=== PATIENT | male | born 1945 | race Caucasian/White ===

== ENCOUNTER → 2020-04-24 10:18 | Outpatient (BNVA) | payer MEDICARE, OTHER, SELFPAY | PROVIDERS: PCP Internal Medicine; Visit Provider Urology | DX: R39.15 Urgency of urination (principal); R35.1 Nocturia | CPT/HCPCS: 51798; 81003; 99214 ==

== ENCOUNTER → 2020-05-05 13:23 | Outpatient (BNVA) | payer MEDICARE, OTHER, SELFPAY | PROVIDERS: PCP Internal Medicine; Visit Provider Physician Assistant | DX: Z01.818 Encounter for other preprocedural examination (principal); M17.12 Unilateral primary osteoarthritis, left knee | CPT/HCPCS: 99214 ==

== ENCOUNTER 2020-05-09 06:05 | Day surgery (SDC) | payer MEDICARE, OTHER, SELFPAY ==
[2020-04-28 13:08] VITALS: BP 141/73; PULSE 96; RESP 16; O2SAT 96; BMI 27.4
--- NOTE | 2020-04-28 13:18 | P.CONAN_ITS ---
FORMERLY [facility] Past Medical History Medical History BPH (benign prostatic hyperplasia) History of double vision History of DVT (deep vein thrombosis) Hx of ulcerative colitis Hyperlipidemia Hypertension Hypothyroidism PND (post-nasal drip) Polycythemia vera Family History Family History Father No problems noted. Mother No problems noted. Surgical History Surgical History (Updated 04/27/20 @ 14:35 by Jenna Alford) H/O total hip arthroplasty History of cholecystectomy History of left hip replacement History of squamous cell carcinoma excision Social History Social History Smoking Status: Never smoker Meds Allergies Allergy/AdvReac Type Severity Reaction Status Date / Time No Known Allergies Allergy Verified 04/27/20 14:21 Home Medications Medication Instructions Recorded Confirmed Type amlodipine 10 mg tablet 10 mg PO DAILY 04/24/20 04/27/20 History citalopram 20 mg tablet 20 mg PO DAILY 04/24/20 04/27/20 History hydrochlorothiazide 25 mg tablet 25 mg PO QAM 04/24/20 04/27/20 History lisinopril 10 mg tablet 10 mg PO DAILY 04/24/20 04/27/20 History rivaroxaban 10 mg tablet 10 mg PO DAILY 04/24/20 04/27/20 History tamsulosin 0.4 mg capsule 0.8 mg PO DAILY 04/24/20 04/27/20 History Exam Exam Date and Time: April 28, 2020 1318 Airway Mallampati Class: II TM Dist: >3cm Neck ROM: Full Heart: RRR Lungs: CTA BL
[2020-04-28 13:24] VITALS: PULSE 56
--- NOTE | 2020-04-28 13:33 | P.CONAN_ITS ---
[facility] Past Medical History Medical History BPH (benign prostatic hyperplasia) History of double vision History of DVT (deep vein thrombosis) Hx of ulcerative colitis Hyperlipidemia Hypertension Hypothyroidism PND (post-nasal drip) Polycythemia vera Family History Family History Father No problems noted. Mother No problems noted. Surgical History Surgical History (Updated 04/27/20 @ 14:35 by Jenna Alford) H/O total hip arthroplasty History of cholecystectomy History of left hip replacement History of squamous cell carcinoma excision Social History Social History Smoking Status: Never smoker Meds Allergies Allergy/AdvReac Type Severity Reaction Status Date / Time No Known Allergies Allergy Verified 04/27/20 14:21 Home Medications Medication Instructions Recorded Confirmed Type amlodipine 10 mg tablet 10 mg PO DAILY 04/24/20 04/27/20 History citalopram 20 mg tablet 20 mg PO DAILY 04/24/20 04/27/20 History hydrochlorothiazide 25 mg tablet 25 mg PO QAM 04/24/20 04/27/20 History lisinopril 10 mg tablet 10 mg PO DAILY 04/24/20 04/27/20 History rivaroxaban 10 mg tablet 10 mg PO DAILY 04/24/20 04/27/20 History tamsulosin 0.4 mg capsule 0.8 mg PO DAILY 04/24/20 04/27/20 History Exam Exam Date and Time: April 28, 2020 1333 Height,Weight and Vital Signs: Height 6 ft 1 in Weight 94.347 kg Last Vital Signs Pulse 56 04/28/20 13:24 Resp 16 04/28/20 13:08 BP 141/73 H 04/28/20 13:08 Pulse Ox 96 04/28/20 13:08
--- NOTE | 2020-04-28 13:34 | P.CONAN_ITS ---
[facility] Past Medical History Medical History (Updated 04/28/20 @ 13:42 by Nica Kaplan) BPH (benign prostatic hyperplasia) History of double vision History of DVT (deep vein thrombosis) Hx of ulcerative colitis Hyperlipidemia Hypertension Hypothyroidism PND (post-nasal drip) Polycythemia vera Family History Family History Father No problems noted. Mother No problems noted. Surgical History Surgical History (Updated 04/27/20 @ 14:35 by Jenna Alford) H/O total hip arthroplasty History of cholecystectomy History of left hip replacement History of squamous cell carcinoma excision Social History Social History Smoking Status: Never smoker Meds Allergies Allergy/AdvReac Type Severity Reaction Status Date / Time No Known Allergies Allergy Verified 04/27/20 14:21 Home Medications Medication Instructions Recorded Confirmed Type amlodipine 10 mg tablet 10 mg PO DAILY 04/24/20 04/27/20 History citalopram 20 mg tablet 20 mg PO DAILY 04/24/20 04/27/20 History hydrochlorothiazide 25 mg tablet 25 mg PO QAM 04/24/20 04/27/20 History lisinopril 10 mg tablet 10 mg PO DAILY 04/24/20 04/27/20 History rivaroxaban 10 mg tablet 10 mg PO DAILY 04/24/20 04/27/20 History tamsulosin 0.4 mg capsule 0.8 mg PO DAILY 04/24/20 04/27/20 History Exam Exam Date and Time: April 28, 2020 1334 Height,Weight and Vital Signs: Height 6 ft 1 in Weight 94.347 kg Last Vital Signs Pulse 56 04/28/20 13:24 Resp 16 04/28/20 13:08 BP 141/73 H 04/28/20 13:08 Pulse Ox 96 04/28/20 13:08
--- NOTE | 2020-04-28 13:47 | HO.ANESPROP2 ---
[facility] Past Medical History Medical History BPH (benign prostatic hyperplasia) History of double vision History of DVT (deep vein thrombosis) Hx of ulcerative colitis Hyperlipidemia Hypertension Hypothyroidism PND (post-nasal drip) Polycythemia vera Family History Family History Father No problems noted. Mother No problems noted. Surgical History Surgical History (Updated 04/27/20 @ 14:35 by Jenna Alford) H/O total hip arthroplasty History of cholecystectomy History of left hip replacement History of squamous cell carcinoma excision Social History Social History (Reviewed 05/05/20 @ 13:35 by Sydnee Saleem [facility]) Are you a primary assisted living care manager to a significant other at home: No Do you presently have visiting nurse or other home services: No Smoking Status: Never smoker Use of substances other than those prescribed or required for medical reasons: Yes Have you been hit, kicked, punched, or otherwise hurt by someone within the past year? If so, by whom?: No Advance Directives: No Advance Directives Information Provided: No Advance Directives on File: No Recently lost weight without trying: No Meds Allergies Allergy/AdvReac Type Severity Reaction Status Date / Time No Known Allergies Allergy Verified 05/05/20 13:33 Home Medications Medication Instructions Recorded Confirmed Type hydrochlorothiazide 25 mg tablet 25 mg PO QAM 04/24/20 05/09/20 History lisinopril 10 mg tablet 10 mg PO DAILY 04/24/20 05/09/20 History rivaroxaban 10 mg tablet 10 mg PO DAILY 04/24/20 05/09/20 History tamsulosin 0.4 mg capsule 0.8 mg PO DAILY 04/24/20 05/09/20 History ascorbic acid (vitamin C) [Vitamin 1,000 mg PO BID 04/28/20 05/09/20 History C] cholecalciferol (vitamin D3) 25 mcg PO DAILY 04/28/20 05/09/20 History [Vitamin D3] magnesium citrate 250 mg PO DAILY 04/28/20 05/09/20 History omega-3 fatty acids [Fish Oil] 500 mg PO DAILY 04/28/20 05/09/20 History turmeric root extract 500 mg PO BID 04/28/20 05/09/20 History Exam Airway Mallampati Class: II TM Dist: >3cm Neck ROM: Full Loose/Missing/Broken Teeth: No Heart: rrr Lungs: nl Other: ao3 Assessment and Plan Assessment Anesthesia Assessment: Anesthesia Plan Discussed, PAT Visit and Chart Reviewed Final Anesthetic Review NPO: Yes ASA Class: III Final Preanesthetic Review: No Changes in Pt Med Stat, Meds/Allgs Chart Reviewed, Consent Obtained/Reviewed and Anes Risks/Benef Reviewed Patient Risk: Intermediate Procedure Risk: Intermediate Anesthetic Plan Anesthetic Plan: MAC:, Spinal and Regional Block Disposition: Standard PACU
[2020-04-28 15:45] LABS: MRSA Nasal PCR NEGATIVE (Negative); SA Nasal PCR NEGATIVE (Negative)
[2020-05-09] VITALS (20 sets, daily range): BP systolic 56–159; BP diastolic 34–71; PULSE 42–79; RESP 12–24; TEMP 35.7–36.6; O2SAT 90–100
--- NOTE | 2020-05-09 | XR_ITS ---
EXAMINATION: XR KNEE, LEFT CLINICAL INFORMATION: Left knee replacement COMPARISON: Previous x-ray December 2019 TECHNIQUE: Two views of the left knee. FINDINGS: There is a new 3 component left knee replacement in satisfactory position. No fracture or dislocation is seen. There are postoperative changes to the soft tissues. IMPRESSION: Satisfactory appearance of left knee replacement.
[2020-05-09] MEDS: Gabapentin 600 MG TABLET PO (07:06)
[2020-05-09] MEDS: Lactated Ringers 1,000 ML 100 ML IVCONT (07:08)
[2020-05-09] MEDS: ceFAZolin Sodium/Dextrose,Iso 2 GM/50 ML PIGGYBACK IV ×2 (07:25→17:57)
[2020-05-09 10:45] LABS: SARS COV2 PCR INHOUSE NEGATIVE (Negative)
--- NOTE | 2020-05-09 11:48 | P.BOP_ITS ---
Brief Operative Note Date of procedure: 05/09/20 Pre-op diagnosis: left knee oa Post-op diagnosis: same Procedure: left tka Implants: zurdo triathalon 12/24/09PS/32a Surgeon: Christopher Bauer MD Anesthesia: regional and spinal Blindstitch Lining Feller: Courtney Alston Estimated blood loss (mL): 200 Tourniquet time (min): 69 IV fluids (mL): 900 Pathology: other Condition: stable Disposition: PACU
--- NOTE | 2020-05-09 12:34 | OP_ITS ---
SURGEON: Christopher Bauer MD INDICATIONS: This is a 75-year-old gentleman with severe valgus osteoarthritis of the left knee, consented to undergo total knee replacement. PREOPERATIVE DIAGNOSIS: Left knee osteoarthritis. POSTOPERATIVE DIAGNOSIS: Left knee osteoarthritis. PROCEDURE PERFORMED: Left total knee arthroplasty. ESTIMATED BLOOD LOSS: 200 mL. COMPLICATIONS: None. ANESTHESIA: Regional and spinal. ASSISTANTS: JESSE Cherry. SPECIMENS: IMPLANTS: Brennan Triathlon 6 femur, 6 tibia with a 10 mm PS insert and a 32A patella. All press-fit. FLUIDS: 900. PROCEDURE IN DETAIL: The patient was brought to the operating room, placed supine on the operative table. Time-out was called to identify proper site, proper procedure, proper surgeon. IV antibiotics per weight was administered. I began by exsanguinating the limb and insufflating tourniquet to 300 mmHg. I then made a standard midline incision down to the retinaculum and performed a medial parapatellar arthrotomy. Fat pad resected and patella was everted. He had eburnation of the lateral compartment. Once this was done, I used Ayana's line to drill my intramedullary femoral guide, made my distal femoral cut in 5 degrees of valgus. I then sized a 6 femur, made my anterior, posterior, and chamfer cuts making sure to protect the posterior soft tissues and not to notch. I then made my box cut removing the PCL. Once this was done, I turned my attention to the tibia. Taking 2 mm off the low side in line with the tibial crest, I made a sizable resection given the posterior slope. Posterior soft tissues were protected at all times. Once this was done, I trialed the extension block and I was happy with the extension. Therefore, I trialed a 6 tibia with a 6 femur, and was happy with the range and stability. Therefore, the undersurface of the patella was resurfaced with an asymmetric patella given the lateral pull throughout the tracking motion. Again, the knee was trialed with the patellar button in place and I was happy with the tracking. There was no lateral subluxation were pulled. I then prepared the femoral and tibial metaphysis and removed all instrumentation. Copious irrigation was performed and then the tibia was press-fit in with the femur and the patella. I then trialed a 9 and 11 insert, and elected to go with a 10 mm insert. He had excellent stability with respect to varus, valgus, full motion and excellent tracking. A 3-minute iodine soak was then performed and a layered closure was performed. Then, total tourniquet time was 69 minutes. The patient was then awakened from sedation and brought to recovery room in stable condition. There were no known complications. MD SHAN Carrasco/JOHANNA / [id number]
--- NOTE | 2020-05-09 16:00 | P.CONIM_ITS ---
History of Present Illness Data of Consult Service Date: 05/09/20 Requesting physician: Segundo Norton Primary Care Provider: MD GEORGETTE Cornelius Reason for consult: Medical Consultation 75 Year old man with history of Hypertension, hyperlipidemia and hypothyroidism admitted by Orthopedic surgery and is status post Left knee surgery. Surgery was unremarkable. Patient has been able to eat and drink without any nausea or vomiting. Pain level is moderate. No acute medical complaints at this time. Review of Systems Review of Systems: Denies any recent fever chills or decrease in appetite respiratory denies any shortness of breath coverage production cardiovascular is adjustment of any PND or edema gastrointestinal denies any dysphagia abdominal pain nausea vomiting or diarrhea genitourinary denies any dysuria frequency or hematuria musculoskeletal Left knee pain neuropsych denies any weakness or seizures all other systems reviewed are negative [facility] Medical History (Updated 05/09/20 @ 16:02 by Edilma Aviles NP) BPH (benign prostatic hyperplasia) History of double vision History of DVT (deep vein thrombosis) Hx of ulcerative colitis Hyperlipidemia Hypertension Hypothyroidism PND (post-nasal drip) Polycythemia vera Family History Father No problems noted. Mother No problems noted. Surgical History (Updated 04/27/20 @ 14:35 by Jenna Alford) H/O total hip arthroplasty History of cholecystectomy History of left hip replacement History of squamous cell carcinoma excision Social History Household Members: Spouse Smoking Status: Never smoker Meds Allergies Allergy/AdvReac Type Severity Reaction Status Date / Time No Known Allergies Allergy Verified 05/05/20 13:33 Home Medications Medication Instructions Recorded Confirmed Type hydrochlorothiazide 25 mg tablet 25 mg PO QAM 04/24/20 05/09/20 History lisinopril 10 mg tablet 10 mg PO DAILY 04/24/20 05/09/20 History rivaroxaban 10 mg tablet 10 mg PO DAILY 04/24/20 05/09/20 History tamsulosin 0.4 mg capsule 0.8 mg PO DAILY 04/24/20 05/09/20 History ascorbic acid (vitamin C) [Vitamin 1,000 mg PO BID 04/28/20 05/09/20 History C] cholecalciferol (vitamin D3) 25 mcg PO DAILY 04/28/20 05/09/20 History [Vitamin D3] magnesium citrate 250 mg PO DAILY 04/28/20 05/09/20 History omega-3 fatty acids [Fish Oil] 500 mg PO DAILY 04/28/20 05/09/20 History turmeric root extract 500 mg PO BID 04/28/20 05/09/20 History Physical Exam Vital Signs and Narrative: Vital Signs: Last Vital Signs Temp 96.3 F L 05/09/20 15:03 Pulse 52 05/09/20 15:03 Resp 17 05/09/20 15:03 BP 109/55 L 05/09/20 15:03 Pulse Ox 98 05/09/20 15:03 Body Mass Index 27.4 Appearing in no acute distress head is normocephalic atraumatic eyes pupils are PERRLA sclera is anicteric mouth throat mucous membranes are intact and moist neck is supple no lymphadenopathy, no JVD noted lung sounds are clear to auscultation heart regular rate rhythm, clear S1, S2 positive bowel sounds, abdomen is soft, nontender MSK dressing to left knee clean and dry. neuro patient is alert x3, no focal deficits Results Labs Labs: Laboratory Tests 04/28/20 05/09/20 05/09/20 13:30 05:40 06:23 Nasal Screen MRSA (PCR) NEGATIVE Nasal S. aureus Screen NEGATIVE Nasal MRSA/S.aureus Interp SEE NOTE Coronavirus (PCR) NEGATIVE Blood Type O Positive Antibody Screen NEGATIVE Assessment and Plan (1) Hypothyroidism: Status: Acute (2) Hypertension: Status: Acute (3) Hyperlipidemia: Status: Acute (4) Patellofemoral arthritis of left knee: Status: Acute 75-year-old man status post left total knee arthroplasty. Left total knee arthroplasty. Management as per surgical team. Hypertension. Blood pressure on the lower side. Hold any antihypertensives. Hypothyroidism. Continue levothyroxine Hyperlipidemia. Continue statin. DVT prophylaxis with mechanical compression boots as per surgical team. Discussed with Dr. Joceline Sandoval code
[2020-05-09] MEDS: Dextrose 5 % and 0.9 % NaCl 1,000 ML 80 ML IVCONT (17:57)
[2020-05-09] MEDS: 0.9 % Sodium Chloride Flush 3 ML SYRINGE IVFLUSH ×2 (17:57→23:38)
[2020-05-09] MEDS: HYDROmorphone HCl 0.5 MG/0.5 ML SYRINGE 0.25 MG IVPUSH (18:03)
[2020-05-09] MEDS: oxyCODONE HCl Immed Release 5 MG TABLET PO ×2 (19:23→23:38)
[2020-05-09] MEDS: Acetaminophen 325 MG TABLET 650 MG PO ×2 (19:24→23:39)
[2020-05-09] MEDS: oxyCODONE HCl ER 10 MG TAB.ER.12H PO (21:42)
[2020-05-09] MEDS: Celecoxib 200 MG CAPSULE PO (21:42)
[2020-05-10] VITALS (10 sets, daily range): BP systolic 95–141; BP diastolic 49–70; PULSE 80–103; RESP 16–19; TEMP 36.4–36.8; O2SAT 93–97
[2020-05-10] MEDS: HYDROmorphone HCl 0.5 MG/0.5 ML SYRINGE 0.25 MG IVPUSH ×2 (00:50→22:56)
[2020-05-10] MEDS: Dextrose 5 % and 0.9 % NaCl 1,000 ML 80 ML IVCONT ×2 (05:22→17:45)
--- NOTE | 2020-05-10 05:53 | PC.NURSE ---
Alert and oriented x 4, coherent and conversant. Status post left TKR, intact bandage dressing with good CMS on distal foot. He complained of excruciating pain to surgical site, gave Oxycodone + Tylenol with very mild effect, Dilaudid 0.25 mg given after half hour with good effect. Patient verbalized of feeling way better. Voided 200 cc this AM and PVR was 167 this AM. Will continue care plan.
[2020-05-10 06:40] LABS: Basophils Percent Auto 0.2 % (0-2); Hematocrit 38.2 % (42-52); Hemoglobin 12.6 g/dl (14.0-18.0); Imm Gran Abs Auto 0.06 X10*3/uL (0.00-0.03); Imm Gran Pct Auto 0.4 % (0.0-0.4); Lymphocytes Absolute Auto 1.4 X10*3/uL (1.2-4.9); Lymphocytes Percent Auto 9.3 % (20-40); MANUAL DIFF FLAG SCAN; Mean Corpuscular Hemoglobin 29.4 pg (27.0-33.0); Mean Corpuscular Volume 89.3 fL (80-98); Mean Platelet Volume 10.1 fL (9.4-12.4); Monocytes Absolute Auto 1.8 X10*3/uL (0.1-1.2); Monocytes Percent Auto 11.9 % (2-11); Neutrophils Absolute Auto 11.9 X10*3/uL (2.0-8.3); Neutrophils Percent Auto 78.2 % (45-73); Platelet Count 209 X10*3/uL (160-400); Red Blood Count 4.28 X10*6/uL (4.60-5.80); Red Cell Distribution Width 14.4 % (11.0-16.0); SCAN SMEAR FLAG 1; White Blood Count 15.2 X10*3/uL (4.8-10.8)
[2020-05-10] MEDS: Acetaminophen 325 MG TABLET 650 MG PO (06:43)
[2020-05-10] MEDS: oxyCODONE HCl Immed Release 5 MG TABLET PO ×3 (06:43→17:40)
[2020-05-10 07:43] LABS: Anion Gap 13 (12-20); Blood Urea Nitrogen 24 mg/dL (9-16); Carbon Dioxide 24 mmol/L (22-29); Chloride 107 mmol/L (96-108); Creatinine Clr Calc Pharmacy 69.2; Estimated Glomerular Filt Rate > 60; Glucose Fasting 155 mg/dL (60-99); Potassium 4.2 mmol/l (3.3-5.1); Sodium 140 mmol/L (135-145)
--- NOTE | 2020-05-10 07:49 | PM.PNORT ---
Subjective Subjective Principal diagnosis: s/p LT TKA Interval history: POD1 pt. resting comfortably in bed. Some pain overnight controlled with medication. Has not been out of bed yet with p.t. Physical Exam Vital Signs: Vital Signs: Vital Signs Temp Pulse Resp BP Pulse Ox 05/10/20 07:36 97.6 F 94 19 95/68 97 05/10/20 04:00 97.6 F 103 H 18 122/70 97 05/10/20 00:50 19 05/10/20 00:15 98.3 F 91 18 127/69 97 05/09/20 19:30 97.8 F 62 17 102/58 L 100 05/09/20 15:03 96.3 F L 52 17 109/55 L 98 05/09/20 14:16 48 L 18 109/59 L 95 05/09/20 14:01 46 L 18 105/56 L 95 05/09/20 13:47 45 L 18 116/54 L 97 05/09/20 13:32 48 L 18 112/57 L 99 05/09/20 13:17 46 L 18 103/55 L 98 05/09/20 13:02 43 L 16 104/58 L 99 05/09/20 12:57 46 L 19 104/61 98 05/09/20 12:52 46 L 15 106/57 L 98 05/09/20 12:47 47 L 14 104/58 L 98 05/09/20 12:42 42 L 18 104/54 L 95 05/09/20 12:37 47 L 16 102/58 L 97 05/09/20 12:32 47 L 24 H 56/34 L 94 05/09/20 12:25 12 90 L 05/09/20 12:17 65 95/56 L 95 05/09/20 12:12 68 16 90/59 L 94 05/09/20 12:07 79 18 93/58 L 94 05/09/20 12:02 97.3 F 64 16 101/69 96 Body Mass Index 27.4 Const: General: cooperative, healthy appearing and no acute distress Resp: Effort & Inspection: normal respiratory effort and able to speak in complete sentences Cardio: Rate: regular rate Peripheral pulses: Peripheral pulses 2+ throughout GI: Inspection: Yes normal to inspection Palpation (GI): Soft to palpation Skin: General skin exam: no rashes or lesions noted Extrem: Other: lt knee bandage intact no drainage no erythema mild swelling calf supple nontender Progress Note: A&P Assessment and plan (1) Status post left knee replacement: Status: Acute Assessment and Plan: Continue pain management, work with p.t. for lt tka, begin lovenox for dvt ppx. dispo/planning: pending p.t. eval and pain management Fall Risk Details Current Medications: Current Medications Generic Name Dose Route Start Last Admin Trade Name Freq PRN Reason Stop Dose Admin Acetaminophen 650 mg 05/09/20 12:53 05/10/20 06:43 Acetaminophen 325 Mg Tablet PO 650 mg Q6H PRN Administration Pain, Mild (Pain Scale 1-3) Celecoxib 200 mg 05/09/20 21:00 05/09/20 21:42 Celecoxib 200 Mg Capsule PO 200 mg BID DANE Administration Hydromorphone HCl 0.25 mg 05/09/20 12:53 05/10/20 00:50 Hydromorphone Hcl 0.5 Mg/0.5 Ml Syringe IVPUSH 0.25 mg Q4H PRN Administration Pain, Severe (Pain Scale 7-10) Lactated Ringer's 1,000 mls @ 100 mls/hr 05/09/20 06:30 05/09/20 13:45 Lr IVCONT Infused .Q10H DANE Infusion Dextrose/Sodium Chloride 1,000 mls @ 80 mls/hr 05/09/20 13:00 05/10/20 05:22 D5ns IVCONT 80 mls/hr .[id number] DANE Administration Levothyroxine Sodium 75 mcg 05/10/20 09:00 Levothyroxine Sodium 75 Mcg Tablet PO DAILY DANE Naloxone HCl 0.2 mg 05/09/20 12:53 Naloxone Hcl 0.4 Mg/Ml Vial IVPUSH Q2M PRN Excessive sedation or RR < 8 Oxycodone HCl 5 mg 05/09/20 12:53 05/10/20 06:43 Oxycodone Hcl Immed Release 5 Mg Tablet PO 5 mg Q4H PRN Administration Pain, Moderate (Pain Scale 4-6 Oxycodone HCl 10 mg 05/09/20 21:00 05/09/20 21:42 Oxycodone Hcl Er 10 Mg Tab.Er.12h PO 10 mg BID DANE Administration Senna 17.2 mg 05/09/20 12:53 Sennosides 8.6 Mg Tablet PO BEDTIME PRN Constipation Sodium Chloride 3 ml 05/09/20 16:00 05/09/20 23:38 0.9 % Sodium Chloride Flush 3 Ml Syringe IVFLUSH 3 ml QSHIFT DANE Administration Time Spent With Patient Time: Total time spent is greater than 50% in coordination of care (as documented) at patient's floor/unit and/or counseling patient: Time with patient: 15 - 24 minutes
[2020-05-10 07:56] LABS: SLIDE REVIEW VERIFIED
[2020-05-10 08:01] LABS: Calcium 8.1 mg/dL (8.4-10.2)
--- NOTE | 2020-05-10 08:37 | MHC.CM.PN ---
pt lives c his in their home. he reports being independent in his care. his is able to help him if he needs it. this will include a ride home at mo. PT has not seen patient at this time but a ref. has been made to [facility] for [facility] and home PT. if the recomendations from PT are different - i.e. - STR then pt will be revisited and refs made to choice facilities. at this time mo plan is home c [facility] for nsg and home pt. cm to cont. to follow.
[2020-05-10] MEDS: Celecoxib 200 MG CAPSULE PO ×2 (08:42→21:23)
[2020-05-10] MEDS: oxyCODONE HCl ER 10 MG TAB.ER.12H PO ×2 (08:42→21:23)
[2020-05-10] MEDS: Levothyroxine Sodium 75 MCG TABLET PO (08:42)
[2020-05-10] MEDS: 0.9 % Sodium Chloride Flush 3 ML SYRINGE IVFLUSH ×2 (08:44→21:28)
--- NOTE | 2020-05-10 09:26 | HO.POSTANES ---
Post Anesthesia Evaluation Post Anesthesia Evaluation Vital Signs: Vital Signs Temp Pulse Resp BP Pulse Ox 05/10/20 07:36 97.6 F 94 19 95/68 97 05/10/20 04:00 97.6 F 103 H 18 122/70 97 05/10/20 00:50 19 05/10/20 00:15 98.3 F 91 18 127/69 97 Anesthesia: Spinal Mental Status: Awake Pain Control: Satisfactory Nausea/Vomiting: None Hydration: Adequate Anesthesia-Related Issues: No Anes. Related Issues
[2020-05-10] MEDS: Enoxaparin Sodium 40 MG/0.4 ML SYRINGE SUBCUT (11:55)
--- NOTE | 2020-05-10 14:02 | HO.PM.IMPN ---
Subjective Subjective Interval History: patient seen and examined at bedside patient reported pain at surgical site Physical Exam Vital Signs: Vital Signs: Vital Signs Temp Pulse Resp BP Pulse Ox 05/10/20 11:20 97.7 F 80 17 96/53 L 97 05/10/20 07:36 97.6 F 94 19 95/68 97 05/10/20 04:00 97.6 F 103 H 18 122/70 97 05/10/20 00:50 19 05/10/20 00:15 98.3 F 91 18 127/69 97 05/09/20 19:30 97.8 F 62 17 102/58 L 100 05/09/20 15:03 96.3 F L 52 17 109/55 L 98 05/09/20 14:16 48 L 18 109/59 L 95 Body Mass Index 27.4 Appearing in no acute distress head is normocephalic atraumatic eyes pupils are PERRLA sclera is anicteric mouth throat mucous membranes are intact and moist neck is supple no lymphadenopathy, no JVD noted lung sounds are clear to auscultation heart regular rate rhythm, clear S1, S2 positive bowel sounds, abdomen is soft, nontender MSK dressing to left knee clean and dry. neuro patient is alert x3, no focal deficits Objective Data Current Medications Generic Name Dose Route Start Last Admin Trade Name Freq PRN Reason Stop Dose Admin Acetaminophen 650 mg 05/09/20 12:53 05/10/20 06:43 Acetaminophen 325 Mg Tablet PO 650 mg Q6H PRN Administration Pain, Mild (Pain Scale 1-3) Celecoxib 200 mg 05/09/20 21:00 05/10/20 08:42 Celecoxib 200 Mg Capsule PO 200 mg BID DANE Administration Enoxaparin Sodium 40 mg 05/10/20 11:00 05/10/20 11:55 Enoxaparin Sodium 40 Mg/0.4 Ml Syringe SUBCUT 40 mg Q24H DANE Administration Hydromorphone HCl 0.25 mg 05/09/20 12:53 05/10/20 00:50 Hydromorphone Hcl 0.5 Mg/0.5 Ml Syringe IVPUSH 0.25 mg Q4H PRN Administration Pain, Severe (Pain Scale 7-10) Lactated Ringer's 1,000 mls @ 100 mls/hr 05/09/20 06:30 05/09/20 13:45 Lr IVCONT Infused .Q10H DANE Infusion Dextrose/Sodium Chloride 1,000 mls @ 80 mls/hr 05/09/20 13:00 05/10/20 05:22 D5ns IVCONT 80 mls/hr .[id number] DANE Administration Levothyroxine Sodium 75 mcg 05/10/20 09:00 05/10/20 08:42 Levothyroxine Sodium 75 Mcg Tablet PO 75 mcg DAILY DANE Administration Naloxone HCl 0.2 mg 05/09/20 12:53 Naloxone Hcl 0.4 Mg/Ml Vial IVPUSH Q2M PRN Excessive sedation or RR < 8 Oxycodone HCl 5 mg 05/09/20 12:53 05/10/20 11:55 Oxycodone Hcl Immed Release 5 Mg Tablet PO 5 mg Q4H PRN Administration Pain, Moderate (Pain Scale 4-6 Oxycodone HCl 10 mg 05/09/20 21:00 05/10/20 08:42 Oxycodone Hcl Er 10 Mg Tab.Er.12h PO 10 mg BID DANE Administration Senna 17.2 mg 05/09/20 12:53 Sennosides 8.6 Mg Tablet PO BEDTIME PRN Constipation Sodium Chloride 3 ml 05/09/20 16:00 05/10/20 08:44 0.9 % Sodium Chloride Flush 3 Ml Syringe IVFLUSH 3 ml QSHIFT DANE Administration Labs CBC & Chem 7: 05/10/20 06:05 05/10/20 06:05 Assessment and Plan (1) Hypothyroidism: Status: Acute (2) Hypertension: Status: Acute (3) Hyperlipidemia: Status: Acute (4) Patellofemoral arthritis of left knee: Status: Acute Assessment and Plan: 75-year-old man status post left total knee arthroplasty. Left total knee arthroplasty. Management as per surgical team. Hypertension. Blood pressure on the lower side likely postop Hold any antihypertensives. continue IV fluid monitor blood pressure Hypothyroidism. Continue levothyroxine Hyperlipidemia. Continue statin. DVT prophylaxis with Lovenox per Ortho
[2020-05-11] MEDS: Dextrose 5 % and 0.9 % NaCl 1,000 ML 80 ML IVCONT (00:44)
[2020-05-11 04:09] VITALS: BP 117/50; PULSE 75; RESP 16; TEMP 36.6; O2SAT 93
[2020-05-11 06:21] LABS: MANUAL DIFF FLAG NO
[2020-05-11 06:35] LABS: Basophils Percent Auto 0.2 % (0-2); Eosinophils Absolute Auto 0.1 X10*3/uL (0.0-0.4); Eosinophils Percent Auto 0.6 % (0-4); Hemoglobin 9.2 g/dl (14.0-18.0); Imm Gran Abs Auto 0.08 X10*3/uL (0.00-0.03); Imm Gran Pct Auto 0.6 % (0.0-0.4); Lymphocytes Absolute Auto 1.4 X10*3/uL (1.2-4.9); Lymphocytes Percent Auto 10.7 % (20-40); Mean Corpuscular HGB Conc 32.9 g/dl (31.0-36.0); Mean Corpuscular Hemoglobin 29.1 pg (27.0-33.0); Mean Corpuscular Volume 88.6 fL (80-98); Mean Platelet Volume 10.2 fL (9.4-12.4); Monocytes Absolute Auto 1.3 X10*3/uL (0.1-1.2); Neutrophils Absolute Auto 10.2 X10*3/uL (2.0-8.3); Neutrophils Percent Auto 77.9 % (45-73); Platelet Count 157 X10*3/uL (160-400); Red Blood Count 3.16 X10*6/uL (4.60-5.80); Red Cell Distribution Width 14.2 % (11.0-16.0); White Blood Count 13.1 X10*3/uL (4.8-10.8)
[2020-05-11 06:56] LABS: Anion Gap 10 (12-20); Blood Urea Nitrogen 19 mg/dL (9-16); Calcium 7.7 mg/dL (8.4-10.2); Carbon Dioxide 23 mmol/L (22-29); Chloride 110 mmol/L (96-108); Creatinine Clr Calc Pharmacy 75.1; Estimated Glomerular Filt Rate > 60; Glucose Random 136 mg/dL (60-115); Sodium 139 mmol/L (135-145)
[2020-05-11 07:06] VITALS: BP 114/52; PULSE 72; RESP 18; TEMP 36.6; O2SAT 97
[2020-05-11] MEDS: oxyCODONE HCl ER 10 MG TAB.ER.12H PO (08:18)
[2020-05-11] MEDS: oxyCODONE HCl Immed Release 5 MG TABLET 10 MG PO (08:18)
[2020-05-11] MEDS: Levothyroxine Sodium 75 MCG TABLET PO (08:18)
[2020-05-11] MEDS: Celecoxib 200 MG CAPSULE PO (08:18)
[2020-05-11 10:56] VITALS: BP 119/56; PULSE 73; RESP 18; TEMP 36.4; O2SAT 95
--- NOTE | 2020-05-11 12:22 | P.DS_ITS ---
DS: Providers Provider Primary care physician: Vaibhav Land MD Consults: 05/09/20 12:53 Consult to Hospitalist Routine Consulting Provider: Hospitalist Reason for consultation: Medical management DS: Diagnosis Discharge Diagnosis (1) Status post left knee replacement: Status: Acute Problem details: Mr. Ludwig is a 75-year-old gentleman who presented to our office for ongoing left knee pain. He continued to have difficulty with daily activities and ambulation after failing all conservative measurements therefore he consented to move forward with a left total knee arthroplasty. DS: Summary Hospital Course Hospital Course: Patient underwent a successful left total knee arthroplasty. He was transferred to PACU then to the floor he recovered. During his stay his vitals were stable afebrile at 97.6. Labs unremarkable hemoglobin 9.2 hematocrit 28.0. Postop day 1 he was started on Lovenox 40 mg subcu once a day for DVT prophylaxis he also received physical therapy twice a day. Prior to discharge his Aquacel dressing was changed incision clean dry and intact new Aquacel dressing applied and plan is to be discharged home with VNA services. Time spent discussing smoking cessation with patient: more than 10 minutes Status at Discharge Functional status at discharge: uses cane/walker Time Spent with Patient Time attestation: Total time spent providing and/or coordinating discharge services: Physical Exam Vital Signs: Vital Signs: Vital Signs Temp Pulse Resp BP Pulse Ox 05/11/20 10:56 97.6 F 73 18 119/56 L 95 05/11/20 07:06 97.9 F 72 18 114/52 L 97 05/11/20 04:09 97.9 F 75 16 117/50 L 93 05/10/20 23:34 982 F H 81 16 116/61 94 05/10/20 22:56 18 05/10/20 22:49 135/63 05/10/20 19:22 97.8 F 80 19 107/49 L 94 05/10/20 15:38 98.2 F 86 19 141/59 H 93 Body Mass Index 27.4 Extrem: Other: Left knee meagan intact. Incision clean dry and intact. No drainage. No erythema. Mild swelling. Calf supple nontender. DS: Data Data Completed and Pending Completed studies during hospitalization [Text1]: Pending at discharge 05/09/20 11:16 Surgical [PTH] Routine Labs on day of discharge: Labs from last 24 hours 05/11/20 05/11/20 06:05 06:05 WBC 13.1 H RBC 3.16 L D Hgb 9.2 L D Hct 28.0 L D MCV 88.6 MCH 29.1 MCHC 32.9 RDW 14.2 Plt Count 157 L MPV 10.2 Immature Gran % (Auto) 0.6 H Neut % (Auto) 77.9 H Lymph % (Auto) 10.7 L Dukes % (Auto) 10.0 Eos % (Auto) 0.6 Baso % (Auto) 0.2 Lymph # (Auto) 1.4 Dukes # (Auto) 1.3 H Eos # (Auto) 0.1 Baso # (Auto) 0.0 Abs Immat Gran (auto) 0.08 H Absolute Neuts (auto) 10.2 H Absolute Nucleated RBC 0.000 Nucleated RBC % (auto) 0.0 Sodium 139 Potassium 4.0 Chloride 110 H Carbon Dioxide 23 Anion Gap 10 L BUN 19 H Creatinine 0.93 Estim Creat Clear Calc 75.1 Estimated GFR > 60 Random Glucose 136 H Calcium 7.7 L Discharge Plan Discharge Patient Disposition: Home, Self-Care Referrals: Courtney Alston PA-C [Physician Personal Fitness Manager] - (Post op appt 05/25/20 @ 12:15) Discharge Medications: New acetaminophen 325 mg Tablet 650 mg PO Q6H PRN (Reason: Pain, Mild (Pain Scale 1-3)) 30 Days Qty: 240 RF: 0 celecoxib 200 mg Capsule 200 mg PO BID 30 Days Qty: 60 RF: 0 oxycodone 10 mg tablet 10 mg PO Q4H PRN (Reason: Pain, Moderate (Pain Scale 4-6) 7 Days Qty: 42 RF: 0 sennosides [Senna Lax] 8.6 mg Tablet 17.2 mg PO BEDTIME PRN (Reason: Constipation) 30 Days Qty: 30 RF: 0 Continued levothyroxine 75 mcg tablet 75 mcg PO DAILY 90 Days Qty: 90 RF: 0 ascorbic acid (vitamin C) [Vitamin C] 1,000 mg Tablet 1,000 mg PO BID RF: 0 turmeric root extract 500 mg Capsule 500 mg PO BID RF: 0 magnesium citrate 125 mg Capsule 250 mg PO DAILY RF: 0 cholecalciferol (vitamin D3) [Vitamin D3] 25 mcg (1,000 unit) Tablet 25 mcg PO DAILY RF: 0 oxybutynin chloride [Ditropan XL] 5 mg tablet extended release 24hr 5 mg PO DAILY Qty: 30 RF: 6 Held omega-3 fatty acids 500 mg Capsule 500 mg PO DAILY RF: 0 Hold Instructions: Resume on 05/25/20. Discharge Orders: Discharge Order (Routine); Ordered 05/11/20 Ordered By: Courtney Alston Activity Restrictions/Additional Instructions: * Physical Therapy for ROM 0-120, quad strength, gait training . Use walker for ambulation * Limit stair climbing, No shower, No tub bath, No driving * Resume Xarelto * Keep Aquacel dressing clean, dry and intact. * Follow up with orthopedics in 2 weeks
== END 2020-05-11 15:18 | disposition home or self-care (01) ==
LOC: HO.SSS 07:16 → HO.S3 14:07
PROVIDERS: Physician Assistant; PCP Internal Medicine; Visit Provider Orthopaedic Surgery
PROC: (CPT 27447; principal; 2020-05-09 07:30)
DX: M17.12 Unilateral primary osteoarthritis, left knee (principal); Z96.652 Presence of left artificial knee joint; Z96.643 Presence of artificial hip joint, bilateral; E03.9 Hypothyroidism, unspecified; I10 Essential (primary) hypertension; E78.5 Hyperlipidemia, unspecified; D45 Polycythemia vera; Z20.828 Contact with and (suspected) exposure to other viral communicable diseases; Z86.718 Personal history of other venous thrombosis and embolism; F12.90 Cannabis use, unspecified, uncomplicated; Z79.899 Other long term (current) drug therapy; Z79.01 Long term (current) use of anticoagulants; Z85.89 Personal history of malignant neoplasm of other organs and systems
CPT/HCPCS: 27447; 36415; 73560; 80048; 85025; 86850; 86900; 86901; 87635; 87640; 87641; 88305; 88311; 97110; 97116; 97161; 97530; C1776; J0690; J1170; J1650

== ENCOUNTER → 2020-05-25 11:59 | Outpatient (BNVA) | payer MEDICARE, OTHER, SELFPAY | PROVIDERS: PCP Internal Medicine; Visit Provider Physician Assistant | DX: Z96.652 Presence of left artificial knee joint (principal); Z96.642 Presence of left artificial hip joint; M17.12 Unilateral primary osteoarthritis, left knee | CPT/HCPCS: 99212 ==

== ENCOUNTER → 2020-06-22 08:45 | Outpatient (BNVA) | payer MEDICARE, OTHER, SELFPAY | PROVIDERS: Visit Provider Orthopaedic Surgery | DX: Z96.652 Presence of left artificial knee joint (principal) | CPT/HCPCS: 99212 ==

== ENCOUNTER → 2020-08-03 09:04 | Outpatient (BNVA) | payer MEDICARE, OTHER, SELFPAY | PROVIDERS: PCP Internal Medicine; Visit Provider Orthopaedic Surgery | DX: Z47.1 Aftercare following joint replacement surgery (principal); Z96.652 Presence of left artificial knee joint | CPT/HCPCS: 99212 ==

== ENCOUNTER → 2020-08-18 13:16 | Outpatient (BNVA) | payer MEDICARE, OTHER, SELFPAY | PROVIDERS: PCP Internal Medicine; Visit Provider Urology | DX: N39.41 Urge incontinence (principal) | CPT/HCPCS: Q3014 ==

== ENCOUNTER 2020-11-10 07:37 | Outpatient (REF) | payer MEDICARE, OTHER, SELFPAY ==
--- NOTE | ~2020-11-10 | XR_ITS ---
EXAMINATION: XR SHOULDER, RIGHT CLINICAL INFORMATION: Right shoulder pain COMPARISON: None TECHNIQUE: Three views of the right shoulder. FINDINGS: Spurring and degenerative cyst formation of the lesser tuberosity. Mild marginal osteophytes of the glenohumeral joint. Minimal spurring of the greater tuberosity. Moderate acromioclavicular osteoarthritis. No acute abnormality. XR/XR shoulder RT min 2V IMPRESSION: [id number] degenerative changes of the acromioclavicular and glenohumeral joint. No acute abnormality.
== END 2020-11-10 07:38 | disposition home or self-care (01) ==
LOC: HO.HOSX 07:37
PROVIDERS: Visit Provider Physician Assistant
DX: M75.41 Impingement syndrome of right shoulder (principal)
CPT/HCPCS: 20610; 73030; 99212; J1040

== ENCOUNTER 2020-11-27 11:39 | Outpatient (REF) | payer MEDICARE, OTHER, SELFPAY ==
[2020-11-27 14:11] LABS: Glucose Urine UA NEG (NEG); Leukocyte Esterase Urine NEG (NEG); Nitrite Urine NEG (NEG); PH 5.5 (5.0-8.0); Specific Gravity - Urine 1.015 (1.005-1.025); Urine Blood 1+ (NEG); Urine Ketones NEG (NEG); Urine Protein NEG (NEG-TRACE)
[2020-11-27 14:23] LABS: Appearance Urine CLEAR; Color Urine YELLOW
[2020-11-27 14:39] LABS: Alanine Aminotransferase 13 U/L (0-40); Albumin Level 4.4 g/dL (3.5-5.0); Alkaline Phosphatase 101 U/L (39-117); Anion Gap 16 (12-20); Aspartate Amino Transferase 16 U/L (5-37); Bilirubin Direct 0.2 mg/dL (0.0-0.5); Bilirubin Total 0.5 mg/dL (0.0-1.0); Blood Urea Nitrogen 17 mg/dL (9-16); C Reactive Protein 0.19 mg/dL (< or = 0.50); Calcium 9.6 mg/dL (8.4-10.2); Carbon Dioxide 26 mmol/L (22-29); Chloride 103 mmol/L (96-108); Cholesterol 217 mg/dL; Estimated Glomerular Filt Rate > 60; Glucose Random 81 mg/dL (60-115); HDL Cholesterol 44 mg/dL; LDL Cholesterol Calculated 143 mg/dl; Potassium 5.1 mmol/L (3.3-5.1); Sodium 140 mmol/L (135-145); Total Protein 7.4 g/dL (6.5-8.0); Triglycerides 153 mg/dL
[2020-11-27 14:39] LABS: Squamous Epithelial Cell Urine TRACE /LPF; WBC Urine 0 /HPF (0-4)
[2020-11-27 15:05] LABS: Prostate Specific Antigen Scr 2.89 ng/mL (<0.05-4.0)
== END 2020-11-27 11:40 | disposition home or self-care (01) ==
LOC: HO.10HDL 11:39
PROVIDERS: Visit Provider Internal Medicine
DX: Z12.5 Encounter for screening for malignant neoplasm of prostate (principal); E78.01 Familial hypercholesterolemia; I10 Essential (primary) hypertension; R39.15 Urgency of urination
CPT/HCPCS: 36415; 80048; 80061; 80076; 81001; 81003; 84153; 86140

== ENCOUNTER → 2021-02-06 08:53 | Outpatient (BNV) | payer MEDICARE, OTHER, SELFPAY | PROVIDERS: PCP Internal Medicine; Visit Provider Internal Medicine | DX: D75.1 Secondary polycythemia (principal); Z86.718 Personal history of other venous thrombosis and embolism; Z86.711 Personal history of pulmonary embolism | CPT/HCPCS: 99213; 99214 ==

== ENCOUNTER 2021-03-16 08:13 | Outpatient (REF) | payer MEDICARE, OTHER, SELFPAY ==
--- NOTE | ~2021-03-16 | FL_ITS ---
EXAMINATION: FL BARIUM SWALLOW CLINICAL INFORMATION: Dysphagia upper cervical region. Remote history of head and neck cancer. COMPARISON: Report PET/CT 04/20/2008, report CT neck 08/29/2008. CT CTA chest 12/09/2013. TECHNIQUE: Barium swallow examination is performed using fluoroscopic evaluation in addition to multiple fluoroscopic spot views, including cine images during swallowing. Barium pill also used. The patient is imaged both upright and prone and using both thick and thin sulfate along with effervescent granules. Fluoroscopy time: 1.7 minutes DAP: 6.721 Gycm2 Images: 621 FINDINGS: There is prompt swallowing with no nasopharyngeal or laryngeal aspiration. After swallowing, there is some slight residual pooling of contrast in the left piriform sinus which is able to clear with successive swallowing. The cervical esophagus has no web or diverticulum or stricture. The cervical thoracic junction appears normal. The thoracic esophagus shows normal motility with no obstruction, stricture, or ulceration. There is no hiatal hernia seen despite use of prone Valsalva. There is mild gastroesophageal reflux noted during the water siphon test to mid thoracic esophagus. No spontaneous reflux. Upper abdomen shows no gastric outlet obstruction. FL/FL barium swallow IMPRESSION: 1. Minor pooling of contrast after swallowing in the left piriform sinus which is able to clear with additional swallowing. 2. No cervical web or diverticulum. No aspiration. 3. Mild gastroesophageal reflux during water siphon test to mid thoracic esophagus.
== END 2021-03-16 08:14 | disposition home or self-care (01) ==
LOC: HO.XRAY 08:13
PROVIDERS: PCP Internal Medicine; Visit Provider Otolaryngology
DX: R13.10 Dysphagia, unspecified (principal); K21.9 Gastro-esophageal reflux disease without esophagitis
CPT/HCPCS: 74220

== ENCOUNTER → 2021-03-20 14:14 | Outpatient (BNVA) | payer MEDICARE, OTHER, SELFPAY | PROVIDERS: PCP Internal Medicine | DX: N40.1 Benign prostatic hyperplasia with lower urinary tract symptoms (principal); N39.41 Urge incontinence | CPT/HCPCS: Q3014 ==

== ENCOUNTER 2021-04-20 13:43 | Outpatient (REF) | payer MEDICARE, OTHER, SELFPAY ==
[2021-04-20 14:36] LABS: Alanine Aminotransferase 11 U/L (0-40); Albumin Level 4.3 g/dL (3.5-5.0); Alkaline Phosphatase 96 U/L (39-117); Amylase 48 U/L (28-100); Aspartate Amino Transferase 13 U/L (5-37); Bilirubin Direct 0.3 mg/dL (0.0-0.5); Bilirubin Total 0.8 mg/dL (0.0-1.0); Lipase 18 U/L (8-78); Total Protein 7.2 g/dL (6.5-8.0)
== END 2021-04-20 13:44 | disposition home or self-care (01) ==
LOC: HO.LAB 13:43
PROVIDERS: PCP Internal Medicine; Visit Provider Nurse Practitioner Family
DX: R10.30 Lower abdominal pain, unspecified (principal); E78.5 Hyperlipidemia, unspecified
CPT/HCPCS: 36415; 80076; 82150; 83690

== ENCOUNTER 2021-04-24 | Outpatient (REF) | payer MEDICARE, OTHER, SELFPAY | END 2021-04-24 00:01 | disposition home or self-care (01) | LOC: HO.LNP | PROVIDERS: Visit Provider Nurse Practitioner Family | DX: Z11.0 Encounter for screening for intestinal infectious diseases (principal) | CPT/HCPCS: 87338 ==

== ENCOUNTER 2021-04-26 11:43 | Outpatient (REF) | payer MEDICARE, OTHER, SELFPAY | END 2021-04-26 11:44 | disposition home or self-care (01) | LOC: HO.LNP 11:43 | PROVIDERS: Visit Provider Nurse Practitioner Family | DX: Z13.89 Encounter for screening for other disorder (principal) ==

== ENCOUNTER 2021-05-14 08:33 | Outpatient (REF) | payer MEDICARE, OTHER, SELFPAY ==
--- NOTE | ~2021-05-14 | XR_ITS ---
EXAMINATION: XR KNEE, LEFT XR KNEE, STANDING CLINICAL INFORMATION: Pain COMPARISON: Knee radiographs on 05/09/2020 and 12/29/2019 TECHNIQUE: Four views of the left knee including standing views. FINDINGS: Left knee: Prosthetic components of the left total knee arthroplasty are appropriately aligned without periprosthetic fracture or abnormal lucency. No component migration. No joint effusion. Right knee: Mild loss of medial marginal joint space. Mild chondrocalcinosis. XR/XR knee standing BI IMPRESSION: Appropriate alignment of the left total knee arthroplasty without evidence of complications. Mild degenerative disease of the right knee.
--- NOTE | ~2021-05-14 | XR_ITS ---
EXAMINATION: XR KNEE, LEFT XR KNEE, STANDING CLINICAL INFORMATION: Pain COMPARISON: Knee radiographs on 05/09/2020 and 12/29/2019 TECHNIQUE: Four views of the left knee including standing views. FINDINGS: Left knee: Prosthetic components of the left total knee arthroplasty are appropriately aligned without periprosthetic fracture or abnormal lucency. No component migration. No joint effusion. Right knee: Mild loss of medial marginal joint space. Mild chondrocalcinosis. XR/XR knee LT 2V IMPRESSION: Appropriate alignment of the left total knee arthroplasty without evidence of complications. Mild degenerative disease of the right knee.
== END 2021-05-14 08:34 | disposition home or self-care (01) ==
LOC: HO.HOSX 08:33
PROVIDERS: Visit Provider Orthopaedic Surgery
DX: Z96.652 Presence of left artificial knee joint (principal)
CPT/HCPCS: 73560; 73565; 99212

== ENCOUNTER 2021-05-17 08:25 | Outpatient (REF) | payer MEDICARE, OTHER, SELFPAY ==
--- NOTE | ~2021-05-17 | US_ITS ---
EXAMINATION: US RETROPERITONEAL COMPLETE (RENAL) CLINICAL INFORMATION: BPH. UTI. COMPARISON: None TECHNIQUE: Real-time imaging of the kidneys and bladder. FINDINGS: RIGHT KIDNEY: 10.4 x 4.4 x 5.5 cm (SAG x AP x TRV). The kidney is normal in size, contour, and echogenicity. Renal cortical thickness is normal. No renal calculi or hydronephrosis. Simple cyst at the lower pole measures 0.7 cm. No follow-up imaging recommended. There is also a hyperechoic cortical lesion at the midpole measuring 0.5 cm which may represent an angiomyolipoma. LEFT KIDNEY: 10.2 x 5.3 x 5.4 cm (SAG x AP x TRV). The kidney is normal in size, contour, and echogenicity. Renal cortical thickness is normal. No renal calculi or hydronephrosis. Simple cysts are present measuring 2.8 cm at the upper pole and 1.7 cm at the midpole. No follow-up imaging recommended. BLADDER: Well distended and normal. Bilateral ureteral jets are demonstrated. Prevoid bladder volume is 268 mL. Postvoid bladder volume is 24.5 mL. ADDITIONAL FINDINGS: Enlarged prostate with a volume of 68 mL. US/US retroperitoneal comp IMPRESSION: Enlarged prostate. Post void bladder residual volume of 24.5 mL. No hydronephrosis.
== END 2021-05-17 08:26 | disposition home or self-care (01) ==
LOC: HO.HMGCX 08:25
PROVIDERS: PCP Internal Medicine; Visit Provider Urology
DX: N40.1 Benign prostatic hyperplasia with lower urinary tract symptoms (principal)
CPT/HCPCS: 76770

== ENCOUNTER 2021-05-29 10:18 | Outpatient (REF) | payer MEDICARE, OTHER, SELFPAY ==
--- NOTE | ~2021-05-29 | US_ITS ---
EXAMINATION: US ABDOMEN COMPLETE CLINICAL INFORMATION: Lower abdominal pain, unspecified. COMPARISON: Retroperitoneal ultrasound 05/17/2021. TECHNIQUE: Real-time imaging of the abdominal viscera. FINDINGS: PANCREAS: Not well visualized due to bowel gas. ABDOMINAL AORTA: The mid and distal segments are normal in caliber. The proximal aorta is not well visualized due to bowel gas. INFERIOR VENA CAVA: Visualized portions are normal. LIVER: Left lobe is not well visualized. The liver is normal in size. The liver contour is normal. Parenchymal echogenicity is normal. No focal hepatic lesion. There is no intrahepatic biliary duct dilatation seen. GALLBLADDER: Surgically absent. COMMON BILE DUCT: Normal in caliber measuring 0.45 cm in diameter. RIGHT KIDNEY: Normal. No hydronephrosis. No renal calculi or focal parenchymal lesions. The kidney measures 11.1 cm in maximum dimension. LEFT KIDNEY: There are 2 left renal cysts measuring 1.5 x 1.8 x 2.4 cm and 2 x 1.8 x 1.8 cm in the upper pole. No hydronephrosis or renal calculi. The kidney measures 10.0 cm in maximum dimension. SPLEEN: Normal. The spleen measures 9.4 cm in maximum dimension. FREE FLUID: None. US/US abdomen complete IMPRESSION: Limited visualization of the left lobe of the liver, pancreas and aorta. Left renal cysts.
== END 2021-05-29 10:19 | disposition home or self-care (01) ==
LOC: HO.US 10:18
PROVIDERS: Visit Provider Nurse Practitioner Family
DX: R10.30 Lower abdominal pain, unspecified (principal); E78.5 Hyperlipidemia, unspecified; N40.1 Benign prostatic hyperplasia with lower urinary tract symptoms
CPT/HCPCS: 76700

== ENCOUNTER 2021-10-02 07:23 | Outpatient (REF) | payer MEDICARE, OTHER, SELFPAY ==
[2021-10-02 08:26] LABS: Hematocrit 49.1 % (42.0-52.0); Hemoglobin 15.8 g/dl (14.0-18.0); Mean Corpuscular HGB Conc 32.2 g/dl (31.0-36.0); Mean Corpuscular Hemoglobin 28.9 pg (27.0-33.0); Mean Corpuscular Volume 89.8 fL (80.0-98.0); Mean Platelet Volume 10.2 fL (9.4-12.4); Platelet Count 228 X10*3/uL (160-400); Red Blood Count 5.47 X10*6/uL (4.60-5.80); Red Cell Distribution Width 14.3 % (11.0-16.0); White Blood Count 8.2 X10*3/uL (4.8-10.8)
[2021-10-02 08:44] LABS: Alanine Aminotransferase 34 U/L (0-40); Alkaline Phosphatase 107 U/L (39-117); Anion Gap 13 (12-20); Aspartate Amino Transferase 27 U/L (5-37); Bilirubin Direct 0.2 mg/dL (0.0-0.5); Bilirubin Total 0.5 mg/dL (0.0-1.0); Blood Urea Nitrogen 22 mg/dL (9-16); Calcium 9.1 mg/dL (8.4-10.2); Carbon Dioxide 26 mmol/L (22-29); Chloride 105 mmol/L (96-108); Cholesterol 193 mg/dL; Estimated Glomerular Filt Rate > 60; Glucose Random 96 mg/dL (60-115); HDL Cholesterol 31 mg/dL; LDL Cholesterol Calculated 134 mg/dl; Potassium 4.7 mmol/L (3.3-5.1); Sodium 139 mmol/L (135-145); Total Protein 6.7 g/dL (6.5-8.0); Triglycerides 142 mg/dL
[2021-10-02 09:11] LABS: Appearance Urine CLEAR; Color Urine YELLOW; Glucose Urine UA NEG (NEG); Leukocyte Esterase Urine TRACE (NEG); Nitrite Urine NEG (NEG); PH 5.5 (5.0-8.0); Urine Blood 1+ (NEG); Urine Ketones NEG (NEG); Urine Protein NEG (NEG-TRACE)
[2021-10-02 09:38] LABS: Bacteria Urine TRACE /LPF; Squamous Epithelial Cell Urine TRACE /LPF
== END 2021-10-02 07:24 | disposition home or self-care (01) ==
LOC: HO.LAB 07:23
PROVIDERS: PCP Internal Medicine; Visit Provider Internal Medicine
DX: I10 Essential (primary) hypertension (principal)
CPT/HCPCS: 36415; 80048; 80061; 80076; 81001; 81003; 85027

== ENCOUNTER 2021-12-26 12:48 | Outpatient (REF) | payer MEDICARE, OTHER, SELFPAY ==
--- NOTE | ~2021-12-26 | XR_ITS ---
EXAMINATION: XR LUMBOSACRAL SPINE CLINICAL INFORMATION: Muscle strain COMPARISON: Lumbar spine x-rays 03/05/2011 TECHNIQUE: Three views of the lumbosacral spine. FINDINGS: 5 nonrib-bearing lumbar vertebral bodies are visualized. There is mild to moderate dextroscoliosis of the upper lumbar spine centered at L2. There is mild distal compensatory levoscoliosis. Lumbar vertebral body heights are maintained. There is mild to moderate narrowing of most disc spaces throughout the lumbar spine, most prominent at L3/L4 and L4/L5. Small to moderate-sized osteophytes are scattered throughout the lumbar spine. There are degenerative changes of the posterior elements of the lower lumbar spine. Bilateral hip prostheses are partially visualized. XR/XR lumbar spine 2-3V IMPRESSION: Moderate diffuse degenerative changes of the lumbar spine. No compression deformity.
== END 2021-12-26 12:49 | disposition home or self-care (01) ==
LOC: HO.XRAY 12:48
PROVIDERS: PCP Internal Medicine; Visit Provider Physician Assistant
DX: S39.012A Strain of muscle, fascia and tendon of lower back, initial encounter (principal); X58.XXXA Exposure to other specified factors, initial encounter; Y93.9 Activity, unspecified; Y92.9 Unspecified place or not applicable; Y99.9 Unspecified external cause status
CPT/HCPCS: 72100

== ENCOUNTER → 2022-01-16 09:09 | Outpatient (BNVA) | payer MEDICARE, OTHER, SELFPAY | PROVIDERS: PCP Internal Medicine; Visit Provider Anesthesiology | DX: S39.012A Strain of muscle, fascia and tendon of lower back, initial encounter (principal); M54.50 Low back pain, unspecified | CPT/HCPCS: 99202 ==

== ENCOUNTER 2022-02-06 09:36 | Outpatient (REF) | payer MEDICARE, OTHER, SELFPAY ==
--- NOTE | ~2022-02-06 | US_ITS ---
EXAMINATION: US VENOUS ULTRASOUND WITH DOPPLER LOWER EXTREMITY, LEFT CLINICAL INFORMATION: Left leg pain, history of DVT in the left leg COMPARISON: December 2018. TECHNIQUE: Ultrasound of the deep veins is performed from the hip to the calf with compression sonography and color and pulse Doppler assessment. Spectral analysis with color-flow imaging is performed. FINDINGS: There is normal venous compression and respiratory variation and augmented flow. The visualized common femoral vein, superficial femoral vein, profunda femoral vein, popliteal vein, and the trifurcation region shows no evidence of deep venous thrombosis. There is no significant popliteal fossa cyst. No focal abnormality seen. If the patient's symptoms persist, followup ultrasound in 5 days 7 days might be of value to exclude proximal propagation from a non-visualized calf vein. US/US venous duplex LE IMPRESSION: No DVT demonstrated in the left lower extremity.
== END 2022-02-06 09:37 | disposition home or self-care (01) ==
LOC: HO.US 09:36
PROVIDERS: PCP Internal Medicine; Visit Provider Internal Medicine
DX: M79.605 Pain in left leg (principal); Z86.718 Personal history of other venous thrombosis and embolism
CPT/HCPCS: 93971

== ENCOUNTER 2022-08-07 09:00 | Outpatient (RCR) | payer MEDICARE, OTHER, SELFPAY ==
--- NOTE | 2022-05-30 11:50 | MHC.PT.EP ---
[facility] [place] Office [place] Office [place] Office [address] [phone] F: [phone] F: [phone] F: [phone] F: [phone] Physical Therapy Plan of Care Date of Evaluation: Date of Surgery: none Diagnosis: Low back pain Assessment: Patient is a 77 year old R handed male who presents with s/s consistent with low back pain. He does not work but does like to stay active. Patient past medical history includes b/l BHARAT, L TKA. Current impairments include pain, posture, ROM, strength, activity tolerance and functional mobility. Functional limitations include decreased ability to sit, transfer, stand, get out of bed in the morning, and walk. Patient is motivated with good rehab potential. Skilled PT will address impairments and functional limitations in order to achieve goals. Frequency and Duration: The patient will be seen 2x/week for 5 weeks Short Term Goals: I with HEP -2 weeks TTP - absent - 3 weeks Hip strength 4/5 grossly for hip abd - 3 weeks Custodial Goals: Oswestry < 10 % - 5 weeks Pain free sitting without lumbar support - 5 weeks Able to perform all daily tasks max pain 2/10 - 5 weeks Treatment Plan: Modalities to reduce pain, spasms and effusion. Manual therapy to restore motion and function. Therapeutic exercise to improve strength and flexibility. Neuromuscular re-education for posture and balance. Therapeutic activities to return to functional activities of daily living. Electronically signed by: Joseluis Pink PT Please sign and return to therapist. Thank you for your referral.
--- NOTE | 2022-09-27 08:31 | MHC.PT.DC ---
[facility] [place] Office [place] Office [place] Office [address] [phone] F: [phone] F: [phone] F: [phone] F: [phone] Physical Therapy Discharge Report Diagnosis: Low back pain Date of Surgery: none Date of Evaluation: 05/30/22 Date of Discharge: 08/03/22 Treatments to Date: 10 Cancellations to Date: No Shows to Date: Discharge Status: Improved Function Independent with HEP Discharge Summary: We reviewed HEP. TTP is absent. Strength is 4/5 grossly. Oswestry is 2%. PAin free sitting > 1 hour and able to perform all activities with 1/10 pain. appropriate to d/c to HEP at this time. Electronically signed by: Joseluis Pink PT Please sign and return to therapist. Thank you for your referral.
== END 2022-09-27 08:31 | disposition home or self-care (01) ==
LOC: HO.PTCHIC 09:00
PROVIDERS: PCP Internal Medicine; Visit Provider Internal Medicine
DX: M54.50 Low back pain, unspecified (principal)
CPT/HCPCS: 97110; 97140; 97163; 97530

== ENCOUNTER 2023-01-01 14:00 | Outpatient (RCR) | payer MEDICARE, OTHER, SELFPAY ==
[2022-11-20 10:05] VITALS: BP 135/63; PULSE 62; O2SAT 94
--- NOTE | 2022-11-20 11:57 | MHC.PT.EP ---
[facility] [place] Office [place] Office [place] Office [address] [phone] F: [phone] F: [phone] F: [phone] F: [phone] Physical Therapy Plan of Care Date of Evaluation: Date of Surgery: Diagnosis: LBP, LEFT SCIATICA Assessment: 77 YO MALE REF TO PT FOR LEFT LS PAIN, EXACERBATED IN JULY 2022. HE HAS A H/O JULIANA BHARAT AND LEFT TKR. THE Pt HAS DECR POSTURAL AWARENESS W SCOLIOSIS AND TERMINAL KNEE EXTENSION DEFICIT Rt > Lt INFLUENCING HIS PELVIC SYMMETRY, DECR STRENGTH IN LEFT > Rt PROX LE, DECR TRUNK AROM, ALTERED GAIT AND SQUAT MECH, (+) SOFT TISSUE TENSION IN JULIANA THORACOLUMB PS MM, AND PAIN IN HIS LEFT LS/SI Jt AREA. Pt IS MOTIVATED TO RESUME HIS REG ADLS AND IMPROVE HIS WALKING TOLERANCE- HE IS A GOOD PT CANDIDATE AND IS REQUESTING PT 1 x WK TO ADDRESS THE ABOVE FINDINGS , DEV A HEP, AND IMRPOVE HIS OVERALL FUNCTIONAL MOBILITY. Frequency and Duration: The patient will be seen 1 x WK x 6 WKS Short Term Goals: *IMPROVE Rt KNEE TERMINAL KNEE EXTENSION TO REDUCE LLI EFFECT ON LB *INCREASE PF EFFORT AT END STANCE , JULIANA LEs *INITIATE HEP , LUMBOPELVIC STAB, PROX LRs STRENGTH *INCR PROPRIOCEPTIVE AWARENESS IN JULIANA LEs *DECREASE LEFT LBP TO 2-3/10 W REG ADLS Usp Goals: *Pt INDEP W HEP AND SELF-SX MGMT TECHN *Pt DEMON EFFICIENT GAIT MECH ON LEVEL GROUND AND STAIRS * Pt IMPROVE HIS FUNCT MOB/ ACTIVITY CARI EVIDENT W IMPROVED TUG (15 SEC AT EVAL) AND SLS ,EACH LE *Pt'S LEs STRENGTH IMPROVED BY 1/2-1 GRADE Treatment Plan: Modalities to reduce pain, spasms and effusion. Manual therapy to restore motion and function. Therapeutic exercise to improve strength and flexibility. Neuromuscular re-education for posture and balance. Therapeutic activities to return to functional activities of daily living. Electronically signed by: RU MULLINS,PT Please sign and return to therapist. Thank you for your referral.
--- NOTE | 2023-01-01 14:59 | MHC.PT.DC ---
[facility] [place] Office [place] Office [place] Office [address] [phone] F: [phone] F: [phone] F: [phone] F: [phone] Physical Therapy Discharge Report Diagnosis: LBP, LEFT SCIATICA Date of Surgery: Date of Evaluation: 11/20/22 Date of Discharge: 01/01/23 Treatments to Date: 6 Cancellations to Date: 0 No Shows to Date: 0 Discharge Status: Achieved Goals Improved Function Independent with HEP Discharge Summary: Pt MET HIS PT GOALS AT THIS TIME- HE IS PLEASED THAT HIS LBP HAS RESOLVED AND HE HAS MORE EFFICIENT GAIT MECHANICS- HIS TUG TEST IMPROVED FROM 15 SEC TO 10 SEC AND HE IS ABLE TO SLS EACH LE WHEREAS INITIALLY, HE WAS ONLY ABLE TO SLS Rt.. THE Pt HAS IMPROVED Rt TERMINAL KNEE EXTEN, HE IS INDEP AND COMPLIANT W HEP. Electronically signed by: RU MULLINS,PT Please sign and return to therapist. Thank you for your referral.
== END 2023-01-01 15:00 | disposition home or self-care (01) ==
LOC: HO.PT 14:00
PROVIDERS: PCP Internal Medicine; Visit Provider Internal Medicine
DX: M54.50 Low back pain, unspecified (principal)
CPT/HCPCS: 97110; 97140; 97162

== ENCOUNTER 2023-03-03 09:19 | Outpatient (AMB) | payer MEDICARE, OTHER, SELFPAY ==
--- NOTE | 2023-03-03 11:07 | MHC.OFFWIV ---
Intake Vital Signs 03/03/23 11:09 Weight 207 lb BP 140/80 H Blood Pressure Location Lt brachial Position Sitting Pulse 62 Pulse Source Pulse Oximeter Pulse Oximetry (%) 98 Oxygen Delivery Method Room Air Intake Visit Reasons: EP, Ear wax removal Intake Note: Patient here for blocked left ear, pt states he was trying to get new hearing aids and they were unable to do so as there is too much ear wax. Patient Tobacco Use Status: Never used Tobacco Allergies No Known Allergies Allergy (Verified 03/03/23 11:10) Medication List - Last Reconciled 03/04/23 by Vaibhav Land MD acetaminophen 650 mg (2 x 325 mg) PO Q6H PRN 30 days ascorbic acid (vitamin C) (Vitamin C) 1,000 mg PO BID cholecalciferol (vitamin D3) (Vitamin D3) 25 mcg PO DAILY diclofenac sodium 1% (Arthritis Pain (diclofenac)) 2 grams topical QID PRN finasteride 5 mg PO DAILY levothyroxine 75 mcg PO DAILY lisinopril 10 mg PO DAILY omega-3 fatty acids 500 mg PO DAILY omeprazole 20 mg PO DAILY rivaroxaban 10 mg PO DAILY tamsulosin 0.8 mg (2 x 0.4 mg) PO BEDTIME 90 days tolterodine ER 2 mg PO DAILY turmeric root extract 500 mg PO BID HPI EP, Ear wax removal HPI Details 78-year-old male presents to the office for a sick visit. Went for a hearing aid replacement. They could not fit the replacement due to wax in the ear. He was advised to have it removed. [facility] Medical History BPH (benign prostatic hyperplasia) Constipation Cough Generalized anxiety disorder History of double vision History of DVT (deep vein thrombosis) Hx of ulcerative colitis Hyperlipidemia Hypertension Hypothyroidism Patellofemoral arthritis of left knee PND (post-nasal drip) Polycythemia vera Pre-op examination Urge incontinence Urgency of micturition Surgical History H/O total hip arthroplasty History of cholecystectomy History of colonoscopy History of left hip replacement History of right hip replacement History of squamous cell carcinoma excision Status post left knee replacement Status post total left knee replacement Status post total left knee replacement Family History Father No problems noted. Mother No problems noted. Social History Household Members: Spouse Housing: House Are you a primary acute care nurse practitioner to a significant other at home: No Do you presently have visiting nurse or other home services: No Alcohol intake: current Alcohol intake frequency: a few times a month Patient Tobacco Use Status: Never used Tobacco e-Cigarette/Vaping Use: Never Used Second Hand Smoke Exposure: Yes Substance Use Type: Marijuana service: No Current occupational status: retired Cognitive needs: Yes Hearing needs: Yes Vision needs: No Physical Exam Vital Signs: Last Vital Signs Pulse 62 03/03/23 11:09 BP 140/80 H 03/03/23 11:09 Pulse Ox 98 03/03/23 11:09 Oxygen Delivery Method Room Air 03/03/23 11:09 HEENT Other: Right and left ears: Wax present. Unable to visualize tympanic membrane. Office Procedures Cerumen Removal From which ear canal was the cerumen removed: bilateral Removal: irrigation and otoscope w/curette Notes: patient tolerated procedure well [id number] Wax Removal by Spoon/Curette Assessment & Plan Assessment & Plan (1) Impacted cerumen of both ears: Code(s): H61.23 - Impacted cerumen, bilateral Plan Patient tolerated the procedure well. Orders: Orders AMB Cerumen Removal Today H61.23 - Impacted cerumen, bilateral Coding Level of Care Code Est Pt Level 3 (49318) Diagnoses Impacted cerumen of both ears H61.23 CPT Codes Office Procedure - CPT: 51105-Bzm Wax Removal by Spoon/Curette ([id number])
[2023-03-03 11:09] VITALS: BP 140/80; PULSE 62; O2SAT 98
== END 2023-03-03 13:55 | disposition home or self-care (01) ==
LOC: HO.HMGWI 09:19
PROVIDERS: PCP Internal Medicine
DX: H61.23 Impacted cerumen, bilateral (principal)
CPT/HCPCS: 69210; 99213

== ENCOUNTER 2023-03-14 09:52 | Outpatient (AMB) | payer MEDICARE, OTHER, SELFPAY ==
--- NOTE | 2023-03-14 09:54 | AM.OFFVISMDC ---
Intake Vital Signs 03/14/23 09:55 Height 6 ft 1 in Weight 206 lb 8 oz BMI 27.2 BP 140/80 H Blood Pressure Location Lt brachial Position Sitting Pulse 70 Pulse Source Pulse Oximeter Pulse Oximetry (%) 98 Oxygen Delivery Method Room Air Intake Visit Reasons: SAWV Intake Note: Patient is here for an Annual Wellness Visit. 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 Accompanied by: Self / Same As Patient Allergies No Known Allergies Allergy (Verified 03/14/23 10:06) Medication List - Last Reconciled 03/14/23 by BRIAN Go acetaminophen 650 mg (2 x 325 mg) PO Q6H PRN 30 days ascorbic acid (vitamin C) (Vitamin C) 1,000 mg PO BID cholecalciferol (vitamin D3) (Vitamin D3) 25 mcg PO DAILY diclofenac sodium 1% (Arthritis Pain (diclofenac)) 2 grams topical QID PRN finasteride 5 mg PO DAILY levothyroxine 75 mcg PO DAILY lisinopril 10 mg PO DAILY omega-3 fatty acids 500 mg PO DAILY rivaroxaban 10 mg PO DAILY tamsulosin 0.8 mg (2 x 0.4 mg) PO BEDTIME 90 days tolterodine ER 2 mg PO DAILY turmeric root extract 500 mg PO BID HPI SAWV HPI Details Patient is an 78-year-old male who presents today for subsequent wellness visit. Patient of Dr. Land. Today we discussed patient's need for diabetes screening. Patient reports history of tetanus vaccine in the last 10 years. [place] of care was reviewed with the patient and he was provided with a screening schedule. Patient has a healthcare proxy and he will provide office with a copy, MOLST form is on file. [facility] Medical History BPH (benign prostatic hyperplasia) Constipation Cough Generalized anxiety disorder History of double vision History of DVT (deep vein thrombosis) Hx of ulcerative colitis Hyperlipidemia Hypertension Hypothyroidism Patellofemoral arthritis of left knee PND (post-nasal drip) Polycythemia vera Pre-op examination Urge incontinence Urgency of micturition Surgical History H/O total hip arthroplasty History of cholecystectomy History of colonoscopy History of left hip replacement History of right hip replacement History of squamous cell carcinoma excision Status post left knee replacement Status post total left knee replacement Status post total left knee replacement Family History Father No problems noted. Mother No problems noted. Social History Household Members: Spouse Housing: House Are you a primary lawn care worker to a significant other at home: No Do you presently have visiting nurse or other home services: No Alcohol intake: current Alcohol intake frequency: a few times a month Patient Tobacco Use Status: Never used Tobacco e-Cigarette/Vaping Use: Never Used Second Hand Smoke Exposure: Yes Substance Use Type: Marijuana service: No Current occupational status: retired Cognitive needs: Yes Hearing needs: Yes Vision needs: No Questionnaire Medicare Wellness Checkup What is your age?: 78 or older What gender do you identify with?: male During the past 4 weeks, how much have you been bothered by emotional problems such as feeling anxious, depressed, irritable, sad or downhearted, and blue?: not at all During the past 4 weeks, has your physical & emotional health limited your social activities with family, friends, neighbors, or groups?: not at all During the past 4 weeks, how much bodily pain have you generally had?: mild pain During the past 4 weeks, was someone available to help you if you needed & wanted help?: yes, as much as I wanted During the past 4 weeks, what was the hardest physical activity you could do for at least 2 minutes?: moderate Can you get to places out of walking distance without help? (For eg., can you travel alone on buses, taxis or drive your car?): Yes Can you go shopping for groceries or clothes without someone's help?: Yes Can you prepare your own meals?: Yes Can you do your housework without help?: Yes Because of any health problems, do you need the help of another person with your personal care needs such as eating, bathing, dressing or getting around the house?: No Can you handle your own money without help?: Yes During the past 4 weeks, how would you rate your health in general?: good During the past 4 weeks how have things been going for you?: good & bad parts about equal Are you having difficulties driving your car?: no Do you always fasten your seat belt when you are in a car?: yes, usually During past 4 weeks, have you been bothered by the following: never: Trouble eating well?, Teeth or denture problems? and Problems using the telephone? and seldom: Falling or dizzy when standing up and Tiredness or fatigue? Have you fallen 2 or more times in the past year?: No Are you a smoker?: no During the past 4 weeks, how many drinks of wine, beer, or other alcoholic beverages did you have?: 2-5 drinks per week Do you exercise for about 20 minutes 3 or more times a week?: yes, most of the time Have you been given information to help with the following?: no: Hazards in your house that might hurt you? and no: Keeping track of your medications? How often do you have trouble taking medicines the way you have been told to take them?: I always take medicine as prescribed How confident are you that you can control & manage most of your health problems?: somewhat confident What is your race?: White Mini Mental State Exam (MMSE) Orientation What is the (year) (season) (date) (day) (month)?: year, season, date, day and month Score Score: 5 Activity of Daily Living Bathing - sponge bath, tub bath or shower: receives no assistance (gets in/out by self, if usual bathing means Dressing - getting clothes from closets & drawers, including inner/outer garments & fasteners.: gets clothes & gets completely dressed without help Toileting - going to the 'toilet room' for urine/bowel elimination & cleaning self/arranging clothes: goes to toilet room, cleans self, arranges clothes without help Transfer: moves in & out of bed and chair without help (may use support object) Continence: controls urination/bowel movements completely by self Feeding: feeds self without help Total Score: 0 Information obtained from: patient Using telephone: independent Traveling: independent Shopping: independent Preparing meals: independent Housework: independent Taking medicine: independent Managing money: independent PHQ-9 Over the last 2 weeks, how often have you been bothered by any of the following problems? 1. Little interest or pleasure in doing things: not at all 2. Feeling down, depressed, or hopeless: not at all 3. Trouble falling or staying asleep, or sleeping too much: not at all 4. Feeling tired or having little energy: not at all 5. Poor appetite or overeating: not at all 6. Feeling bad about yourself - or that you are a failure or have let yourself or your family down: not at all 7. Trouble concentrating on things, such as reading the newspaper or watching television: not at all 8. Moving or speaking so slowly that other people could have noticed. Or the opposite - being so fidgety or restless that you have been moving around a lot more than usual: not at all 9. Thoughts that you would be better off or of hurting yourself in some way: not at all Total score: 0 Depression Screening Interpretation: Negative 06789 - PHQ-9 Billing: Yes Source: Developed by Drs. Sandeep Crenshaw, Yasmin Lancaster, Armando Capone and colleagues, with an educational sharath from [employer]. Physical Exam Vital Signs: Last Vital Signs Pulse 70 03/14/23 09:55 BP 140/80 H 03/14/23 09:55 Pulse Ox 98 03/14/23 09:55 Oxygen Delivery Method Room Air 03/14/23 09:55 BMI result Body Mass Index 27.2 Const General: cooperative and no acute distress Orientation/consciousness: patient oriented x3 HEENT Other: Whisper test: fail - patient has bilateral hearing aids Neuro Other: Balance: Normal Get up and walk: able to Romberg: negative Tandem gait: unable to General: patient oriented x3 Assessment & Plan Assessment & Plan (1) Pulmonary embolism: Code(s): I26.99 - Other pulmonary embolism without acute cor pulmonale Plan: Rivaroxaban 10 mg daily Continue to follow-up with Hematology Dr. Olivera (2) Annual physical exam: Code(s): Z00.00 - Encounter for general adult medical examination without abnormal findings (3) BPH (benign prostatic hyperplasia): Code(s): N40.0 - Benign prostatic hyperplasia without lower urinary tract symptoms Plan: Continue current treatment Continue to follow-up with Dr. Garsia (4) Hyperlipidemia: Code(s): E78.5 - Hyperlipidemia, unspecified Qualifiers: Hyperlipidemia type: familial hypercholesterolemia Qualified Code(s): E78.01 - Familial hypercholesterolemia Plan: Low-cholesterol diet (5) Hypertension: Code(s): I10 - Essential (primary) hypertension Qualifiers: Hypertension type: essential hypertension Qualified Code(s): I10 - Essential (primary) hypertension Plan: Continue current treatment Low-sodium diet (6) Generalized anxiety disorder: Code(s): F41.1 - Generalized anxiety disorder Plan: Stable Not on pharmacological intervention (7) Screening for diabetes mellitus: Code(s): Z13.1 - Encounter for screening for diabetes mellitus Orders: Orders Basic Metabolic Panel Fasting Today Z13.1 - Encounter for screening for diabetes mellitus Quality Reporting (2019) Depression/Bipolar (159/160/161/177) PHQ-9: Total score: 0 Coding Level of Care Code Medicare Subsequent (G0439) Diagnoses Pulmonary embolism I26.99 Annual physical exam Z00.00 BPH (benign prostatic hyperplasia) N40.0 Hyperlipidemia E78.01 Hyperlipidemia type: familial hypercholesterolemia Hypertension I10 Hypertension type: essential hypertension Generalized anxiety disorder F41.1 Screening for diabetes mellitus Z13.1 CPT Codes Advance Care Planning - Advance Care Planning discussion: On file, no changes ([id number]) Advance Care Planning - Time spent: 1-15 minutes, on File ([id number]) Advance Care Planning Advance Care Planning discussion: On file, no changes Date of discussion: 03/14/23 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
[2023-03-14 09:55] VITALS: BP 140/80; PULSE 70; O2SAT 98; BMI 27.2
== END 2023-03-14 10:31 | disposition home or self-care (01) ==
PROVIDERS: Visit Provider Nurse Practitioner Family
DX: Z00.00 Encounter for general adult medical examination without abnormal findings (principal); I26.99 Other pulmonary embolism without acute cor pulmonale; I10 Essential (primary) hypertension; N40.0 Benign prostatic hyperplasia without lower urinary tract symptoms; E78.01 Familial hypercholesterolemia; F41.1 Generalized anxiety disorder; Z13.1 Encounter for screening for diabetes mellitus
CPT/HCPCS: 1123F; G0439

== ENCOUNTER 2023-03-17 08:09 | Outpatient (REF) | payer MEDICARE, OTHER, SELFPAY ==
[2023-03-17 09:27] LABS: Anion Gap 13 (12-20); Blood Urea Nitrogen 20 mg/dL (9-16); Calcium 9.5 mg/dL (8.4-10.2); Carbon Dioxide 25 mmol/L (22-29); Chloride 106 mmol/L (96-108); Estimated Glomerular Filt Rate > 60; Glucose Fasting 93 mg/dL (60-99); Potassium 4.2 mmol/L (3.3-5.1); Sodium 140 mmol/L (135-145)
== END 2023-03-17 08:10 | disposition home or self-care (01) ==
LOC: HO.LAB 08:09
PROVIDERS: PCP Internal Medicine; Visit Provider Nurse Practitioner Family
DX: Z13.1 Encounter for screening for diabetes mellitus (principal)
CPT/HCPCS: 36415; 80048

== ENCOUNTER 2023-04-29 09:35 | Outpatient (AMB) | payer MEDICARE, OTHER, SELFPAY ==
--- NOTE | 2023-04-29 10:01 | AM.OFFVISNUR ---
Intake Intake Visit Reasons: Flu Vaccine Allergies No Known Allergies Allergy (Verified 03/14/23 10:06) Office Procedures Flu Questionnaire Does the patient have a severe egg allergy?: No Does the patient have severe life threatening allergies?: No Does the patient have a fever or illness today?: No Has the patient ever had Guillain-Morgan Syndrome?: No Has the patient ever had any past reaction to a flu shot?: No Immunizations flu vacc [id number] 6mos up(PF) 60 mcg(15 mcgx4)/0.5 mL IM syringe Performing Provider: Vaibhav Land MD Performing Location: [facility] Administered by: Umu Griffith CMA on 04/29/23 10:01 Dose Route Admin Location Dispensed Lot Number Expiration Date NDC Septic Tank Cleaner 0.5 mL IM Left Deltoid 0.5 mL [id number] 01/18/24 61874-406-22 [employer] VIS Given Date VIS Provided VIS Publication Date 04/29/23 Single Vaccine 21 Eligibility Eligibility Date Funding Source Not [facility] Eligible 04/29/23 Private Coding Assessment & Plan Assessment & Plan Orders: Orders Influenza [id number] Immunization Today Z23 - Encounter for immunization
== END 2023-04-29 10:11 | disposition home or self-care (01) ==
LOC: HO.HMGH 09:35
PROVIDERS: PCP Internal Medicine; Visit Provider Internal Medicine
DX: Z23 Encounter for immunization (principal)
CPT/HCPCS: 90471; 90686

== ENCOUNTER 2023-06-18 10:30 | Outpatient (AMB) | payer MEDICARE, OTHER, SELFPAY ==
[2023-06-18 10:33] VITALS: BP 140/64; PULSE 71; TEMP 35.9; O2SAT 98; BMI 26.6
--- NOTE | 2023-06-18 10:33 | AM.OFFWIN_ITS ---
Intake Vital Signs 06/18/23 10:33 Height 6 ft 1 in Weight 202 lb BMI 26.6 BP 140/64 H Blood Pressure Location Rt brachial Position Sitting Pulse 71 Pulse Source Pulse Oximeter Temp 96.7 F L Temp Source Temporal Artery Scan Pulse Oximetry (%) 98 Oxygen Delivery Method Room Air Intake Visit Reasons: EP hernia pelvic area Intake Note: Pt is here c/o possible hernia located by his pelvic area. Patient Tobacco Use Status: Never used Tobacco Allergies No Known Allergies Allergy (Verified 06/20/23 10:48) Medication List - Last Reconciled 06/18/23 by Vaibhav Land MD acetaminophen 650 mg (2 x 325 mg) PO Q6H PRN 30 days ascorbic acid (vitamin C) (Vitamin C) 1,000 mg PO BID cholecalciferol (vitamin D3) (Vitamin D3) 25 mcg PO DAILY diclofenac sodium 1% (Arthritis Pain (diclofenac)) 2 grams topical QID PRN finasteride 5 mg PO DAILY levothyroxine 75 mcg PO DAILY lisinopril 10 mg PO DAILY omega-3 fatty acids 500 mg PO DAILY rivaroxaban 10 mg PO DAILY tamsulosin 0.8 mg (2 x 0.4 mg) PO BEDTIME 90 days tolterodine ER 2 mg PO DAILY turmeric root extract 500 mg PO BID Do you need a note to return to daycare/school/sports/work: No HPI EP hernia pelvic area HPI Details 78-year-old male presents to the office for a sick visit. Patient believes he has a hernia and would like to be checked for it. He felt a lump or a swelling in the inguinal area which he could reduced by pushing backwards. No pain. No change in bowel habits. [facility] Medical History BPH (benign prostatic hyperplasia) Constipation Cough Generalized anxiety disorder History of double vision History of DVT (deep vein thrombosis) Hx of ulcerative colitis Hyperlipidemia Hypertension Hypothyroidism Patellofemoral arthritis of left knee PND (post-nasal drip) Polycythemia vera Pre-op examination Urge incontinence Urgency of micturition Surgical History H/O total hip arthroplasty History of cholecystectomy History of colonoscopy History of left hip replacement History of right hip replacement History of squamous cell carcinoma excision Status post left knee replacement Status post total left knee replacement Status post total left knee replacement Family History Father No problems noted. Mother No problems noted. Social History Household Members: Spouse Housing: House Are you a primary career development counselor to a significant other at home: No Do you presently have visiting nurse or other home services: No Alcohol intake: current Alcohol intake frequency: a few times a month Comment: sleeping Patient Tobacco Use Status: Never used Tobacco e-Cigarette/Vaping Use: Never Used Second Hand Smoke Exposure: Yes Substance Use Type: Marijuana service: No Current occupational status: retired Cognitive needs: Yes Hearing needs: Yes Vision needs: No Physical Exam Vital Signs: Last Vital Signs Temp 96.7 F L 06/18/23 10:33 Pulse 71 06/18/23 10:33 BP 140/64 H 06/18/23 10:33 Pulse Ox 98 06/18/23 10:33 Oxygen Delivery Method Room Air 06/18/23 10:33 BMI result Body Mass Index 26.6 Other: Right inguinal area: Cough impulse is negative. No hernia palpable. Testicular examination was unremarkable. Assessment & Plan Assessment & Plan (1) Inguinal hernia: Code(s): K40.90 - Unilateral inguinal hernia, without obstruction or gangrene, not specified as recurrent Plan: Clinically no hernia is detected. An ultrasound has been ordered to confirm the same. Orders: Orders US scrotum 06/18/23 K46.9 - Unspecified abdominal hernia without obstruction or gangrene US abdomen limited 06/18/23 K46.9 - Unspecified abdominal hernia without obstruction or gangrene Coding Level of Care Code Est Pt Level 3 (08995) Diagnoses Inguinal hernia K40.90
== END 2023-06-18 11:08 | disposition home or self-care (01) ==
PROVIDERS: PCP Internal Medicine; Visit Provider Internal Medicine
DX: K40.90 Unilateral inguinal hernia, without obstruction or gangrene, not specified as recurrent (principal)
CPT/HCPCS: 99213

== ENCOUNTER 2023-07-10 10:04 | Outpatient (AMB) | payer MEDICARE, OTHER, SELFPAY ==
--- NOTE | 2023-07-10 10:07 | MHC.PC.OV ---
Vital Signs 07/10/23 10:09 Height 6 ft 1 in Weight 206 lb 6 oz BMI 27.2 BP 140/82 H Blood Pressure Location Lt brachial Position Sitting Intake Visit Reasons: Hypertension Intake Note: Patient is here to follow up on HTN. Heart Nurse Required: No Log Data Technician: Not Required per policy Accompanied by: Self / Same As Patient Allergies No Known Allergies Allergy (Verified 08/05/23 15:39) Medication List - Last Reconciled 08/05/23 by Vaibhav Land MD acetaminophen 650 mg (2 x 325 mg) PO Q6H PRN 30 days ascorbic acid (vitamin C) (Vitamin C) 1,000 mg PO BID cholecalciferol (vitamin D3) (Vitamin D3) 25 mcg PO DAILY finasteride 5 mg PO DAILY levothyroxine 75 mcg PO DAILY lisinopril 10 mg PO DAILY omega-3 fatty acids 500 mg PO DAILY rivaroxaban 10 mg PO DAILY tamsulosin 0.8 mg (2 x 0.4 mg) PO BEDTIME 90 days tolterodine ER 2 mg PO DAILY turmeric root extract 500 mg PO BID Tobacco use date assessed: 07/10/23 Fall risk assessment: No Falls in past year Last assessed Fall Risk: 07/10/23 Dental Screening Dental Screen Date: 07/10/23 Did you have a dental visit in the last 12 months?: Yes Did you have a dental problem in the last 6 months where you did not have access to dental care?: No Was dental information given to patient?: Patient has dentist HPI Hypertension HPI Details 78 yr old male presents to the office to discuss his chronic medical problems. Pt reports a swelling in the groin area. Its worse on standing and increases with coughing. BP is stable, compliant with his medications and reporting no side effects. Able to function and do all activities of daily living. [facility] Medical History BPH (benign prostatic hyperplasia) Constipation Cough Generalized anxiety disorder History of double vision History of DVT (deep vein thrombosis) Hx of ulcerative colitis Hyperlipidemia Hypertension Hypothyroidism Patellofemoral arthritis of left knee PND (post-nasal drip) Polycythemia vera Pre-op examination Urge incontinence Urgency of micturition Surgical History History of colonoscopy History of right hip replacement Status post total left knee replacement Status post total left knee replacement Status post left knee replacement H/O total hip arthroplasty History of squamous cell carcinoma excision History of cholecystectomy History of left hip replacement Family History Father No problems noted. Mother No problems noted. Social History Household Members: Spouse Housing: House Are you a primary dog day care attendant to a significant other at home: No Do you presently have visiting nurse or other home services: No Alcohol intake: current Alcohol intake frequency: a few times a month Comment: sleeping Patient Tobacco Use Status: Never used Tobacco e-Cigarette/Vaping Use: Never Used Second Hand Smoke Exposure: Yes Substance Use Type: Marijuana service: No Current occupational status: retired Cognitive needs: Yes Hearing needs: Yes Vision needs: No Questionnaire Thrive Questionnaire Date Thrive assessed: 09/05/22 KELLEY-7 AMB Questionnaire KELLEY-7 Date KELLEY - 7 assessed: 09/05/22 Source: Developed by Drs. Sandeep Crenshaw, Yasmin Lancaster, Armando Capone and colleagues, with an educational sharath from [employer]. Physical exam (Primary Care) Vital Signs: Last Vital Signs BP 140/82 H 07/10/23 10:09 BMI result Body Mass Index 27.2 Tobacco/Smoking Status: Tobacco use Status Tobacco use date assessed 07/10/23 07/10/23 10:17 Patient Tobacco Use Status Never used Tobacco 07/10/23 10:17 e-Cigarette/Vaping Use Never Used 07/10/23 10:17 Thrive Assessment: Date of Thrive Assessment Date Thrive assessed 09/05/22 07/10/23 10:17 Const General: cooperative and healthy appearing Nutritional Appearance: well nourished Orientation/consciousness: patient oriented x3 Limitations: no limitations HENMT Head: Yes normal to inspection Eyes General: appearance normal, both eyes and all related structures Neck Neck: Yes normal visual inspection Chest Chest palpation & inspection: normal palpation of entire chest wall Resp Effort & Inspection: normal respiratory effort Other: Minimal inguinal hernia on the right side. Neuro General: patient oriented x3 Results AMB Hemoglobin A1c AMB Hemoglobin A1c 5.9 % Last Edit by CHRISTIANNE Ny on 07/10/23 11:06 Results Reviewed Results Reviewed: Laboratory Last Values Hgb A1c (Clinic) 5.9 % (4.0-6.0) 07/10/23 11:05 Assessment and Plan Assessment & Plan (1) Hypertension: Code(s): I10 - Essential (primary) hypertension Qualifiers: Hypertension type: essential hypertension Qualified Code(s): I10 - Essential (primary) hypertension Plan: Continue current medications.Blood work has been ordered. If sx do not improve to follow up here (2) Inguinal hernia: Code(s): K40.90 - Unilateral inguinal hernia, without obstruction or gangrene, not specified as recurrent Plan: Its small and insignificant. Reassurance. Orders: Orders AMB Hemoglobin A1c 07/10/23 Z13.9 - Encounter for screening, unspecified Coding Level of Care Code Est Pt Level 4 (47044) Diagnoses Essential hypertension I10 Hypertension type: essential hypertension Inguinal hernia K40.90
[2023-07-10 10:09] VITALS: BP 140/82; BMI 27.2
== END 2023-07-10 11:16 | disposition home or self-care (01) ==
PROVIDERS: PCP Internal Medicine; Visit Provider Internal Medicine
DX: Z13.9 Encounter for screening, unspecified (principal)
CPT/HCPCS: 83036; 99214

== ENCOUNTER 2023-07-24 14:21 | Outpatient (REF) | payer MEDICARE, OTHER, SELFPAY | END 2023-07-24 14:22 | disposition home or self-care (01) | LOC: HO.US 14:21 | PROVIDERS: PCP Internal Medicine; Visit Provider Internal Medicine | DX: K46.9 Unspecified abdominal hernia without obstruction or gangrene (principal) | CPT/HCPCS: 76870 ==

== ENCOUNTER 2023-08-12 09:45 | Outpatient (AMB) | payer MEDICARE, OTHER, SELFPAY ==
--- NOTE | 2023-08-12 09:49 | A.OFFVIS_ITS ---
Intake Vital Signs 08/12/23 10:00 Height 6 ft 1 in Weight 208 lb BMI 27.4 BP 133/62 Blood Pressure Location Rt brachial Position Sitting Pulse 75 Intake Visit Reasons: Unilateral inguinal hernia Intake Note: Patient referred by pcp Dr. Land for unilateral hernia. Recent scrotum US on 07-24-23. Patient c/o: reports hernia noticed 3-4m. 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 Patient has no other GI issues or complaints aside from occasional constipation. He does do were moderately strenuous activities. Chart was reviewed patient evaluated. Patient is on Eliquis for history of DVT. Past surgical history for open cholecystectomy, and umbilicus removal. PFSH Medical History Cough Constipation Urgency of micturition Urge incontinence Generalized anxiety disorder Patellofemoral arthritis of left knee Hypothyroidism History of double vision BPH (benign prostatic hyperplasia) Hx of ulcerative colitis Polycythemia vera History of DVT (deep vein thrombosis) PND (post-nasal drip) Hyperlipidemia Hypertension Pre-op examination Surgical History History of colonoscopy History of right hip replacement Status post total left knee replacement Status post total left knee replacement Status post left knee replacement H/O total hip arthroplasty History of squamous cell carcinoma excision History of cholecystectomy History of left hip replacement Family History Father No problems noted. Mother No problems noted. Social History Household Members: Spouse Housing: House Are you a primary cardiac care unit nurse to a significant other at home: No Do you presently have visiting nurse or other home services: No Alcohol intake: current Alcohol intake frequency: a few times a month Comment: sleeping Patient Tobacco Use Status: Never used Tobacco e-Cigarette/Vaping Use: Never Used Second Hand Smoke Exposure: Yes Substance Use Type: Marijuana service: No Current occupational status: retired Cognitive needs: Yes Hearing needs: Yes Vision needs: No Physical Exam Vital Signs: Last Vital Signs Pulse 75 08/12/23 10:00 BP 133/62 08/12/23 10:00 BMI result Body Mass Index 27.4 Chest Other: Chest breath sounds bilaterally, HS 1 in 2 GI Other: Patient was examined both supine and standing with Valsalva. Abdomen soft. Right subcostal scar. No umbilicus. Left groin negative. Genitalia within normal limits. Moderately sized right inguinal hernia. Reducible. Assessment & Plan Assessment & Plan (1) Right inguinal hernia: Code(s): K40.90 - Unilateral inguinal hernia, without obstruction or gangrene, not specified as recurrent Plan Risks, benefits, alternatives open inguinal hernia repair with mesh were reviewed with the patient and included but not limited to bleeding, infection, recurrence, numbness, pain, scarring and the patient wishes to proceed. All questions answered. Arrangements were made for this. Patient will need to have his anticoagulation held approached via time prior to the procedure. Coding Level of Care Code New Pt Level 5 (53420) Diagnoses Right inguinal hernia K40.90
[2023-08-12 10:00] VITALS: BP 133/62; PULSE 75; BMI 27.4
== END 2023-08-12 10:21 | disposition home or self-care (01) ==
PROVIDERS: PCP Internal Medicine; Visit Provider Surgery
DX: K40.90 Unilateral inguinal hernia, without obstruction or gangrene, not specified as recurrent (principal)
CPT/HCPCS: 99204

== ENCOUNTER → 2023-08-12 09:45 | Outpatient (BNVA) | payer MEDICARE, OTHER, SELFPAY | PROVIDERS: PCP Internal Medicine; Visit Provider Surgery | DX: K40.90 Unilateral inguinal hernia, without obstruction or gangrene, not specified as recurrent (principal) | CPT/HCPCS: 99202 ==

== ENCOUNTER 2023-09-05 07:51 | Day surgery (SDC) | payer MEDICARE, OTHER, SELFPAY ==
[2023-09-03 11:13] VITALS: BMI 27.4
--- NOTE | 2023-09-04 10:09 | MHC.SHP ---
Pre-Procedural Eval Section A - 24 Hr Update-Section A only Date of Service: 09/04/23 The patient is an INPATIENT: No Changes since office visit: No Cold of Flu in the past 2 weeks, No New Medical Problems, No Changes in Medication and No Patient answered all questions The patient has been examined within 24 hours of the surgical procedure. The History & Physical has been completed within 30 days and I have reviewed it.: Yes Section B - Complete if H&P > 30 days Chief Complaint: Unilateral inguinal hernia, without obstruction or Allergies: Allergies Allergy/AdvReac Type Severity Reaction Status Date / Time No Known Allergies Allergy Verified 09/03/23 11:12 Plan I have reviewed the history and physical and performed a pertinent physical examination on my patient. No changes have occurred unless specified. Time Spent With Patient Time: Total time managing care of this patient today ____ minutes.
--- NOTE | 2023-09-04 12:18 | P.CONAN_ITS ---
HPI - Anesthesia Eval Consult details Narrative: 78yo M for Right Open reducible Inguinal Hernia repair w/mesh Xarelto for Hx saddle PE/DVT Hx neck radiation for squamous cell ca 2007 [facility] Active Problems Active Problems: All Active Problems (Updated 08/29/23 @ 10:04 by Letty Olivera MD) Right inguinal hernia (Acute) Screening for diabetes mellitus (Acute) Impacted cerumen of both ears (Acute) Impingement syndrome of right shoulder region (Acute) Pulmonary embolism (Chronic) Annual physical exam (Acute) Low back pain (Acute) Lumbar spine pain (Acute) Strain of lumbar paraspinal muscle (Acute) BPH (benign prostatic hyperplasia) (Acute) Hyperlipidemia (Acute) Hypertension (Acute) Urgency of micturition (Acute) Urge incontinence (Acute) Generalized anxiety disorder (Acute) Status post left knee replacement (Acute) Past Medical History Medical History Cough Constipation Urgency of micturition Urge incontinence Generalized anxiety disorder Patellofemoral arthritis of left knee Hypothyroidism History of double vision BPH (benign prostatic hyperplasia) Hx of ulcerative colitis Polycythemia vera History of DVT (deep vein thrombosis) PND (post-nasal drip) Hyperlipidemia Hypertension Pre-op examination Family History Family History Father No problems noted. Mother No problems noted. Surgical History Surgical History History of colonoscopy History of right hip replacement Status post total left knee replacement Status post total left knee replacement Status post left knee replacement H/O total hip arthroplasty History of squamous cell carcinoma excision History of cholecystectomy History of left hip replacement Social History Social History (Updated 09/03/23 @ 11:15 by Jenna Alford RN) Household Members: Spouse Housing: House Are you a primary child care provider to a significant other at home: No Do you presently have visiting nurse or other home services: No Alcohol intake: current Alcohol intake frequency: holidays/special occasions only Comment: sleeping Patient Tobacco Use Status: Never used Tobacco e-Cigarette/Vaping Use: Never Used Second Hand Smoke Exposure: Yes Use of substances other than those prescribed or required for medical reasons: No Have you been hit, kicked, punched, or otherwise hurt by someone within the past year? If so, by whom?: No Are you DNR?: No Advance Directives: No Advance Directives Information Provided: Yes Advance Directives on File: No Recently lost weight without trying: No Nutrition Risks: Surgical patient >75years Poor oral hygiene: No service: No Current occupational status: retired Cognitive needs: Yes Hearing needs: Yes Vision needs: No Meds Allergies Allergy/AdvReac Type Severity Reaction Status Date / Time No Known Allergies Allergy Verified 09/03/23 11:12 Home Medications Medication Instructions Recorded Confirmed Last Taken Type ascorbic acid (vitamin C) 1,000 mg 1,000 mg PO BID 04/28/20 09/03/23 05/06/20 09:00 History tablet (Vitamin C) cholecalciferol (vitamin D3) 25 25 mcg PO DAILY 04/28/20 09/03/23 05/06/20 History mcg (1,000 unit) tablet (Vitamin D3) omega-3 fatty acids 500 mg capsule 500 mg PO DAILY 04/28/20 09/03/23 05/06/20 History turmeric root extract 500 mg 500 mg PO BID 04/28/20 09/03/23 05/06/20 History capsule tolterodine 2 mg capsule,extended 2 mg PO DAILY 06/21/21 09/03/23 Unknown History release 24 hr magnesium carb,citrate,oxide 300 mg PO DAILY 08/12/23 09/03/23 Unknown History (Magnesium Complex) Exam Height,Weight and Vital Signs: Height 6 ft Weight 91.626 kg Pertinent Lab Results Pertinent Lab Results: Laboratory Tests 08/29/23 10:11 WBC 7.9 Hgb 16.4 Hct 49.9 Plt Count 223 Sodium 140 Potassium 4.3 Chloride 104 Carbon Dioxide 27 BUN 17 H Creatinine 0.97 Assessment and Plan Assessment Anesthesia Assessment: Chart Reviewed
[2023-09-05 08:20] VITALS: BMI 27.4
[2023-09-05 08:22] VITALS: BP 117/70; PULSE 72; RESP 18; TEMP 36.2; O2SAT 97
--- NOTE | 2023-09-05 08:26 | P.CONAN_ITS ---
[facility] Active Problems Active Problems: All Active Problems (Updated 08/29/23 @ 10:04 by Letty Olivera MD) Right inguinal hernia (Acute) Screening for diabetes mellitus (Acute) Impacted cerumen of both ears (Acute) Impingement syndrome of right shoulder region (Acute) Pulmonary embolism (Chronic) Annual physical exam (Acute) Low back pain (Acute) Lumbar spine pain (Acute) Strain of lumbar paraspinal muscle (Acute) BPH (benign prostatic hyperplasia) (Acute) Hyperlipidemia (Acute) Hypertension (Acute) Urgency of micturition (Acute) Urge incontinence (Acute) Generalized anxiety disorder (Acute) Status post left knee replacement (Acute) Past Medical History Medical History Cough Constipation Urgency of micturition Urge incontinence Generalized anxiety disorder Patellofemoral arthritis of left knee Hypothyroidism History of double vision BPH (benign prostatic hyperplasia) Hx of ulcerative colitis Polycythemia vera History of DVT (deep vein thrombosis) PND (post-nasal drip) Hyperlipidemia Hypertension Pre-op examination Family History Family History Father No problems noted. Mother No problems noted. Family history of problems with anesthesia: No Surgical History Surgical History History of colonoscopy History of right hip replacement Status post total left knee replacement Status post total left knee replacement Status post left knee replacement H/O total hip arthroplasty History of squamous cell carcinoma excision History of cholecystectomy History of left hip replacement History of Problems with Anesthesia: No Social History Social History (Updated 09/03/23 @ 11:15 by Jenna Alford RN) Household Members: Spouse Housing: House Are you a primary patient care assistant to a significant other at home: No Do you presently have visiting nurse or other home services: No Alcohol intake: current Alcohol intake frequency: holidays/special occasions only Comment: sleeping Patient Tobacco Use Status: Never used Tobacco e-Cigarette/Vaping Use: Never Used Second Hand Smoke Exposure: Yes Use of substances other than those prescribed or required for medical reasons: No Have you been hit, kicked, punched, or otherwise hurt by someone within the past year? If so, by whom?: No Are you DNR?: No Advance Directives: No Advance Directives Information Provided: Yes Advance Directives on File: No Recently lost weight without trying: No Nutrition Risks: Surgical patient >75years Poor oral hygiene: No service: No Current occupational status: retired Cognitive needs: Yes Hearing needs: Yes Vision needs: No Meds Allergies Allergy/AdvReac Type Severity Reaction Status Date / Time No Known Allergies Allergy Verified 09/03/23 11:12 Active Medications: Current Medications Lactated Ringer's (Lr) 1,000 mls @ 100 mls/hr IVCONT .Q10H [facility] Home Medications Medication Instructions Recorded Confirmed Last Taken Type ascorbic acid (vitamin C) 1,000 mg 1,000 mg PO BID 04/28/20 09/03/23 05/06/20 09:00 History tablet (Vitamin C) cholecalciferol (vitamin D3) 25 25 mcg PO DAILY 04/28/20 09/03/23 05/06/20 History mcg (1,000 unit) tablet (Vitamin D3) omega-3 fatty acids 500 mg capsule 500 mg PO DAILY 04/28/20 09/03/23 05/06/20 History turmeric root extract 500 mg 500 mg PO BID 04/28/20 09/03/23 05/06/20 History capsule tolterodine 2 mg capsule,extended 2 mg PO DAILY 06/21/21 09/03/23 Unknown Histo ry release 24 hr magnesium carb,citrate,oxide 300 mg PO DAILY 08/12/23 09/03/23 Unknown History (Magnesium Complex) Exam Height,Weight and Vital Signs: Height 6 ft Weight 91.626 kg Airway Mallampati Class: III TM Dist: >3cm Neck ROM: Full Loose/Missing/Broken Teeth: No Heart: rrr Lungs: clear Assessment and Plan Final Anesthetic Review Family History of Problems with Anesthesia: No History of Problems with Anesthesia: No NPO: Yes ASA Class: II Final Preanesthetic Review: No Changes in Pt Med Stat, Meds/Allgs Chart Reviewed, Consent Obtained/Reviewed and Anes Risks/Benef Reviewed Patient Risk: Intermediate Procedure Risk: Low Anesthetic Plan Anesthetic Plan: GA Disposition: Standard PACU
[2023-09-05] MEDS: Lactated Ringers 1,000 ML 100 ML IVCONT (09:06)
[2023-09-05 11:00] VITALS: BP 104/49; PULSE 60; RESP 14; TEMP 36.6; O2SAT 94
--- NOTE | 2023-09-05 11:01 | W.PM.OPN ---
Operative Note Operative Note Date of Service: 09/05/23 Narrative: Preoperative diagnosis: [] Symptomatic large right inguinal hernia Postop diagnosis: [] Same Procedure [] open inguinal herniorrhaphy right with Bard mesh Surgeon: [] Leon Creative Perfumer: [] Ana Type of Anesthesia: [] Mac Indication for surgery: [] Very large indirect right inguinal hernia. No direct hernia demonstrated. Findings: [] Patient brought to the operating room, placed on operative table in supine position, after an adequate level of MAC anesthesia was induced, the right groin was prepped draped in usual sterile fashion, and the patient underwent ilioinguinal block as well as infiltration of the incision site with 1% lidocaine/0.5% Marcaine. A small right para- inguinal incision was made and carried down through skin, subcutaneous tissue, Chyna's fascia. External oblique fibers were opened their direction through isolate and preserve the ilioinguinal nerve throughout the procedure. No direct hernia was demonstrated. Spermatic cord was identified and retracted from the field. Exploration of the cord demonstrated a very large indirect hernia sac which was from the cord and reduced. A Bard plug was placed in the indirect defect, and sutured inferiorly to the inguinal ligament, and superiorly to the transversalis fascia using interrupted 0 Ethibond suture. At completion the procedure, mesh was in good position with no gaps or tension and covered the entire inguinal floor. At completion the procedure, wound was irrigated, secured hemostasis, and closed in the following manner; external oblique fascia was closed using running 2-0 Vicryl suture. Chyna's fascia was reapproximated using interrupted 3-0 Vicryl sutures. Interrupted inverted deep dermal 3-0 Vicryl sutures followed by running subcuticular 4-0 Vicryl sutures were placed. Steri-Strips and sterile dressings were applied. Sponge, needle, and instrument counts were reported correct. Patient tolerated the procedure well emerged from anesthesia in stable condition. Ipsilateral testicle was intrascrotal at completion the procedure. EBL minimal
[2023-09-05 11:15] VITALS: BP 98/59; PULSE 60; RESP 16; O2SAT 96
[2023-09-05 11:30] VITALS: BP 119/57; PULSE 62; RESP 16; TEMP 36.6; O2SAT 97
== END 2023-09-05 12:02 | disposition home or self-care (01) ==
PROVIDERS: PCP Internal Medicine; Visit Provider Surgery
PROC: (CPT 49505; principal; 2023-09-05 10:00)
DX: K40.90 Unilateral inguinal hernia, without obstruction or gangrene, not specified as recurrent (principal); K59.00 Constipation, unspecified; I10 Essential (primary) hypertension; E78.5 Hyperlipidemia, unspecified; D45 Polycythemia vera; F41.1 Generalized anxiety disorder; Z86.718 Personal history of other venous thrombosis and embolism; Z79.01 Long term (current) use of anticoagulants; Z79.899 Other long term (current) drug therapy; Z90.49 Acquired absence of other specified parts of digestive tract; Z85.828 Personal history of other malignant neoplasm of skin; F12.90 Cannabis use, unspecified, uncomplicated; Z98.890 Other specified postprocedural states
CPT/HCPCS: 49505; C1781; J0665; J0690; J2704; J3010

== ENCOUNTER → 2023-09-05 07:51 | Outpatient (BNV) | payer MEDICARE, OTHER, SELFPAY | PROVIDERS: PCP Internal Medicine; Visit Provider Surgery | DX: K40.90 Unilateral inguinal hernia, without obstruction or gangrene, not specified as recurrent (principal) | CPT/HCPCS: 49505 ==

== ENCOUNTER 2023-09-16 10:12 | Outpatient (AMB) | payer MEDICARE, OTHER, SELFPAY ==
--- NOTE | 2023-09-16 10:30 | MHC.OFFVIS ---
Intake Vital Signs 09/16/23 10:32 Height 6 ft Weight 206 lb 6 oz BMI 28.0 BP 135/63 Blood Pressure Location Lt brachial Position Sitting Pulse 70 Intake Visit Reasons: S/P RIH w/mesh Intake Note: Patient is seen in office for post op assessment post right inguinal hernia repair. Patient c/o: admits to sore and tender, denies any other concerns Bsa/Aml Compliance Officer Required: No Accompanied by: Spouse Allergies No Known Allergies Allergy (Verified 09/16/23 10:32) HPI HPI Comments History of Present Illness Details Patient presents with his for follow-up. He is doing quite well. Tolerating a diet. Having regular bowel habits. Increasing his activity level. Minimal incisional discomfort FORMERLY [facility] Medical History (Updated 08/29/23 @ 10:04 by Letty Olivera MD) Cough Constipation Urgency of micturition Urge incontinence Generalized anxiety disorder Patellofemoral arthritis of left knee Hypothyroidism History of double vision BPH (benign prostatic hyperplasia) Hx of ulcerative colitis Polycythemia vera History of DVT (deep vein thrombosis) PND (post-nasal drip) Hyperlipidemia Hypertension Pre-op examination Surgical History Right inguinal hernia (09/05/23) History of colonoscopy History of right hip replacement Status post total left knee replacement Status post total left knee replacement Status post left knee replacement H/O total hip arthroplasty History of squamous cell carcinoma excision History of cholecystectomy History of left hip replacement Family History Father No problems noted. Mother No problems noted. Social History Household Members: Spouse Housing: House Are you a primary health care recruiter to a significant other at home: No Do you presently have visiting nurse or other home services: No Alcohol intake: current Alcohol intake frequency: holidays/special occasions only Comment: COUNTS CORRECT Patient Tobacco Use Status: Never used Tobacco e-Cigarette/Vaping Use: Never Used Second Hand Smoke Exposure: Yes service: No Current occupational status: retired Cognitive needs: Yes Hearing needs: Yes Vision needs: No Physical Exam Vital Signs: Last Vital Signs Pulse 70 09/16/23 10:32 BP 135/63 09/16/23 10:32 BMI result Body Mass Index 28.0 GI Other: Abdomen soft. Wound clean dry and intact healing very well. Assessment & Plan Assessment & Plan (1) Status post inguinal hernia repair: Code(s): Z98.890 - Other specified postprocedural states; Z87.19 - Personal history of other diseases of the digestive system (2) Right inguinal hernia: Onset Date: 09/05/23 Comment: Dr. Chava Quintero Code(s): K40.90 - Unilateral inguinal hernia, without obstruction or gangrene, not specified as recurrent Plan Patient have been given local instructions, and will follow-up p.r.n.. All questions answered. Coding Level of Care Code Global (25494) Diagnoses Status post inguinal hernia repair Z98.890; Z87.19 Right inguinal hernia K40.90
[2023-09-16 10:32] VITALS: BP 135/63; PULSE 70; BMI 28.0
== END 2023-09-16 10:38 | disposition home or self-care (01) ==
PROVIDERS: PCP Internal Medicine; Visit Provider Surgery
DX: Z98.890 Other specified postprocedural states (principal); Z87.19 Personal history of other diseases of the digestive system; K40.90 Unilateral inguinal hernia, without obstruction or gangrene, not specified as recurrent
CPT/HCPCS: 99024

== ENCOUNTER → 2023-09-16 10:12 | Outpatient (BNVA) | payer MEDICARE, OTHER, SELFPAY | PROVIDERS: PCP Internal Medicine; Visit Provider Surgery | DX: Z48.815 Encounter for surgical aftercare following surgery on the digestive system (principal); Z98.890 Other specified postprocedural states; Z87.19 Personal history of other diseases of the digestive system | CPT/HCPCS: 99212 ==

== ENCOUNTER 2024-02-25 14:44 | Outpatient (AMB) | payer MEDICARE, OTHER, SELFPAY ==
[2024-02-25 14:46] VITALS: BP 132/90; PULSE 62; O2SAT 97; BMI 27.3
--- NOTE | 2024-02-25 14:46 | MHC.PC.OV ---
Vital Signs 02/25/24 14:46 Height 6 ft Weight 201 lb 0.8 oz BMI 27.3 BP 132/90 H Blood Pressure Location Lt brachial Position Sitting Pulse 62 Pulse Source Pulse Oximeter Pulse Oximetry (%) 97 Oxygen Delivery Method Room Air Intake Visit Reasons: 6mth/ f/u chk up Fire And Explosion Investigator Required: No Allergies No Known Allergies Allergy (Verified 02/25/24 14:49) Tobacco use date assessed: 02/25/24 Fall risk assessment: No Falls in past year Last assessed Fall Risk: 02/25/24 Dental Screening Dental Screen Date: 02/25/24 Did you have a dental visit in the last 12 months?: Yes Did you have a dental problem in the last 6 months where you did not have access to dental care?: No Was dental information given to patient?: Patient has dentist HPI 6mth/ /u chk up HPI Details 79-year-old male presents to the office to discuss his chronic medical condition. Since last office visit, patient underwent a right inguinal hernia repair. He tolerated the surgery well and recovered completely. Patient is now seeing a urologist outside the [facility] system. He has an MRI scheduled for a possible lesion on the kidney. Reports no symptoms with urination. Continues to take the anticoagulant for pulmonary embolism in the past. Patient is also complaining of memory loss. It was difficult for him to remember the name of the general surgeon who operated on him. He tends to forget where he leaves the car keys. Occasionally he has lost direction while driving. Continues to manage the finances at home. FORMERLY [facility], [facility] Medical History Cough Constipation Urgency of micturition Urge incontinence Generalized anxiety disorder Patellofemoral arthritis of left knee Hypothyroidism History of double vision BPH (benign prostatic hyperplasia) Hx of ulcerative colitis Polycythemia vera History of DVT (deep vein thrombosis) PND (post-nasal drip) Hyperlipidemia Hypertension Pre-op examination Surgical History Right inguinal hernia (09/05/23) History of colonoscopy History of right hip replacement Status post total left knee replacement Status post total left knee replacement Status post left knee replacement H/O total hip arthroplasty History of squamous cell carcinoma excision History of cholecystectomy History of left hip replacement Family History Father No problems noted. Mother No problems noted. Social History Household Members: Spouse Housing: House Are you a primary medical care evaluation specialist to a significant other at home: No Do you presently have visiting nurse or other home services: No Alcohol intake: current Alcohol intake frequency: holidays/special occasions only Comment: COUNTS CORRECT Patient Tobacco Use Status: Never used Tobacco e-Cigarette/Vaping Use: Never Used Second Hand Smoke Exposure: Yes service: No Current occupational status: retired Cognitive needs: Yes Hearing needs: Yes Vision needs: No Questionnaire Thrive Questionnaire Date Thrive assessed: 09/05/22 AUDIT C Alcohol Use Questionnaire (AUDIT-C) 1. How often do you have a drink containing alcohol?: Monthly or less 2. How many drinks containing alcohol do you have on a typical day when you are drinking?: 1 or 2 3. How often do you have six or more drinks on one occasion?: Never Total Score: 1 KELLEY-7 AMB Questionnaire KELLEY-7 Date KELLEY - 7 assessed: 09/05/22 Source: Developed by Drs. Sandeep Crenshaw, Yasmin Lancaster, Armando Capone and colleagues, with an educational sharath from [employer]. Physical exam (Primary Care) Vital Signs: Last Vital Signs Pulse 62 02/25/24 14:46 BP 132/90 H 02/25/24 14:46 Pulse Ox 97 02/25/24 14:46 Oxygen Delivery Method Room Air 02/25/24 14:46 BMI result Body Mass Index 27.3 Tobacco/Smoking Status: Tobacco use Status Tobacco use date assessed 02/25/24 02/25/24 14:53 Patient Tobacco Use Status Never used Tobacco 02/25/24 14:49 e-Cigarette/Vaping Use Never Used 02/25/24 14:49 Thrive Assessment: Date of Thrive Assessment Date Thrive assessed 09/05/22 02/25/24 14:49 Const General: cooperative and healthy appearing Nutritional Appearance: well nourished Orientation/consciousness: patient oriented x3 Limitations: no limitations HENMT Head: Yes normal to inspection Eyes General: appearance normal, both eyes and all related structures Neck Neck: Yes normal visual inspection Chest Chest palpation & inspection: normal palpation of entire chest wall Resp Effort & Inspection: normal respiratory effort Neuro General: patient oriented x3 Assessment and Plan Assessment & Plan (1) Hypertension: Code(s): I10 - Essential (primary) hypertension Qualifiers: Hypertension type: essential hypertension Qualified Code(s): I10 - Essential (primary) hypertension Plan: Blood pressure is in range. Continue medications at same dosage. (2) Hyperlipidemia: Code(s): E78.5 - Hyperlipidemia, unspecified Qualifiers: Hyperlipidemia type: familial hypercholesterolemia Qualified Code(s): E78.01 - Familial hypercholesterolemia Plan: Fasting blood work ordered. (3) Pulmonary embolism: Code(s): I26.99 - Other pulmonary embolism without acute cor pulmonale Plan: Continue the oral anticoagulants. (4) Dementia: Code(s): F03.90 - Unspecified dementia, unspecified severity, without behavioral disturbance, psychotic disturbance, mood disturbance, and anxiety Plan Will continue to monitor. Orders: Orders Basic Metabolic Panel Today E78.01 - Familial hypercholesterolemia, I10 - Essential (primary) hypertension, I26.99 - Other pulmonary embolism without acute cor pulmonale Lipid Panel Today E78.01 - Familial hypercholesterolemia, I10 - Essential (primary) hypertension, I26.99 - Other pulmonary embolism without acute cor pulmonale Liver Panel Today E78.01 - Familial hypercholesterolemia, I10 - Essential (primary) hypertension, I26.99 - Other pulmonary embolism without acute cor pulmonale Thyroid Stimulating Hormone Today E78.01 - Familial hypercholesterolemia, I10 - Essential (primary) hypertension, I26.99 - Other pulmonary embolism without acute cor pulmonale UA and rflx microscopic Today E78.01 - Familial hypercholesterolemia, I10 - Essential (primary) hypertension, I26.99 - Other pulmonary embolism without acute cor pulmonale Complete Blood Count no Diff Today E78.01 - Familial hypercholesterolemia, I10 - Essential (primary) hypertension, I26.99 - Other pulmonary embolism without acute cor pulmonale Coding Level of Care Code Est Pt Level 4 (79904) Complex EM visit Add On G2211 Diagnoses Essential hypertension I10 Hypertension type: essential hypertension Familial hypercholesterolemia E78.01 Hyperlipidemia type: familial hypercholesterolemia Pulmonary embolism I26.99 Dementia F03.90
== END 2024-02-25 15:18 | disposition home or self-care (01) ==
PROVIDERS: PCP Internal Medicine; Visit Provider Internal Medicine
DX: I10 Essential (primary) hypertension (principal); E78.01 Familial hypercholesterolemia; I26.99 Other pulmonary embolism without acute cor pulmonale; F03.90 Unspecified dementia, unspecified severity, without behavioral disturbance, psychotic disturbance, mood disturbance, and anxiety
CPT/HCPCS: 99214; G2211

== ENCOUNTER 2024-03-08 07:18 | Outpatient (REF) | payer MEDICARE, OTHER, SELFPAY ==
[2024-03-08 07:43] LABS: Hematocrit 49.2 % (42.0-52.0); Hemoglobin 16.3 g/dl (14.0-18.0); Mean Corpuscular HGB Conc 33.1 g/dl (31.0-36.0); Mean Corpuscular Hemoglobin 29.6 pg (27.0-33.0); Mean Corpuscular Volume 89.3 fL (80.0-98.0); Mean Platelet Volume 9.4 fL (9.4-12.4); Platelet Count 214 X10*3/uL (160-400); Red Blood Count 5.51 X10*6/uL (4.60-5.80); Red Cell Distribution Width 14.6 % (11.0-16.0); White Blood Count 8.5 X10*3/uL (4.8-10.8)
[2024-03-08 07:53] LABS: Appearance Urine Clear; Color Urine Yellow; Glucose Urine UA Negative (Negative); Leukocyte Esterase Urine Small (1+) (Negative); Nitrite Urine Negative (Negative); Specific Gravity - Urine 1.015 (1.005-1.025); UMIC TRIGGER UA YES; Urine Blood Negative (Negative); Urine Ketones Negative (Negative); Urine Protein Negative (Neg-Trace)
[2024-03-08 08:12] LABS: Bacteria Urine None Seen (None Seen); Hyaline Casts Urine 0-2 /LPF (0-2); RBC Urine 0-2 /HPF (0-2); Squamous Epithelial Cell Urine 0-2 /HPF (0-2); WBC Urine 0-5 /HPF (0-5)
[2024-03-08 08:29] LABS: Alanine Aminotransferase 13 U/L (0-40); Albumin Level 4.2 g/dL (3.5-5.0); Alkaline Phosphatase 91 U/L (39-117); Anion Gap 13 (12-20); Aspartate Amino Transferase 12 U/L (5-37); Bilirubin Direct 0.2 mg/dL (0.0-0.5); Bilirubin Total 0.5 mg/dL (0.0-1.0); Blood Urea Nitrogen 19 mg/dL (9-16); Calcium 9.3 mg/dL (8.4-10.2); Carbon Dioxide 27 mmol/L (22-29); Chloride 105 mmol/L (96-108); Cholesterol 192 mg/dL (<200); Estimated Glomerular Filt Rate > 60; Glucose Random 95 mg/dL (60-115); HDL Cholesterol 39 mg/dL (>40); LDL Cholesterol Calculated 130 mg/dL (<100); Potassium 4.7 mmol/L (3.3-5.1); Sodium 140 mmol/L (135-145); Total Protein 7.4 g/dL (6.5-8.0); Triglycerides 118 mg/dL (<150)
[2024-03-08 08:46] LABS: Thyroid Stimulating Hormone 3.12 uIU/mL (0.32-4.0)
== END 2024-03-08 07:19 | disposition home or self-care (01) ==
LOC: HO.LAB 07:18
PROVIDERS: PCP Internal Medicine; Visit Provider Internal Medicine
DX: I26.99 Other pulmonary embolism without acute cor pulmonale (principal); I10 Essential (primary) hypertension; E78.01 Familial hypercholesterolemia
CPT/HCPCS: 36415; 80048; 80061; 80076; 81001; 84443; 85027

== ENCOUNTER 2024-06-03 08:54 | Outpatient (AMB) | payer MEDICARE, OTHER, SELFPAY ==
--- NOTE | 2024-06-03 08:59 | A.OFFPC_ITS ---
Vital Signs 06/03/24 09:02 Height 6 ft Weight 206 lb 8 oz BMI 28.0 BP 120/66 Blood Pressure Location Lt brachial Position Sitting Pulse 56 Pulse Source Pulse Oximeter Pulse Oximetry (%) 100 Oxygen Delivery Method Room Air Intake Visit Reasons: 3 Month F/U Intake Note: Patient is here to follow up on HTN, HLD, BPH. 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: No Commercial Subcontractor: Not Required per policy Accompanied by: Self / Same As Patient Allergies No Known Allergies Allergy (Verified 06/03/24 11:22) Medication List - Last Reconciled 06/03/24 by Vaibhav Land MD ascorbic acid (vitamin C) (Vitamin C) 1,000 mg PO BID cholecalciferol (vitamin D3) (Vitamin D3) 25 mcg PO DAILY finasteride 5 mg PO DAILY levothyroxine 75 mcg PO DAILY lisinopril 10 mg PO DAILY magnesium carb,citrate,oxide (Magnesium Complex) 300 mg PO DAILY omega-3 fatty acids 500 mg PO DAILY rivaroxaban 10 mg PO DAILY tamsulosin 0.8 mg (2 x 0.4 mg) PO BEDTIME 90 days tolterodine ER 2 mg PO DAILY turmeric root extract 500 mg PO BID Tobacco use date assessed: 06/03/24 Fall risk assessment: No Falls in past year Last assessed Fall Risk: 06/03/24 Dental Screening Dental Screen Date: 02/25/24 HPI 3 Month F/U HPI Details 79-year-old male presents to the office to discuss his chronic medical conditions. Patient is complaining of recurrent cough symptoms. Symptoms are worse in the morning and brings out great thick sputum. No associated shortness of breath. No fevers or chills. No loss of weight. Patient has fully recovered from the hernia surgery. [facility] [place] Medical History Cough Constipation Urgency of micturition Urge incontinence Generalized anxiety disorder Patellofemoral arthritis of left knee Hypothyroidism History of double vision BPH (benign prostatic hyperplasia) Hx of ulcerative colitis Polycythemia vera History of DVT (deep vein thrombosis) PND (post-nasal drip) Hyperlipidemia Hypertension Pre-op examination Surgical History Right inguinal hernia (09/05/23) History of colonoscopy History of right hip replacement Status post total left knee replacement Status post total left knee replacement Status post left knee replacement H/O total hip arthroplasty History of squamous cell carcinoma excision History of cholecystectomy History of left hip replacement Family History Father No problems noted. Mother No problems noted. Social History Household Members: Spouse Housing: House Are you a primary care partner to a significant other at home: No Do you presently have visiting nurse or other home services: No Alcohol intake: current Alcohol intake frequency: holidays/special occasions only Comment: COUNTS CORRECT Patient Tobacco Use Status: Never used Tobacco e-Cigarette/Vaping Use: Never Used Second Hand Smoke Exposure: Yes service: No Current occupational status: retired Cognitive needs: Yes Hearing needs: Yes Vision needs: No Questionnaire PHQ-9 Over the last 2 weeks, how often have you been bothered by any of the following problems? 1. Little interest or pleasure in doing things: not at all 2. Feeling down, depressed, or hopeless: not at all 3. Trouble falling or staying asleep, or sleeping too much: not at all 4. Feeling tired or having little energy: not at all 5. Poor appetite or overeating: not at all 6. Feeling bad about yourself - or that you are a failure or have let yourself or your family down: not at all 7. Trouble concentrating on things, such as reading the newspaper or watching television: not at all 8. Moving or speaking so slowly that other people could have noticed. Or the opposite - being so fidgety or restless that you have been moving around a lot more than usual: not at all 9. Thoughts that you would be better off or of hurting yourself in some way: not at all Total score: 0 Depression Screening Interpretation: Negative Depression Screening Done: Yes Source: Developed by Drs. Sandeep Crenshaw, Yasmin Lancaster, Armando Capone and colleagues, with an educational shartah from [employer]. Thrive Questionnaire Date Thrive assessed: 06/03/24 I am a: Patient What is your living situation today?: I have a steady place to live Within the past 12 months, did the food you bought not last and you didn't have the money to get more?: Never true Within the past 12 months, did you worry whether your food would run out before you got money to buy more?: Never true Do you have trouble paying for medicines?: No Do you have trouble getting transportation to medical appointments?: No Do you have trouble paying your heating and electricity bill?: No Do you have trouble taking care of your child, family member or friend?: No Do you have trouble with day-to-day activities such as bathing, preparing meals, shopping, managing finances, etc.?: No Are you currently unemployed and looking for a job?: No Are you interested in more education?: No Currently or been in a relationship where the following occur: No concerns reported THRIVE Score: 0 AUDIT C Alcohol Use Questionnaire (AUDIT-C) 2. How many drinks containing alcohol do you have on a typical day when you are drinking?: 1 or 2 3. How often do you have six or more drinks on one occasion?: Never Total Score: 0 KELLEY-7 AMB Questionnaire KELLEY-7 Date KELLEY - 7 assessed: 06/03/24 Feeling nervous, anxious, or on edge: 0 = Not at all Not being able to stop or control worryin = Not at all Worrying too much about different things: 0 = Not at all Trouble relaxin = Not at all Being so restless that it is hard to sit still: 0 = Not at all Becoming easily annoyed or irritable: 0 = Not at all Feeling afraid as if something awful might happen: 0 = Not at all Total KELLEY-7 score (0-4 normal; 5-9 mild; 10-14 moderate; 15-21 severe): 0 Source: Developed by Drs. Sandeep Crenshaw, Yasmin Lancaster, Armando Capone and colleagues, with an educational sharath from [employer]. Physical exam (Primary Care) Vital Signs: Last Vital Signs Pulse 56 06/03/24 09:02 BP 120/66 06/03/24 09:02 Pulse Ox 100 06/03/24 09:02 Oxygen Delivery Method Room Air 06/03/24 09:02 BMI result Body Mass Index 28.0 Tobacco/Smoking Status: Tobacco use Status Tobacco use date assessed 06/03/24 06/03/24 09:06 Patient Tobacco Use Status Never used Tobacco 06/03/24 09:06 e-Cigarette/Vaping Use Never Used 06/03/24 09:06 PHQ-9: PHQ-9 Score PHQ-9: Total score 0 06/03/24 09:19 Depression Screening Interpretation: Negative Thrive Assessment: Date of Thrive Assessment Date Thrive assessed 06/03/24 06/03/24 09:06 Currently or been in a relationship where the following occur: No concerns reported Const General: cooperative and healthy appearing Nutritional Appearance: well nourished Orientation/consciousness: patient oriented x3 Limitations: no limitations HENMT Head: Yes normal to inspection Eyes General: appearance normal, both eyes and all related structures Neck Neck: Yes normal visual inspection Chest Chest palpation & inspection: normal palpation of entire chest wall Resp Effort & Inspection: normal respiratory effort Neuro General: patient oriented x3 Coding Level of Care Code Est Pt Level 4 (13567) Complex EM visit Add On G2211 Diagnoses Generalized anxiety disorder F41.1 Essential hypertension I10 Hypertension type: essential hypertension Familial hypercholesterolemia E78.01 Hyperlipidemia type: familial hypercholesterolemia Pulmonary embolism I26.99 Cough R05.9 Assessment & Plan Assessment & Plan (1) Generalized anxiety disorder: Code(s): F41.1 - Generalized anxiety disorder Category: Medical Plan: Condition is stable. Currently on no medications. (2) Hypertension: Code(s): I10 - Essential (primary) hypertension Category: Medical Qualifiers: Hypertension type: essential hypertension Qualified Code(s): I10 - Essential (primary) hypertension Plan: BP is in range. Continue medications at same dosage. (3) Hyperlipidemia: Code(s): E78.5 - Hyperlipidemia, unspecified Category: Medical Qualifiers: Hyperlipidemia type: familial hypercholesterolemia Qualified Code(s): E78.01 - Familial hypercholesterolemia Plan: BW is stable. Continue meds at same dosage. (4) Pulmonary embolism: Code(s): I26.99 - Other pulmonary embolism without acute cor pulmonale Category: Medical Plan: Continue anticoagulation med at same dosage. (5) Cough: Code(s): R05.9 - Cough, unspecified Plan: Referral made to english as a second language instructor. Orders: Referrals Pulmonology Referral R05.9 - Cough, unspecified
[2024-06-03 09:02] VITALS: BP 120/66; PULSE 56; O2SAT 100; BMI 28.0
== END 2024-06-03 09:27 | disposition home or self-care (01) ==
PROVIDERS: PCP Internal Medicine; Visit Provider Internal Medicine
DX: F41.1 Generalized anxiety disorder (principal); I10 Essential (primary) hypertension; E78.01 Familial hypercholesterolemia; I26.99 Other pulmonary embolism without acute cor pulmonale; R05.9 Cough, unspecified

== ENCOUNTER → 2024-06-03 08:54 | Outpatient (BNVA) | payer MEDICARE, OTHER, SELFPAY | PROVIDERS: PCP Internal Medicine; Visit Provider Internal Medicine | DX: F41.1 Generalized anxiety disorder (principal); I10 Essential (primary) hypertension; E78.01 Familial hypercholesterolemia; I26.99 Other pulmonary embolism without acute cor pulmonale; R05.9 Cough, unspecified | CPT/HCPCS: 96127; 99212 ==

== ENCOUNTER 2024-06-04 13:23 | Outpatient (REF) | payer MEDICARE, OTHER, SELFPAY ==
--- NOTE | ~2024-06-04 | XR_ITS ---
EXAMINATION: XR CHEST CLINICAL INFORMATION: Cough. COMPARISON: CTA chest dated 12/09/2013. TECHNIQUE: 2 views of the chest were obtained. FINDINGS: The lungs are clear. The cardiomediastinal silhouette is normal in size. There is no pleural effusion or pneumothorax. No acute osseous abnormality. XR/XR chest 2V IMPRESSION: No acute cardiopulmonary findings. Electronically signed by: Collin Ferrer MD 06/04/2024 03:59 PM [facility] [place]
== END 2024-06-04 13:24 | disposition home or self-care (01) ==
LOC: HO.XRAY 13:23
PROVIDERS: PCP Internal Medicine; Referring Provider Internal Medicine; Visit Provider Nurse Practitioner Family
DX: R05.3 Chronic cough (principal)
CPT/HCPCS: 71046; 99202

== ENCOUNTER 2024-06-04 13:23 | Outpatient (AMB) | payer MEDICARE, OTHER, SELFPAY ==
[2024-06-04 13:25] VITALS: BP 160/74; PULSE 74; O2SAT 94; BMI 28.0
--- NOTE | 2024-06-04 13:25 | MHC.OFFVIS ---
Vital Signs 06/04/24 13:25 Height 6 ft Weight 206 lb 8 oz BMI 28.0 BP 160/74 H Blood Pressure Location Lt brachial Position Sitting Pulse 74 Pulse Source Pulse Oximeter Pulse Oximetry (%) 94 Oxygen Delivery Method Room Air Intake Visit Reasons: Cough Allergies No Known Allergies Allergy (Verified 06/04/24 13:28) HPI HPI Cough: Details: Aaron is a plesasnt 79 year old male, never smoker, with underlying h/o provoked PE/DVT on eliquis, GERD, HTN, hypothyroidism and polycythemia vera. He was referred by PCP for pulmonary evaluation for chronic cough. He reports persistent cough for the last year that has been unchanged with grayish white sputum. He has not trialed any antibiotics, prednisone or OTC medications for this. He denies wheezing, chest tightness or dyspnea. He denies prior h/o asthma. He denies any triggering symptoms. He denies seasonal allergies. He reports intermittent reflux. He is currently on lisinopril and reports starting 1-2 years prior. He denies prior CXR. He denies any occupational exposures. He denies any pertinent family history. COUNTS INCLUDE 234 BEDS AT THE [facility] Medical History Cough Constipation Urgency of micturition Urge incontinence Generalized anxiety disorder Patellofemoral arthritis of left knee Hypothyroidism History of double vision BPH (benign prostatic hyperplasia) Hx of ulcerative colitis Polycythemia vera History of DVT (deep vein thrombosis) PND (post-nasal drip) Hyperlipidemia Hypertension Pre-op examination Surgical History Right inguinal hernia (09/05/23) History of colonoscopy History of right hip replacement Status post total left knee replacement Status post total left knee replacement Status post left knee replacement H/O total hip arthroplasty History of squamous cell carcinoma excision History of cholecystectomy History of left hip replacement Family History Father No problems noted. Mother No problems noted. Social History Household Members: Spouse Housing: House Are you a primary healthcare network consultant to a significant other at home: No Do you presently have visiting nurse or other home services: No Alcohol intake: current Alcohol intake frequency: holidays/special occasions only Comment: COUNTS CORRECT Patient Tobacco Use Status: Never used Tobacco e-Cigarette/Vaping Use: Never Used Second Hand Smoke Exposure: Yes service: No Current occupational status: retired Cognitive needs: Yes Hearing needs: Yes Vision needs: No Review of Systems Const Denies chills, Denies excessive sweating, Denies fever(s), Denies headache(s) and Denies night sweats Eyes Denies dry eyes, Denies irritation and Denies itchy eyes ENT Reports Normal hearing present, Denies headache(s), Denies nasal congestion, Denies nasal discharge and Denies sore throat Card Denies chest pain, Denies chest pain at rest, Denies chest pain with activity, Denies claudication, Denies leg edema, Denies dyspnea, Denies dyspnea on exertion, Denies orthopnea and Denies paroxysmal nocturnal dyspnea Resp Denies chest congestion, Denies pain on inspiration, Denies pain with cough, Denies dyspnea, Denies dyspnea on exertion, Denies stridor and Denies wheezing Musc Denies myalgias Neuro Reports Normal hearing present and Denies headache(s) Endo Denies excessive sweating David/Lymph Denies lymphadenopathy Aller/Immun Denies itchy eyes, Denies seasonal rhinorrhea and Denies wheezing Physical Exam Vital Signs: Last Vital Signs Pulse 74 06/04/24 13:25 BP 160/74 H 06/04/24 13:25 Pulse Ox 94 06/04/24 13:25 Oxygen Delivery Method Room Air 06/04/24 13:25 BMI result Body Mass Index 28.0 Const General: cooperative, healthy appearing, comfortable, no acute distress, well developed and alert Nutritional Appearance: obese Orientation/consciousness: patient oriented x3 Limitations: no limitations HEENT Head: Yes normal to inspection, Yes normocephalic and Yes atraumatic Ears: hearing grossly normal bilaterally and external ears normal Eyes General: appearance normal, both eyes and all related structures Eyelids: Yes eyelids normal Sclerae: sclerae normal EOM: EOMs intact bilaterally Neck Neck: Yes normal visual inspection and Yes no lymphadenopathy Lymphatic: no lymphadenopathy noted Chest Chest palpation & inspection: normal inspection of the chest Resp Effort & Inspection: normal respiratory effort, able to speak in complete sentences, no audible wheezes, no cough, no stridor, not tachypneic, no tripod positioning and no use of accessory muscles Auscultation: clear to auscultation bilaterally Cardio Jugular venous distension: no JVD Rate: regular rate Rhythm: regular rhythm Skin Other: warm, dry General skin exam: no rashes or lesions noted Neuro General: patient oriented x3 Cranial nerves: Yes Normal hearing present Cognition (Neuro): normal cognition Gait exam (Neuro): Normal gait present Extrem General: Yes normal to inspection, Yes capillary refill normal, Yes no clubbing, cyanosis or edema and Yes no pedal edema Psych Appearance: grossly normal and well kempt Speech and movement: Normal speech and movement present and Clear speech present Affect: normal affect Attitude: cooperative Thought process: Normal thought process present Thought content: Normal thought content present Insight: Good insight present (Psych) Judgement: Good judgement present (Psych) Assessment & Plan Assessment & Plan (1) Chronic cough: Code(s): R05.3 - Chronic cough Category: Medical Plan Aaron presents for pulmonary evaluation for chronic productive cough without any other associated respiratory symptoms. Will send for CXR and PFT to assess. Will consider CT if unremarkable. Unlikely related to lisinopril as patient notes intermittent sputum however should be considered. All questions were answered and patient is in agreement of plan. Will follow up to review results or sooner if needed. Orders: Orders XR chest 2V 06/04/24 R05.3 - Chronic cough PFT pulmonary function test Today R05.3 - Chronic cough Coding Level of Care Code New Pt Level 3 (57188) Diagnoses Chronic cough R05.3
== END 2024-06-04 13:56 | disposition home or self-care (01) ==
PROVIDERS: PCP Internal Medicine; Referring Provider Internal Medicine; Visit Provider Nurse Practitioner Family
DX: R05.3 Chronic cough (principal)
CPT/HCPCS: 99203

== ENCOUNTER 2024-08-04 10:48 | Outpatient (REF) | payer MEDICARE, OTHER, SELFPAY ==
--- NOTE | 2024-08-04 10:53 | PFT_ITS ---
Flows: FEV1: 101 % of predicted at 3.05 L FVC: 101 % of predicted at 4.15 L FEV1/FVC: 74 % Bronchodilator response: Borderline Volumes: Total lung capacity: 84 % of predicted at 6.36 L Residual volume: 68 % of predicted at 2.04 L Slow vital capacity: 101 % of predicted at 4.33 L Expiratory reserve volume: 43 % of predicted at 0.58 L Diffusion capacity: Normal Impression: No obstructive or restrictive ventilatory defect. Borderline bronchodilator response. Decreased expiratory reserve volume suggests extrathoracic restriction likely secondary to abdominal obesity. MTDD
== END 2024-08-04 10:49 | disposition home or self-care (01) ==
LOC: HO.RESP 10:48
PROVIDERS: PCP Internal Medicine; Visit Provider Nurse Practitioner Family
DX: R05.3 Chronic cough (principal)
CPT/HCPCS: 94010; 94640; 94727; 94729

== ENCOUNTER → 2024-08-04 10:53 | Outpatient (BNV) | payer MEDICARE, OTHER, SELFPAY | PROVIDERS: PCP Internal Medicine; Visit Provider Internal Medicine Pulmonary Disease | DX: R05.3 Chronic cough (principal) | CPT/HCPCS: 94060; 94727; 94729 ==

== ENCOUNTER 2024-08-17 10:50 | Outpatient (AMB) | payer MEDICARE, OTHER, SELFPAY ==
--- NOTE | 2024-08-17 10:56 | MHC.OFFVIS ---
Vital Signs 08/17/24 10:58 Height 6 ft Weight 204 lb BMI 27.7 BP 140/70 H Blood Pressure Location Rt brachial Position Sitting Pulse 72 Pulse Source Pulse Oximeter Pulse Oximetry (%) 95 Oxygen Delivery Method Room Air Intake Visit Reasons: chronic cough Network Security Officer Required: No Allergies No Known Allergies Allergy (Verified 08/17/24 10:57) Medication List - Last Reconciled 08/17/24 by Destiny Aranda, GLAZE WIPER ascorbic acid (vitamin C) (Vitamin C) 1,000 mg PO BID cholecalciferol (vitamin D3) (Vitamin D3) 25 mcg PO DAILY finasteride 5 mg PO DAILY levothyroxine 75 mcg PO DAILY losartan 50 mg PO DAILY magnesium carb,citrate,oxide (Magnesium Complex) 300 mg PO DAILY omega-3 fatty acids 500 mg PO DAILY rivaroxaban 10 mg PO DAILY tamsulosin 0.8 mg (2 x 0.4 mg) PO BEDTIME 90 days tolterodine ER 2 mg PO DAILY turmeric root extract 500 mg PO BID HPI HPI chronic cough: Details: Aaron is a plesasnt 79 year old male, never smoker, with underlying 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 He reports chronic cough for the last year with grayish white sputum, now clear and less persistent since the last visit. He denies wheezing, chest tightness or dyspnea. He does have a h/o reflux, using Tums infrequently, no recent PPI. He has noticed cough has been less frequent after obtaining risers for bed for more upright positioning. He denies prior h/o asthma. He denies any triggering symptoms. Today he presents to review PFT. He denies any visits to urgent care or hospitalizations related to respiratory distress since the last visit. [facility] Medical History Cough Constipation Urgency of micturition Urge incontinence Generalized anxiety disorder Patellofemoral arthritis of left knee Hypothyroidism History of double vision BPH (benign prostatic hyperplasia) Hx of ulcerative colitis Polycythemia vera History of DVT (deep vein thrombosis) PND (post-nasal drip) Hyperlipidemia Hypertension Pre-op examination Surgical History Right inguinal hernia (09/05/23) History of colonoscopy History of right hip replacement Status post total left knee replacement Status post total left knee replacement Status post left knee replacement H/O total hip arthroplasty History of squamous cell carcinoma excision History of cholecystectomy History of left hip replacement Family History Father No problems noted. Mother No problems noted. Social History Household Members: Spouse Housing: House Are you a primary care aide to a significant other at home: No Do you presently have visiting nurse or other home services: No Alcohol intake: current Alcohol intake frequency: holidays/special occasions only Comment: COUNTS CORRECT Patient Tobacco Use Status: Never used Tobacco e-Cigarette/Vaping Use: Never Used Second Hand Smoke Exposure: Yes service: No Current occupational status: retired Cognitive needs: Yes Hearing needs: Yes Vision needs: No Review of Systems Const Denies chills, Denies excessive sweating, Denies fever(s), Denies headache(s) and Denies night sweats Eyes Denies dry eyes, Denies irritation and Denies itchy eyes ENT Reports Normal hearing present, Denies headache(s), Denies nasal congestion, Denies nasal discharge, Denies post nasal drip and Denies sore throat Card Denies chest pain, Denies chest pain at rest, Denies chest pain with activity, Denies claudication, Denies leg edema, Denies dyspnea, Denies dyspnea on exertion, Denies orthopnea and Denies paroxysmal nocturnal dyspnea Resp Denies chest congestion, Reports cough, Denies excessive phlegm production, Denies pain on inspiration, Denies pain with cough, Denies dyspnea, Denies dyspnea on exertion, Denies stridor and Denies wheezing Musc Denies myalgias Neuro Reports Normal hearing present and Denies headache(s) Endo Denies excessive sweating David/Lymph Denies lymphadenopathy Aller/Immun Denies itchy eyes, Denies seasonal rhinorrhea and Denies wheezing Physical Exam Vital Signs: Last Vital Signs Pulse 72 08/17/24 10:58 BP 140/70 H 08/17/24 10:58 Pulse Ox 95 08/17/24 10:58 Oxygen Delivery Method Room Air 08/17/24 10:58 BMI result Body Mass Index 27.7 Const General: cooperative, healthy appearing, comfortable, no acute distress, well developed and alert Nutritional Appearance: obese Orientation/consciousness: patient oriented x3 Limitations: no limitations HEENT Head: Yes normal to inspection, Yes normocephalic and Yes atraumatic Ears: hearing grossly normal bilaterally and external ears normal Eyes General: appearance normal, both eyes and all related structures Eyelids: Yes eyelids normal Sclerae: sclerae normal EOM: EOMs intact bilaterally Neck Neck: Yes normal visual inspection and Yes no lymphadenopathy Lymphatic: no lymphadenopathy noted Chest Chest palpation & inspection: normal inspection of the chest Resp Effort & Inspection: normal respiratory effort, able to speak in complete sentences, no audible wheezes, no cough, no stridor, not tachypneic, no tripod positioning and no use of accessory muscles Auscultation: clear to auscultation bilaterally Cardio Jugular venous distension: no JVD Rate: regular rate Rhythm: regular rhythm Skin Other: warm, dry General skin exam: no rashes or lesions noted Neuro General: patient oriented x3 Cranial nerves: Yes Normal hearing present Cognition (Neuro): normal cognition Gait exam (Neuro): Normal gait present Extrem General: Yes normal to inspection, Yes capillary refill normal, Yes no clubbing, cyanosis or edema and Yes no pedal edema Psych Appearance: grossly normal and well kempt Speech and movement: Normal speech and movement present and Clear speech present Affect: normal affect Attitude: cooperative Thought process: Normal thought process present Thought content: Normal thought content present Insight: Good insight present (Psych) Judgement: Good judgement present (Psych) Assessment & Plan Assessment & Plan (1) Chronic cough: Code(s): R05.3 - Chronic cough Category: Medical (2) GERD (gastroesophageal reflux disease): Code(s): K21.9 - Gastro-esophageal reflux disease without esophagitis Category: Medical Plan Reviewed PFT which revealed no obstructive or restrictive ventilatory defect. Borderline bronchodilator response. Decreased expiratory reserve volume suggests extrathoracic restriction likely secondary to abdominal obesity. DLCO normal. After further discussion today patient with some difficulties swallowing and reflux. Will empirically treat with omeprazole for silent reflux. Discussed reflux diet and lifestyle changes. Will also send for barium swallow evaluation given dysphagia. If no significant findings will send for chest CT. All questions were answered and patient is in agreement of plan. Will follow up to review results or sooner if needed. Orders: Orders [place] Modified Barium Swallow Today R13.10 - Dysphagia, unspecified Coding Level of Care Code Est Pt Level 4 (74099) Diagnoses Chronic cough R05.3 GERD (gastroesophageal reflux disease) K21.9
[2024-08-17 10:58] VITALS: BP 140/70; PULSE 72; O2SAT 95; BMI 27.7
--- OUTSIDE RECORDS SUMMARY | 2024-08-17 11:59 | XMS_ITS | Patient Health Record ---
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 May fill on or after 2018 for 30 days 06/30/2018 Active Warfarin Sodium 7.5 MG 1 tablet Orally O nce a day Active Colace Not-Taking Levothyroxine Sodium 75 MCG Orally Once a day Active Metamucil Not-Taking ALOE VERA Not-Taking Vitamin C Active Atenolol 50 MG 1/2 Orally Once a day Not-Taking Omeprazole 20 MG 2 capsules Orally On ce a day for 30 Not-Taking Tricor 48 MG 1 tablet Orally Once a day for 90 days 08/25/2014 Not-Taking Zithromax Z-Stephane 250 MG 2 tablets on the first day, then 1 tablet daily for 4 days Orally Once a day for 5 day(s) 06/24/2016 Not-Taking Tamiflu 75 MG 1 capsule Orally Twi ce a day for 5 day(s) 06/24/2016 Not-Taking Fish Oil Active Vitamin D Active Amlodipine Besylate 5 MG 1 tablet Orally Once a day Active Co Q 10 Active Lorazepam 1 MG HS Orally PRN A ctive Simvastatin 40 MG Orally Once a day Active Immunizations Vaccine Route Administration Date Status Comme nts PNEUMOCOCCAL 13 CONJ ([id number]) Unknown 06/28/2016 Adm inistered FLU (Past vaccine of unknown type) Unknown 06/27/2016 A dministered Problems Problem Type SNOMED Code ICD Code Onset Dates Problem Status W/U Status Risk Notes Problem Localized, primary osteoarthritis of the pelvic region and thigh (776118625) Primary localized osteoarthrosis, pelvic region and thigh (715.15) Active confirmed Migrated- ProblemLi [id number] [facility] - Ortho-10/19 Problem Polycythemia vera (867707840) Polycythemia vera (D45) Active confirmed Problem 21428715 Hyperlipidemia, unspecified (E78.5) Active confirmed Problem 96150416 Essential (primary) hypertension (I10) Active confirmed Problem 727595755 Unspecified osteoarthritis, unspecified site (M19.90) Active confirmed Problem 51759162 Pain in right hip (M25.551) Active confirmed Problem 44403155 Pain in left hip (M25.552) Active confirmed Problem 62964060 Pain in left knee (M25.562) Active confirmed Problem Ataxic gait (68542091) Ataxic gait (R26.0) Active confirmed Problem 01428071 Unspecified abnormalities of gait and mobility (R26.9) Active confirmed Problem History of malignant neoplasm of esophagus (722569351) Personal history of malignant neoplasm of esophagus (Z85.01) Active confirmed Problem 46044451 Hypertension (401.9) Active confirmed Problem 82925867 Hyperlipidemia (272.4) Active confirmed Problem Gait abnormality (39779493) Gait abnormality (781.2) Active confirmed Problem Polycythemia vera (213549483) Polycythemia vera (238.4) Active confirmed Problem 64269315 Left knee pain (M25.562) Active confirmed Problem Antepartum deep phlebothrombosis (14494701) DVT (deep vein thrombosis) in (O22.30) Active confirmed Problem 37214359 Right hip pain (M25.551) Active confirmed Problem 415299180 Insomnia, unspecified type (G47.00) Active confirmed Problem 882762720 Acute embolism and thrombosis of deep vein of lower extremity, left (I82.402) Active confirmed Plan Of Treatment Pending Test Test Name Order Date PROTHROMBIN/INR TIME (72526) 05/30/20 14 BLOOD COUNT; COMPLETE CBC, A UTOMATED (HGB, HCT, RBC, WBC, & PLATELET) & AUTOMATED DIFFERENTIAL WBC (05279) CBC 05/15/2015 PT/INR (COLH-PTINR) 07/10/2015 Insurance Providers Payer Name Payer Address Payer Phone Subscriber Number Group Number Insured Name Patient Relationship to Insured Coverage Start Date Coverage End Date [place]ICARE [place] PART B [address] [facility] JESSE TURK [id number] [phone] [id number] Aaron Ludwig Self - patient is the insured 2 2 [facility] [address] [facility] INDEMNITY PLAN [place], [place] [id number] [phone] [id number] Aaron Ludwig Self - patient is the insured 2 2 Medical (General) History Medical History History ICD Code Hypothyroidism HBP Kidney disease chronic sleep disorder rt hip pain Skin cancers DVT 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
== END 2024-08-17 11:31 | disposition home or self-care (01) ==
PROVIDERS: PCP Internal Medicine; Visit Provider Nurse Practitioner Family
DX: R05.3 Chronic cough (principal); K21.9 Gastro-esophageal reflux disease without esophagitis
CPT/HCPCS: 99214

== ENCOUNTER → 2024-08-17 10:50 | Outpatient (BNVA) | payer MEDICARE, OTHER, SELFPAY | PROVIDERS: PCP Internal Medicine; Visit Provider Nurse Practitioner Family | DX: R05.3 Chronic cough (principal); K21.9 Gastro-esophageal reflux disease without esophagitis | CPT/HCPCS: 99212 ==

== ENCOUNTER 2024-08-30 07:06 | Emergency (ER) | payer MEDICARE, OTHER, SELFPAY ==
--- NOTE | ~2024-08-30 | XR_ITS ---
EXAMINATION: XR CHEST CLINICAL INFORMATION: Fall COMPARISON: June 04, 2024. TECHNIQUE: 2 views of the chest were obtained. FINDINGS: Pulmonary reticular pattern. Linear opacities in the lung bases, right middle lobe and lingula. No gross consolidation, pleural effusion or pneumothorax. Cardiomediastinal silhouette demonstrates calcified plaque aortic arch. Multilevel thoracic spondylosis. Air-fluid levels in the upper midabdomen. XR/XR chest 2V IMPRESSION: Chronic interstitial lung disease with the subsegmental atelectasis versus scarring right middle lobe and lingula and lung bases. Acute intra-abdominal process should be considered in the correct clinical settings. Electronically signed by: Dylan Leach MD 08/30/2024 09:26 AM [facility]
--- NOTE | ~2024-08-30 | CT_ITS ---
EXAMINATION: CT HEAD WITHOUT CONTRAST CLINICAL INFORMATION: Fall COMPARISON: CT report dated December 06, 2009. TECHNIQUE: Contiguous axial imaging was performed from the skull base to vertex without intravenous administration of contrast. This CT examination was performed using dose optimization techniques as appropriate, variously including the following: *Automated exposure control *Adjustment of mA and/or kV according to patient size (this includes techniques or standardized protocols for targeted exams where dose is matched to indication/reason for exam; i.e. extremities or head) *Use of iterative reconstruction technique DLP: 752.53 mGy-cm FINDINGS: The bony calvarium is intact. The skull base is intact. No acute intracranial hemorrhage, mass effect, midline shift, hydrocephalus or herniation. Munroe-white matter differentiation is normal. Prominence of the extra-axial CSF spaces along hemicranial convexities suggesting bilateral hygromas/chronic subdural hematomas versus volume loss. Old lacunar infarcts, basal ganglia. Calcified plaques in the cavernous supraclinoid segments both ICAs. Bilateral multifocal patchy and confluent deep periventricular white matter hypodensities. Cavum septum pellucidum and cavum vergae , congenital variation. Mucosal thickening, ethmoid air cells. No air-fluid levels in the included paranasal sinuses. Tympanic cavities and mastoid cells are aerated. No hematoma is within the intraconal or the extraconal compartments of the orbits. CT/CT head/brain wo IV con IMPRESSION: No acute fracture, bony calvarium. No acute intracranial hemorrhage. Small vessel occlusive disease. Global cerebral atrophy. Electronically signed by: Dylan Leach MD 08/30/2024 09:12 AM [facility] [place]
--- NOTE | ~2024-08-30 | CT_ITS ---
EXAMINATION: CT CERVICAL SPINE WITHOUT CONTRAST CLINICAL INFORMATION: Seizure. COMPARISON: None available. TECHNIQUE: Contiguous axial images through the cervical spine using 3 mm collimation with bone and soft tissue algorithm. Sagittal and coronal reformatted images acquired. This CT examination was performed using dose optimization techniques as appropriate, variously including the following: *Automated exposure control *Adjustment of mA and/or kV according to patient size (this includes techniques or standardized protocols for targeted exams where dose is matched to indication/reason for exam; i.e. extremities or head) *Use of iterative reconstruction technique DLP: 480.27 mGy centimeter. FINDINGS: The craniocervical junction is intact. Acute cortical disruptions involving the posterior spinous processes of C4 and C3. C1 is intact. C2 is intact. C5 is intact. C6 is intact. C7 is intact. There is facet joint hypertrophy at multiple levels from C2-3 to C6-7. There is a marginal osteophyte formation and subchondral cyst formation, endplate sclerosis and decreased intervertebral disc height from C3 to C7 more conspicuous at C4-5. There is grade 1 retrolisthesis C3-4 and C4-5 levels probably degenerative in nature. I do not see acute cortical disruption/fracture seen involving the foramen transversarium of the vertebral bodies. Calcified plaques in the carotic arteries. Secretions within the vallecula. Bilateral apical lung scarring. CT/CT cervical spine wo IV con IMPRESSION: Acute comminuted fractures involving the posterior elements/posterior spinous processes of C3 on C4. Ligamentous injury and or injury to the neural elements cannot be excluded. Recommend further imaging evaluation with MRI cervical spine. Findings communicated to the emergency physician Dr. Meagan Farnsworth on August 30, 2024 at 8:55 AM. Fleischner guidelines were followed. Electronically signed by: Dylan Leach MD 08/30/2024 09:02 AM [facility]
--- NOTE | ~2024-08-30 | MR_ITS ---
EXAMINATION: MR CERVICAL SPINE WITHOUT CONTRAST CLINICAL INFORMATION: Spinous process fractures C3 and C4. COMPARISON: No prior MRI. CT C-spine dated earlier same day. TECHNIQUE: Multiplanar multisequence MR imaging of the cervical spine was done prior to and without the administration IV gadolinium. Examination was performed on a 1.5 Sharlene Siemens unit, using standard sequences. FINDINGS: CORONAL ALIGNMENT: -Minimal levoconvex scoliosis. SAGITTAL ALIGNMENT: -Normal lordosis. -There is a 2 mm degenerative anterolisthesis of C2 on C3. -Otherwise normal alignment. CRANIOCERVICAL JUNCTION/C1-2 ARTICULATIONS: -Intact and aligned. VERTEBRAL BODIES/BONE MARROW: -There is bone marrow edema in the spinous processes of C3 and C4, in the regions of known fracture. No additional fractures. -There are mild edematous type endplate changes at C3-4 and C4-5. -No additional bone marrow edema is evident to suggest additional fracture. DISCS: -Moderate loss of disc height and signal spanning C3-C6. There is otherwise mild loss. CERVICAL CORD: -Normal in caliber and signal throughout. No evidence of cord hemorrhage or contusion. PARAVERTEBRAL SOFT TISSUES: -Anterior longitudinal ligament is intact. -Posterior longitudinal ligament is intact. -The ligamentum flavum are intact. -Edema throughout the interspinous ligament spanning C2-C5, consistent with tearing. -Associated edema within the posterior paraspinous muscles spanning C3-C7. Findings reflect muscular strain injury. VISUALIZED INTRACRANIAL STRUCTURES: -Within normal limits. AXIAL DISC SPACE IMAGING: C2-C3: Moderate left facet hypertrophic arthropathy. No central canal, lateral recess narrowing. Moderate left neural foraminal narrowing. C3-C4: There is a broad-based central disc protrusion, indenting on the ventral thecal sac, and contacting but not deforming the ventral cord. There is preserved CSF posterior to the cord. Mild facet hypertrophy bilaterally, and moderate uncinate spurring bilaterally, contributing to moderate right greater than left neural foraminal stenosis. There is mild central canal stenosis. C4-C5: There is a concentric disc bulge present, indenting on the ventral thecal sac, but not definitively contacting the cord. A thin sliver of CSF remains posterior to the cord. There is moderate to severe bilateral uncinate spurring, and mild bilateral facet spurring, contributing to moderate central canal narrowing, moderate bilateral subarticular recess narrowing, and severe bilateral neural foraminal encroachment. C5-C6: Concentric disc bulge is present, contiguous with bilateral hypertrophic uncinate changes. Mild bilateral facet hypertrophy present. There is mild central canal stenosis. There is severe bilateral neural foraminal encroachment. C6-C7: Right paracentral and lateral disc protrusion, without significant mass effect upon the cord or thecal sac. Mild right lateral recess narrowing. Mild hypertrophic facet and uncinate changes. There is mild to moderate right greater than left neural foraminal narrowing. There are nerve root sleeve cysts right greater than left neural foramen. C7-T1: Mild irregular disc bulge present with central annular fissuring. Bilateral nerve root sleeve cysts. Mild central canal narrowing. And mild bilateral neural foraminal narrowing. MR/MR cervical spine wo con IMPRESSION: 1. Posterior spinous process fractures C3 and C4, with strain injury and partial tearing of the interspinous ligament spanning C2-C5. 2. The anterior longitudinal ligament, posterior longitudinal ligament, ligamentum flavum are intact. (No evidence of unstable injury). 3. The cord is normal in caliber and signal throughout. No cord contusion or hemorrhage. 4. Spondylosis as discussed, most significant at C4-5 where there is moderate central canal narrowing. Electronically signed by: Flavio Mitchell MD 08/30/2024 01:18 PM [facility]
--- NOTE | 2024-08-30 07:09 | ECG_ITS ---
Test Reason : fall Blood Pressure : */* mmHG Vent. Rate : 65 BPM Atrial Rate : 65 BPM P-R Int : 164 ms QRS Dur : 96 ms QT Int : 424 ms P-R-T Axes : 52 10 24 degrees QTcB Int : 440 ms Normal sinus rhythm with sinus arrhythmia Normal ECG When compared with ECG of 13-Apr-2020 10:56, ST no longer depressed in Inferior leads Referred By: Meagan Farnsworth Electronically Signed By: MADIE LEE MD
--- NOTE | 2024-08-30 07:10 | ED.GENADULT ---
HPI - General Adult General Chief complaint: Syncope Stated complaint: SYNCOPE W/FALL,DIARREHA FOR DAYS PER EMS Time Seen by Provider: 08/30/24 07:09 History of Present Illness ED Provider: Dr. 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 The patient states he woke up early as he normal does. He stood up to pee, finished peeing, and then while standing at the sink felt lightheaded before passing out. His heard and found him immediately. He primarily complains of neck/upper back soreness. Denies: fever or chills, nausea/vomiting, abdominal pain, chest pain, SOB, cough/congestion. No known sick contacts. No recent travel. He has a history of IBS with alternating constipation/diarrhea - nothing has been different with his bowel movements recently from this baseline. Related Data Home Medications ?Medication ?Instructions ?Recorded ?Confirmed ascorbic acid (vitamin C) 1,000 mg 1,000 mg PO BID 04/28/20 08/27/24 tablet (Vitamin C) cholecalciferol (vitamin D3) 25 25 mcg PO DAILY 04/28/20 08/27/24 mcg (1,000 unit) tablet (Vitamin D3) omega-3 fatty acids 500 mg capsule 500 mg PO DAILY 04/28/20 08/27/24 turmeric root extract 500 mg 500 mg PO BID 04/28/20 08/27/24 capsule tolterodine 2 mg capsule,extended 2 mg PO DAILY 06/21/21 08/27/24 release 24 hr magnesium carb,citrate,oxide 300 mg PO DAILY 08/12/23 08/27/24 (Magnesium Complex) Previous Rx's ?Medication ?Instructions ?Recorded tamsulosin 0.4 mg capsule 0.8 mg (2 x 0.4 mg) PO BEDTIME 90 12/24/21 days #180 caps levothyroxine 75 mcg tablet 75 mcg PO DAILY #90 tabs 04/16/24 rivaroxaban 10 mg tablet 10 mg PO DAILY #90 tabs 05/10/24 losartan 50 mg tablet 50 mg PO DAILY #90 tabs 07/09/24 finasteride 5 mg tablet 5 mg PO DAILY #90 tabs 07/11/24 omeprazole 20 mg capsule,delayed 20 mg PO DAILY #30 caps 08/20/24 release Allergies Allergy/AdvReac Type Severity Reaction Status Date / Time No Known Allergies Allergy Verified 08/30/24 07:28 Review of Systems Review of Systems: Yes all other systems are reviewed and are negative PMFSH Past Medical History Attestation statement: The following information was validated with the patient. Source: old records reviewed Medical History Cough Constipation Urgency of micturition Urge incontinence Generalized anxiety disorder Patellofemoral arthritis of left knee Hypothyroidism History of double vision BPH (benign prostatic hyperplasia) Hx of ulcerative colitis Polycythemia vera History of DVT (deep vein thrombosis) PND (post-nasal drip) Hyperlipidemia Hypertension Pre-op examination Surgical History Right inguinal hernia (09/05/23) History of colonoscopy History of right hip replacement Status post total left knee replacement Status post total left knee replacement Status post left knee replacement H/O total hip arthroplasty History of squamous cell carcinoma excision History of cholecystectomy History of left hip replacement Family History Family History Father No problems noted. Mother No problems noted. Social History Social History Household Members: Spouse Housing: House Are you a primary healthcare network pricing consultant to a significant other at home: No Do you presently have visiting nurse or other home services: No Alcohol intake: current Alcohol intake frequency: holidays/special occasions only Comment: COUNTS CORRECT Patient Tobacco Use Status: Never used Tobacco e-Cigarette/Vaping Use: Never Used Second Hand Smoke Exposure: Yes Advance Directives: Yes Advance Directives Information Provided: No Advance Directives on File: No service: No Current occupational status: retired Cognitive needs: Yes Hearing needs: Yes Vision needs: No Physical Exam ED Vital Signs: Vital Signs - 24 hr 08/30/24 07:26 08/30/24 11:51 Temperature 97.5 F 98.4 F Pulse Rate 65 70 Respiratory Rate 18 16 Blood Pressure 105/55 L 130/60 Pulse Oximetry 100 93 Oxygen Delivery Method Room Air Room Air BMI result Body Mass Index 24.1 Patient is afebrile and hemodynamically stable. Const General: cooperative and no acute distress HENMT Head: Yes normal to inspection and Yes atraumatic Eyes General: appearance normal, both eyes and all related structures Pupils: Equal, round and reactive pupils present EOM: EOMs intact bilaterally Neck Neck: Yes normal visual inspection, Yes full ROM, Yes supple and No tender Chest Chest palpation & inspection: normal inspection of the chest and normal palpation of entire chest wall Resp Effort & Inspection: normal respiratory effort, able to speak in complete sentences, no cough and no respiratory distress Auscultation: clear to auscultation bilaterally Cardio Rate: regular rate Rhythm: regular rhythm Peripheral pulses: Peripheral pulses 2+ throughout GI Inspection: Yes normal to inspection, No Abdominal wall edema and No distended Palpation (GI): Soft to palpation, not firm, nontender, no guarding and not rigid Auscultation: normal bowel sounds Back/Spine/Pelvis Back: No back tenderness Neuro Cranial nerves: Yes Equal, round and reactive pupils present Course Course Course Narrative: Patient is afebrile and hemodynamically stable. Will obtain EKG, CXR, laboratory studies. Will obtain CT Head/Neck and CXR. Reevaluation(s) Reevaluation #1: Labs reviewed. LA 2.3 - receiving 1L IVF. Mild leukocytosis 13.7. Cr 1.23 (baseline Cr 1.04 on 03/08/2024). CT Head unremarkable. CT Cervical Spine result discussed with radiology. Noted to have C3 and C4 cortical disruption involving the posterior spinous process. Radiology recommends MRI Cervical Spine. Reevaluation #2: Patient's c-spine immobilized in [place] collar. Images sent to [facility] for NeuroSurgery review. CXR unremarkable. Discussed with both the trauma service and neurosurgery service at [facility]. Recommend isolated posterior spinous fx do not require any collar. PCP follow up. MRI with posterior spinous process fx C3 and C4 with strain injury and partial tearing of the interspinous ligament spanning C2 - C5. No anterior longitudinal ligament, posterior longitudinal ligament, or ligamentus flavum injury (no evidence of unstable injury). LA improved with 1L IVF. 2nd troponin baseline. Family report patient recently switched from 10mg Lisinopril to 50mg Losartan approx 3 weeks ago. I recommended decreasing dose of Losartan to 25mg and following up with PCP regarding this change. Family are in agreement. Patient will hold dose of Losartan tonight. Plan: Discharge to home with PCP follow up Return precautions given Medications Administered Discontinued Medications Generic Name Dose Route Start Last Admin Trade Name Jonnathanq PRN Reason Stop Dose Admin Sodium Chloride 1,000 mls @ 999 mls/hr 08/30/24 07:45 08/30/24 10:45 Ns IV 08/30/24 08:45 Infused .Q1H1M DANE Infusion Medical Decision Making Lab Data 08/30/24 08:03 08/30/24 08:03 Labs: Lab Results 08/30/24 08/30/24 08/30/24 Range/Units 08:02 08:03 13:11 WBC 13.7 H (4.8-10.8) X10*3/uL RBC 5.32 (4.60-5.80) X10*6/uL Hgb 16.0 (14.0-18.0) g/dl Hct 47.2 (42.0-52.0) % MCV 88.7 (80.0-98.0) fL MCH 30.1 (27.0-33.0) pg MCHC 33.9 (31.0-36.0) g/dl RDW 14.4 (11.0-16.0) % Plt Count 204 (160-400) X10*3/uL MPV 9.7 (9.4-12.4) fL Immature Gran % (Auto) 0.3 (0.0-0.4) % Neut % (Auto) 90.3 H (45-73) % Lymph % (Auto) 3.1 L (20-40) % [place] % (Auto) 5.3 (2-11) % Eos % (Auto) 0.7 (0-4) % Baso % (Auto) 0.3 (0-2) % Lymph # (Auto) 0.4 L (1.2-4.9) X10*3/uL [place] # (Auto) 0.7 (0.1-1.2) X10*3/uL Eos # (Auto) 0.1 (0.0-0.4) X10*3/uL Baso # (Auto) 0.0 (0.0-0.2) X10*3/uL Abs Immat Gran (auto) 0.04 H (0.00-0.03) X10*3/uL Absolute Neuts (auto) 12.4 H (2.0-8.3) x10*3/uL Absolute Nucleated RBC 0.000 (0.0-0.012) X10*3/uL Nucleated RBC % (auto) 0.0 (0.0-0.2) /100WBC Smear Tech's Comments VERIFIED Sodium 141 (135-145) mmol/L Potassium 4.3 (3.3-5.1) mmol/L Chloride 111 H (96-108) mmol/L Carbon Dioxide 22 (22-29) mmol/L Anion Gap 12 (12-20) BUN 24 H (9-16) mg/dL Creatinine 1.23 (0.5-1.4) mg/dL Estim Creat Clear Calc 51.6 Estimated GFR 56 Random Glucose 106 (60-115) mg/dL Lactic Acid 2.4 H* (0.5-2.0) mmol/L Lactic Acid F/U @ 2Hr 1.5 (0.5-2.0) mmol/L Calcium 9.1 (8.4-10.2) mg/dL Total Bilirubin 1.0 (0.0-1.0) mg/dL Direct Bilirubin 0.3 (0.0-0.5) mg/dL AST 28 (5-37) U/L ALT 21 (0-40) U/L Alkaline Phosphatase 95 (39-117) U/L Troponin I High Sens 4.8 4.8 (<3.5-35.0) ng/L Total Protein 7.5 (6.5-8.0) g/dL Albumin 4.0 (3.5-5.0) g/dL Lipase 43 (8-78) U/L Influenza Type A (PCR) NEGATIVE (Negative) Influenza Type B (PCR) NEGATIVE (Negative) RSV RNA Qual (PCR) NEGATIVE (Negative) SARS-CoV-2 RNA (RT-PCR) NEGATIVE (Negative) Independent Interpretation I performed an independent interpretation of an: EKG Interpretation: NSR 65BPM without ischemic changes, normal intervals Radiology Impression Discussion of test interpretation with radiology: I have reviewed the radiologist's reading. Radiologist Impression: Report Number: [id number]: Total DLP = 1171.05 mGy-cm EXAMINATION: CT HEAD WITHOUT CONTRAST CLINICAL INFORMATION: Fall COMPARISON: CT report dated December 06, 2009. TECHNIQUE: Contiguous axial imaging was performed from the skull base to vertex without intravenous administration of contrast. This CT examination was performed using dose optimization techniques as appropriate, variously including the following: *Automated exposure control *Adjustment of mA and/or kV according to patient size (this includes techniques or standardized protocols for targeted exams where dose is matched to indication/reason for exam; i.e. extremities or head) *Use of iterative reconstruction technique DLP: 752.53 mGy-cm FINDINGS: The bony calvarium is intact. The skull base is intact. No acute intracranial hemorrhage, mass effect, midline shift, hydrocephalus or herniation. Munroe-white matter differentiation is normal. Prominence of the extra-axial CSF spaces along hemicranial convexities suggesting bilateral hygromas/chronic subdural hematomas versus volume loss. Old lacunar infarcts, basal ganglia. Calcified plaques in the cavernous supraclinoid segments both ICAs. Bilateral multifocal patchy and confluent deep periventricular white matter hypodensities. Cavum septum pellucidum and cavum vergae , congenital variation. Mucosal thickening, ethmoid air cells. No air-fluid levels in the included paranasal sinuses. Tympanic cavities and mastoid cells are aerated. No hematoma is within the intraconal or the extraconal compartments of the orbits. CT/CT head/brain wo IV con IMPRESSION: No acute fracture, bony calvarium. No acute intracranial hemorrhage. Small vessel occlusive disease. Global cerebral atrophy. Electronically signed by: Dylan Leach MD 08/30/2024 09:12 AM [facility] [place], [place] Report Number: [id number]: Total DLP = 0.00 mGy-cm EXAMINATION: CT CERVICAL SPINE WITHOUT CONTRAST CLINICAL INFORMATION: Seizure. COMPARISON: None available. TECHNIQUE: Contiguous axial images through the cervical spine using 3 mm collimation with bone and soft tissue algorithm. Sagittal and coronal reformatted images acquired. This CT examination was performed using dose optimization techniques as appropriate, variously including the following: *Automated exposure control *Adjustment of mA and/or kV according to patient size (this includes techniques or standardized protocols for targeted exams where dose is matched to indication/reason for exam; i.e. extremities or head) *Use of iterative reconstruction technique DLP: 480.27 mGy centimeter. FINDINGS: The craniocervical junction is intact. Acute cortical disruptions involving the posterior spinous processes of C4 and C3. C1 is intact. C2 is intact. C5 is intact. C6 is intact. C7 is intact. There is facet joint hypertrophy at multiple levels from C2-3 to C6-7. There is a marginal osteophyte formation and subchondral cyst formation, endplate sclerosis and decreased intervertebral disc height from C3 to C7 more conspicuous at C4-5. There is grade 1 retrolisthesis C3-4 and C4-5 levels probably degenerative in nature. I do not see acute cortical disruption/fracture seen involving the foramen transversarium of the vertebral bodies. Calcified plaques in the carotic arteries. Secretions within the vallecula. Bilateral apical lung scarring. CT/CT cervical spine wo IV con IMPRESSION: Acute comminuted fractures involving the posterior elements/posterior spinous processes of C3 on C4. Ligamentous injury and or injury to the neural elements cannot be excluded. Recommend further imaging evaluation with MRI cervical spine. Findings communicated to the emergency physician Dr. Meagan Farnsworth on August 30, 2024 at 8:55 AM. Fleischner guidelines were followed. Electronically signed by: Dylan Leach MD 08/30/2024 09:02 AM EST RP EXAMINATION: XR CHEST CLINICAL INFORMATION: Fall COMPARISON: June 04, 2024. TECHNIQUE: 2 views of the chest were obtained. FINDINGS: Pulmonary reticular pattern. Linear opacities in the lung bases, right middle lobe and lingula. No gross consolidation, pleural effusion or pneumothorax. Cardiomediastinal silhouette demonstrates calcified plaque aortic arch. Multilevel thoracic spondylosis. Air-fluid levels in the upper midabdomen. XR/XR chest 2V IMPRESSION: Chronic interstitial lung disease with the subsegmental atelectasis versus scarring right middle lobe and lingula and lung bases. Acute intra-abdominal process should be considered in the correct clinical settings. Electronically signed by: Dylan Leach MD 08/30/2024 09:26 AM EST RP [address] [address] Magnetic Resonance Report Signed Patient: Aaron Ludwig#: [id number] : 1945 Acct:[id number] Age/Sex: 79 / M ADM Date: 08/30/24 Loc: HO.ED Attending Dr: Ordering Physician: Meagan Farnsworth MD Date of Service: 08/30/24 Procedure(s): MR cervical spine wo con Accession Number(s): [id number] cc: Meagan Farnsworth MD; Vaibhav Land MD~ EXAMINATION: MR CERVICAL SPINE WITHOUT CONTRAST CLINICAL INFORMATION: Spinous process fractures C3 and C4. COMPARISON: No prior MRI. CT C-spine dated earlier same day. TECHNIQUE: Multiplanar multisequence MR imaging of the cervical spine was done prior to and without the administration IV gadolinium. Examination was performed on a 1.5 Sharlene Siemens unit, using standard sequences. FINDINGS: CORONAL ALIGNMENT: -Minimal levoconvex scoliosis. SAGITTAL ALIGNMENT: -Normal lordosis. -There is a 2 mm degenerative anterolisthesis of C2 on C3. -Otherwise normal alignment. CRANIOCERVICAL JUNCTION/C1-2 ARTICULATIONS: -Intact and aligned. VERTEBRAL BODIES/BONE MARROW: -There is bone marrow edema in the spinous processes of C3 and C4, in the regions of known fracture. No additional fractures. -There are mild edematous type endplate changes at C3-4 and C4-5. -No additional bone marrow edema is evident to suggest additional fracture. DISCS: -Moderate loss of disc height and signal spanning C3-C6. There is otherwise mild loss. CERVICAL CORD: -Normal in caliber and signal throughout. No evidence of cord hemorrhage or contusion. PARAVERTEBRAL SOFT TISSUES: -Anterior longitudinal ligament is intact. -Posterior longitudinal ligament is intact. -The ligamentum flavum are intact. -Edema throughout the interspinous ligament spanning C2-C5, consistent with tearing. -Associated edema within the posterior paraspinous muscles spanning C3-C7. Findings reflect muscular strain injury. VISUALIZED INTRACRANIAL STRUCTURES: -Within normal limits. AXIAL DISC SPACE IMAGING: C2-C3: Moderate left facet hypertrophic arthropathy. No central canal, lateral recess narrowing. Moderate left neural foraminal narrowing. C3-C4: There is a broad-based central disc protrusion, indenting on the ventral thecal sac, and contacting but not deforming the ventral cord. There is preserved CSF posterior to the cord. Mild facet hypertrophy bilaterally, and moderate uncinate spurring bilaterally, contributing to moderate right greater than left neural foraminal stenosis. There is mild central canal stenosis. C4-C5: There is a concentric disc bulge present, indenting on the ventral thecal sac, but not definitively contacting the cord. A thin sliver of CSF remains posterior to the cord. There is moderate to severe bilateral uncinate spurring, and mild bilateral facet spurring, contributing to moderate central canal narrowing, moderate bilateral subarticular recess narrowing, and severe bilateral neural foraminal encroachment. C5-C6: Concentric disc bulge is present, contiguous with bilateral hypertrophic uncinate changes. Mild bilateral facet hypertrophy present. There is mild central canal stenosis. There is severe bilateral neural foraminal encroachment. C6-C7: Right paracentral and lateral disc protrusion, without significant mass effect upon the cord or thecal sac. Mild right lateral recess narrowing. Mild hypertrophic facet and uncinate changes. There is mild to moderate right greater than left neural foraminal narrowing. There are nerve root sleeve cysts right greater than left neural foramen. C7-T1: Mild irregular disc bulge present with central annular fissuring. Bilateral nerve root sleeve cysts. Mild central canal narrowing. And mild bilateral neural foraminal narrowing. MR/MR cervical spine wo con IMPRESSION: 1. Posterior spinous process fractures C3 and C4, with strain injury and partial tearing of the interspinous ligament spanning C2-C5. 2. The anterior longitudinal ligament, posterior longitudinal ligament, ligamentum flavum are intact. (No evidence of unstable injury). 3. The cord is normal in caliber and signal throughout. No cord contusion or hemorrhage. 4. Spondylosis as discussed, most significant at C4-5 where there is moderate central canal narrowing. Electronically signed by: Flavio Mitchell MD 08/30/2024 01:18 PM [facility] [place], [place] Discharge Plan Discharge Clinical Impression: Syncope, C3 cervical fracture, C4 cervical fracture Patient Disposition: Home, Self-Care Instructions: Syncope (DC) Additional Instructions: As we discussed, you were seen today after a fall when you passed out. You have two small fractures in the back of your neck (C3 and C4). The neurosurgeon recommended that these are stable fractures and do not require any collar or follow up. We discussed that you may have passed out due to peeing and then standing when your blood pressure was low. We recommended to hold the Losartan 50mg today and then start with 25mg tomorrow. Call the primary doctor to discuss this change with him. Return to the emergency department for: Further episodes of passing out Headache Neck pain that does not improve with tylenol Prescriptions: No Action tamsulosin 0.4 mg capsule 0.8 mg PO BEDTIME 90 Days Qty: 180 0RF levothyroxine 75 mcg tablet 75 mcg PO DAILY Qty: 90 1RF losartan 50 mg tablet 50 mg PO DAILY Qty: 90 1RF finasteride 5 mg tablet 5 mg PO DAILY Qty: 90 1RF omeprazole 20 mg capsule,delayed release(DR/EC) 20 mg PO DAILY Qty: 30 1RF ascorbic acid (vitamin C) [Vitamin C] 1,000 mg Tablet 1,000 mg PO BID omega-3 fatty acids 500 mg Capsule 500 mg PO DAILY turmeric root extract 500 mg Capsule 500 mg PO BID cholecalciferol (vitamin D3) [Vitamin D3] 25 mcg (1,000 unit) Tablet 25 mcg PO DAILY rivaroxaban 10 mg tablet 10 mg PO DAILY Qty: 90 3RF tolterodine 2 mg capsule,extended release 24hr 2 mg PO DAILY Magnesium Complex 300 mg magnesium tablet 300 mg PO DAILY Print Language: Citizen Of [place]
[2024-08-30 07:26] VITALS: BP 105/55; BP 132/86; PULSE 65; PULSE 70; RESP 18; TEMP 36.4; O2SAT 100; O2SAT 97; BMI 24.1
[2024-08-30] MEDS: 0.9 % Sodium Chloride 1,000 ML 999 ML IV (08:04)
[2024-08-30 08:08] LABS: Basophils Percent Auto 0.3 % (0-2); Eosinophils Absolute Auto 0.1 X10*3/uL (0.0-0.4); Eosinophils Percent Auto 0.7 % (0-4); Hematocrit 47.2 % (42.0-52.0); Imm Gran Abs Auto 0.04 X10*3/uL (0.00-0.03); Imm Gran Pct Auto 0.3 % (0.0-0.4); Lymphocytes Absolute Auto 0.4 X10*3/uL (1.2-4.9); Lymphocytes Percent Auto 3.1 % (20-40); MANUAL DIFF FLAG SCAN; Mean Corpuscular HGB Conc 33.9 g/dl (31.0-36.0); Mean Corpuscular Hemoglobin 30.1 pg (27.0-33.0); Mean Corpuscular Volume 88.7 fL (80.0-98.0); Mean Platelet Volume 9.7 fL (9.4-12.4); Monocytes Absolute Auto 0.7 X10*3/uL (0.1-1.2); Monocytes Percent Auto 5.3 % (2-11); Neutrophils Absolute Auto 12.4 x10*3/uL (2.0-8.3); Neutrophils Percent Auto 90.3 % (45-73); Platelet Count 204 X10*3/uL (160-400); Red Blood Count 5.32 X10*6/uL (4.60-5.80); Red Cell Distribution Width 14.4 % (11.0-16.0); SCAN SMEAR FLAG 1; White Blood Count 13.7 X10*3/uL (4.8-10.8)
[2024-08-30 08:22] LABS: Alanine Aminotransferase 21 U/L (0-40); Alkaline Phosphatase 95 U/L (39-117); Anion Gap 12 (12-20); Aspartate Amino Transferase 28 U/L (5-37); Bilirubin Direct 0.3 mg/dL (0.0-0.5); Blood Urea Nitrogen 24 mg/dL (9-16); Calcium 9.1 mg/dL (8.4-10.2); Carbon Dioxide 22 mmol/L (22-29); Chloride 111 mmol/L (96-108); Creatinine Clr Calc Pharmacy 51.6; Estimated Glomerular Filt Rate 56; Glucose Random 106 mg/dL (60-115); Lipase 43 U/L (8-78); Potassium 4.3 mmol/L (3.3-5.1); Sodium 141 mmol/L (135-145); Total Protein 7.5 g/dL (6.5-8.0)
[2024-08-30 08:25] LABS: Lactic Acid 2.4 mmol/L (0.5-2.0)
[2024-08-30 08:28] LABS: Troponin-I High Sensitivity 4.8 ng/L (<3.5-35.0)
[2024-08-30 08:39] LABS: SLIDE REVIEW VERIFIED
[2024-08-30 09:02] LABS: Influenza A PCR NEGATIVE (Negative); Influenza B PCR NEGATIVE (Negative); Resp Syncy Virus RNA Qual PCR NEGATIVE (Negative); SARS COV2 PCR INHOUSE NEGATIVE (Negative)
[2024-08-30 10:05] LABS: Reflex Lactate? Lactic Acid Added
[2024-08-30 11:51] VITALS: BP 130/60; PULSE 70; RESP 16; TEMP 36.9; O2SAT 93
[2024-08-30 13:32] LABS: ~Lactic Acid-LAB USE ONLY 1.5 mmol/L (0.5-2.0)
[2024-08-30 13:37] LABS: Troponin-I High Sensitivity 4.8 ng/L (<3.5-35.0)
[2024-08-30 14:26] VITALS: BP 100/55; PULSE 103; RESP 18; TEMP 36.6; O2SAT 98
== END 2024-08-30 14:26 | disposition home or self-care (01) ==
PROVIDERS: Emergency Provider Emergency Medicine; PCP Internal Medicine
DX: S12.200A Unspecified displaced fracture of third cervical vertebra, initial encounter for closed fracture (principal); S12.300A Unspecified displaced fracture of fourth cervical vertebra, initial encounter for closed fracture; W19.XXXA Unspecified fall, initial encounter; Y93.89 Activity, other specified; Y92.091 Bathroom in other non-institutional residence as the place of occurrence of the external cause; Y99.9 Unspecified external cause status; R55 Syncope and collapse; I10 Essential (primary) hypertension; E78.5 Hyperlipidemia, unspecified; D72.829 Elevated white blood cell count, unspecified; I26.99 Other pulmonary embolism without acute cor pulmonale; Z79.01 Long term (current) use of anticoagulants; Z79.899 Other long term (current) drug therapy; Z03.818 Encounter for observation for suspected exposure to other biological agents ruled out
CPT/HCPCS: 0241U; 36415; 70450; 71046; 72125; 72141; 80048; 80076; 83605; 83690; 84484; 85025; 93005; 96360; 96361; 99284; 99285

== ENCOUNTER → 2024-08-30 07:09 | Outpatient (BNV) | payer MEDICARE, OTHER, SELFPAY | PROVIDERS: Emergency Provider Emergency Medicine; PCP Internal Medicine; Visit Provider Internal Medicine Cardiovascular Disease | DX: I49.9 Cardiac arrhythmia, unspecified (principal) | CPT/HCPCS: 93010 ==

== ENCOUNTER → 2024-08-30 07:21 | Outpatient (BNV) | payer MEDICARE, OTHER, SELFPAY | PROVIDERS: Emergency Provider Emergency Medicine; PCP Internal Medicine; Visit Provider Radiology Diagnostic Radiology | DX: S12.201A Unspecified nondisplaced fracture of third cervical vertebra, initial encounter for closed fracture (principal); J84.9 Interstitial pulmonary disease, unspecified; G31.9 Degenerative disease of nervous system, unspecified | CPT/HCPCS: 70450; 71046; 72125; 72141 ==

== ENCOUNTER 2024-09-09 13:24 | Outpatient (AMB) | payer MEDICARE, OTHER, SELFPAY ==
--- NOTE | 2024-09-09 13:28 | A.OFFPC_ITS ---
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 Accompanied by: Spouse Allergies No Known Allergies Allergy (Verified 09/09/24 14:20) Medication List - Last Reconciled 09/09/24 by Celina Cohn PA-C ascorbic acid (vitamin C) (Vitamin C) 1,000 mg PO BID cholecalciferol (vitamin D3) (Vitamin D3) 25 mcg PO DAILY finasteride 5 mg PO DAILY levothyroxine 75 mcg PO DAILY losartan 25 mg PO DAILY magnesium carb,citrate,oxide (Magnesium Complex) 300 mg PO DAILY omega-3 fatty acids 500 mg PO DAILY omeprazole 20 mg PO DAILY rivaroxaban 10 mg PO DAILY tamsulosin 0.8 mg (2 x 0.4 mg) PO BEDTIME 90 days tolterodine ER 2 mg PO DAILY turmeric root extract 500 mg PO BID Tobacco use date assessed: 09/09/24 Fall risk assessment: 1 Fall in past year Last assessed Fall Risk: 09/09/24 Dental Screening Dental Screen Date: 09/09/24 Did you have a dental visit in the last 12 months?: Yes Did you have a dental problem in the last 6 months where you did not have access to dental care?: No Was dental information given to patient?: Patient has dentist [facility] Medical History Closed cervical spine fracture Hospital discharge follow-up Atypical syncope History of lacunar cerebrovascular accident (CVA) Passage of loose stools Cough Constipation Urgency of micturition Urge incontinence Generalized anxiety disorder Patellofemoral arthritis of left knee Hypothyroidism History of double vision BPH (benign prostatic hyperplasia) Hx of ulcerative colitis Polycythemia vera History of DVT (deep vein thrombosis) PND (post-nasal drip) Hyperlipidemia Hypertension Pre-op examination Surgical History Right inguinal hernia (09/05/23) History of colonoscopy History of right hip replacement Status post total left knee replacement Status post total left knee replacement Status post left knee replacement H/O total hip arthroplasty History of squamous cell carcinoma excision History of cholecystectomy History of left hip replacement Family History Father No problems noted. Mother No problems noted. Social History Household Members: Spouse Housing: House Are you a primary school child care attendant to a significant other at home: No Do you presently have visiting nurse or other home services: No Alcohol intake: current Alcohol intake frequency: holidays/special occasions only Comment: COUNTS CORRECT Patient Tobacco Use Status: Never used Tobacco e-Cigarette/Vaping Use: Never Used Second Hand Smoke Exposure: Yes service: No Current occupational status: retired Cognitive needs: Yes Hearing needs: Yes Vision needs: No Questionnaire PHQ-9 Over the last 2 weeks, how often have you been bothered by any of the following problems? 1. Little interest or pleasure in doing things: not at all 2. Feeling down, depressed, or hopeless: not at all 3. Trouble falling or staying asleep, or sleeping too much: not at all 4. Feeling tired or having little energy: not at all 5. Poor appetite or overeating: not at all 6. Feeling bad about yourself - or that you are a failure or have let yourself or your family down: not at all 7. Trouble concentrating on things, such as reading the newspaper or watching television: not at all 8. Moving or speaking so slowly that other people could have noticed. Or the opposite - being so fidgety or restless that you have been moving around a lot more than usual: not at all 9. Thoughts that you would be better off or of hurting yourself in some way: not at all Total score: 0 Depression Screening Interpretation: Negative Depression Screening Done: Yes 29358 - PHQ-9 Billing: Yes Source: Developed by Drs. Sandeep Crenshaw, Yasmin Lancaster, Armando Capone and colleagues, with an educational sharath from [employer]. Thrive Questionnaire Date Thrive assessed: 09/09/24 I am a: Patient What is your living situation today?: I have a steady place to live Within the past 12 months, did the food you bought not last and you didn't have the money to get more?: Never true Within the past 12 months, did you worry whether your food would run out before you got money to buy more?: Never true Do you have trouble paying for medicines?: No Do you have trouble getting transportation to medical appointments?: No Do you have trouble paying your heating and electricity bill?: No Do you have trouble taking care of your child, family member or friend?: No Do you have trouble with day-to-day activities such as bathing, preparing meals, shopping, managing finances, etc.?: No Are you currently unemployed and looking for a job?: No Are you interested in more education?: No Please select the resources that you would like help with: None THRIVE Score: 0 AUDIT C Alcohol Use Questionnaire (AUDIT-C) 1. How often do you have a drink containing alcohol?: Never 2. How many drinks containing alcohol do you have on a typical day when you are drinking?: 1 or 2 3. How often do you have six or more drinks on one occasion?: Never Total Score: 0 Score Reviewed/Action Taken: Yes KELLEY-7 AMB Questionnaire KELLEY-7 Date KELLEY - 7 assessed: 09/09/24 Feeling nervous, anxious, or on edge: 0 = Not at all Not being able to stop or control worryin = Not at all Worrying too much about different things: 0 = Not at all Trouble relaxin = Not at all Being so restless that it is hard to sit still: 0 = Not at all Becoming easily annoyed or irritable: 0 = Not at all Feeling afraid as if something awful might happen: 0 = Not at all Total KELLEY-7 score (0-4 normal; 5-9 mild; 10-14 moderate; 15-21 severe): 0 Source: Developed by Drs. Sandeep Crenshaw, Yasmin Lancaster, Armando Capone and colleagues, with an educational sharath from [employer]. KELLEY-7 Assessment Billing KELLEY-7 Assessment Tool: KELLEY-7 Assessment [id number] Physical exam (Primary Care) Vital Signs: Last Vital Signs Temp 97.1 F 09/09/24 13:30 BP 120/62 09/09/24 13:30 Care Plan Goal for BP management: 130/80 BMI result Body Mass Index 27.8 BMI Assessment/Plan discussion: High BMI High, discussed plan: lifestyle, weight reduction, dietary, physical activity and alcohol moderation Tobacco/Smoking Status: Tobacco use Status Tobacco use date assessed 09/09/24 09/09/24 13:37 Patient Tobacco Use Status Never used Tobacco 09/09/24 13:29 e-Cigarette/Vaping Use Never Used 09/09/24 13:29 PHQ-9: PHQ-9 Score PHQ-9: Total score 0 09/09/24 14:18 Depression Screening Interpretation: Negative Thrive Assessment: Date of Thrive Assessment Date Thrive assessed 09/09/24 09/09/24 13:29 Coding Level of Care Code Est Pt Level 5 (87485) Complex EM visit Add On G2211 Diagnoses Hospital discharge follow-up Z09 History of lacunar cerebrovascular accident (CVA) Z86.73 Atypical syncope R55 Pulmonary embolism I26.99 Familial hypercholesterolemia E78.01 Hyperlipidemia type: familial hypercholesterolemia Essential hypertension I10 Hypertension type: essential hypertension Closed cervical spine fracture S12.9XXA Additional Codes PHQ-9 - 71663 - PHQ-9 Billing: Yes ([id number]) KELLEY-7 Assessment Billing - KELLEY-7 Assessment Tool: KELLEY-7 Assessment [id number] ([id number]) Assessment & Plan Assessment & Plan (1) Hospital discharge follow-up: Code(s): Z09 - Encounter for follow-up examination after completed treatment for conditions other than malignant neoplasm Category: Medical (2) History of lacunar cerebrovascular accident (CVA): Code(s): Z86.73 - Personal history of transient ischemic attack (TIA), and cerebral infarction without residual deficits Category: Medical Plan: When reviewing the patient's CT scan if revealed that patient had old lacunar infarct, basilar gland area. Patient denies any new dizziness. There were no acute processes noted on dry CT scan. Patient denies any symptoms at this time. Has a normal neuro exam. Sent out a [place] [facility] to Neurology for further recommendations inquiring about possible further imaging or starting the patient on aspirin, Plavix or statin as patient is not on any of these. Patient is currently on Xarelto 10 mg daily taking as prescribed. Echo was ordered. Cardiology consult ordered. 3 day Holter monitor ordered. Will continue to monitor. (3) Atypical syncope: Code(s): R55 - Syncope and collapse Category: Medical Plan: see above (4) Pulmonary embolism: Code(s): I26.99 - Other pulmonary embolism without acute cor pulmonale Category: Medical Plan: Patient to continue Xarelto 10 mg daily. Condition is chronic and stable continue to monitor. (5) Hyperlipidemia: Code(s): E78.5 - Hyperlipidemia, unspecified Category: Medical Qualifiers: Hyperlipidemia type: familial hypercholesterolemia Qualified Code(s): E78.01 - Familial hypercholesterolemia Plan: Patient to continue [place] 3 fatty acids. Turmeric root extract. Condition is chronic and stable continue to monitor. (6) Hypertension: Code(s): I10 - Essential (primary) hypertension Category: Medical Qualifiers: Hypertension type: essential hypertension Qualified Code(s): I10 - Essential (primary) hypertension Plan: Goal 130/80. Patient to continue losartan 25 mg daily. Condition is chronic and stable continue to monitor. (7) Closed cervical spine fracture: Code(s): S12.9XXA - Fracture of neck, unspecified, initial encounter Category: Medical Plan: Patient to continue p.r.n. Tylenol as needed. Patient was cleared by Neurosurgery at [facility] and they reported that the patient will not need any intervention or neck brace. Condition is chronic and stable continue to monitor. Plan Plan - Maintain losartan at 25 mg to manage blood pressure. - Referral to neurology for evaluation of potential old infarct and syncope episode. - refer to cardiology for evaluation of syncope - order echocardiogram - order 3 day Holter monitor - Advise discontinuation of magnesium supplements to assess impact on gastrointestinal symptoms. - Continue conservative management of neck fracture with follow-up as needed. - Ensure follow-up with primary care for ongoing assessment and medication adjustment. Orders: Orders ECG 3 day holter monitor Today E78.01 - Familial hypercholesterolemia, I10 - Essential (primary) hypertension, I26.99 - Other pulmonary embolism without acute cor pulmonale, R55 - Syncope and collapse, Z09 - Encounter for follow-up examination after completed treatment for conditions other than malignant neoplasm, Z86.73 - Personal history of transient ischemic attack (TIA), and cerebral infarction without residual deficits CA echo transthoracic complete Today R55 - Syncope and collapse Referrals Cardiology Referral E78.01 - Familial hypercholesterolemia, I10 - Essential (primary) hypertension, I26.99 - Other pulmonary embolism without acute cor pulmonale, R55 - Syncope and collapse, Z09 - Encounter for follow-up examination after completed treatment for conditions other than malignant neoplasm, Z86.73 - Personal history of transient ischemic attack (TIA), and cerebral infarction without residual deficits Gastroenterology Referral R19.5 - Other fecal abnormalities Neurology Referral R55 - Syncope and collapse, Z86.73 - Personal history of transient ischemic attack (TIA), and cerebral infarction without residual deficits Patient Instructions: Patient Instructions - Continue losartan 25 mg as prescribed. - Discontinue magnesium supplements temporarily. - Monitor blood pressure regularly and report any significant changes. - Follow-up with neurology for brain health assessment. - follow-up cardiology - you will have a 3 day Holter monitor - you will have a echocardiogram - Seek immediate medical attention if experiencing any new symptoms such as confusion, sudden weakness, or vision changes. - Maintain current level of activity and avoid situations that may lead to neck strain. - Notify primary care provider of any concerning symptoms or changes in health status. Scribe Plan - Not visible on output: History of Present Illness The patient is an 79-year-old male presenting with a history of syncope. The episode occurred on August 30 when he fainted in the bathroom, hitting his head and neck. He experienced initial dizziness and vomited multiple times following the event. Subsequent evaluation in the emergency department revealed a C3-C4 cervical fracture with a normal head CT. His antihypertensive regimen was recently changed from lisinopril to losartan, emergency department provider believe it might of resulted in dizziness and low blood pressure, leading to a dose reduction. Since adjusting his medication, the patient reports improvement in dizziness and blood pressure stability. The patient experiences stool leakage, a concern for the potential underlying cause, although this has recently resolved. CT imaging also indicated possible old cerebral infarctions, a diagnosis that has not been previously addressed. Patient currently is on Xarelto 10 mg due to history of PE taking as prescribed. Social History - ; spouse present during visit. - No indication of substance use or nutritional issues discussed. - Engages actively in daily activities without assistance. Review of Systems - Neurological: Reports resolution of dizziness and vomiting since the initial episode. - Gastrointestinal: Notes intermittent stool leakage, not associated with abdominal pain or distress, and recent resolution. - Respiratory: Presence of chronic cough due to phlegm. Physical Exam Appearance: Alert. Oriented X3. No acute distress. Head: Normal external exam. Normocephalic. Atraumatic. Eyes: Pupils are equal, round, and reactive to light. Extraocular movements intact. Conjunctiva and sclera normal. Eyelids normal. Ears: External auditory canal normal. Tympanic membranes normal. Throat: Pharynx normal. Uvula midline. Moist mucous membranes. Neck: Normal inspection. Neck supple. Full range of motion. No adenopathy. Thyroid Normal. No meningeal signs. No neck mass noted. Stiffness noted. Cardiovascular: Normal heart rate and rhythm. Heart sound normal. No murmurs noted. Pulses normal throughout. Respiratory: No respiratory distress. Painless inspiration. Breath sounds normal. No wheezes/rales/rhonchi noted. Chest nontender. No accessory muscle usage noted or decreased air movement noted. Abdomen: Soft and nontender. Bowel sounds normal in all 4 quadrants. No distention noted. No organomegaly noted. No visible injury noted. Back: No costovertebral angle tenderness. Full range of motion noted. Skin: Skin warm and dry. Normal skin color. Normal skin turgor. No rashes/lesions/lacerations noted. Extremities: No lower extremity edema. Extremities exhibit normal range of motion. Extremities nontender. Neuro: Oriented X 3. No motor deficit. No sensory deficit. Reflexes normal. Normal steady gait. Negative Romberg test. Normal [id number]. Negative pronator drift. NIH SS score remained 0. Results - Imaging: CT head negative for acute infarct revealed indicative of small ves mala disease and possible old lacunar infarcts; CT neck revealed a C3-C4 vertebral fracture. Plan - Maintain losartan at 25 mg to manage blood pressure. - Referral to neurology for evaluation of potential old infarct and syncope episode. - refer to cardiology for evaluation of syncope - order echocardiogram - order 3 day Holter monitor - Advise discontinuation of magnesium supplements to assess impact on gastrointestinal symptoms. - Continue conservative management of neck fracture with follow-up as needed. - Ensure follow-up with primary care for ongoing assessment and medication adjustment. Patient was informed and verbally consented to the use of an ambient scribe for clinic note documentation during this visit. Discussion Notes During the visit, I discussed with the patient and his spouse the potential causes of his syncope, including low blood pressure attributed to antihypertensive therapy. The necessity to monitor for signs of worsening neurological deficits due to a potential past stroke was emphasized, and a plan was established to consult neurology for further evaluation. I provided reassurance regarding current management strategies for neck stability and outlined precautions against sudden movements. The discussion involved stopping magnesium supplements temporarily to determine their role in the gastrointestinal symptoms. I also highlighted the importance of consistent blood pressure monitoring and adherence to the losartan dosing adjustment. Patient Instructions - Continue losartan 25 mg as prescribed. - Discontinue magnesium supplements temporarily. - Monitor blood pressure regularly and report any significant changes. - Follow-up with neurology for brain health assessment. - Seek immediate medical attention if experiencing any new symptoms such as confusion, sudden weakness, or vision changes. - Maintain current level of activity and avoid situations that may lead to neck strain. - Notify primary care provider of any concerning symptoms or changes in health status.
[2024-09-09 13:30] VITALS: BP 120/62; TEMP 36.2; BMI 27.8
--- OUTSIDE RECORDS SUMMARY | 2024-09-09 14:22 | XMS_ITS | Patient Health Record ---
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 Name Role Phone BIANKA AMANDA Primary Care Provider CORNELL Galeano [phone] Reason For Referral No Information Medications Medication [...] Date Status Comme nts PNEUMOCOCCAL 13 CONJ ([id number]) Unknown 06/28/2016 Adm inistered FLU (Past vaccine of unknown type) Unknown 06/27/2016 A dministered Problems Problem Type SNOMED Code ICD Code Onset Dates Problem Status W/U Status Risk Notes Problem Localized, primary osteoarthritis of the pelvic region and thigh (920013641) Primary localized osteoarthrosis, pelvic region and thigh (715.15) Active confirmed Migrated- ProblemLi [id number]-[id number] [facility] - Ortho-10/19 Problem Polycythemia vera (283267428) Polycythemia vera (D45) Active confirmed Problem 89519941 Hyperlipidemia, unspecified (E78.5) Active confirmed Problem 78269868 Essential (primary) hypertension (I10) Active confirmed Problem 432184074 Unspecified osteoarthritis, unspecified site (M19.90) Active confirmed Problem 11668207 Pain in right hip (M25.551) Active confirmed Problem 30668819 Pain in left hip (M25.552) Active confirmed Problem 66987257 Pain in left knee (M25.562) Active confirmed Problem Ataxic gait (06873982) Ataxic gait (R26.0) Active confirmed Problem 93296248 Unspecified abnormalities of gait and mobility (R26.9) Active confirmed Problem History of malignant neoplasm of esophagus (721085443) Personal history of malignant neoplasm of esophagus (Z85.01) Active confirmed Problem 51266724 Hypertension (401.9) Active confirmed Problem 69870016 Hyperlipidemia (272.4) Active confirmed Problem Gait abnormality (33465290) Gait abnormality (781.2) Active confirmed Problem Polycythemia vera (728620696) Polycythemia vera (238.4) Active confirmed Problem 90529634 Left knee pain (M25.562) Active confirmed Problem Antepartum deep phlebothrombosis (65323262) DVT (deep vein thrombosis) in (O22.30) Active confirmed Problem 73421731 Right hip pain (M25.551) Active confirmed Problem 912455225 Insomnia, unspecified type (G47.00) Active confirmed Problem 609700781 Acute embolism and thrombosis of deep vein of lower extremity, left (I82.402) Active confirmed Plan Of Treatment Pending Test Test Name Order Date PROTHROMBIN/INR TIME (93971) 05/30/20 14 BLOOD COUNT; COMPLETE CBC, A UTOMATED (HGB, HCT, RBC, WBC, & PLATELET) & AUTOMATED DIFFERENTIAL WBC (99597) CBC 05/15/2015 PT/INR (COLH-PTINR) 07/10/2015 Insurance Providers Payer Name Payer Address Payer Phone Subscriber Number Group Number Insured Name Patient Relationship to Insured Coverage Start Date Coverage End Date MEDICARE [place] PART B [address] [facility] JESSE TURK [id number] [phone] [id number] Aaron Ludwig Self - patient is the insured 2 2 [facility] [address] [facility] INDEMNITY PLAN [place], [place] [id number] [phone] [id number] Aaron Ludwig Self - patient is [...]
== END 2024-09-09 14:20 | disposition home or self-care (01) ==
PROVIDERS: PCP Internal Medicine; Visit Provider Physician Assistant Medical
DX: Z09 Encounter for follow-up examination after completed treatment for conditions other than malignant neoplasm (principal); Z86.73 Personal history of transient ischemic attack (TIA), and cerebral infarction without residual deficits; R55 Syncope and collapse; I26.99 Other pulmonary embolism without acute cor pulmonale; E78.01 Familial hypercholesterolemia; I10 Essential (primary) hypertension; S12.9XXA Fracture of neck, unspecified, initial encounter

== ENCOUNTER → 2024-09-09 13:24 | Outpatient (BNVA) | payer MEDICARE, OTHER, SELFPAY | PROVIDERS: PCP Internal Medicine; Visit Provider Physician Assistant Medical | DX: Z09 Encounter for follow-up examination after completed treatment for conditions other than malignant neoplasm (principal); R55 Syncope and collapse; I26.99 Other pulmonary embolism without acute cor pulmonale; E78.01 Familial hypercholesterolemia; I10 Essential (primary) hypertension; S12.9XXA Fracture of neck, unspecified, initial encounter; Z86.73 Personal history of transient ischemic attack (TIA), and cerebral infarction without residual deficits | CPT/HCPCS: 96127; 99212 ==

== ENCOUNTER 2024-10-14 08:51 | Outpatient (AMB) | payer MEDICARE, OTHER, SELFPAY ==
--- NOTE | 2024-10-14 09:17 | MHC.PC.OV ---
Vital Signs 10/14/24 09:19 Height 6 ft Weight 204 lb 4 oz BMI 27.7 BP 110/60 Blood Pressure Location Lt brachial Position Sitting Pulse 66 Pulse Source Pulse Oximeter Temp 97.3 F Temp Source Temporal Artery Scan Pulse Oximetry (%) 97 Oxygen Delivery Method Room Air Intake Visit Reasons: 3 month f/u Intake Note: Patient is here to follow up on GERD, Lumbar spine pain, HLD, HTN. 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 Accompanied by: Spouse Allergies No Known Allergies Allergy (Verified 10/14/24 09:51) Medication List - Last Reconciled 10/14/24 by Vaibhav Land MD ascorbic acid (vitamin C) (Vitamin C) 1,000 mg PO BID cholecalciferol (vitamin D3) (Vitamin D3) 25 mcg PO DAILY finasteride 5 mg PO DAILY levothyroxine 75 mcg PO DAILY losartan 25 mg PO DAILY omeprazole 20 mg PO DAILY rivaroxaban 10 mg PO DAILY tamsulosin 0.8 mg (2 x 0.4 mg) PO BEDTIME 90 days tolterodine ER 2 mg PO DAILY turmeric root extract 500 mg PO BID Tobacco use date assessed: 10/14/24 Fall risk assessment: 1 Fall in past year (08/30/24) Last assessed Fall Risk: 10/14/24 Dental Screening Dental Screen Date: 09/09/24 [facility] Medical History Closed cervical spine fracture Hospital discharge follow-up Atypical syncope History of lacunar cerebrovascular accident (CVA) Passage of loose stools Cough Constipation Urgency of micturition Urge incontinence Generalized anxiety disorder Patellofemoral arthritis of left knee Hypothyroidism History of double vision BPH (benign prostatic hyperplasia) Hx of ulcerative colitis Polycythemia vera History of DVT (deep vein thrombosis) PND (post-nasal drip) Hyperlipidemia Hypertension Pre-op examination Surgical History Right inguinal hernia (09/05/23) History of colonoscopy History of right hip replacement Status post total left knee replacement Status post total left knee replacement Status post left knee replacement H/O total hip arthroplasty History of squamous cell carcinoma excision History of cholecystectomy History of left hip replacement Family History Father No problems noted. Mother No problems noted. Social History Household Members: Spouse Housing: House Are you a primary career guidance technician to a significant other at home: No Do you presently have visiting nurse or other home services: No Alcohol intake: current Alcohol intake frequency: holidays/special occasions only Comment: COUNTS CORRECT Patient Tobacco Use Status: Never used Tobacco e-Cigarette/Vaping Use: Never Used Second Hand Smoke Exposure: Yes service: No Current occupational status: retired Cognitive needs: Yes Hearing needs: Yes Vision needs: No Questionnaire Thrive Questionnaire Date Thrive assessed: 09/09/24 KELLEY-7 AMB Questionnaire KELLEY-7 Date KELLEY - 7 assessed: 09/09/24 Source: Developed by Drs. Sandeep Crenshaw, Yasmin Lancaster, Armando Capone and colleagues, with an educational sharath from [employer]. Physical exam (Primary Care) Vital Signs: Last Vital Signs Temp 97.3 F 10/14/24 09:19 Pulse 66 10/14/24 09:19 BP 110/60 10/14/24 09:19 Pulse Ox 97 10/14/24 09:19 Oxygen Delivery Method Room Air 10/14/24 09:19 BMI result Body Mass Index 27.7 Tobacco/Smoking Status: Tobacco use Status Tobacco use date assessed 10/14/24 10/14/24 09:27 Patient Tobacco Use Status Never used Tobacco 10/14/24 09:27 e-Cigarette/Vaping Use Never Used 10/14/24 09:27 Thrive Assessment: Date of Thrive Assessment Date Thrive assessed 09/09/24 10/14/24 09:27 Coding Level of Care Code New Pt Level 4 (78130) Complex EM visit Add On G2211 Diagnoses Pulmonary embolism I26.99 Essential hypertension I10 Hypertension type: essential hypertension Assessment & Plan Assessment & Plan (1) Pulmonary embolism: Code(s): I26.99 - Other pulmonary embolism without acute cor pulmonale Category: Medical Plan: Continue indefinite use of anticoagulants (2) Hypertension: Code(s): I10 - Essential (primary) hypertension Category: Medical Qualifiers: Hypertension type: essential hypertension Qualified Code(s): I10 - Essential (primary) hypertension Plan: BP is stable. Continue current meds Plan History of Present Illness The patient is an 79-year-old male presenting for follow-up concerning a recent syncopal episode. In August, the patient felt unsteady, became dizzy, and laid on the floor unintentionally as a result. A CT scan at that time showed a stroke of unknown previous occurrence. The patient denies further syncopal episodes but remains cautious to prevent recurrence. Previous appointments were set for cardiology and neurology consultation, with a barium swallow study pending to address difficulty swallowing pills. Notable recent adjustments to his medication include reducing losartan to 25 mg, which has maintained his blood pressure within control. Social History - The patient uses a treadmill for exercise. 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 - He is mindful of daily routines with an emphasis on gradual activity upon waking. Review of Systems - Cardiovascular: Denies recurrence of syncope. - Neurological: Reports feeling dizzy during the episode in August. - General: Reports fear when getting up in the morning. Physical Exam General: Appearance normal, both eyes and all related structures Nutritional Appearance: Well nourished Orientation/consciousness: Patient oriented x3 Limitations: No limitations Head: Normal to inspection Neck: Normal visual inspection Chest: Normal palpation of entire chest wall Respiratory: Normal respiratory effort Neurology: Patient oriented x3, history of stroke noted Results Plan The plan going forward involves ensuring completion of the echocardiogram and barium swallow study to address the patient's recent and ongoing symptoms. The patient's losartan dosage is maintained due to optimal blood pressure control observed. Neurology consultation is scheduled for January to follow up on the previous stroke findings. Careful monitoring and communication with diagnostic facilities will be essential in tracking pending diagnostic outlines. Continual compliance with anticoagulation therapy is critical for reducing future stroke risks. Patient was informed and verbally consented to the use of an ambient scribe for clinic note documentation during this visit. Discussion Notes I discussed with the patient the importance of completing pending tests, such as the echocardiogram and barium swallow, for a comprehensive evaluation of his cardiovascular health and swallowing difficulties. The implications of sustaining the current losartan dosage were explained based on his home-monitored readings. We reviewed interim strategies such as cautious movement upon waking to avoid syncope. The patient was advised that I will personally follow up with testing facilities to ensure all diagnostic studies move forward promptly. A neurology follow-up visit is planned for January to further assess the previously noted stroke results. Encouragement was given towards adherence to his medication regimen, emphasizing anticoagulation compliance for stroke prevention. Patient Instructions - Continue your current dose of losartan as it maintains adequate blood pressure control. - Await contact from the physician regarding pending diagnostic tests: echocardiogram and barium swallow study. - Avoid sudden movements upon waking; pause to stabilize balance to prevent dizziness or syncope. - Attend your neurology appointment in January as scheduled. - Maintain compliance with anticoagulation therapy as prescribed. - Contact the office with any new symptoms or concerns. Medications: Refilled tamsulosin 0.8 mg (2 x 0.4 mg) PO BEDTIME 180 caps 0RF 90 days finasteride 5 mg PO DAILY 90 tabs 1RF
[2024-10-14 09:19] VITALS: BP 110/60; PULSE 66; TEMP 36.3; O2SAT 97; BMI 27.7
== END 2024-10-14 09:48 | disposition home or self-care (01) ==
LOC: HO.HMCH 08:52
PROVIDERS: PCP Internal Medicine; Visit Provider Internal Medicine
DX: I26.99 Other pulmonary embolism without acute cor pulmonale (principal); I10 Essential (primary) hypertension

== ENCOUNTER → 2024-10-14 08:51 | Outpatient (BNVA) | payer MEDICARE, OTHER, SELFPAY | PROVIDERS: PCP Internal Medicine; Visit Provider Internal Medicine | DX: I26.99 Other pulmonary embolism without acute cor pulmonale (principal); I10 Essential (primary) hypertension | CPT/HCPCS: 99212 ==

== ENCOUNTER 2025-01-30 13:42 | Inpatient (IN) | payer MEDICARE, OTHER, SELFPAY ==
--- NOTE | ~2025-01-30 | CT_ITS ---
CLINICAL HISTORY: Stroke Protocol CTA HEAD WITH CONTRAST, 3D POSTPROCESSING CTA NECK WITH CONTRAST, WITH 3D POSTPROCESSING Comparison: CT/SR - CT HEAD FOR STROKE - 01/30/25 13:50 EDT Findings: Aortic arch: Three-vessel arch with patent branch origins. Vertebral arteries: No occlusion or dissection. Extracranial carotid arteries: Probable prior right carotid endarterectomy. There is a small dissecting flap in the proximal right ICA with no flow-limiting stenosis. Soft tissue plaque in the proximal left CCA with 50 percent stenosis per NASCET criteria. Long segment dissecting flap in the mid to distal left CCA with no flow-limiting stenosis. There is mixed plaque formation in the proximal left ICA with 70 percent stenosis. Intracranial carotid arteries: No occlusion or flow limiting stenosis. Vertebrobasilar system: Occlusion in the basilar artery extends approximately 3 mm in length. Cerebellar arteries: Patent. Posterior cerebral arteries: Patent. No occlusion or aneurysm. Anterior cerebral arteries: Patent. No occlusion or aneurysm. Middle cerebral arteries: Patent. No occlusion or aneurysm. No enhancing intracranial mass lesion. Dural venous sinuses are patent. No enhancing cervical mass or fluid collection. Thyroid gland is atrophic. No acute abnormalities in the included lungs. No acute osseous abnormalities. Impression: 1. 70% stenosis in the proximal left ICA. 2. 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 3. Bilateral proximal ICA dissections with no flow-limiting stenosis. This document has been electronically signed by: Francie Tipton DO on 01/30/2025 15:25:46
--- NOTE | ~2025-01-30 | FL_ITS ---
EXAMINATION: XR BARIUM SWALLOW CLINICAL INFORMATION: Dysphagia. COMPARISON: None available. TECHNIQUE: Modified barium swallow was performed in lateral fluoroscopy in presence of speech therapist and various consistencies of food coated with barium FINDINGS: On oral administration of thin barium there is there is normal passage of bolus from the oral cavity through the pharynx into the esophagus. On the very second last and last images there is laryngeal penetration but no aspiration seen. There is mild retention of barium in the piriform sinuses and bilaterally which clears with subsequent dry swallowing and coughing. On oral administration of barium coated grounded chicken there was slow oral mastication however patient unable to swallow. FLUOROSCOPY TIME: 3 minutes and 8 seconds DOSE AREA PRODUCT: 1754 uGy-m2 (microgray-meter squared) FL/FL Modified Barium Swallow IMPRESSION: Laryngeal penetration with thin barium. Correlate with speech therapy report. Electronically signed by: Navdeep Naylor MD 02/04/2025 03:34 PM EDT
--- NOTE | ~2025-01-30 | CT_ITS ---
CLINICAL HISTORY: Stroke Protocol CT HEAD WITHOUT CONTRAST Comparison: CT/AR/SR - CT HEAD/BRAIN WO IV CON - 08/30/24 08:21 EST Findings: No acute intracranial hemorrhage, extra-axial fluid collection, hydrocephalus or midline shift. Age appropriate generalized parenchymal atrophy. Normal variant cavum septum pellucidum and cavum vergae. There are periventricular and subcortical white matter hypodensities which are nonspecific but most likely related to microangiopathic gliosis. Intracranial arteriosclerosis. No evidence for acute large territorial infarct. There is no sinus or mastoid fluid. Visualized orbits: No acute abnormalities. There is no acute fracture. IMPRESSION: 1. No acute intracranial process. This document has been electronically signed by: Francie Tipton DO on 01/30/2025 14:17:51
--- NOTE | ~2025-01-30 | MR_ITS ---
CLINICAL HISTORY: Stroke MR Brain without intravenous contrast Comparison: head CT from 01/30/2025 Findings: Restricted diffusion of the acute brain infarction measures 0.6 x 1.8 cm in the left basal ganglia region with involvement of posterior limb of the left internal capsule and abutment of the lateral aspect of the left thalamus. Additional small acute infarctions are peripheral including 7 mm in the left occipital lobe and multiple 4-5 mm lesions in the left cerebellar hemisphere. Minimal peripheral punctate infarctions also include left parietal lobe and 1 focus in the left precentral gyrus (image 24 of series 8). Nonacute white matter pathology is multifocal and likely related to small-vessel ischemic disease. No midline shift or hydrocephalus. Mild volume loss is generalized. Cavum septum pellucidum et vergae with partial septal defects. Prominent bilateral basal ganglia mineralization. Mild siderosis including left tentorium leaflet and lateral sulci. Fluid and mucosal thickening including imaged paranasal sinuses. Small bilateral mastoid effusions. Metal artifacts noted including right maxillary sinus region. IMPRESSION: 1. Small left-sided acute infarctions, with largest in the left basal ganglia region. 2. Nonacute white matter pathology as can be seen with small-vessel ischemic disease. This document has been electronically signed by: Gerardo Zuñiga MD on 01/30/2025 19:21:28
--- NOTE | ~2025-01-30 | XR_ITS ---
CLINICAL HISTORY: Stroke Protocol 1 view chest x-ray Comparison: CR/IL/SR - XR CHEST 2V - 08/30/24 08:35 EST Findings: Bilateral lower lobe airspace opacities, left greater than right. No pneumothorax or large pleural effusion. Cardiomediastinal silhouette is accentuated by portable technique and suboptimal inspiratory effort. No acute fracture. IMPRESSION: 1. Hypoventilation. 2. Bilateral lower lobe atelectasis and/or infiltrates. This document has been electronically signed by: Francie Tipton DO on 01/30/2025 15:39:38
--- NOTE | 2025-01-30 13:51 | ECG_ITS ---
Test Reason : stroke protocol Blood Pressure : */* mmHG Vent. Rate : 74 BPM Atrial Rate : 74 BPM P-R Int : 166 ms QRS Dur : 98 ms QT Int : 384 ms P-R-T Axes : 66 -8 29 degrees QTcB Int : 426 ms Sinus rhythm with occasional Premature ventricular complexes Otherwise normal ECG When compared with ECG of 30-Aug-2024 10:10, Premature ventricular complexes are now Present Referred By: Indra Silver Electronically Signed By: DEBRA SKAGGS
--- NOTE | 2025-01-30 13:52 | ED.AMS ---
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 Presenting with right-sided weakness, right-sided facial droop, expressive aphasia last well known time 12:55. I independently verified information from patient's regarding his medications. I also spoke to EMS, his blood pressure has been unremarkable, point of care glucose unremarkable no reports of trauma. Related Data Home Medications ?Medication ?Instructions ?Recorded ?Confirmed ascorbic acid (vitamin C) 1,000 mg 1,000 mg PO BID 04/28/20 10/14/24 tablet (Vitamin C) cholecalciferol (vitamin D3) 25 25 mcg PO DAILY 04/28/20 10/14/24 mcg (1,000 unit) tablet (Vitamin D3) turmeric root extract 500 mg 500 mg PO BID 04/28/20 10/14/24 capsule tolterodine 2 mg capsule,extended 2 mg PO DAILY 06/21/21 10/14/24 release 24 hr Previous Rx's ?Medication ?Instructions ?Recorded rivaroxaban 10 mg tablet 10 mg PO DAILY #90 tabs 05/10/24 levothyroxine 75 mcg tablet 75 mcg PO DAILY #90 tabs 10/06/24 omeprazole 20 mg capsule,delayed 20 mg PO DAILY #30 caps 10/08/24 release tamsulosin 0.4 mg capsule 0.8 mg (2 x 0.4 mg) PO BEDTIME 90 10/14/24 days #180 caps finasteride 5 mg tablet 5 mg PO DAILY #90 tabs 12/28/24 losartan 25 mg tablet 25 mg PO DAILY #90 tabs 01/07/25 Allergies Allergy/AdvReac Type Severity Reaction Status Date / Time No Known Allergies Allergy Verified 01/30/25 14:07 Review of Systems Constitutional: Constitutional: Reports as per HPI [facility] Past Medical History Medical History Closed cervical spine fracture Hospital discharge follow-up Atypical syncope History of lacunar cerebrovascular accident (CVA) Passage of loose stools Cough Constipation Urgency of micturition Urge incontinence Generalized anxiety disorder Patellofemoral arthritis of left knee Hypothyroidism History of double vision BPH (benign prostatic hyperplasia) Hx of ulcerative colitis Polycythemia vera History of DVT (deep vein thrombosis) PND (post-nasal drip) Hyperlipidemia Hypertension Pre-op examination Surgical History (Updated 11/15/24 @ 12:23 by Radha Braxton) Right inguinal hernia (09/05/23) History of colonoscopy (~06/23/09) History of right hip replacement Status post total left knee replacement Status post total left knee replacement Status post left knee replacement H/O total hip arthroplasty History of squamous cell carcinoma excision History of cholecystectomy History of left hip replacement Family History Family History Father No problems noted. Mother No problems noted. Social History Social History Household Members: Spouse Housing: House Are you a primary healthcare interpreter to a significant other at home: No Do you presently have visiting nurse or other home services: No Alcohol intake: current Alcohol intake frequency: holidays/special occasions only Comment: COUNTS CORRECT Patient Tobacco Use Status: Never used Tobacco Smoked in Last 30 Days: No e-Cigarette/Vaping Use: Never Used Second Hand Smoke Exposure: Yes Use of substances other than those prescribed or required for medical reasons: Yes Substance Use Type: Marijuana Substance Use Frequency: Occasionally Substance Use Frequency Other:: No use in long time. Last Used Substance: Unknown Advance Directives: No Advance Directives Information Provided: Yes Do you have a plan to hurt others: No Plan service: No Current occupational status: retired Cognitive needs: Yes Hearing needs: Yes Vision needs: No Physical Exam ED Vital Signs: Vital Signs - 24 hr 01/30/25 14:04 01/30/25 14:13 Temperature 97.2 F Pulse Rate 76 74 Respiratory Rate 21 H 15 Blood Pressure 192/81 H 176/87 H Pulse Oximetry 97 96 Oxygen Delivery Method Room Air Room Air BMI result Body Mass Index 27.2 NIH Stroke Scale Internal: Initial- Upon Arrival Level of Consciousness: Alert Level of Consciousness Questions: Answers one question correctly Level of Consciousness Commands: Performs both tasks correctly Best Gaze: Partial gaze palsy Visual: No visual loss Facial Palsy: Complete paralysis Motor Arm (Right): Some effort against gravity Motor Arm (Left): No drift Motor Leg (Right): Some effort against gravity Motor Leg (Left): No drift Limb Ataxia: Present in one limb Sensory: Normal Best Language: Mild to moderate aphasia Dysarthia: Mild to moderate dysarthria Extinction and Inattention: No abnormality Score: 12 Medications Administered Discontinued Medications Generic Name Dose Route Start Last Admin Trade Name Jonnathanq PRN Reason Stop Dose Admin Iohexol 100 ml 01/30/25 14:13 01/30/25 14:14 Iohexol 350 Mg/Ml 100 Ml Infus..Btl IV 01/30/25 14:14 70 ml ONCE ONE Administration Medical Decision Making Medical Decision Making [facility] Narrative: Patient evaluated at initial presentation I have also called and obtained information from his , patient is presenting with stroke right-sided weakness and both dysarthria and aphasia, that was on initial evaluation was fairly significant, when he went back into the room it was somewhat improving and he was still dysarthric but not aphasic anymore, symptoms this start at 12:55 and he would be a good candidate for TNK however he is on Xarelto, dry CT does not reveal any intracranial hemorrhage, we will await for CTA, he will be a candidate for clot retrieval if he has LVO, for now he did take 3 aspirins yesterday according to his , we will hold off any antiplatelets, and we will allow permissive hypotension, no indication at this time of discussing his care with neurologist as he is not a TNK candidate, he has not been hypoglycemic, there has been no trauma, the fact that he is not a TNK candidate has been discussed with his at bedside. 15:30 CTA with vertebral basilar occlusion, bilateral ICA flaps, discussed with neurologist here Dr. Jimenez, recommends transfer, called to [facility]. Differential Diagnosis Differential Diagnoses: The differential diagnosis associated with the presentation includes Ischemic stroke, hemorrhagic stroke, TIA, seizures, hypoglycemia, Livan's paralysis Admission/Observation Consideration of admission/observation: Escalation of care including admission/observation considered Lab Data [facility] Lab Attestation statement: I reviewed the patient's lab results. 01/30/25 14:27 01/30/25 14:27 Labs: Lab Results 01/30/25 01/30/25 01/30/25 Range/Units 13:47 14:04 14:27 WBC 9.1 (4.8-10.8) X10*3/uL RBC 5.18 (4.60-5.80) X10*6/uL Hgb 15.1 (14.0-18.0) g/dl Hct 45.3 (42.0-52.0) % MCV 87.5 (80.0-98.0) fL MCH 29.2 (27.0-33.0) pg MCHC 33.3 (31.0-36.0) g/dl RDW 14.4 (11.0-16.0) % Plt Count 198 (160-400) X10*3/uL MPV 9.8 (9.4-12.4) fL Immature Gran % (Auto) 0.2 (0.0-0.4) % Neut % (Auto) 71.5 (45-73) % Lymph % (Auto) 15.6 L (20-40) % Irion % (Auto) 9.8 (2-11) % Eos % (Auto) 2.4 (0-4) % Baso % (Auto) 0.5 (0-2) % Lymph # (Auto) 1.4 (1.2-4.9) X10*3/uL Irion # (Auto) 0.9 (0.1-1.2) X10*3/uL Eos # (Auto) 0.2 (0.0-0.4) X10*3/uL Baso # (Auto) 0.1 (0.0-0.2) X10*3/uL Abs Immat Gran (auto) 0.02 (0.00-0.03) X10*3/uL Absolute Neuts (auto) 6.5 (2.0-8.3) x10*3/uL Absolute Nucleated RBC 0.000 (0.0-0.012) X10*3/uL Nucleated RBC % (auto) 0.0 (0.0-0.2) /100WBC PT 13.2 H (10.9-12.4) SEC Whole Blood PT 13.4 (11.1-13.5) sec INR 1.2 H (0.9-1.1) Whole Blood INR 1.1 (0.9-1.1) APTT 38.4 H (26.0-36.8) SEC Sodium 138 (135-145) mmol/L Potassium 4.3 (3.3-5.1) mmol/L Chloride 106 (96-108) mmol/L Carbon Dioxide 25 (22-29) mmol/L Anion Gap 11 L (12-20) BUN 16 (9-16) mg/dL Creatinine 0.96 (0.5-1.4) mg/dL Estim Creat Clear Calc 67.0 Estimated GFR > 60 POC Glucose 88 (60-115) mg/dL Random Glucose 92 (60-115) mg/dL Calcium 8.7 (8.4-10.2) mg/dL Troponin I High Sens 3.5 (<3.5-35.0) ng/L Triglycerides 115 (<150) mg/dL Cholesterol 173 (<200) mg/dL LDL Cholesterol, Calc 117 H (<100) mg/dL HDL Cholesterol 33 L (>40) mg/dL Independent Interpretation I performed an independent interpretation of an: EKG (74 beats per minute, occasional PVC otherwise unremarkable EKG) Radiology Impression Discussion of test interpretation with radiology: I have reviewed the radiologist's reading. Radiologist Impression: [address] [id number] [address] Scan Report Signed with Ken Patient: Aaron Ludwig MR#: [id number] : 1945 Ordering Physician: Indra Silver DO Date of Service: 01/30/25 Procedure(s): CT head IMPRESSION: 1. No acute intracranial process. Critical Care Time Critical Care Time Total Critical Care Time: 60 Attestation: Time is exclusive of separately billable procedures. Time includes: direct patient care, patient reassessment, coordination of patient care, interpretation of data (laboratory data, pulse oximetry, arterial blood gases and chest xrays), review of patient's medical records, medical consultation and documentation of patient care. Procedures excluded from critical care time: central intravenous line placement and electrocardiography. Discharge Plan Discharge Clinical Impression: Basilar artery occlusion, Internal carotid artery dissection Prescriptions: No Action levothyroxine 75 mcg tablet 75 mcg PO DAILY Qty: 90 1RF omeprazole 20 mg capsule,delayed release(DR/EC) 20 mg PO DAILY Qty: 30 1RF finasteride 5 mg tablet 5 mg PO DAILY Qty: 90 1RF losartan 25 mg tablet 25 mg PO DAILY Qty: 90 1RF ascorbic acid (vitamin C) [Vitamin C] 1,000 mg Tablet 1,000 mg PO BID turmeric root extract 500 mg Capsule 500 mg PO BID cholecalciferol (vitamin D3) [Vitamin D3] 25 mcg (1,000 unit) Tablet 25 mcg PO DAILY rivaroxaban 10 mg tablet 10 mg PO DAILY Qty: 90 3RF tolterodine 2 mg capsule,extended release 24hr 2 mg PO DAILY tamsulosin 0.4 mg capsule 0.8 mg PO BEDTIME 90 Days Qty: 180 0RF Print Language: Iraqi
[2025-01-30 14:02] LABS: Glucose, Whole Blood 88 mg/dL (60-115)
[2025-01-30 14:04] VITALS: BP 192/81; BP 214/96; PULSE 76; PULSE 86; RESP 21; TEMP 36.2; O2SAT 97; O2SAT 98; BMI 27.2
[2025-01-30 14:08] LABS: Prothrombin Time Whole Bld POC 13.4 sec (11.1-13.5); ~PT, ~INR - Anti Coag Clinic 1.1 (0.9-1.1)
[2025-01-30 14:13] VITALS: BP 176/87; PULSE 74; RESP 15; O2SAT 96
[2025-01-30] MEDS: iohexoL 350 MG/ML 100 ML INFUS..BTL IV (14:14)
[2025-01-30 14:33] LABS: MANUAL DIFF FLAG NO
--- OUTSIDE RECORDS SUMMARY | 2025-01-30 14:36 | XMS_ITS | Patient Health Record ---
Author Organization [facility] Address [address] [place] [address] Care Team Providers Care Embedded Software Engineer Name Role Phone Brynn WELSH, Lacey Primary Care Provider Unavail able Jeet Pavon Jr Unavailable Genevieve Hargrove Unavailable Unavailable Reason For Referral No Information Plan Of Treatment No Information Insurance Providers Payer Name Payer Address Payer Phone Subscriber Number Group Number Insured Name Patient Relationship to Insured Coverage Start Date Coverage End Date MEDICARE OF [place] [address] [place] [address] [id number] NATALY SAWYER Self - patient is the insured [facility] [address] [place] [phone] [id number] NATALY SAWYER Self - patient is the insured
--- OUTSIDE RECORDS SUMMARY | 2025-01-30 14:37 | XMS_ITS | Patient Health Record ---
Author Organization [facility] Billing Info Address [address] [place] [address] P[place] [address] Care Team Providers Care Electrocardiographic Technician Name Role Phone BIANKA AMANDA Primary Care Provider CORNELL Galeano [phone] Reason For Referral No Information Medications Medication [...] Date Status Comme nts PNEUMOCOCCAL 13 CONJ ([id number]) Unknown 06/28/2016 Adm inistered FLU (Past vaccine of unknown type) Unknown 06/27/2016 A dministered Problems Problem Type SNOMED Code ICD Code Onset Dates Problem Status W/U Status Risk Notes Problem Localized, primary osteoarthritis of the pelvic region and thigh (454441336) Primary localized osteoarthrosis, pelvic region and thigh (715.15) Active confirmed Migrated- ProblemLi st-3706-P [facility] - [facility]-10/19 Problem Polycythemia vera (273097115) Polycythemia vera (D45) Active confirmed Problem 23137036 Hyperlipidemia, unspecified (E78.5) Active confirmed Problem 89792555 Essential (primary) hypertension (I10) Active confirmed Problem 092948132 Unspecified osteoarthritis, unspecified site (M19.90) Active confirmed Problem 20203666 Pain in right hip (M25.551) Active confirmed Problem 32792982 Pain in left hip (M25.552) Active confirmed Problem 41593548 Pain in left knee (M25.562) Active confirmed Problem Ataxic gait (57699635) Ataxic gait (R26.0) Active confirmed Problem 04164462 Unspecified abnormalities of gait and mobility (R26.9) Active confirmed Problem History of malignant neoplasm of esophagus (275723145) Personal history of malignant neoplasm of esophagus (Z85.01) Active confirmed Problem 38406207 Hypertension (401.9) Active confirmed Problem 45726736 Hyperlipidemia (272.4) Active confirmed Problem Gait abnormality (06169039) Gait abnormality (781.2) Active confirmed Problem Polycythemia vera (022732008) Polycythemia vera (238.4) Active confirmed Problem 48003844 Left knee pain (M25.562) Active confirmed Problem Antepartum deep phlebothrombosis (71926493) DVT (deep vein thrombosis) in (O22.30) Active confirmed Problem 00788284 Right hip pain (M25.551) Active confirmed Problem 493946681 Insomnia, unspecified type (G47.00) Active confirmed Problem 100905600 Acute embolism and thrombosis of deep vein of lower extremity, left (I82.402) Active confirmed Plan Of Treatment Pending Test Test Name Order Date PROTHROMBIN/INR TIME (43235) 05/30/20 14 BLOOD COUNT; COMPLETE CBC, A UTOMATED (HGB, HCT, RBC, WBC, & PLATELET) & AUTOMATED DIFFERENTIAL WBC (25073) CBC 05/15/2015 PT/INR (COLH-PTINR) 07/10/2015 Insurance Providers Payer Name Payer Address Payer Phone Subscriber Number Group Number Insured Name Patient Relationship to Insured Coverage Start Date Coverage End Date MEDICARE [place] PART B [address] [facility] JESSE TURK [id number] [phone] [id number] Aaron Ludwig Self - patient is the insured 2 2 [facility] [address] [facility] [place] [id number] [phone] [id number] Aaron Ludwig Self - patient is [...]
--- OUTSIDE RECORDS SUMMARY | 2025-01-30 14:37 | XMS_ITS | Patient Health Record ---
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 *please review for potential update for e-prescription and drug interaction check* Levothyroxine Sodium 75mcg Capsules 05/11/2014 Active Warfarin Sodium 5 MG 1 tab as directed Oral Warfarin Sodium 5mg Tablet 05/13/2014 Active Psyllium *please review f or potential update for e-prescription and drug interaction check* Psyllium 05/11/2014 Active Pravastatin Sodium 40 MG Take 1 tablet(s) by mouth in evening Oral Pravastatin 40mg Tablet 05/11/2014 Active Atenolol 50 MG one tablet daily Oral Atenolol 50mg Tablet 05/11/2014 Active LORazepam 1 MG Oral Lorazepam 1mg Tablet 05/11/201407/1899 Active oxyCODONE HCl 5 MG Take 1 tablet(s) by mouth q 4 to 6 hr prn for pain Oral Oxycodone HCl 5mg Tablet 05/13/2014 Active Problems Problem Type SNOMED Code ICD Code Onset Dates Problem Status W/U Status Risk Notes Problem Ulcerative colitis (53031768) Ulcerative colitis, unspecified (556.9) 05/16/20 14 Active confirmed [id number]- Problem Deep vein thrombosis (465621676) DVT (451.19) 05/16/20 14 Problem resolved confirmed [id number]- Problem Pulmonary embolism with infarction (6021785271490) Pulmonary embolism and infarction, other (415.19) 05/16/20 14 Problem resolved confirmed [id number]- Problem General examination of patient (051591084) Annual exam (V70.0) 05/16/20 14 Problem resolved confirmed [id number]- Problem History of multiple allergies (situation) (111753034) Allergies (477.0) 05/16/20 14 Problem resolved confirmed [id number]- Problem Long-term current use of anticoagulant (113632310) Anticoagulation followup (V58.61) 08/12/19 15 Problem resolved confirmed [id number] [id number]- Plan Of Treatment No Information Insurance Providers Payer Name Payer Address Payer Phone Subscriber Number Group Number Insured Name Patient Relationship to Insured Coverage Start Date Coverage End Date [place] [address] [address] [place] [phone] [id number] NATALY SAWYER Self - patient is the insured 8 [facility] 1 [address] [place] [address] [phone] [id number] NATALY SAWYER Self - patient is the insured 4 Medical (General) History Surgical History Surgery Date(Month/Year) Procedures: RADIATION TX SQ CANCER
[2025-01-30 14:44] LABS: Hematocrit 45.3 % (42.0-52.0); Hemoglobin 15.1 g/dl (14.0-18.0); Imm Gran Abs Auto 0.02 X10*3/uL (0.00-0.03); Imm Gran Pct Auto 0.2 % (0.0-0.4); Lymphocytes Absolute Auto 1.4 X10*3/uL (1.2-4.9); Mean Corpuscular HGB Conc 33.3 g/dl (31.0-36.0); Mean Corpuscular Hemoglobin 29.2 pg (27.0-33.0); Mean Corpuscular Volume 87.5 fL (80.0-98.0); NRBC Abs Auto 0.000 X10*3/uL (0.0-0.012); NRBC Pct Auto 0.0 /100WBC (0.0-0.2); Platelet Count 198 X10*3/uL (160-400); Red Blood Count 5.18 X10*6/uL (4.60-5.80); White Blood Count 9.1 X10*3/uL (4.8-10.8)
[2025-01-30 14:48] LABS: Anion Gap 11 (12-20); Blood Urea Nitrogen 16 mg/dL (9-16); Calcium 8.7 mg/dL (8.4-10.2); Carbon Dioxide 25 mmol/L (22-29); Chloride 106 mmol/L (96-108); Cholesterol 173 mg/dL (<200); Creatinine Clr Calc Pharmacy 67.0; Estimated Glomerular Filt Rate > 60; HDL Cholesterol 33 mg/dL (>40); INTERNATIONAL NORM RATIO 1.2 (0.9-1.1); Potassium 4.3 mmol/L (3.3-5.1); Prothrombin Time 13.2 SEC (10.9-12.4); Sodium 138 mmol/L (135-145); Triglycerides 115 mg/dL (<150)
[2025-01-30 14:49] LABS: Partial Thromboplastin Time 38.4 SEC (26.0-36.8); Stroke Lab Use COMPLETE
[2025-01-30 14:54] LABS: Troponin-I High Sensitivity 3.5 ng/L (<3.5-35.0)
[2025-01-30 16:27] VITALS: BP 174/78; PULSE 66; RESP 14; TEMP 36.6; O2SAT 96
--- NOTE | 2025-01-30 18:02 | PC.NURSE ---
MRI screening form completed with Pt and Pts . Form shared via [employer] with Brittni Anna in MRI who reports Pt can be seen now. Pt off unit to MRI at this moment in time.
--- NOTE | 2025-01-30 18:27 | PM.IMHP ---
History of Present Illness Date of Service: 01/30/25 Attending physician on admission: Kimi Segovia Chief Complaint: Slurred speech, left-sided weakness Aaron Ludwig is 80 years old man with past medical history significant for 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 was at bedside and contributed with HPI. Around the same time the patient started to have visual disturbances (he was able to see the have a piece computer and was unable to read the clock). He also complained of generalized headache. He denied facial numbness or tingling sensation to the extremities. There is no loss of consciousness reported or dizziness. The patient did not report any acute cardiopulmonary or gastrointestinal symptoms. Patient mentioned that his symptoms are already improving somewhat. He is lifelong nonsmoker. NIH stroke scale on arrival: 12. In the ED, in the ED was found to have stable vital signs. His blood pressure was found to be elevated. Last blood pressure is 174/79. Blood workup showed no leukocytosis. Hemoglobin is 15.1 and platelets 198. INR is 1.2. There are no electrolyte imbalances. Renal function and glucose are normal. Troponin is 3.5. Head CT scan without contrast showed no acute intracranial bleeding or infarct. Head and neck CTA showed 70% in the proximal left ICA, focal occlusion in the basilar artery and bilateral proximal ICA dissection with no flow-limiting stenosis. CXR showed hypoventilation, bilateral lower lobe atelectasis and/or infiltrates. ECG showed normal sinus tachycardia + PVCs without ischemic changes. He did not meet criteria for tPA due to use of Xarelto (last dose last night). ED tx: Pepcid 20 mg IV [facility] Medical History Closed cervical spine fracture Hospital discharge follow-up Atypical syncope History of lacunar cerebrovascular accident (CVA) Passage of loose stools Cough Constipation Urgency of micturition Urge incontinence Generalized anxiety disorder Patellofemoral arthritis of left knee Hypothyroidism History of double vision BPH (benign prostatic hyperplasia) Hx of ulcerative colitis Polycythemia vera History of DVT (deep vein thrombosis) PND (post-nasal drip) Hyperlipidemia Hypertension Pre-op examination Family History Father No problems noted. Mother No problems noted. Surgical History (Updated 11/15/24 @ 12:23 by Radha Braxton) Right inguinal hernia (09/05/23) History of colonoscopy (~06/23/09) History of right hip replacement Status post total left knee replacement Status post total left knee replacement Status post left knee replacement H/O total hip arthroplasty History of squamous cell carcinoma excision History of cholecystectomy History of left hip replacement Social History Household Members: Spouse Housing: House Are you a primary team primary care physician to a significant other at home: No Do you presently have visiting nurse or other home services: No Alcohol intake: current Alcohol intake frequency: holidays/special occasions only Comment: COUNTS CORRECT Patient Tobacco Use Status: Never used Tobacco Smoked in Last 30 Days: No e-Cigarette/Vaping Use: Never Used Second Hand Smoke Exposure: Yes Use of substances other than those prescribed or required for medical reasons: Yes Substance Use Type: Marijuana Substance Use Frequency: Occasionally Substance Use Frequency Other:: No use in long time. Last Used Substance: Unknown Advance Directives: No Advance Directives Information Provided: Yes Do you have a plan to hurt others: No Plan service: No Current occupational status: retired Cognitive needs: Yes Hearing needs: Yes Vision needs: No Meds Allergies Allergy/AdvReac Type Severity Reaction Status Date / Time No Known Allergies Allergy Verified 01/30/25 14:07 Home Medications ?Medication ?Instructions ?Recorded ?Confirmed ?Last Taken ?Type ascorbic acid (vitamin C) 1,000 mg 1,000 mg PO BID 04/28/20 10/14/24 05/06/20 09:00 History tablet (Vitamin C) cholecalciferol (vitamin D3) 25 25 mcg PO DAILY 04/28/20 10/14/24 05/06/20 History mcg (1,000 unit) tablet (Vitamin D3) turmeric root extract 500 mg 500 mg PO BID 04/28/20 10/14/24 05/06/20 History capsule tolterodine 2 mg capsule,extended 2 mg PO DAILY 06/21/21 10/14/24 Unknown History release 24 hr Physical Exam Vital Signs and Narrative: Vital Signs: Last Vital Signs Temp 97.9 F 01/30/25 16:27 Pulse 66 01/30/25 16:27 Resp 14 01/30/25 16:27 BP 174/78 H 01/30/25 16:27 Pulse Ox 96 01/30/25 16:27 O2 Del Method Room Air 01/30/25 16:27 BMI result Body Mass Index 27.2 Constitutional - Awake and Alert, No apparent distress HEENT - PERRL Heart - RRR, No murmurs. (+) extra systole Lungs - Normal lung expansion, Normal respiratory effort, No respiratory distress, CTA bilaterally Abdomen - NT / ND; +BS; No rebound or guarding Extremities - No calf tenderness bilaterally, no swelling Musculoskeletal - generalized muscular atrophy Skin - Warm/Dry Neurological - Alert & oriented x3, inattentive to the right side. PERRL, CN VII/IX: Affected (right lower facial droop, speech: Slurred/expressive aphasia present ). Uvula midline, did not appreciate obvious tongue deviation. Strength: RUE + RLE: 1/5; LUE + LLE: 4/5. No gross sensory agents. Gait:Not assessed due to weakness. Psychological - depressed affect Results Labs 01/30/25 14:27 01/30/25 14:27 Labs: Laboratory Results - last 24 hr 01/30/25 01/30/25 01/30/25 13:47 14:04 14:27 MCV 87.5 MCH 29.2 MCHC 33.3 RDW 14.4 Plt Count 198 MPV 9.8 Immature Gran % (Auto) 0.2 Neut % (Auto) 71.5 Lymph % (Auto) 15.6 L [place] % (Auto) 9.8 Eos % (Auto) 2.4 Baso % (Auto) 0.5 Lymph # (Auto) 1.4 [place] # (Auto) 0.9 Eos # (Auto) 0.2 Baso # (Auto) 0.1 Abs Immat Gran (auto) 0.02 Absolute Neuts (auto) 6.5 Absolute Nucleated RBC 0.000 Nucleated RBC % (auto) 0.0 PT 13.2 H Whole Blood PT 13.4 INR 1.2 H Whole Blood INR 1.1 APTT 38.4 H Anion Gap 11 L Estim Creat Clear Calc 67.0 Estimated GFR > 60 POC Glucose 88 Random Glucose 92 Calcium 8.7 Triglycerides 115 Cholesterol 173 LDL Cholesterol, Calc 117 H HDL Cholesterol 33 L Assessment and Plan (1) Acute CVA (cerebrovascular accident): Status: Acute (2) Internal carotid artery stenosis: Qualifiers: Laterality: left Qualified Code(s): I65.22 - Occlusion and stenosis of left carotid artery Status: Acute (3) Internal carotid artery dissection: Status: Acute (4) Hyperlipidemia: Qualifiers: Hyperlipidemia type: familial hypercholesterolemia Qualified Code(s): E78.01 - Familial hypercholesterolemia Status: Acute Plan Aaron Ludwig is 80 y/o man with a PMHx of head and neck CA (squamous cell) s/o chemotherapy and radiation admitted with: Acute CVA + proximal left ICA stenosis (70%) + bilateral proximal ICA dissections (no flow-limiting stenosis). Discussed with Iesha (neuro IR, [facility]). Admit to hospitalist service. Telemetry. Neuro check every 4 hours. Aspiration and fall precautions. Check TTE with bubble study. Permissive hypertension allowed. Start treatment with Lovenox 90 mg subQ b.i.d. Start high-intensity statin (40 mg PO -advance age). Check hemoglobin A1c. Physical/occupational therapy. This patient followed consult. Neurology and vascular surgery, consult. Essential hypertension. Continue Losartan. Hypothyroidism. Continue levothyroxine. Hyperlipidemia. Will start atorvastatin. LDL = 117 (goal < 70). Hx of VTE. On Lovenox. Polycythemia Vera. Hemoglobin is 15.18. Hyperactive bladder. Continue tolterodine. BPH. Continue tamsulosin and finasteride. GERD. Continue omeprazole. Recent history (Aug 2024) of C-spine fractures (C3-C4, posterior spinous process) without injuries to the spinal cord. DVT prophylaxis: Lovenox Code status: Full Patient will need hospitalization for at least 2 midnights for acute CVA treatment and management with close monitoring of neurological status, anticoagulation with Lovenox and evaluation by Neurology and vascular surgery. Quality Stroke Does the patient have a stroke diagnosis?: No VTE Prior VTE?: No VTE Risk Level:: Medical - moderate - high VTE Device Contraindication: Treatment Not Indicated VTE Drug Contraindication: N/A - Med Ordered
--- NOTE | 2025-01-30 18:44 | PC.NURSE ---
Pt returns from MRI at this time.
[2025-01-30 19:36] VITALS: BP 158/85; PULSE 69; RESP 18; TEMP 37; O2SAT 94
--- NOTE | 2025-01-30 19:57 | PC.NURSE ---
Dr Campbell assessed pt at bedside. pt has some episodes of unclear, garbled speech. spoke clearly with hospitalist at bedside, answering appropriately, occasionally needs to repeat himself. can follow basic commands hard of hearing, brought hearing aids home. alert, oriented to person, situation,forgetful, confused. right facial droop, right sided neglect. pupils reactive. global headache 3/10 since yesterday. history of neck cancer s/p surgery with chronic right shoulder muscular issue causing chronic limited ROM and weakness of right arm. NPO, speech eval needed. complains of restless legs. MD aware. NSR on tele with occasional PVCs. PIV to RA intact, patent, flushed. vitals charted
--- NOTE | 2025-01-30 20:02 | PC.NURSE ---
voided yellow urine approx 300mL to urinal with help from . [place] [facility] now in place
[2025-01-30 21:47] VITALS: BP 167/86; PULSE 60; RESP 12; TEMP 36.6; O2SAT 96
[2025-01-30] MEDS: diazePAM 10 MG/2 ML CARTRIDGE 2.5 MG IVPUSH (22:09)
--- NOTE | 2025-01-30 22:11 | PC.NURSE ---
Addendum entered by Harpreet Pineda RN 01/30/25 22:13: bed alarm on, call coyle in reach. pt demonstrated ability to use Original Note: alert, oriented. states birthday, full name, location, month, vague to situation. speech clarity improved although still has brief instances of mumbled speech but can repeat himself more clearly on request. complimenting staff, conversational. call coyle in reach. changed to hospital bed.
[2025-01-31] VITALS (9 sets, daily range): BP systolic 138–188; BP diastolic 68–96; PULSE 61–100; RESP 14–20; TEMP 36.5–37.2; O2SAT 93–97
--- NOTE | 2025-01-31 01:05 | PC.NURSE ---
neuro check unchanged from prior assessment
--- NOTE | 2025-01-31 03:20 | PC.NURSE ---
alerted by bed alarm. patient found sitting at bedside. pt states he feels claustrophobic. states he wanted to take off moni. helped to side lying position with pillows. [facility]. awakes spontaneously. stable mentation, orientation, right sided neglect weakness and right facial droop. still has garbled speech at first then clarity improves after a short time.
[2025-01-31 05:39] LABS: MANUAL DIFF FLAG NO
[2025-01-31 05:42] LABS: Hematocrit 48.1 % (42.0-52.0); Hemoglobin 16.0 g/dl (14.0-18.0); Imm Gran Abs Auto 0.02 X10*3/uL (0.00-0.03); Imm Gran Pct Auto 0.2 % (0.0-0.4); Lymphocytes Absolute Auto 1.4 X10*3/uL (1.2-4.9); Mean Corpuscular HGB Conc 33.3 g/dl (31.0-36.0); Mean Corpuscular Hemoglobin 28.9 pg (27.0-33.0); Mean Corpuscular Volume 86.8 fL (80.0-98.0); NRBC Abs Auto 0.000 X10*3/uL (0.0-0.012); NRBC Pct Auto 0.0 /100WBC (0.0-0.2); Platelet Count 208 X10*3/uL (160-400); Red Blood Count 5.54 X10*6/uL (4.60-5.80); White Blood Count 8.0 X10*3/uL (4.8-10.8)
[2025-01-31 05:58] LABS: Anion Gap 13 (12-20); Blood Urea Nitrogen 13 mg/dL (9-16); Calcium 8.9 mg/dL (8.4-10.2); Carbon Dioxide 22 mmol/L (22-29); Chloride 111 mmol/L (96-108); Creatinine Clr Calc Pharmacy 68.4; Estimated Glomerular Filt Rate > 60; Potassium 4.1 mmol/L (3.3-5.1); Sodium 142 mmol/L (135-145)
[2025-01-31 06:00] LABS: Hemoglobin A1C 149.7358 umol/L; Total Hemoglobin (HGBA1C) 4121.3043 umol/L
--- NOTE | 2025-01-31 06:00 | PC.NURSE ---
neuro check same as prior
--- NOTE | 2025-01-31 14:37 | HO.PM.IMPN ---
Subjective Subjective Date of Service: 01/31/25 Interval History: Patient has sifnciant dysphasia, aphasia, and marked weakness on the left side Physical Exam Vital Signs: Vital Signs: Last Vital Signs Temp 97.7 F 01/31/25 11:54 Pulse 67 01/31/25 11:54 Resp 18 01/31/25 11:54 BP 138/90 H 01/31/25 11:54 Pulse Ox 95 01/31/25 11:54 O2 Del Method Room Air 01/31/25 11:54 BMI result Body Mass Index 27.2 onstitutional - Awake and Alert, No apparent distress Heart - RRR, No murmurs. (+) extra systole Lungs - Normal lung expansion, Normal respiratory effort, No respiratory distress, CTA bilaterally Abdomen - NT / ND; +BS; No rebound or guarding Extremities - No calf tenderness bilaterally, no swelling Musculoskeletal - generalized muscular atrophy Skin - Warm/Dry Neurological - Alert & oriented x3, inattentive to the right side. PERRL, CN VII/IX: Affected (right lower facial droop, speech: Slurred/expressive aphasia present ). Uvula midline, did not appreciate obvious tongue deviation. Strength: RUE + RLE: 1/5; LUE + LLE: 4/5. No gross sensory agents. Gait:Not assessed due to weakness. Psychological - depressed affect Objective Data Active Medications Atorvastatin Calcium (Atorvastatin Calcium 40 Mg Tablet) 40 mg PO BEDTIME [facility] Last Admin: 01/30/25 20:15 Dose: Not Given Documented By: TRAVIS Non-Admin Reason: NPO Calcium Carbonate (Calcium Carbonate 750 Mg Tab.Chew) 750 mg PO Q4H PRN PRN Reason: Heartburn Enoxaparin Sodium (Enoxaparin Sodium 100 Mg/Ml Syringe) 90 mg 1 mg/kg (90 mg) SUBCUT Q12H [facility] Last Admin: 01/31/25 10:05 Dose: 90 mg Documented By: ROGERIO Acetaminophen (Ofirmev) 1,000 mg in 100 mls @ 400 mls/hr IV Q6H PRN PRN Reason: Pain, Mild 1-3,fever,headache Last Infusion: 01/30/25 20:35 Dose: Infused Documented By: TRAVIS Magnesium Hydroxide (Milk Of Magnesia 30 Ml Oral.Susp) 30 ml PO DAILY PRN PRN Reason: Constipation Melatonin (Melatonin 3 Mg Tablet) 6 mg PO BEDTIME PRN PRN Reason: Insomnia Labs 01/31/25 05:34 01/31/25 05:34 Labs: Laboratory Results - last 24 hr 01/30/25 01/31/25 14:27 05:34 MCV 87.5 86.8 MCH 29.2 28.9 MCHC 33.3 33.3 RDW 14.4 14.2 Plt Count 198 208 MPV 9.8 9.6 Immature Gran % (Auto) 0.2 0.2 Neut % (Auto) 71.5 67.7 Lymph % (Auto) 15.6 L 17.7 L [place] % (Auto) 9.8 11.1 H Eos % (Auto) 2.4 2.7 Baso % (Auto) 0.5 0.6 Lymph # (Auto) 1.4 1.4 [place] # (Auto) 0.9 0.9 Eos # (Auto) 0.2 0.2 Baso # (Auto) 0.1 0.1 Abs Immat Gran (auto) 0.02 0.02 Absolute Neuts (auto) 6.5 5.4 Absolute Nucleated RBC 0.000 0.000 Nucleated RBC % (auto) 0.0 0.0 PT 13.2 H INR 1.2 H APTT 38.4 H Anion Gap 11 L 13 Estim Creat Clear Calc 67.0 68.4 Estimated GFR > 60 > 60 Random Glucose 92 97 Estimat Average Glucose 111 Hemoglobin A1c % 5.5 Calcium 8.7 8.9 Triglycerides 115 Cholesterol 173 LDL Cholesterol, Calc 117 H HDL Cholesterol 33 L Assessment and Plan (1) Acute CVA (cerebrovascular accident): Status: Acute Plan 80 y/o man with a PMHx of head and neck CA (squamous cell) s/o chemotherapy and radiation admitted with: Acute CVA + proximal left ICA stenosis (70%) + bilateral proximal ICA dissections (no flow-limiting stenosis). Discussed with Iesha (neuro IR, [facility])--No intervention. Telemetry. Neuro check every 4 hours. Aspiration and fall precautions. Check TTE with bubble study. Permissive HTN 24 to 72. 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 Permissive HTN as above Signficant dysphagia from stroke PRINCIPAL EMBEDDED SOFTWARE ENGINEER recommens NPO IVF while NPO Hypothyroidism. levothyroxine. Hyperlipidemia. Statin with LDL = 117 (goal < 70). Hx of VTE. On Lovenox. Polycythemia Vera. Hemoglobin is 15.18. Hyperactive bladder. Continue tolterodine. BPH. Continue tamsulosin and finasteride. GERD. Continue omeprazole. Recent history (Aug 2024) of C-spine fractures (C3-C4, posterior spinous process) without injuries to the spinal cord. DVT prophylaxis: Lovenox Code status: Full Patient will need hospitalization for at least 2 midnights for acute CVA treatment and management with close monitoring of neurological status, anticoagulation with Lovenox and evaluation by Neurology and vascular surgery. Will need acute inpatient rehab Quality Stroke Does the patient have a stroke diagnosis?: No VTE Prior VTE?: No VTE Risk Level:: Medical - moderate - high VTE Device Contraindication: Treatment Not Indicated VTE Drug Contraindication: N/A - Med Ordered
--- NOTE | 2025-01-31 14:45 | MHC.SL.SWA ---
Speech Pathologist Impression: Moderate to significant dysphagia s/p CVA. Pt is dysarthric but intelligible in context. Risk of Aspiration Due to: Hx of neck CA Hx of prior CVA Advanced age Pt is in acute phase of post CVA recovery Dysphasia Diet Status: NPO strict Liquid Consistency and Strategies for Safe Swallow: Liquid Intake Recommendation: NPO Liquid Intake Strategies: Solid Food Consistency: Dietary Recommendations: NPO Additional Modifications to Solid Foods: Oral Medication Intake: NPO Please contact the pharmacy regarding appropriate crushable or liquid drug formulations that are available whenever modified delivery is recommended. Compensatory Strategies and Precautions to be Taken for Safe Swallow: Supervision While Eating and Drinking for Safe Swallow: PO with FRAME REPAIRER Foods to Avoid: Swallowing Recommended Treatments: Recommendation for Speech: Further Testing Needed Inpatient Speech Therapy Comment: Pt presents with moderate to significant dysphagia, dysarthria, and cognitive/linguistic limitations s/p acute CVA. Recc NPO strict, oral swabs ok, suctioning to clear pooled secretions. Daily re-assessment of swallow function and dysphagia/dysarthria tx indicated during inpatient. Pt will need continued skilled ST upon d/c from acute setting. Frequency/Duration: Daily M-F Date Range for Service Req: Timeline to reassess: Microsoft Developer Clinican/Clinical Fellow: No Supervisory Statement: I have reviewed and agree with the student/clinical fellow's documentation: N/A Speech Language Pathologist: Sirena Rocha M.S., [facility]-FRAME REPAIRER
[2025-01-31] MEDS: Dextrose 5 % and Lactated Ring 1,000 ML 125 ML IVCONT ×2 (15:16→21:37)
--- NOTE | 2025-01-31 16:21 | MHC.CM.PN ---
PT REPORTS HE LIVES WITH HIS AND IS INDEPENDENT AT BASELINE HE HAD NO SERVICES AND NO DME ADMIN PROG COORD COPY OF HCP REQUESTED PCP: MAGGIE LANDEROS IMM DELIVERED PT WILL LIKELY NEED ACUTE REHAB REFERRALS PLACED TO ALL 3, PT UNSURE OF PREFERENCE AT THIS TIME BLS TRANSPORT
--- NOTE | 2025-01-31 16:32 | PHA.MEDREC ---
Addendum entered by Iliana Quezada RPh 01/31/25 16:54: REVIEWED BY [facility] Original Note: Pharmacy Consult ? Medication Reconciliation Pharmacy has completed the medication reconciliation. Spoke with pt and he not so sure about his medications at this time and wanted us to call his . I called and spoke with pt on the phone and she confirmed the pt medications. Pt spouse was not sure if the pt was still using Omeprazole, stating it was written on a list the pt has at home as needed ; I spoke with the pt again and he confirmed he is taking the Omeprazole sometimes for the acid reflux. Pt spouse confirmed the pt takes Tamsulosin 0.4mg but wasn't sure if the pt takes 1 or 2 caps; I spoke with pt and he confirmed he takes 2 caps of the Tamsulosin.
[2025-02-01] VITALS (11 sets, daily range): BP systolic 65–165; BP diastolic 30–74; PULSE 64–71; RESP 16–18; TEMP 36.6–37.2; O2SAT 93–96
[2025-02-01] MEDS: Dextrose 5 % and Lactated Ring 1,000 ML 125 ML IVCONT ×2 (05:49→15:01)
--- NOTE | 2025-02-01 07:00 | CA_ITS ---
Transthoracic Echocardiogram Patient (Last, First, Middle): aAron Ludwig A Gender: Male Date of : 1945 Age: 80 Procedure Date: 02/01/2025 Procedure Type: Transthoracic Echocardiogram Location: [facility] Height: 190.5 cm Weight: 92.99 kg BSA: 2.22 m2 Heart Rate: bpm BP: 124 / 57 mmHg Asbestos Microscopist: Referring MD: Jose A Escobar MD Symptoms: stroke Study Quality: Technically Difficult ECG Rhythm: Sinus Conclusions: - The left ventricular systolic function is normal. The calculated ejection fraction is 64% by biplane method. - No obvious valvular pathology seen on this study. Findings Left Ventricle Normal left ventricular cavity size. There is moderately increased left ventricular wall thickness. The left ventricular systolic function is normal. The calculated ejection fraction is 64% by biplane method. There is no evidence of regional wall motion abnormalities. Diastolic function is normal for age. Right Ventricle Normal right ventricular cavity size and systolic function. Atria The left atrium is normal in size. The right atrium is normal in size. Aortic Valve The aortic valve was not well visualized. There is no aortic valve stenosis. There is no aortic valve regurgitation. Mitral Valve The mitral valve was not well visualized. There is no mitral valve regurgitation. There is no mitral valve stenosis. Pulmonic Valve The pulmonic valve is likely normal. Tricuspid Valve The tricuspid valve was not well visualized. There is no tricuspid valve regurgitation. Tricuspid regurgitation envelope is inadequate for calculation of right ventricular systolic pressure. Great Vessels The asc aorta is normal in size. Venous The inferior vena cava is normal in size and collapses greater than 50% with inspiration. Pericardium/Pleural There is no evidence of pericardial effusion. Prior Study Comparison No prior study available for comparison. Recommendations, Care & Conclusions No obvious valvular pathology seen on this study. Measurements 2D Linear Measurements IVSd: 1.47 0.6-0.9/0.6-1.0 cm LVIDd: 4.52 3.9-5.3/4.2-5.9 cm LVIDd Index: 2.04 2.4-3.2/2.2-3.1 cm/m2 LVIDs: 2.91 2.0-3.6 cm LVPWd: 1.49 0.7-1.1 cm Ao Root: 3.80 2.1-3.5 cm LA Diam: 3.90 2.7-3.8/3.0-4.0 cm LAIDs Index: 1.76 1.5-2.3 cm/m2 LV Mass: 339.21 67-162/88-224 g LV Mass Index: 152.80 43-95/49-115 g/m2 LVOT Diam: 2.20 3.0+(-)1.3 cm 2D Systolic Function EF 4C: 67.70 >55% EF 2C: 58.50 >55% EF BiP: 64.00 >55% Mitral Valve MV Pk E: 0.42 MV PK A: 0.69 MV Decel Time: 334.00 E/A: 0.60 E'Lateral: 6.96 E'Medial: 6.53 E/E' Med: 6.40 E/E' Lat: 6.00 PHT: 98.00 MVA PHT: 2.24 Decel [place]: 1.26 Aortic Valve AoV Pk Mode: 1.23 AoV Mn Mode: 0.78 AoV VTI: 0.29 AoV Pk Grad: 6.00 Aov Mn Grad: 3.00 MICAH Cont.VTI: 2.89 LVOT LVOT Pk Mode: 0.76 LVOT Mn Mode: 0.51 LVOT VTI: 0.22 LVOT Pk Grad: 2.00 LVOT Mn Grad: 1.00 LVOT Diam: 2.20 LVOT Area: 3.80 Diastolic Function MV Pk E: 0.42 MV Pk A: 0.69 E/A: 0.60 E'Medial: 6.53 E/E' Med: 6.40 E' Laterial: 6.96 E/E' Lat: 6.00 Right Ventricle TAPSE (mm): 24.00 TVS' Mode: 18.00 Tricuspid Valve TR Pk Mode: 0.18 TR Pk Grad: 0.00 RA Press: 3.00 Great Vessels Aorta Ao Root-2D: 3.80 2.0-3.7 cm Ao Asc: 3.40 2.1-3.4 cm Updated in Other Vendor System with Status of Final Hermes Menendez MD electronically signed on 02/02/2025 1:24:57 PM with status of Final
--- NOTE | 2025-02-01 08:05 | PM.CNGS ---
History of Present Illness Consult details Consult date: 02/01/25 Narrative: 80-year-old gentleman with past medical history of DVT and old CVA polycythemia vera hyperlipidemia neck cancer status post chemo and radiation essential hypertension presented to the emergency room with acute onset right side weakness right upper extremity contracture and slurred speech. This was on 01/30/2025. Upon workup he was discovered to have an acute CVA with proximal left internal carotid stenosis 70% and proximal internal carotid dissections. He was subsequently started on statin Review of Systems Review of Systems: Yes all other systems are reviewed and are negative Constitutional: Constitutional: Reports no additional constitutional complaints ENT: Reports Normal hearing present Cardiovascular: Cardiovascular: Denies chest pain, Denies chest pain at rest, Denies chest pain with activity and Denies pedal edema Respiratory: Respiratory: Denies cough Gastrointestinal: Gastrointestinal: Denies abdominal pain Musculoskeletal: Musculoskeletal: Denies abnormal gait, Denies muscle cramps and Denies radiating pain into limb Integumentary/Breasts: Skin/Breast: Denies skin ulcer and Denies wounds Neurologic: Reports Normal hearing present and Denies abnormal gait Psychiatric: Psychiatric: Reports no additional psychiatric complaints [facility] Past Medical History Medical History Closed cervical spine fracture Hospital discharge follow-up Atypical syncope History of lacunar cerebrovascular accident (CVA) Passage of loose stools Cough Constipation Urgency of micturition Urge incontinence Generalized anxiety disorder Patellofemoral arthritis of left knee Hypothyroidism History of double vision BPH (benign prostatic hyperplasia) Hx of ulcerative colitis Polycythemia vera History of DVT (deep vein thrombosis) PND (post-nasal drip) Hyperlipidemia Hypertension Pre-op examination Family History Family History Father No problems noted. Mother No problems noted. Surgical History Surgical History Right inguinal hernia (09/05/23) History of colonoscopy (~06/23/09) History of right hip replacement Status post total left knee replacement Status post total left knee replacement Status post left knee replacement H/O total hip arthroplasty History of squamous cell carcinoma excision History of cholecystectomy History of left hip replacement Social History Social History Household Members: Spouse Household Members Other:: Housing: House Are you a primary managed care coordinator to a significant other at home: No Do you presently have visiting nurse or other home services: No Alcohol intake: current Alcohol intake frequency: holidays/special occasions only Comment: 1:1 sitter Patient Tobacco Use Status: Never used Tobacco e-Cigarette/Vaping Use: Never Used Second Hand Smoke Exposure: No Substance Use Type: Marijuana service: No Current occupational status: retired Cognitive needs: Yes Hearing needs: Yes Vision needs: No Meds Allergies Allergy/AdvReac Type Severity Reaction Status Date / Time No Known Allergies Allergy Verified 01/30/25 14:07 Active Medications: Current Medications Atorvastatin Calcium (Atorvastatin Calcium 40 Mg Tablet) 40 mg PO BEDTIME [facility] Last Admin: 01/31/25 21:35 Dose: Not Given Calcium Carbonate (Calcium Carbonate 750 Mg Tab.Chew) 750 mg PO Q4H PRN PRN Reason: Heartburn Enoxaparin Sodium (Enoxaparin Sodium 100 Mg/Ml Syringe) 90 mg 1 mg/kg (90 mg) SUBCUT Q12H [facility] Last Admin: 01/31/25 21:37 Dose: 90 mg Acetaminophen (Ofirmev) 1,000 mg in 100 mls @ 400 mls/hr IV Q6H PRN PRN Reason: Pain, Mild 1-3,fever,headache Last Infusion: 01/30/25 20:35 Dose: Infused Dextrose/Lactated Ringer's (D5lr) 1,000 mls @ 125 mls/hr IVCONT .Q8H [facility] Last Admin: 02/01/25 05:49 Dose: 125 mls/hr Magnesium Hydroxide (Milk Of Magnesia 30 Ml Oral.Susp) 30 ml PO DAILY PRN PRN Reason: Constipation Melatonin (Melatonin 3 Mg Tablet) 6 mg PO BEDTIME PRN PRN Reason: Insomnia Home Medications ?Medication ?Instructions ?Recorded ?Confirmed ?Last Taken ?Type ascorbic acid (vitamin C) 1,000 mg 1,000 mg PO BID 04/28/20 01/31/25 01/30/25 History tablet (Vitamin C) cholecalciferol (vitamin D3) 25 25 mcg PO DAILY 04/28/20 01/31/25 01/30/25 History mcg (1,000 unit) tablet (Vitamin D3) turmeric root extract 500 mg 500 mg PO BID 04/28/20 01/31/25 01/30/25 History capsule tolterodine 2 mg capsule,extended 2 mg PO DAILY 06/21/21 01/31/25 01/30/25 History release 24 hr levothyroxine 75 mcg tablet 75 mcg PO DAILY@0600 01/31/25 01/31/25 01/30/25 History (Synthroid) magnesium 250 mg tablet 250 mg PO DAILY 01/31/25 01/31/25 01/30/25 History omeprazole 20 mg capsule,delayed 20 mg PO DAILY PRN Acid Reflux 01/31/25 01/31/25 Unknown History release rivaroxaban 10 mg tablet (Xarelto) 10 mg PO DAILY 01/31/25 01/31/25 01/30/25 History Physical Exam Vital Signs: Vital Signs: Last Vital Signs Temp 98.1 F 02/01/25 07:18 Pulse 64 02/01/25 07:18 Resp 18 02/01/25 07:18 BP 124/57 L 02/01/25 07:18 Pulse Ox 96 02/01/25 07:18 O2 Del Method Room Air 02/01/25 07:18 BMI result Body Mass Index 27.2 Const: General: cooperative, healthy appearing and comfortable Orientation/consciousness: oriented to person, oriented to place and oriented to time HEENT: Head: Yes normal to inspection Neck: Neck: Yes normal visual inspection Carotids: no bruits Chest: Chest palpation & inspection: normal inspection of the chest Resp: Effort & Inspection: normal respiratory effort and able to speak in complete sentences Auscultation: clear to auscultation bilaterally, no crackles, no rales, no rhonchi and no wheezes Cardio: Rate: regular rate Rhythm: regular rhythm Heart sounds: S1 normal heart sound present and S2 normal heart sound present Bruits: no carotid bruits Peripheral pulses: Peripheral pulses 2+ throughout GI: Inspection: Yes normal to inspection Skin: Wounds: no wounds Hair: normal Neuro: General: oriented to person, oriented to place and oriented to time Cranial nerves: Yes CN's II-XII intact bilaterally and Yes Normal hearing present Cognition (Neuro): normal cognition Motor exam (neuro): 5/5 motor strength present throughout Extrem: Other: venous exam: No significant superficial varicosities or spider telangiectasias, minimal edema General: No clubbing, No cyanosis and No edema Psych: Appearance: grossly normal Mental Status: mental status grossly normal Speech and movement: Normal speech and movement present Results Labs 01/31/25 05:34 01/31/25 05:34 Labs: All other labs normal. Assessment and Plan (1) Internal carotid artery stenosis: Qualifiers: Laterality: left Qualified Code(s): I65.22 - Occlusion and stenosis of left carotid artery Status: Acute Acute carotid stenosis with stroke. 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 He has bilateral carotid dissections as well. In terms of this this will need to be treated at a tertiary care center. Due to the prior head and neck radiation may be an ideal candidate for carotid artery stenting. Will follow up with us on an as-needed basis. (2) Internal carotid artery dissection: Status: Acute Plan Currently on a statin in anticoagulated with Lovenox. Once again due to the head and neck chemo and radiation along with head cancer. Will need to be seen and treated as an outpatient at a tertiary care center. We will follow on an as-needed basis. Thank you for allowing us to assist in his care. Procedures Date of Service Date of Service: 02/01/25
--- NOTE | 2025-02-01 10:05 | MHC.SLORD ---
Addendum entered and electronically signed by LISA Rosales 02/01/25 15:21: Attempted to see pt multiple times throughout day. Pt later in day having difficulty w/ BP and sleeping soundly. CLAY SHOP SUPERVISOR to see pt tomorrow AM. Original Note: Addendum entered and electronically signed by LISA Rosales 02/01/25 10:07: Pt reports some improvement but still w/ sensation that there is buildup of secretions in throat, needing to clear throat frequently. Original Note: Speech Language Pathology Order Status: CLAY SHOP SUPERVISOR attempted to see pt immediately after PT/OT. Pt requested CLAY SHOP SUPERVISOR to return later in day.
--- NOTE | 2025-02-01 10:51 | HO.PM.IMPN ---
Subjective Subjective Date of Service: 02/01/25 Interval History: Speech is better, persistent left sided weakness vital stable Physical Exam Vital Signs: Vital Signs: Last Vital Signs Temp 98.1 F 02/01/25 07:18 Pulse 64 02/01/25 07:18 Resp 18 02/01/25 07:18 BP 124/57 L 02/01/25 07:18 Pulse Ox 96 02/01/25 07:18 O2 Del Method Room Air 02/01/25 07:18 BMI result Body Mass Index 27.2 onstitutional - Awake and Alert, No apparent distress Heart - RRR, No murmurs. (+) extra systole Lungs - Normal lung expansion, Normal respiratory effort, No respiratory distress, CTA bilaterally Abdomen - NT / ND; +BS; No rebound or guarding Extremities - No calf tenderness bilaterally, no swelling Musculoskeletal - generalized muscular atrophy Skin - Warm/Dry Neurological - Alert & oriented x3, inattentive to the right side. PERRL, CN VII/IX: Affected (right lower facial droop, speech: Slurred/expressive aphasia present ). Uvula midline, did not appreciate obvious tongue deviation. Strength: RUE + RLE: 1/5; LUE + LLE: 4/5. No gross sensory agents. Gait:Not assessed due to weakness. Psychological - depressed affect Objective Data Active Medications Atorvastatin Calcium (Atorvastatin Calcium 40 Mg Tablet) 40 mg PO BEDTIME [facility] Last Admin: 01/31/25 21:35 Dose: Not Given Documented By: MIGUEL Non-Admin Reason: strict NPO Calcium Carbonate (Calcium Carbonate 750 Mg Tab.Chew) 750 mg PO Q4H PRN PRN Reason: Heartburn Enoxaparin Sodium (Enoxaparin Sodium 100 Mg/Ml Syringe) 90 mg 1 mg/kg (90 mg) SUBCUT Q12H [facility] Last Admin: 02/01/25 08:14 Dose: 90 mg Documented By: CHRISTAL Acetaminophen (Ofirmev) 1,000 mg in 100 mls @ 400 mls/hr IV Q6H PRN PRN Reason: Pain, Mild 1-3,fever,headache Last Infusion: 01/30/25 20:35 Dose: Infused Documented By: TRAVIS Dextrose/Lactated Ringer's (D5lr) 1,000 mls @ 125 mls/hr IVCONT .Q8H [facility] Last Admin: 02/01/25 05:49 Dose: 125 mls/hr Documented By: MIGUEL Magnesium Hydroxide (Milk Of Magnesia 30 Ml Oral.Susp) 30 ml PO DAILY PRN PRN Reason: Constipation Melatonin (Melatonin 3 Mg Tablet) 6 mg PO BEDTIME PRN PRN Reason: Insomnia Labs 01/31/25 05:34 01/31/25 05:34 Labs: Laboratory Results - last 24 hr 01/30/25 01/31/25 14:27 05:34 MCV 87.5 86.8 MCH 29.2 28.9 MCHC 33.3 33.3 RDW 14.4 14.2 Plt Count 198 208 MPV 9.8 9.6 Immature Gran % (Auto) 0.2 0.2 Neut % (Auto) 71.5 67.7 Lymph % (Auto) 15.6 L 17.7 L [place] % (Auto) 9.8 11.1 H Eos % (Auto) 2.4 2.7 Baso % (Auto) 0.5 0.6 Lymph # (Auto) 1.4 1.4 [place] # (Auto) 0.9 0.9 Eos # (Auto) 0.2 0.2 Baso # (Auto) 0.1 0.1 Abs Immat Gran (auto) 0.02 0.02 Absolute Neuts (auto) 6.5 5.4 Absolute Nucleated RBC 0.000 0.000 Nucleated RBC % (auto) 0.0 0.0 PT 13.2 H INR 1.2 H APTT 38.4 H Anion Gap 11 L 13 Estim Creat Clear Calc 67.0 68.4 Estimated GFR > 60 > 60 Random Glucose 92 97 Estimat Average Glucose 111 Hemoglobin A1c % 5.5 Calcium 8.7 8.9 Triglycerides 115 Cholesterol 173 LDL Cholesterol, Calc 117 H HDL Cholesterol 33 L Assessment and Plan (1) Acute CVA (cerebrovascular accident): Status: Acute Plan 80 y/o man with a PMHx of head and neck CA (squamous cell) s/o chemotherapy and radiation admitted with: Acute CVA + proximal left ICA stenosis (70%) + bilateral proximal ICA dissections (no flow-limiting stenosis). Discussed with Schialeg (neuro IR, [facility])--No intervention. Telemetry. Neuro check every 4 hours. Aspiration and fall precautions. Check TTE with bubble study. Permissive HTN 24 to 72. anticoagulation with Lovenox 90 mg subQ b.i.d for carotid disection and previously on xarelto for dvt high-intensity statin (40 mg PO -advance age) PT/OT, PET CARE ASSISTANT Neurology consult pending Vasuclar surgery consult recommend outpatient follow at tertiary center Essential hypertension. Permissive HTN as above Signficant dysphagia from stroke PET CARE ASSISTANT recommens NPO IVF while NPO Hypothyroidism. levothyroxine when able to take PO if not iv Hyperlipidemia. Statin with LDL = 117 (goal < 70). Diet NPO per PET CARE ASSISTANT, commission sales associate consult, IVF while NPO Hx of VTE. On Lovenox, previously on xarelto Polycythemia Vera. Hemoglobin is 15.18. Hyperactive bladder. Continue tolterodine when able BPH. Continue tamsulosin and finasteride when able GERD. Continue omeprazole. Recent history (Aug 2024) of C-spine fractures (C3-C4, posterior spinous process) without injuries to the spinal cord. h/o neck cancer has had chemo and radiation and is not actively been treated for that DVT prophylaxis: Lovenox Code status: Full Patient will need hospitalization for at least 2 midnights for acute CVA treatment and management with close monitoring of neurological status, anticoagulation with Lovenox and evaluation by Neurology and vascular surgery. Will need acute inpatient rehab Quality Stroke Does the patient have a stroke diagnosis?: No VTE Prior VTE?: No VTE Risk Level:: Medical - moderate - high VTE Device Contraindication: Treatment Not Indicated VTE Drug Contraindication: N/A - Med Ordered
[2025-02-01 11:33] LABS: Hematocrit 46.9 % (42.0-52.0); Hemoglobin 16.2 g/dl (14.0-18.0); Mean Corpuscular HGB Conc 34.5 g/dl (31.0-36.0); Mean Corpuscular Hemoglobin 29.8 pg (27.0-33.0); Mean Corpuscular Volume 86.2 fL (80.0-98.0); NRBC Abs Auto 0.000 X10*3/uL (0.0-0.012); NRBC Pct Auto 0.0 /100WBC (0.0-0.2); Platelet Count 204 X10*3/uL (160-400); Red Blood Count 5.44 X10*6/uL (4.60-5.80); White Blood Count 10.0 X10*3/uL (4.8-10.8)
[2025-02-01 11:55] LABS: Anion Gap 10 (12-20); Blood Urea Nitrogen 13 mg/dL (9-16); Calcium 8.6 mg/dL (8.4-10.2); Carbon Dioxide 24 mmol/L (22-29); Chloride 110 mmol/L (96-108); Creatinine Clr Calc Pharmacy 70.7; Estimated Glomerular Filt Rate > 60; Potassium 3.8 mmol/L (3.3-5.1); Sodium 140 mmol/L (135-145)
[2025-02-01] MEDS: Lactated Ringers 500 ML 999 ML IV (13:09)
--- NOTE | 2025-02-01 13:24 | P.CNNE_ITS ---
History of Present Illness Data of Consult Service Date: 02/01/25 Primary Care Provider: Vaibhav Land MD HPI Reason for consult: Stroke 80 years old man with past medical history significant for DVT/be on Xarelto, old CVA, polycythemia vera, hyperlipidemia, neck cancer status post chemotherapy and radiation and essential hypertension presents to the ED with acute onset of right-sided weakness, right upper extremity contraction and slurred speech. Because of anticoagulation he was not considered a candidate for TNK. His CTA revealed moderate left internal carotid artery extracranial stenosis and also bilateral proximal dissection without stenosis. Review of Systems 2 Review of Systems: No recent neck trauma or cold or flu-like illness PMFSH Past Medical History Medical History Closed cervical spine fracture Hospital discharge follow-up Atypical syncope History of lacunar cerebrovascular accident (CVA) Passage of loose stools Cough Constipation Urgency of micturition Urge incontinence Generalized anxiety disorder Patellofemoral arthritis of left knee Hypothyroidism History of double vision BPH (benign prostatic hyperplasia) Hx of ulcerative colitis Polycythemia vera History of DVT (deep vein thrombosis) PND (post-nasal drip) Hyperlipidemia Hypertension Pre-op examination Family History Family History Father No problems noted. Mother No problems noted. Surgical History Surgical History Right inguinal hernia (09/05/23) History of colonoscopy (~06/23/09) History of right hip replacement Status post total left knee replacement Status post total left knee replacement Status post left knee replacement H/O total hip arthroplasty History of squamous cell carcinoma excision History of cholecystectomy History of left hip replacement Social History Social History Household Members: Spouse Household Members Other:: Housing: House Are you a primary day care center director to a significant other at home: No Do you presently have visiting nurse or other home services: No Alcohol intake: current Alcohol intake frequency: holidays/special occasions only Comment: 1:1 sitter Patient Tobacco Use Status: Never used Tobacco e-Cigarette/Vaping Use: Never Used Second Hand Smoke Exposure: No Substance Use Type: Marijuana service: No Current occupational status: retired Cognitive needs: Yes Hearing needs: Yes Vision needs: No Meds Allergies Allergy/AdvReac Type Severity Reaction Status Date / Time No Known Allergies Allergy Verified 01/30/25 14:07 Active Medications: Current Medications Atorvastatin Calcium (Atorvastatin Calcium 40 Mg Tablet) 40 mg PO BEDTIME [facility] Last Admin: 01/31/25 21:35 Dose: Not Given Calcium Carbonate (Calcium Carbonate 750 Mg Tab.Chew) 750 mg PO Q4H PRN PRN Reason: Heartburn Enoxaparin Sodium (Enoxaparin Sodium 100 Mg/Ml Syringe) 90 mg 1 mg/kg (90 mg) SUBCUT Q12H [facility] Last Admin: 02/01/25 08:14 Dose: 90 mg Acetaminophen (Ofirmev) 1,000 mg in 100 mls @ 400 mls/hr IV Q6H PRN PRN Reason: Pain, Mild 1-3,fever,headache Last Infusion: 01/30/25 20:35 Dose: Infused Dextrose/Lactated Ringer's (D5lr) 1,000 mls @ 125 mls/hr IVCONT .Q8H [facility] Last Admin: 02/01/25 05:49 Dose: 125 mls/hr Magnesium Hydroxide (Milk Of Magnesia 30 Ml Oral.Susp) 30 ml PO DAILY PRN PRN Reason: Constipation Melatonin (Melatonin 3 Mg Tablet) 6 mg PO BEDTIME PRN PRN Reason: Insomnia Morphine Sulfate (Morphine Sulfate 2 Mg/Ml Cartridge) 2 mg IVPUSH Q6H PRN; Protocol PRN Reason: Pain, Severe (Pain Scale 7-10) Last Admin: 02/01/25 11:48 Dose: 2 mg Home Medications ?Medication ?Instructions ?Recorded ?Confirmed ?Last Taken ?Type ascorbic acid (vitamin C) 1,000 mg 1,000 mg PO BID 04/0901/31/25 01/30/25 History tablet (Vitamin C) cholecalciferol (vitamin D3) 25 25 mcg PO DAILY 01/31/25 01/30/25 History mcg (1,000 unit) tablet (Vitamin D3) turmeric root extract 500 mg 500 mg PO BID 04/28/2001/30/25 History capsule tolterodine 2 mg capsule,extended 2 mg PO DAILY 12/01/31/25 01/30/25 History release 24 hr levothyroxine 75 mcg tablet 75 mcg PO DAILY@0600 01/3101/31/25 01/30/25 History (Synthroid) magnesium 250 mg tablet 250 mg PO DAILY 01/31/2501/30/25 History omeprazole 20 mg capsule,delayed 20 mg PO DAILY PRN Ac id Reflux 01/31/25 01/31/25 Unknown History release rivaroxaban 10 mg tablet (Xarelto) 10 mg PO DAILY 01/1801/31/25 01/30/25 History Physical Exam 2 Vital Signs: Vital Signs: Last Vital Signs Temp 98.3 F 02/01/25 11:52 Pulse 70 02/01/25 11:52 Resp 18 02/01/25 11:52 BP 130/62 02/01/25 12:51 Pulse Ox 94 02/01/25 11:52 O2 Del Method Room Air 02/01/25 11:52 BMI result Body Mass Index 27.2 Neuro: Other: He is alert and awake with normal spontaneity and fluency of speech. Speech itself was moderately slurred. No obvious facial asymmetry. He did not perceive threat on right side of visual field. He could not lift his right arm again his gravity and was using his left arm to lift his right arm. He was able to lift his right leg against gravity. Right plantars was extensor. There was no sensory extinction. Results Labs 02/01/25 11:26 02/01/25 11:26 Labs: Short CBC 02/01/25 Range/Units 11:26 WBC 10.0 (4.8-10.8) X10*3/uL Hgb 16.2 (14.0-18.0) g/dl Hct 46.9 (42.0-52.0) % Plt Count 204 (160-400) X10*3/uL BMP 02/01/25 11:26 Sodium 140 Potassium 3.8 Chloride 110 H Carbon Dioxide 24 BUN 13 Creatinine 0.91 Calcium 8.6 His CTA of brain findings were as follows: 1. 70% stenosis in the proximal left ICA. 2. 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 3. Bilateral proximal ICA dissections with no flow-limiting stenosis. MRI of brain revealed left posterior limb of internal capsular acute ischemic infarct and a small lesion also in DIRECTOR OF PRIMARY territory Assessment and Plan (1) Acute CVA (cerebrovascular accident): Status: Acute 80 years old man who probably had an embolic left hemispheric infarct mostly affecting posterior limb of internal capsule but also occipital lobe. On examination he has severe right arm weakness and moderate right leg weakness. Right cora visual field is also affected. His imaging revealed moderate left extracranial carotid stenosis and also findings suggestive of dissection and proximal ICAs. My recommendation at this time is to discontinue all medicines that could potentially lower his blood pressure as his blood pressure is to low and might already have worsened his stroke. In this regard I recommend holding finasteride, losartan, and tamsulosin. Small dose of antihypertensive can be considered on as needed basis. Otherwise, I recommend continuing anticoagulation and involving PT OT for rehab. Speech and swallowing evaluation is also recommended. Original stroke was mostly in posterior limb of internal capsule impacting his ability to use his right hand and arm. With rehab, I expect him to be able to walk. Procedures Date of Service Date of Service: 02/01/25
[2025-02-02] MEDS: Dextrose 5 % and Lactated Ring 1,000 ML 125 ML IVCONT (00:39)
[2025-02-02] MEDS: diazePAM 10 MG/2 ML CARTRIDGE 2.5 MG IVPUSH (01:39)
[2025-02-02 04:00] VITALS: BP 168/74; PULSE 60; RESP 16; TEMP 36.4; O2SAT 94
[2025-02-02 07:14] VITALS: BP 160/76; PULSE 59; RESP 16; TEMP 36.5; O2SAT 93
[2025-02-02 09:52] VITALS: BP 160/76; PULSE 59; O2SAT 93
--- NOTE | 2025-02-02 10:58 | HO.PM.IMPN ---
Subjective Subjective Date of Service: 02/02/25 Interval History: Speech is better, persistent left sided weakness, still has not passed swallow vital stable Physical Exam Vital Signs: Vital Signs: Last Vital Signs Temp 97.7 F 02/02/25 07:14 Pulse 59 02/02/25 09:52 Resp 16 02/02/25 07:14 BP 160/76 H 02/02/25 09:52 Pulse Ox 93 02/02/25 09:52 O2 Del Method Room Air 02/02/25 07:14 BMI result Body Mass Index 27.2 onstitutional - Awake and Alert, No apparent distress Heart - RRR, No murmurs. (+) extra systole Lungs - Normal lung expansion, Normal respiratory effort, No respiratory distress, CTA bilaterally Abdomen - NT / ND; +BS; No rebound or guarding Extremities - No calf tenderness bilaterally, no swelling Musculoskeletal - generalized muscular atrophy Skin - Warm/Dry Neurological - Alert & oriented x3, inattentive to the right side. PERRL, CN VII/IX: Affected (right lower facial droop, speech: Slurred/expressive aphasia present ). Uvula midline, did not appreciate obvious tongue deviation. Strength: RUE + RLE: 1/5; LUE + LLE: 4/5. No gross sensory agents. Gait:Not assessed due to weakness. Psychological - depressed affect Objective Data Active Medications Atorvastatin Calcium (Atorvastatin Calcium 40 Mg Tablet) 40 mg PO BEDTIME [facility] Last Admin: 02/01/25 21:34 Dose: Not Given Documented By: JEROME Non-Admin Reason: npo Calcium Carbonate (Calcium Carbonate 750 Mg Tab.Chew) 750 mg PO Q4H PRN PRN Reason: Heartburn Enoxaparin Sodium (Enoxaparin Sodium 100 Mg/Ml Syringe) 90 mg 1 mg/kg (90 mg) SUBCUT Q12H [facility] Last Admin: 02/02/25 07:26 Dose: 90 mg Documented By: FORTINOLA Acetaminophen (Ofirmev) 1,000 mg in 100 mls @ 400 mls/hr IV Q6H PRN PRN Reason: Pain, Mild 1-3,fever,headache Last Infusion: 01/30/25 20:35 Dose: Infused Documented By: ROBYNLAMC Dextrose/Lactated Ringer's (D5lr) 1,000 mls @ 125 mls/hr IVCONT .Q8H [facility] Last Infusion: 02/02/25 08:49 Dose: Infused Documented By: OSMANI Magnesium Hydroxide (Milk Of Magnesia 30 Ml Oral.Susp) 30 ml PO DAILY PRN PRN Reason: Constipation Melatonin (Melatonin 3 Mg Tablet) 6 mg PO BEDTIME PRN PRN Reason: Insomnia Morphine Sulfate (Morphine Sulfate 2 Mg/Ml Cartridge) 2 mg IVPUSH Q6H PRN; Protocol PRN Reason: Pain, Severe (Pain Scale 7-10) Last Admin: 02/01/25 11:48 Dose: 2 mg Documented By: BRIDGETTE Labs 02/01/25 11:26 02/01/25 11:26 Labs: Laboratory Results - last 24 hr 02/01/25 11:26 MCV 86.2 MCH 29.8 MCHC 34.5 RDW 14.2 Plt Count 204 MPV 9.6 Absolute Nucleated RBC 0.000 Nucleated RBC % (auto) 0.0 Anion Gap 10 L Estim Creat Clear Calc 70.7 Estimated GFR > 60 Random Glucose 119 H Calcium 8.6 Assessment and Plan (1) Acute CVA (cerebrovascular accident): Status: Acute Plan 80 y/o man with a PMHx of head and neck CA (squamous cell) s/o chemotherapy and radiation admitted with: Acute CVA + proximal left ICA stenosis (70%) + bilateral proximal ICA dissections (no flow-limiting stenosis). Discussed with Iesha (neuro IR, [facility])--No intervention. Telemetry. Neuro check every 4 hours. Aspiration and fall precautions. Check TTE with bubble study. anticoagulation with Lovenox 90 mg subQ b.i.d for carotid disection and previously on xarelto for dvt high-intensity statin (40 mg PO -advance age) BP contro PT/OT, SITE AUDITOR Neurology consult pending Vasuclar surgery consult recommend outpatient follow at tertiary center Essential hypertension. Permissive HTN as above Signficant dysphagia from stroke SITE AUDITOR recommens NPO IVF while NPO Hypothyroidism. levothyroxine when able to take PO if not iv Hyperlipidemia. Statin with LDL = 117 (goal < 70). Diet NPO per SITE AUDITOR, fire production operator consult, IVF while NPO.. if NPO will be prolonged then TPN or tube feed Hx of VTE. On Lovenox, previously on xarelto Polycythemia Vera. Hemoglobin is 15.18. Hyperactive bladder. Continue tolterodine when able BPH. Continue tamsulosin and finasteride when able GERD. Continue omeprazole. Recent history (Aug 2024) of C-spine fractures (C3-C4, posterior spinous process) without injuries to the spinal cord. h/o neck cancer has had chemo and radiation and is not actively been treated for that DVT prophylaxis: Lovenox Code status: Full Patient will need hospitalization for at least 2 midnights for acute CVA treatment and management with close monitoring of neurological status, anticoagulation with Lovenox and evaluation by Neurology and vascular surgery. Will need acute inpatient rehab Quality Stroke Does the patient have a stroke diagnosis?: No VTE Prior VTE?: No VTE Risk Level:: Medical - moderate - high VTE Device Contraindication: Treatment Not Indicated VTE Drug Contraindication: N/A - Med Ordered
[2025-02-02 11:38] VITALS: BP 151/67; PULSE 59; RESP 16; TEMP 36.7; O2SAT 95
--- NOTE | 2025-02-02 12:39 | PC.NURSE ---
S&H recommends thin liquids, aspiration precautions, upright positioning, no straws, meds crushed in puree. Diet ordered in computer per MD's request
--- NOTE | 2025-02-02 13:50 | MHC.SL.SWA ---
Speech Pathologist Impression: Mild to moderate oropharyngeal dysphagia, though R sided facial and pharyngeal weakness resolving. Risk of Aspiration Due to: Hx of neck CA Recent CVA Dysphasia Diet Status: Liquid Consistency and Strategies for Safe Swallow: Liquid Intake Recommendation: Thin Liquid Intake Strategies: Small Sips Solid Food Consistency: Dietary Recommendations: Pureed (NDD1) Additional Modifications to Solid Foods: Oral Medication Intake: NPO Please contact the pharmacy regarding appropriate crushable or liquid drug formulations that are available whenever modified delivery is recommended. Compensatory Strategies and Precautions to be Taken for Safe Swallow: Sitting Upright (90 deg) Double Swallow No Straw Small Bites and Sips Oral Check Supervision While Eating and Drinking for Safe Swallow: PO with LOCK OPERATOR Foods to Avoid: Swallowing Recommended Treatments: Compens. Strategy Educat. Recommendation for Speech: Further Testing Needed Inpatient Speech Therapy Comment: Pt presents with moderate dysarthria of connected speech. Pt will need LOCK OPERATOR intervention to address dsyphagia, dyarthria and functional cognition at the post acute setting. Pt seen for re-assessment 02/02, resumed PO with modified diet of purees and thin liquids, no straws, aspiration precautions. Pt tolerated trials of thin and nectar thickened liquids, as well as pureed consistencies with adequate oropharyngeal coordination, no overt s/s of aspiration Pt continues to experience mild to moderate pooling of mucous in throat, which he tries to cough/clear but pt prefers use of [place] to suction himself. LOCK OPERATOR provided minimal cues to encourage pt use of safety strategies; pt with excellent return demonstration in slow pacing, taking small sips, using double swallow, pausing, periodic throat clear and effortful swallow. P Of note, pt has hx of neck CA and had been on diet modifications at that time. Frequency/Duration: Daily M-F Date Range for Service Req: Timeline to reassess: [place] Slinger Operator Clinican/Clinical Fellow: No Supervisory Statement: I have reviewed and agree with the student/clinical fellow's documentation: N/A Speech Language Pathologist: Sirena Rocha M.S., CCC-LOCK OPERATOR
--- NOTE | 2025-02-02 15:17 | MHC.CM.PN ---
Pt.'s DCP is [facility], first choice in [facility], referrals out and updated. He has been seen by ST and he will be able to eat. CM to continue to work on DC plan.
[2025-02-02 15:18] VITALS: BP 127/58; PULSE 57; RESP 16; TEMP 36.8; O2SAT 95
[2025-02-02 20:00] VITALS: BP 130/72; PULSE 63; RESP 18; TEMP 37; O2SAT 90
[2025-02-03] VITALS (8 sets, daily range): BP systolic 105–165; BP diastolic 51–94; PULSE 57–64; RESP 12–18; TEMP 36.1–37.4; O2SAT 92–96
[2025-02-03 07:12] LABS: Hematocrit 42.2 % (42.0-52.0); Hemoglobin 14.1 g/dl (14.0-18.0); Mean Corpuscular HGB Conc 33.4 g/dl (31.0-36.0); Mean Corpuscular Hemoglobin 29.1 pg (27.0-33.0); Mean Corpuscular Volume 87.2 fL (80.0-98.0); NRBC Abs Auto 0.000 X10*3/uL (0.0-0.012); NRBC Pct Auto 0.0 /100WBC (0.0-0.2); Platelet Count 191 X10*3/uL (160-400); Red Blood Count 4.84 X10*6/uL (4.60-5.80); White Blood Count 9.0 X10*3/uL (4.8-10.8)
[2025-02-03 07:28] LABS: Anion Gap 12 (12-20); Blood Urea Nitrogen 13 mg/dL (9-16); Calcium 8.1 mg/dL (8.4-10.2); Carbon Dioxide 22 mmol/L (22-29); Chloride 111 mmol/L (96-108); Creatinine Clr Calc Pharmacy 79.4; Estimated Glomerular Filt Rate > 60; Potassium 3.8 mmol/L (3.3-5.1); Sodium 141 mmol/L (135-145)
--- NOTE | 2025-02-03 13:11 | P.PNIM_ITS ---
Subjective Subjective Date of Service: 02/03/25 Interval History: He continues to make progress with his speech and has subtle movement in the hand He is refusing to eat texture recommended by speech Physical Exam 2 Vital Signs: Vital Signs: Last Vital Signs Temp 97.0 F 02/03/25 11:19 Pulse 59 02/03/25 11:19 Resp 16 02/03/25 11:19 BP 128/61 02/03/25 11:19 Pulse Ox 95 02/03/25 11:19 O2 Del Method Room Air 02/03/25 11:19 BMI result Body Mass Index 27.2 onstitutional - Awake and Alert, No apparent distress Heart - RRR, No murmurs. (+) extra systole Lungs - Normal lung expansion, Normal respiratory effort, No respiratory distress, CTA bilaterally Abdomen - NT / ND; +BS; No rebound or guarding Extremities - No calf tenderness bilaterally, no swelling Musculoskeletal - generalized muscular atrophy Skin - Warm/Dry Neurological --Subtle movement in the right hands, Psychological - depressed affect Objective Data Active Medications Atorvastatin Calcium (Atorvastatin Calcium 40 Mg Tablet) 40 mg PO BEDTIME [facility] Last Admin: 02/02/25 19:48 Dose: 40 mg Documented By: JEROME Calcium Carbonate (Calcium Carbonate 750 Mg Tab.Chew) 750 mg PO Q4H PRN PRN Reason: Heartburn Enoxaparin Sodium (Enoxaparin Sodium 100 Mg/Ml Syringe) 90 mg 1 mg/kg (90 mg) SUBCUT Q12H [facility] Last Admin: 02/03/25 11:03 Dose: 90 mg Documented By: MYAH Magnesium Hydroxide (Milk Of Magnesia 30 Ml Oral.Susp) 30 ml PO DAILY PRN PRN Reason: Constipation Melatonin (Melatonin 3 Mg Tablet) 6 mg PO BEDTIME PRN PRN Reason: Insomnia Morphine Sulfate (Morphine Sulfate 2 Mg/Ml Cartridge) 2 mg IVPUSH Q6H PRN; Protocol PRN Reason: Pain, Severe (Pain Scale 7-10) Last Admin: 02/01/25 11:48 Dose: 2 mg Documented By: BRIDGETTE Labs 02/03/25 06:44 02/03/25 06:44 Labs: Laboratory Results - last 24 hr 02/03/25 06:44 MCV 87.2 MCH 29.1 MCHC 33.4 RDW 14.1 Plt Count 191 MPV 10.2 Absolute Nucleated RBC 0.000 Nucleated RBC % (auto) 0.0 Anion Gap 12 Estim Creat Clear Calc 79.4 Estimated GFR > 60 Random Glucose 92 Calcium 8.1 L Assessment and Plan (1) Acute CVA (cerebrovascular accident): Status: Acute Plan 80 y/o man with a PMHx of head and neck CA (squamous cell) s/o chemotherapy and radiation admitted with: Acute CVA + proximal left ICA stenosis (70%) + bilateral proximal ICA dissections (no flow-limiting stenosis). Discussed with Iesha (neuro IR, [facility])--No intervention. Telemetry. Neuro check every 4 hours. Aspiration and fall precautions. Check TTE with bubble study. anticoagulation with Lovenox 90 mg subQ b.i.d for carotid disection and previously on xarelto for dvt high-intensity statin (40 mg PO -advance age) BP contro PT/OT, FINANCE TEACHER Neurology consult pending Vasuclar surgery consult recommend outpatient follow at tertiary center Essential hypertension. BP on lower side so avoid aggressive lowering Signficant dysphagia from stroke FINANCE TEACHER recommens NPO IVF while NPO Hypothyroidism. levothyroxine when able to take PO if not iv Hyperlipidemia. Statin with LDL = 117 (goal < 70). Diet NPO per FINANCE TEACHER, picker and sorter load and unload consult, IVF while NPO.. if NPO will be prolonged then TPN or tube feed Hx of VTE. On Lovenox, previously on xarelto Polycythemia Vera. Hemoglobin is 15.18. Hyperactive bladder. Continue tolterodine when able BPH. Continue tamsulosin and finasteride when able GERD. Continue omeprazole. Recent history (Aug 2024) of C-spine fractures (C3-C4, posterior spinous process) without injuries to the spinal cord. h/o neck cancer has had chemo and radiation and is not actively been treated for that DVT prophylaxis: Lovenox Code status: Full Patient will need hospitalization for at least 2 midnights for acute CVA treatment and management with close monitoring of neurological status, anticoagulation with Lovenox and evaluation by Neurology and vascular surgery. Will need acute inpatient rehab Quality Stroke Does the patient have a stroke diagnosis?: No VTE Prior VTE?: No VTE Risk Level:: Medical - moderate - high VTE Device Contraindication: Treatment Not Indicated VTE Drug Contraindication: N/A - Med Ordered
--- NOTE | 2025-02-03 16:50 | MHC.SL.SWA ---
Risk of Aspiration Due to: s/p CVA Dysphasia Diet Status: Recommend patient continue with PUREE solids and THIN liquids (TEASPOON ONLY). Recommend cueing to swallow 2x following bites/sips. Liquid Consistency and Strategies for Safe Swallow: Liquid Intake Recommendation: Thin Liquid Intake Strategies: Small Sips Solid Food Consistency: Dietary Recommendations: Pureed (NDD1) Oral Medication Intake: Crushed with Puree Please contact the pharmacy regarding appropriate crushable or liquid drug formulations that are available whenever modified delivery is recommended. Compensatory Strategies and Precautions to be Taken for Safe Swallow: Sitting Upright (90 deg) Double Swallow No Straw Small Bites and Sips Oral Check Supervision While Eating and Drinking for Safe Swallow: Total Assistance (1:1) Swallowing Recommended Treatments: Compens. Strategy Educat. Recommendation for Speech: Further Testing Needed Inpatient Speech Therapy Comment:Recommend patient continue with PUREE solids and THIN liquids (TEASPOON ONLY). Recommend cueing to swallow 2x following bites/sips. Patient requires 1-1 assistance to provide liquids via teaspoon and provide cueing. BUILDING SERVICES TECHNICIAN to continue to follow. Frequency/Duration: Daily M-F Supervisor Inspection Department Clinican/Clinical Fellow: No Supervisory Statement: I have reviewed and agree with the student/clinical fellow's documentation: N/A Speech Language Pathologist: Hansa Olea M.A., CCC-BUILDING SERVICES TECHNICIAN
[2025-02-04] VITALS (7 sets, daily range): BP systolic 115–133; BP diastolic 54–61; PULSE 56–62; RESP 16–20; TEMP 36.2–37; O2SAT 90–97
[2025-02-04] MEDS: Artificial Tears 15 ML DROPS 1 DROP EYE-BOTH (09:43)
--- NOTE | 2025-02-04 10:45 | HO.VASCPN ---
Subjective Subjective Date of Service: 02/04/25 Patient reports: no new complaints Interval history: Patient seen and examined. No significant changes overnight. Appears to be doing somewhat better. He is making progress in his up to a chair this morning. Family is at bedside. He is able to make some movements with upper extremities. He is currently on Lovenox 90 mg subQ b.i.d.. Physical Exam Vital Signs: Vital Signs: Last Vital Signs Temp 97.1 F 02/04/25 07:30 Pulse 57 02/04/25 09:35 Resp 16 02/04/25 07:30 BP 127/58 L 02/04/25 09:35 Pulse Ox 92 02/04/25 09:35 O2 Del Method Room Air 02/04/25 07:30 BMI result Body Mass Index 27.2 Const: General: cooperative, healthy appearing and comfortable Orientation/consciousness: oriented to person, oriented to place and oriented to time HEENT: Head: Yes normal to inspection Neck: Neck: Yes normal visual inspection Carotids: no bruits Chest: Chest palpation & inspection: normal inspection of the chest Resp: Effort & Inspection: normal respiratory effort and able to speak in complete sentences Auscultation: clear to auscultation bilaterally, no crackles, no rales, no rhonchi and no wheezes Cardio: Rate: regular rate Rhythm: regular rhythm Heart sounds: S1 normal heart sound present and S2 normal heart sound present Bruits: no carotid bruits Peripheral pulses: Peripheral pulses 2+ throughout GI: Inspection: Yes normal to inspection Skin: Wounds: no wounds Hair: normal Neuro: General: oriented to person, oriented to place and oriented to time Cranial nerves: Yes CN's II-XII intact bilaterally and Yes Normal hearing present Cognition (Neuro): normal cognition Motor exam (neuro): 5/5 motor strength present throughout Extrem: Other: venous exam: No significant superficial varicosities or spider telangiectasias, minimal edema General: No clubbing, No cyanosis and No edema Psych: Appearance: grossly normal Mental Status: mental status grossly normal Speech and movement: Normal speech and movement present Progress Note: A&P Assessment and plan (1) Internal carotid artery stenosis: Status: Acute Assessment and Plan: In short patient has acute carotid stenosis with stroke. As previously mentioned he has prior head and neck cancer with squamous cell which she had undergone chemo and radiation. He has bilateral carotid artery dissection. He would be more of an ideal candidate for carotid stenting. Due to the complexity of the overall situation will be better served at a tertiary care center. Would need outpatient referral to neuro IR at [facility] or [facility]. Stable from an acute vascular standpoint. Will follow up on an as-needed basis. Thank you for allowing us to assist in his care. If there are any questions or concerns please do not hesitate to contact us. (2) Internal carotid artery dissection: Status: Acute Assessment and Plan: See above Time Spent With Patient Time: Total time managing care of this patient today ____ minutes. Procedures Date of Service Date of Service: 02/04/25 Quality Stroke Does the patient have a stroke diagnosis?: No VTE Prior VTE?: No VTE Risk Level:: Medical - moderate - high VTE Device Contraindication: Treatment Not Indicated VTE Drug Contraindication: N/A - Med Ordered
--- NOTE | 2025-02-04 12:04 | PM.DS ---
DS: Providers Provider Date of Service: 02/04/25 Date of admission: 01/30/25 19:56 Date of discharge: 02/04/25 Primary care physician: Vaibhav Land MD Consults: 01/30/25 19:56 Consult to Neurology Routine Consulting Provider: [facility] Reason for consultation: Acue CVA, Left ICA stenosis,bilat ICA dissections Has provider been notified: Yes Consult to Vascular Surgery Routine Consulting Provider: [facility] Reason for consultation: Acute CVA proximal left ICA stenosis Has provider been notified: No 02/01/25 10:49 Consult to Neurology Routine Consulting Provider: [facility] Reason for consultation: CVA with left sided deficit Has provider been notified: No DS: Diagnosis Discharge Diagnosis (1) Internal carotid artery stenosis: Status: Acute (2) Internal carotid artery dissection: Status: Acute DS: Summary Hospital Course Hospital Course: admission hpi Attending physician on admission: Kimi Segovia Chief Complaint: Slurred speech, left-sided weakness Aaron Ludwig is 80 years old man with past medical history significant for 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 was at bedside and contributed with HPI. Around the same time the patient started to have visual disturbances (he was able to see the have a piece computer and was unable to read the clock). He also complained of generalized headache. He denied facial numbness or tingling sensation to the extremities. There is no loss of consciousness reported or dizziness. The patient did not report any acute cardiopulmonary or gastrointestinal symptoms. Patient mentioned that his symptoms are already improving somewhat. He is lifelong nonsmoker. NIH stroke scale on arrival: 12. In the ED, in the ED was found to have stable vital signs. His blood pressure was found to be elevated. Last blood pressure is 174/79. Blood workup showed no leukocytosis. Hemoglobin is 15.1 and platelets 198. INR is 1.2. There are no electrolyte imbalances. Renal function and glucose are normal. Troponin is 3.5. Head CT scan without contrast showed no acute intracranial bleeding or infarct. Head and neck CTA showed 70% in the proximal left ICA, focal occlusion in the basilar artery and bilateral proximal ICA dissection with no flow-limiting stenosis. CXR showed hypoventilation, bilateral lower lobe atelectasis and/or infiltrates. ECG showed normal sinus tachycardia + PVCs without ischemic changes. He did not meet criteria for tPA due to use of Xarelto (last dose last night). ED tx: Pepcid 20 mg IV Hospital course 80 y/o man with a PMHx of head and neck CA (squamous cell) s/o chemotherapy and radiation admitted with: Acute CVA + proximal left ICA stenosis (70%) + bilateral proximal ICA dissections (no flow-limiting stenosis). Discussed with Schialcynthia (neuro IR, [facility])--No intervention. Telemetry. Neuro check every 4 hours. Aspiration and fall precautions. Check TTE with bubble study. 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 BP on lower side so avoid aggressive lowering Signficant dysphagia from stroke FARM MACHINERY SET UP MECHANIC recommens NPO IVF while NPO Hypothyroidism. levothyroxine when able to take PO if not iv Hyperlipidemia. Statin with LDL = 117 (goal < 70). 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 if NPO will be prolonged then TPN or tube feed Hx of VTE. On Lovenox, previously on xarelto Polycythemia Vera. Hemoglobin is 15.18. Hyperactive bladder. Continue tolterodine when able BPH. Continue tamsulosin and finasteride when able GERD. Continue omeprazole. Recent history (Aug 2024) of C-spine fractures (C3-C4, posterior spinous process) without injuries to the spinal cord. h/o neck cancer has had chemo and radiation and is not actively been treated for that Physical Exam Vital Signs: Vital Signs: Last Vital Signs Temp 98.6 F 02/04/25 11:19 Pulse 62 02/04/25 11:19 Resp 18 02/04/25 11:19 BP 123/58 L 02/04/25 11:19 Pulse Ox 92 02/04/25 11:19 O2 Del Method Room Air 02/04/25 11:19 BMI result Body Mass Index 27.2 Discharge Plan Discharge Referrals: Vaibhav Land MD [Primary Care Provider, Internal Medicine] - 1 Week Discharge Medications: No Action finasteride 5 mg tablet 5 mg PO DAILY Qty: 90 1RF losartan 25 mg tablet 25 mg PO DAILY Qty: 90 1RF ascorbic acid (vitamin C) [Vitamin C] 1,000 mg Tablet 1,000 mg PO BID turmeric root extract 500 mg Capsule 500 mg PO BID cholecalciferol (vitamin D3) [Vitamin D3] 25 mcg (1,000 unit) Tablet 25 mcg PO DAILY levothyroxine [Synthroid] 75 mcg tablet 75 mcg PO DAILY@0600 Xarelto 10 mg tablet 10 mg PO DAILY magnesium 250 mg Tablet 250 mg PO DAILY omeprazole 20 mg capsule,delayed release(DR/EC) 20 mg PO DAILY PRN (Reason: Acid Reflux) tolterodine 2 mg capsule,extended release 24hr 2 mg PO DAILY tamsulosin 0.4 mg capsule 0.8 mg PO BEDTIME 90 Days Qty: 180 0RF Print Language: Czech
--- NOTE | 2025-02-04 12:56 | MHC.SL.SWA ---
Speech Pathologist Impression: Risk of Aspiration, Oropharyngeal Dysphagia Risk of Aspiration Due to: Hx stroke, head/neck CA Dysphasia Diet Status: Recommend patient continue with PUREE solids and THIN liquids (TEASPOON ONLY). Recommend cueing to swallow 2x following bites/sips. Patient requires 1-1 assistance to provide liquids via teaspoon and provide cueing. GEM TECHNICIAN to continue to follow. Liquid Consistency and Strategies for Safe Swallow: Liquid Intake Recommendation: Thin Liquid Intake Strategies: Small Sips Solid Food Consistency: Dietary Recommendations: Pureed (NDD1) Additional Modifications to Solid Foods: Further recommendations pending MBSS, scheduled for 14:00 today. Oral Medication Intake: Crushed with Puree Please contact the pharmacy regarding appropriate crushable or liquid drug formulations that are available whenever modified delivery is recommended. Compensatory Strategies and Precautions to be Taken for Safe Swallow: Sitting Upright (90 deg) Double Swallow No Straw Small Bites and Sips Oral Check Supervision While Eating and Drinking for Safe Swallow: Total Assistance (1:1) Swallowing Recommended Treatments: Compens. Strategy Educat. Recommendation for Speech: Further Testing Needed Inpatient Speech Therapy Comment: Pt presents with moderate dysarthria of connected speech. Pt will need GEM TECHNICIAN intervention to address dsyphagia, dyarthria and functional cognition at the post acute setting. GEM TECHNICIAN provided minimal cues to encourage pt use of safety strategies; pt with excellent return demonstration in slow pacing, taking small sips, using double swallow, pausing, periodic throat clear and effortful swallow. Of note, pt has hx of neck CA and had been on diet modifications at that time. Recommend patient continue with PUREE solids and THIN liquids (TEASPOON ONLY). Recommend cueing to swallow 2x following bites/sips. Patient requires 1-1 assistance to provide liquids via teaspoon and provide cueing. GEM TECHNICIAN to continue to follow. Frequency/Duration: Daily M-F Date Range for Service Req: Timeline to reassess: Reference Librarian Clinican/Clinical Fellow: No Supervisory Statement: I have reviewed and agree with the student/clinical fellow's documentation: N/A Speech Language Pathologist: Sindi Perez M.A., [facility]-GEM TECHNICIAN
--- NOTE | 2025-02-04 16:09 | MHC.CM.PN ---
Pt to have further testing for swallowing today, DCP is for him to go to [facility].
--- NOTE | 2025-02-04 17:05 | P.PNIM_ITS ---
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 (+) extra systole Lungs - Normal lung expansion, Normal respiratory effort, No respiratory distress, CTA bilaterally Abdomen - NT / ND; +BS; No rebound or guarding Extremities - No calf tenderness bilaterally, no swelling Musculoskeletal - generalized muscular atrophy Skin - Warm/Dry Neurological --right hand broadcast chief engineer is much better, otherwise peristent hemiparesis Psychological - depressed affect Vital Signs: Vital Signs: Last Vital Signs Temp 98.5 F 02/04/25 15:16 Pulse 56 02/04/25 15:16 Resp 16 02/04/25 15:16 BP 115/55 L 02/04/25 15:16 Pulse Ox 93 02/04/25 15:16 O2 Del Method Room Air 02/04/25 15:16 BMI result Body Mass Index 27.2 onstitutional - Awake and Alert, No apparent distress Heart - RRR, No murmurs. (+) extra systole Lungs - Normal lung expansion, Normal respiratory effort, No respiratory distress, CTA bilaterally Abdomen - NT / ND; +BS; No rebound or guarding Extremities - No calf tenderness bilaterally, no swelling Musculoskeletal - generalized muscular atrophy Skin - Warm/Dry Neurological --Subtle movement in the right hands, Psychological - depressed affect Objective Data Active Medications Artificial Tears (Artificial Tears 15 Ml Drops) 1 drop EYE-BOTH Q4H PRN PRN Reason: Dry Eyes Last Admin: 02/04/25 09:43 Dose: 1 drop Documented By: MYAH Atorvastatin Calcium (Atorvastatin Calcium 40 Mg Tablet) 40 mg PO BEDTIME [facility] Last Admin: 02/03/25 20:25 Dose: 40 mg Documented By: MICHAELARTB Calcium Carbonate (Calcium Carbonate 750 Mg Tab.Chew) 750 mg PO Q4H PRN PRN Reason: Heartburn Enoxaparin Sodium (Enoxaparin Sodium 100 Mg/Ml Syringe) 90 mg 1 mg/kg (90 mg) SUBCUT Q12H [facility] Last Admin: 02/04/25 07:36 Dose: 90 mg Documented By: MYAH Magnesium Hydroxide (Milk Of Magnesia 30 Ml Oral.Susp) 30 ml PO DAILY PRN PRN Reason: Constipation Melatonin (Melatonin 3 Mg Tablet) 6 mg PO BEDTIME PRN PRN Reason: Insomnia Morphine Sulfate (Morphine Sulfate 2 Mg/Ml Cartridge) 2 mg IVPUSH Q6H PRN; Protocol PRN Reason: Pain, Severe (Pain Scale 7-10) Last Admin: 02/04/25 15:54 Dose: 2 mg Documented By: MYAH Labs 02/03/25 06:44 02/03/25 06:44 Labs: Laboratory Results - last 24 hr 02/03/25 06:44 MCV 87.2 MCH 29.1 MCHC 33.4 RDW 14.1 Plt Count 191 MPV 10.2 Absolute Nucleated RBC 0.000 Nucleated RBC % (auto) 0.0 Anion Gap 12 Estim Creat Clear Calc 79.4 Estimated GFR > 60 Random Glucose 92 Calcium 8.1 L Assessment and Plan (1) Acute CVA (cerebrovascular accident): Status: Acute Plan 80 y/o man with a PMHx of head and neck CA (squamous cell) s/o chemotherapy and radiation admitted with: Acute CVA + proximal left ICA stenosis (70%) + bilateral proximal ICA dissections (no flow-limiting stenosis). Discussed with Iesha (neuro IR, [facility])--No intervention. Aspiration and fall precautions. Echo no intracardiac clot anticoagulation with Lovenox 90 mg subQ b.i.d for carotid disection and previously on xarelto for dvt--would suggest changing to eliquis at dc high-intensity statin (40 mg PO -advance age) BP control, avoid aggresive lowering of BP PT/OT, FOREST PATHOLOGIST--have been working with him Neuro saw and recommend medical therapy with BP control, statin and anticoagulation Vasuclar surgery consult recommend outpatient follow at tertiary center Essential hypertension--hold mes for now BP on lower side so avoid aggressive lowering Signficant dysphagia from stroke FOREST PATHOLOGIST has been following, MBS 02/04 show a thin laryngeal penetration Hypothyroidism. levothyroxine when able to take PO if not iv Hyperlipidemia. Statin with LDL = 117 (goal < 70). Hx of VTE. On Lovenox, previously on xarelto, recommend changing to eliquis 5 bid at dc Polycythemia Vera. Hemoglobin is 15.18. Hyperactive bladder. Continue tolterodine when able BPH. Continue tamsulosin and finasteride when able GERD. Continue omeprazole. Recent history (Aug 2024) of C-spine fractures (C3-C4, posterior spinous process) without injuries to the spinal cord. h/o neck cancer has had chemo and radiation and is not actively been treated for that DVT prophylaxis: Lovenox Code status: Full PT/OT recommends acute inpatient rehab Quality Stroke Does the patient have a stroke diagnosis?: No VTE Prior VTE?: No VTE Risk Level:: Medical - moderate - high VTE Device Contraindication: Treatment Not Indicated VTE Drug Contraindication: N/A - Med Ordered
--- NOTE | 2025-02-04 18:30 | MHC.SL.IMP ---
Date of Plan of Treatment: 01/31/25 Onset of Symptoms/Illness: 01/30/25 Date Treatment Started: 02/04/25 Admitting Diagnosis: Acute CVA Primary Speech & Language Diagnosis: R13.12 Oropharyngeal Phase Dysphagia Secondary Speech & Language Diagnosis: R47.1 Dysarthria Reason for Today's Visit: 83095 Modified Barium Swallow Study Pre-evaluation Dietary Consistencies: Pureed (NDD1) Pre-evaluation Liquid Consistency: Thin Pre-evaluation Medication Administration: Crushed with Puree Medical History: Modified Barium Swallow Study Fluoroscopic Evaluation of Swallowing Function CPT Code 94678 Evaluation Year: 2024 Reason for Study: Patient displays overt s/s of aspiration at bedside. Referring Physician: Reji Selby MD Evaluating Clinician: Sindi Perez MA, CCC-ENDODONTIST Study Number: 1 Patient Name: Aaron Ludwig Status: Inpatient, Stretcher Age: 80 Sex: Male Medical History: Medical History Closed cervical spine fracture Hospital discharge follow-up Atypical syncope History of lacunar cerebrovascular accident (CVA) Passage of loose stools Cough Constipation Urgency of micturition Urge incontinence Generalized anxiety disorder Patellofemoral arthritis of left knee Hypothyroidism History of double vision BPH (benign prostatic hyperplasia) Hx of ulcerative colitis Polycythemia vera History of DVT (deep vein thrombosis) PND (post-nasal drip) Hyperlipidemia Hypertension Pre-op examination Surgical History (Updated 11/15/24 @ 12:23 by Radha Braxton) Right inguinal hernia (09/05/23) History of colonoscopy (~06/23/09) History of right hip replacement Status post total left knee replacement Status post total left knee replacement Status post left knee replacement H/O total hip arthroplasty History of squamous cell carcinoma excision History of cholecystectomy History of left hip replacement Current (pre-evaluation) Intake/Diet: Route: PO Diet Grade: Puree Liquid Consistencies: Thin Pre-Study Functional Oral Intake Scale (FOIS): 5- Total oral intake of multiple consistencies requiring special preparation Pain: None reported at time of study SUBJECTIVE: Patient is an 80 year old male admitted for acute CVA, brain MRI 01/30 showing, ?Small left-sided acute infarctions, with largest in the left basal ganglia region.? Significant history for head and neck CA s/p chemotherapy and radiation, prior CVA, hx previous diet on pureed solids and thickened liquids per ?s report. Patient is recommended a pureed diet with thin liquids via teaspoon, with employment of strategies to promote pharyngeal clearance (double swallow). Patient continues to clear his throat, multiple swallow attempts suspicious for penetration/aspiration and/or pharyngeal retention. Patient is sent for MBSS to further evaluate pharyngeal swallow. Oral Motor Exam Mouth Occlusion: Normal Oral-Facial Teeth Characteristics: Intact/Normal Oral-Facial Puff Cheeks Description: Normal Tongue Size: Normal Tongue Excursion Description: Normal Tongue Range of Movement Description: Normal Tongue Speed of Movement Description: Normal Tongue Strength of Movement (against opposing pressure): Weaker on L-side Tongue Movement Characteristics: Normal/Absent Is patient able to manage secretions?: Yes Is patient able to produce volitional cough?: Yes Food and Liquid Trials: Oral Impairment: Lip Closure: Did not test Oral Impairment: Tongue Control During Bolus Hold: 2=Posterior escape of less than half of bolus Oral Impairment: Bolus Preparation/Mastication: 3=Minimal chewing/mashing with majority of bolus unchewed Oral Impairment: Bolus Transport/Lingual Motion: 3=Repetitive/disorganized tongue motion Oral Impairment: Oral Residue: 2=Residue collection on oral structures Oral Impairment:Initiation of Pharyngeal Swallow: 1=Bolus head in valleculae Pharyngeal Impairment: Soft Palate Elevation: 0=No bolus between soft palate (SP)/pharyngeal wall (PW) Pharyngeal Impairment: Laryngeal Elevation: 1=Partial thyroid cartilage/arytenoids to epiglottic petiole movement Pharyngeal Impairment: Anterior Hyoid Excursion: 1=Partial anterior movement Pharyngeal Impairment: Epiglottic Movement: 2=No inversion Pharyngeal Impairment: Laryngeal Vestibular Closure:: 1=Incomplete: narrow column air/contrast in laryngeal vestibule Pharyngeal Impairment: Pharyngeal Stripping Wave: 1=Present: diminished Pharyngeal Impairment: Pharyngeal Contraction: Did not test Pharyngeal Impairment: Pharyngoesophageal Segment Openin=Partial distention/partial duration: partial obstruction of flow Pharyngeal Impairment: Tongue Base (TB) Retraction: 1=Trace column of contrast/air between TB and posterior PW Pharyngeal Impairment: Pharyngeal Residue: 2=Collection of residue within or on pharyngeal structures Pharyngeal Impairment: Esophageal Clearance Upright Position: Did not test Impressions and Recommendations OBJECTIVE: Time-out: performed at 14:30 Evaluation Start: 14:00; Stop: 14:10 Patient Positioning: Seated 70-90 degrees Viewing Planes: LATERAL ONLY Contrast: MBSImP? Standardized Protocol using commercially prepared, standardized Barium viscosities, including: Varibar? THIN LIQUID (40% w/v, <15 cps) , Varibar? NECTAR (40% w/v, <150-450 cps) , Varibar? PUDDING (40% w/v, <4234-2724 cps) MBSImP ID: [id number] MBSImP Results: Lip closure for intraoral bolus containment could not be assessed due to logistical reasons not related to physiologic impairment. Tongue control during bolus hold resulted in posterior escape of less than half of the bolus. Bolus preparation and mastication received the highest impairment score; solid not given due to patient safety concerns related to oral impairment. Bolus transport/lingual motion was with repetitive/disorganized motion of the tongue. Oral residue was a collection on oral structures. Initiation of the pharyngeal swallow occurred when the bolus head was in the valleculae. Soft palate elevation resulted in no bolus between the soft palate and the pharyngeal wall. Laryngeal elevation was decreased, with partial superior movement of the thyroid cartilage/partial approximation of the arytenoids to the epiglottic petiole. Anterior hyoid excursion demonstrated partial anterior movement. Epiglottic movement resulted in no inversion. Laryngeal vestibular closure was complete, as indicated by no air or contrast within the laryngeal vestibule at the height of the swallow. Pharyngeal stripping wave was present, but diminished. Pharyngeal contraction could not be determined due to logistical reasons not related to physiologic impairment. Pharyngoesophageal segment opening demonstrated partial distension/partial duration, with partial obstruction of bolus flow. Tongue base retraction allowed a trace column of contrast or air between the retracted tongue base and the posterior pharyngeal wall. Pharyngeal residue was a collection of residue within or on pharyngeal structures. Esophageal clearance in the upright position could not be assessed due to logistical reasons not related to physiologic impairment. Oral Impairment Score: 11 (absence of score, component 1) Pharyngeal Impairment Score: 8 (absence of score, component 13) Esophageal Impairment Score: --- (absence of score, component 17) Laryngeal Penetration and Aspiration: Penetration was observed in today's study. Willards-thick, Thin Contrast entered the airway, remained above the vocal folds, and were ejected from the airway. ASSESSMENT: This exam was performed by the radiologist and the speech pathologist. Patient was seated upright in a stretcher for lateral view only. Patient fed himself and trialed the following consistencies: Thin liquid (via individual cup sips) Willards thick liquid (via individual cup sips) Puree (mixture applesauce with barium pudding) Unable to visualize lip closure with imaging. Patient appeared to maintain adequate labial seal with no anterior loss of bolus. Poor tongue control with repetitive tongue pumping movement and spilling from the oral cavity into the valleculae. Minimal mastication on presentation of ground solid (chicken salad). Patient held bolus and manipulated from the left to the right buccal cavity and then spit it out, stating that it was ?too thick,? he could not swallow, and it was ?making [him] gag.? Mild residue coating the tongue mostly cleared on subsequent swallow. Pharyngeal swallow trigger initiated as the bolus head reached the valleculae. No evidence of nasopharyngeal reflux. Partial laryngeal elevation with retroflexed epiglottis without inversion. Incomplete laryngeal vestibular closure. There was trace penetration seen intermittently with thin liquids and nectar thick liquids. A trace amount of liquid entered the airway above the vocal folds and cleared spontaneously or on throat clearing, with no subsequent aspiration. Single episode of penetration to the level of the vocal folds on mixed media. Trace contrast of mixed consistency (thin liquid with puree) entered the airway to the level of the vocal folds and cleared on cued throat clear. Notable pooling in the valleculae and pyriforms, with residue on the posterior pharyngeal wall as well. Minimal residue on trials of thin liquid, increased residue to moderate level on trials of nectar thick liquid and pureed solid. Patient cleared his throat spontaneously and at times expectorated contrast back into the oral cavity, which he swallowed again. Patient was able to reduce residuals with effortful swallow and multiple dry swallows. Chin tuck maneuver had no effect. The following compensatory strategies have not been used until today's study, but when employed, improved swallowing function: Additional Swallow(s) per Bolus decreased Oral Residue, Pharyngeal Residue Effortful Swallow (used during PO intake) decreased Oral Residue, Pharyngeal Residue Throat Clear eliminated Penetration The following compensatory strategies appear to have had a negative impact on swallowing function: Willards-thick Liquid increased Pharyngeal Residue Liquid Intake Recommendation: Thin Liquid Intake Strategies: Small Sips, No Straws, Double Swallow Dietary Recommendations: Pureed (NDD1) Medication Administration: Crushed with Puree Please contact the pharmacy regarding appropriate crushable or liquid drug formulations that are available whenever modified delivery is recommended. Compensatory Strategies Recommended: Sitting Upright (90 deg), Double Swallow, No Straw, Small Bites and Sips, Rate of Ingestion Change Supervision during eating and or drinking: Direct Supervision (1:1) Recommended Treatments: Compens. Strategy Educat. Recommendation for Speech Therapy: Inpatient Speech Therapy Speech Therapy through [facility] through Rehab Facility Text Comment: Intake Recommendations: Route: PO Diet Grade: Puree Liquid Consistencies: Thin Post-Study Functional Oral Intake Scale (FOIS): 5- Total oral intake of multiple consistencies requiring special preparation Recommend continue on PUREED (NDD1) with THIN liquids, pills CRUSHED in PUREE. Patient will need direct supervision and close monitoring with all PO intake. Patient may need cues/reminders for aspiration precautions: -take one small bite at a time -effortful swallow -dry swallow after each bite to promote clearance -liquids by teaspoon or INDIVIDUAL CUP SIPS -after each sip, clear throat and swallow again -AVOID STRAWS -AVOID CONSECUTIVE SIPPING -maintain upright 90 degree position during PO intake and for at least 30 minutes afterwards -daily oral care routine Therapy Recommendations: ENDODONTIST will continue to follow while inpatient to monitor tolerance of PO, provide education related to swallow physiology and MBSS findings, and train compensatory strategies. Patient will need continued speech therapy at the next level of care to address dysphagia and dysarthria s/p acute CVA, hx head and neck CA. The following compensatory strategies and/or therapeutic exercises will be part of the upcoming therapy/management plan: Additional Swallow(s) per Bolus Effortful Swallow (used during PO intake) Throat Clear Longterm Goals: ? The patient will tolerate the least restrictive diet with a safe/efficient swallow to maintain adequate nutrition and hydration. ? The patient and/or family will participate in further education for swallowing goals. Short Term Goals: ? Diet - The patient will tolerate a pureed diet with thin liquids without signs or symptoms of penetration/aspiration 100% of the time. - The patient will participate in therapeutic PO trials with the ENDODONTIST. ? Guidelines - The patient will comply with/recall the following guidelines/strategies 100% of the time with minimal cuing: Bolus Volume Change, Rate of Ingestion Change, Additional Swallow(s) per Bolus, Effortful Swallow (used during PO intake), Throat Clear, No Straws. ? Education - The patient, family, caregiver, nurse will verbalize/demonstrate understanding of the results of this evaluation, the above recommendations, and the swallowing guidelines. Frequency/Duration: M-F while inpatient Date Range for Service Requested: Timeline to reassess: PRN Clinician - Supplemental, Miscellaneous Communication: It is important to note MBSS objective studies are snapshots in time and Patient function might vary with factors such as time of day or concomitant medical conditions. For this reason, the final treatment plan for this patient should rest with their medical care team. Additional recommendations should be considered with the totality of the Patient in mind. Thank for the opportunity to participate in the care of this patient. If you have any questions about the content of this report, please contact the [facility]. Education: Education regarding findings from today's study and plans for therapy were provided to Patient only through Verbal Instruction. Understanding was expressed by the Patient only. Customer Greeter Clinician/Clinical Fellow: No Supervisory Statement: N/A Speech Language Pathologist: Sindi Perez M.A., CCC-ENDODONTIST
--- NOTE | 2025-02-05 | ECG_ITS ---
Test Reason : chest pain Blood Pressure : */* mmHG Vent. Rate : 64 BPM Atrial Rate : 64 BPM P-R Int : 152 ms QRS Dur : 92 ms QT Int : 406 ms P-R-T Axes : 41 -1 24 degrees QTcB Int : 418 ms Normal sinus rhythm Normal ECG When compared with ECG of 30-Jan-2025 14:08, Premature ventricular complexes are no longer Present Referred By: Edilma Aviles Electronically Signed By: DEBRA SKAGGS
[2025-02-05 04:00] VITALS: BP 125/61; PULSE 59; RESP 20; TEMP 36.9; O2SAT 90
[2025-02-05 08:00] VITALS: BP 136/63; PULSE 69; RESP 18; TEMP 36.5
[2025-02-05] MEDS: Tolterodine Tartrate LA 2 MG CAP.ER.24H PO (09:53)
--- NOTE | 2025-02-05 10:29 | HO.PM.IMPN ---
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, 4/5 and his speech continues to improve, and easier to understand Physical Exam Exam: Exam: Appearing in no acute distress lung sounds are clear to auscultation heart regular rate rhythm, clear S1, S2 positive bowel sounds, abdomen is soft, nontender neuro patient is alert and oriented Strength to right upper extremity 2/5, lower extremity 3/5 Vital Signs: Vital Signs: Last Vital Signs Temp 97.7 F 02/05/25 08:00 Pulse 69 02/05/25 08:00 Resp 18 02/05/25 08:00 BP 136/63 02/05/25 08:00 Pulse Ox 90 L 02/05/25 04:00 O2 Del Method Room Air 02/05/25 08:00 BMI result Body Mass Index 27.2 Objective Data Active Medications Artificial Tears (Artificial Tears 15 Ml Drops) 1 drop EYE-BOTH Q4H PRN PRN Reason: Dry Eyes Last Admin: 02/04/25 09:43 Dose: 1 drop Documented By: MYAH Aspirin (Aspirin 81 Mg Tab.Chew) 81 mg PO DAILY [facility] Last Admin: 02/05/25 09:52 Dose: 81 mg Documented By: BRIDGETTE Atorvastatin Calcium (Atorvastatin Calcium 40 Mg Tablet) 40 mg PO BEDTIME [facility] Last Admin: 02/04/25 20:04 Dose: 40 mg Documented By: TONY Calcium Carbonate (Calcium Carbonate 750 Mg Tab.Chew) 750 mg PO Q4H PRN PRN Reason: Heartburn Enoxaparin Sodium (Enoxaparin Sodium 100 Mg/Ml Syringe) 90 mg 1 mg/kg (90 mg) SUBCUT Q12H [facility] Last Admin: 02/05/25 09:53 Dose: 90 mg Documented By: BRIDGETTE Finasteride (Finasteride 5 Mg Tablet) 5 mg PO DAILY [facility] Last Admin: 02/05/25 09:53 Dose: 5 mg Documented By: BRIDGETTE Levothyroxine Sodium (Levothyroxine Sodium 75 Mcg Tablet) 75 mcg PO DAILY@0600 [facility] Last Admin: 02/05/25 06:20 Dose: 75 mcg Documented By: TONY Magnesium Hydroxide (Milk Of Magnesia 30 Ml Oral.Susp) 30 ml PO DAILY PRN PRN Reason: Constipation Melatonin (Melatonin 3 Mg Tablet) 6 mg PO BEDTIME PRN PRN Reason: Insomnia Morphine Sulfate (Morphine Sulfate 2 Mg/Ml Cartridge) 2 mg IVPUSH Q6H PRN; Protocol PRN Reason: Pain, Severe (Pain Scale 7-10) Last Admin: 02/05/25 03:14 Dose: 2 mg Documented By: TONY Omeprazole (Omeprazole 20 Mg Capsule.Dr) 20 mg PO DAILY PRN PRN Reason: Acid Reflux Tamsulosin HCl (Tamsulosin Hcl 0.4 Mg Capsule) 0.8 mg PO BEDTIME [facility] Last Admin: 02/04/25 20:03 Dose: 0.8 mg Documented By: TONY Tolterodine Tartrate (Tolterodine Tartrate La 2 Mg Cap.Er.24h) 2 mg PO DAILY [facility] Last Admin: 02/05/25 09:53 Dose: 2 mg Documented By: VINAYT Labs 02/03/25 06:44 02/03/25 06:44 Assessment and Plan (1) Acute CVA (cerebrovascular accident): Status: Acute Plan 80 y/o man admitted with acute CVA Acute CVA + proximal left ICA stenosis (70%) + bilateral proximal ICA dissections (no flow-limiting stenosis). Discussed with Iesha (neuro IR, [facility])--No intervention. Aspiration and fall precautions. 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 levothyroxine Hyperlipidemia. Statin Hx of VTE. On Lovenox, previously on xarelto recommend changing to eliquis 5 bid at dc Polycythemia Vera. Hemoglobin is 15.18. Hyperactive bladder. Continue tolterodine when able BPH. Continue tamsulosin and finasteride GERD. Continue omeprazole. Recent history of C-spine fractures 08/2024 C3-C4, posterior spinous process without injuries to the spinal cord. h/o neck cancer chemo and radiation and is not actively been treated DVT prophylaxis: Lovenox Code status: Full PT/OT recommends acute inpatient rehab Quality Stroke Does the patient have a stroke diagnosis?: No VTE Prior VTE?: No VTE Risk Level:: Medical - moderate - high VTE Device Contraindication: Treatment Not Indicated VTE Drug Contraindication: N/A - Med Ordered
--- NOTE | 2025-02-05 11:03 | PM.DS ---
DS: Providers Provider Date of Service: 02/05/25 Date of admission: 01/30/25 19:56 Date of discharge: 02/05/25 Primary care physician: Vaibhav Land MD Consults: 01/30/25 19:56 Consult to Neurology Routine Consulting Provider: [facility] Reason for consultation: Acue CVA, Left ICA stenosis,bilat ICA dissections Has provider been notified: Yes Consult to Vascular Surgery Routine Consulting Provider: [facility] Reason for consultation: Acute CVA proximal left ICA stenosis Has provider been notified: No 02/01/25 10:49 Consult to Neurology Routine Consulting Provider: [facility] Reason for consultation: CVA with left sided deficit Has provider been notified: No 02/04/25 18:21 Consult to Psychiatry Routine Consulting Provider: [facility] Reason for consultation: depression after stroke SI thought, medical management DS: Diagnosis Discharge Diagnosis (1) Acute CVA (cerebrovascular accident): Status: Acute DS: Summary Hospital Course Hospital Course: History and physical as per admitting provider. Aaron Ludwig is 80 years old man with past medical history significant for 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 was at bedside and contributed with HPI. Around the same time the patient started to have visual disturbances (he was able to see the have a piece computer and was unable to read the clock). He also complained of generalized headache. He denied facial numbness or tingling sensation to the extremities. There is no loss of consciousness reported or dizziness. The patient did not report any acute cardiopulmonary or gastrointestinal symptoms. Patient mentioned that his symptoms are already improving somewhat. He is lifelong nonsmoker. NIH stroke scale on arrival: 12. In the ED, in the ED was found to have stable vital signs. His blood pressure was found to be elevated. Last blood pressure is 174/79. Blood workup showed no leukocytosis. Hemoglobin is 15.1 and platelets 198. INR is 1.2. There are no electrolyte imbalances. Renal function and glucose are normal. Troponin is 3.5. Head CT scan without contrast showed no acute intracranial bleeding or infarct. Head and neck CTA showed 70% in the proximal left ICA, focal occlusion in the basilar artery and bilateral proximal ICA dissection with no flow-limiting stenosis. CXR showed hypoventilation, bilateral lower lobe atelectasis and/or infiltrates. ECG showed normal sinus tachycardia + PVCs without ischemic changes. He did not meet criteria for tPA due to use of Xarelto (last dose last night). ED tx: Pepcid 20 mg IV Acute CVA + proximal left ICA stenosis (70%) + bilateral proximal ICA dissections (no flow-limiting stenosis). Discussed with Iesha (neuro IR, [facility])>No intervention. TTE with bubble study showing EF of 64% with no evidence of regional wall motion abnormality, no valvular abnormality and no noted [id number] shunting. Anticoagulation with Lovenox 90 mg subQ b.i.d for carotid disection while inpatient, previously on xarelto for dvt, now on Eliquis, high-intensity statin (40 mg PO -advance age). Vascular surgery consult recommend outpatient follow at tertiary center Essential hypertension. Continue home medications Dysphagia from stroke. Pureed diet, thin liquids, medications crushed with puree. Speech therapy evaluation at facility Hypothyroidism. levothyroxine Hyperlipidemia. Statin with LDL = 117 (goal < 70). 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 if NPO will be prolonged then TPN or tube feed Hx of VTE. On Lovenox, previously on xarelto Polycythemia Vera. Hemoglobin is 15.18. Hyperactive bladder. Continue tolterodine BPH. Continue tamsulosin and finasteride GERD. Continue omeprazole. Recent history (Aug 2024) of C-spine fractures (C3-C4, posterior spinous process) without injuries to the spinal cord. h/o neck cancer has had chemo and radiation and is not actively been treated for that Time Attestation Discharge Coordination Time (in mins): 55 Quality: Safe Use of Opioids Does Pt have an Active Cancer Diagnosis on the Problem List?: No Quality: Stroke Does the patient have a stroke diagnosis?: Yes Reason for No Anti-thrombotic at DC: N/A - Med Ordered Reason for No Anticoagulant at DC: N/A - Med Ordered Reason Not Initiating IV-Tpa: Drug treatment not indicated Reason for No Anti-thrombotic by Day Two: N/A - Med Ordered Reason for No Statin at DC: N/A - Med Ordered Physical Exam Exam: Exam: Appearing in no acute distress head is normocephalic atraumatic eyes pupils are PERRLA sclera is anicteric mouth throat mucous membranes are intact and moist neck is supple no lymphadenopathy, no JVD noted lung sounds are clear to auscultation heart regular rate rhythm, clear S1, S2 positive bowel sounds, abdomen is soft, nontender neuro patient is alert and oriented 2/5 strength to right upper extremity 3/5 strength to right lower extremity, very mild right facial droop Vital Signs: Vital Signs: Last Vital Signs Temp 97.7 F 02/05/25 08:00 Pulse 69 02/05/25 08:00 Resp 18 02/05/25 08:00 BP 136/63 02/05/25 08:00 Pulse Ox 90 L 02/05/25 04:00 O2 Del Method Room Air 02/05/25 08:00 BMI result Body Mass Index 27.2 Discharge Plan Discharge Anticipated Discharge Date/Time: 02/05/25 10:56 Patient Disposition: [facility], [place] Discharge Diagnosis: Acute CVA Proximal left ICA stenosis +proximal ICA dissections Dysphagia Referrals: Vaibhav Land MD [Primary Care Provider, Internal Medicine] - 1 Week Discharge Medications: New atorvastatin 40 mg Tablet 40 mg PO BEDTIME Qty: 30 0RF aspirin 81 mg Tablet,Chewable 81 mg PO DAILY Qty: 30 0RF Eliquis 5 mg tablet 5 mg PO BID Qty: 60 0RF Rx Instructions: 10 mg twice daily for 7 days then 5 mg twice daily Continued finasteride 5 mg tablet 5 mg PO DAILY Qty: 90 1RF losartan 25 mg tablet 25 mg PO DAILY Qty: 90 1RF ascorbic acid (vitamin C) [Vitamin C] 1,000 mg Tablet 1,000 mg PO BID turmeric root extract 500 mg Capsule 500 mg PO BID cholecalciferol (vitamin D3) [Vitamin D3] 25 mcg (1,000 unit) Tablet 25 mcg PO DAILY levothyroxine [Synthroid] 75 mcg tablet 75 mcg PO DAILY@0600 magnesium 250 mg Tablet 250 mg PO DAILY omeprazole 20 mg capsule,delayed release(DR/EC) 20 mg PO DAILY PRN (Reason: Acid Reflux) tolterodine 2 mg capsule,extended release 24hr 2 mg PO DAILY tamsulosin 0.4 mg capsule 0.8 mg PO BEDTIME 90 Days Qty: 180 0RF Discontinued Xarelto 10 mg tablet 10 mg PO DAILY Discharge Orders: Discharge Order (Routine); Ordered 02/05/25 Ordered By: Edilma Aviles Diet: Advance to usual diet Activity on Discharge: As tolerated Stand Alone Forms: Patient Portal Discharge page Print Language: Telugu Care Plan Goals: Transfer to acute rehab for physical therapy Start Eliquis 10 mg daily twice daily for 7 days, 1st dose this evening then 5 mg twice daily Health Concerns: Acute CVA Proximal left ICA stenosis +proximal ICA dissections Dysphagia Plan of Treatment: Follow up with primary care provider as needed Take all medications as prescribed Assessment: See discharge summary
--- NOTE | 2025-02-05 11:16 | MHC.CM.PN ---
Second IMM given 02/05, pt is medically cleared for discharge to acute rehab at [facility], he will transport via [facility] today. Pt and his present at bedside are aware and in agreement with the discharge plan.
[2025-02-05 12:00] VITALS: BP 118/59; PULSE 69; RESP 18; TEMP 36.9; O2SAT 95
--- NOTE | 2025-02-05 12:01 | PM.PSYCN ---
History of Present Illness Date of Service: 02/05/25 Chief Complaint: Acute cerebrovascular accident Reason for Consult: Depression, SI post CVA Requesting physician: Reji Selby Sources of Information: patient interviewed and chart reviewed Additional Sources of Information: Pt's joined our discussion HPI Narrative: 80 yo male, nickname is Sophia , admitted 01/30/25 with right sided weakness, positive for acute CVA. Pt is awaiting completion of treatment and will go to rehab. Pt telling team of depressive sx with SI. Pt very involved in consult, agreed that he is frustrated and upset especially when he loses control of his independence and loss of abilities. He is forthcoming in discussion, cries when he talks of the CVA and loss of movement in arm, leg and speech difficulties. Describes active grief. He and are willing to trial a low dose antidepressant to see if that helps. Reports lumbar/back pain which effects movement and this is bothering him today. Denies alcohol use. 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 Discussed risks of this habit. He denies any SI and agrees- I say things like that when I am angry and frustrated. Past Psychiatric History: Denied Medical Evaluation Reviewed: Yes Review of Systems Review of Systems lumbar pain PMFSH Medical History Closed cervical spine fracture Hospital discharge follow-up Atypical syncope History of lacunar cerebrovascular accident (CVA) Passage of loose stools Cough Constipation Urgency of micturition Urge incontinence Generalized anxiety disorder Patellofemoral arthritis of left knee Hypothyroidism History of double vision BPH (benign prostatic hyperplasia) Hx of ulcerative colitis Polycythemia vera History of DVT (deep vein thrombosis) PND (post-nasal drip) Hyperlipidemia Hypertension Pre-op examination Surgical History Right inguinal hernia (09/05/23) History of colonoscopy (~06/23/09) History of right hip replacement Status post total left knee replacement Status post total left knee replacement Status post left knee replacement H/O total hip arthroplasty History of squamous cell carcinoma excision History of cholecystectomy History of left hip replacement Social History: (second marriage) 4 children, grandchildren Retired from the [employer] Substance History: Cannabis Diagnostics Vital Signs (24Hr): Vital Signs - 24 hr 02/04/25 15:16 02/04/25 19:58 02/04/25 23:49 Temperature 98.5 F 98.1 F 98.4 F Pulse Rate 56 61 58 Respiratory Rate 16 20 Blood Pressure 115/55 L 128/61 127/60 Pulse Oximetry 93 90 L 90 L Oxygen Delivery Method Room Air Room Air Room Air 02/05/25 04:00 02/05/25 08:00 Temperature 98.4 F 97.7 F Pulse Rate 59 69 Respiratory Rate 20 18 Blood Pressure 125/61 136/63 Pulse Oximetry 90 L Oxygen Delivery Method Room Air Room Air BMI result Body Mass Index 27.2 Labs 02/03/25 06:44 02/03/25 06:44 Imaging Radiology Impressions: ITS Impressions Modified Barium Swallow 02/04/25 13:00 IMPRESSION: Laryngeal penetration with thin barium. Correlate with speech therapy report. Electronically signed by: Navdeep Naylor MD 02/04/2025 03:34 PM EDT RP Mental Status Exam Mental Status Exam Patient Appearance: Appropriate Patient Orientation: Person, Place, Time and Situation Level of Consciousness: Alert Patient Behavior: Appropriate, Talkative, Cooperative and Good Eye Contact Mood Description: Sad (grieving loss of abilities with recent CVA) Affect Description: Flat Patient Cognition Impaired: No Ability to Follow Directions: Good Speech Pattern: Appropriate and Spontaneous Speech Memory Description: Intact and Episodic Impaired Hallucinations: None Delusions: Not Present Thought Process: Rumination and Goal Oriented Thought Content: positive for Goal Oriented and positive for Suicidal Ideation (denies) Depressive Symptoms: Thoughts of /Suicide (denies) Judgement: Good Medications Medications Current Medications Artificial Tears (Artificial Tears 15 Ml Drops) 1 drop EYE-BOTH Q4H PRN PRN Reason: Dry Eyes Last Admin: 02/04/25 09:43 Dose: 1 drop Aspirin (Aspirin 81 Mg Tab.Chew) 81 mg PO DAILY [facility] Last Admin: 02/05/25 09:52 Dose: 81 mg Atorvastatin Calcium (Atorvastatin Calcium 40 Mg Tablet) 40 mg PO BEDTIME DANE Last Admin: 02/04/25 20:04 Dose: 40 mg Calcium Carbonate (Calcium Carbonate 750 Mg Tab.Chew) 750 mg PO Q4H PRN PRN Reason: Heartburn Enoxaparin Sodium (Enoxaparin Sodium 100 Mg/Ml Syringe) 90 mg 1 mg/kg (90 mg) SUBCUT Q12H [facility] Last Admin: 02/05/25 09:53 Dose: 90 mg Finasteride (Finasteride 5 Mg Tablet) 5 mg PO DAILY [facility] Last Admin: 02/05/25 09:53 Dose: 5 mg Levothyroxine Sodium (Levothyroxine Sodium 75 Mcg Tablet) 75 mcg PO DAILY@0600 [facility] Last Admin: 02/05/25 06:20 Dose: 75 mcg Magnesium Hydroxide (Milk Of Magnesia 30 Ml Oral.Susp) 30 ml PO DAILY PRN PRN Reason: Constipation Melatonin (Melatonin 3 Mg Tablet) 6 mg PO BEDTIME PRN PRN Reason: Insomnia Morphine Sulfate (Morphine Sulfate 2 Mg/Ml Cartridge) 2 mg IVPUSH Q6H PRN; Protocol PRN Reason: Pain, Severe (Pain Scale 7-10) Last Admin: 02/05/25 03:14 Dose: 2 mg Omeprazole (Omeprazole 20 Mg Capsule.Dr) 20 mg PO DAILY PRN PRN Reason: Acid Reflux Tamsulosin HCl (Tamsulosin Hcl 0.4 Mg Capsule) 0.8 mg PO BEDTIME [facility] Last Admin: 02/04/25 20:03 Dose: 0.8 mg Tolterodine Tartrate (Tolterodine Tartrate La 2 Mg Cap.Er.24h) 2 mg PO DAILY [facility] Last Admin: 02/05/25 09:53 Dose: 2 mg Allergies Allergies Allergy/AdvReac Type Severity Reaction Status Date / Time No Known Allergies Allergy Verified 01/30/25 14:07 Assessment & Plan Assessment & Plan (1) Generalized anxiety disorder: Status: Acute Code(s): F41.1 - Generalized anxiety disorder (2) Depression: Status: Acute Code(s): F32.A - Depression, unspecified Plan Sertraline 25 mg daily. Pt should be followed by psychiatric services when transferred to rehab. Total time managing care of this patient today ____ minutes. Patient educated on: medication risk/benefits Guardian/Caregiver educated on: medication risk/benefits Informed Consent: understands
--- NOTE | 2025-02-05 12:15 | MHC.CM.PN ---
Per hospitalist, pt developed dizziness and some additional symptoms that require further monitoring, pts discharge is cancelled at this time. [facility] notified, and [facility] notified/ride cancelled.
[2025-02-05 16:00] VITALS: BP 151/72; PULSE 70; RESP 18; TEMP 36.7; O2SAT 94
[2025-02-05 20:00] VITALS: BP 152/78; PULSE 75; RESP 18; TEMP 37.2; O2SAT 96
[2025-02-05 23:38] VITALS: BP 150/67; PULSE 71; RESP 20; TEMP 37; O2SAT 93
[2025-02-06 04:00] VITALS: BP 164/77; PULSE 68; RESP 20; TEMP 37.1; O2SAT 93
[2025-02-06 08:00] VITALS: BP 173/79; PULSE 64; RESP 18; TEMP 36.4
[2025-02-06] MEDS: Tolterodine Tartrate LA 2 MG CAP.ER.24H PO (09:11)
--- NOTE | 2025-02-06 09:46 | MHC.CM.PN ---
Addendum entered by Maylin Lezama 02/06/25 11:38: Transportation scheduled 1pm [facility] today. Original Note: Patient medically cleared to dc to [facility]. Transport booked 11am [facility].
[2025-02-06 11:22] VITALS: BP 122/63; PULSE 75; RESP 18; TEMP 36.2
== END 2025-02-06 13:00 | disposition skilled nursing facility (03) | DRG 64 ==
LOC: HO.ED 20:07 → HO.EDOVER 20:13 → HO.IMC 01-31 09:43
PROVIDERS: Emergency Medicine; Internal Medicine; Admitting Provider Internal Medicine; Emergency Provider Emergency Medicine; PCP Internal Medicine; Visit Provider Nurse Practitioner Acute Care
DX: I63.9 Cerebral infarction, unspecified (principal); I77.71 Dissection of carotid artery; G81.91 Hemiplegia, unspecified affecting right dominant side; R13.10 Dysphagia, unspecified; N32.81 Overactive bladder; K21.9 Gastro-esophageal reflux disease without esophagitis; F41.1 Generalized anxiety disorder; F32.A Depression, unspecified; R47.02 Dysphasia; D45 Polycythemia vera; E78.5 Hyperlipidemia, unspecified; N40.0 Benign prostatic hyperplasia without lower urinary tract symptoms; I65.1 Occlusion and stenosis of basilar artery; R29.712 NIHSS score 12; Z79.890 Hormone replacement therapy; Z79.899 Other long term (current) drug therapy
CPT/HCPCS: 36415; 70450; 70496; 70498; 70551; 71045; 74230; 80048; 80061; 82947; 83036; 84484; 85025; 85027; 85610; 85730; 92526; 92610; 92611; 93005; 93306; 97110; 97112; 97161; 97162; 97166; 97530; 97535; 99285; J0131; J1200; J1308; J1650; J2270; J3360; J7120; Q9957; Q9967

== ENCOUNTER → 2025-01-30 13:51 | Outpatient (BNV) | payer MEDICARE, OTHER, SELFPAY | PROVIDERS: Admitting Provider Internal Medicine; Emergency Provider Emergency Medicine; PCP Internal Medicine; Visit Provider Internal Medicine | DX: I49.3 Ventricular premature depolarization (principal) | CPT/HCPCS: 93010 ==

== ENCOUNTER → 2025-01-30 13:51 | Outpatient (BNV) | payer MEDICARE, OTHER, SELFPAY | PROVIDERS: Emergency Provider Emergency Medicine; PCP Internal Medicine; Visit Provider Radiology Diagnostic Radiology | DX: I65.22 Occlusion and stenosis of left carotid artery (principal); I63.81 Other cerebral infarction due to occlusion or stenosis of small artery; R90.82 White matter disease, unspecified; J98.11 Atelectasis | CPT/HCPCS: 70450; 70496; 70498; 71045 ==

== ENCOUNTER 2025-01-30 19:56 | Outpatient (BNV) | payer MEDICARE, OTHER, SELFPAY | END 2025-02-01 07:00 | PROVIDERS: Admitting Provider Internal Medicine; Emergency Provider Emergency Medicine; PCP Internal Medicine; Visit Provider Internal Medicine | DX: I63.9 Cerebral infarction, unspecified (principal) | CPT/HCPCS: 93306 ==

== ENCOUNTER 2025-01-30 19:56 | Outpatient (BNV) | payer MEDICARE, OTHER, SELFPAY | END 2025-02-04 12:39 | PROVIDERS: Admitting Provider Internal Medicine; Emergency Provider Emergency Medicine; PCP Internal Medicine; Visit Provider Radiology Diagnostic Radiology | DX: R13.10 Dysphagia, unspecified (principal) | CPT/HCPCS: 74230 ==

== ENCOUNTER 2025-01-30 19:56 | Outpatient (BNV) | payer MEDICARE, OTHER, SELFPAY | END 2025-02-05 11:54 | PROVIDERS: Admitting Provider Internal Medicine; Emergency Provider Emergency Medicine; PCP Internal Medicine; Visit Provider Internal Medicine | DX: R07.9 Chest pain, unspecified (principal) | CPT/HCPCS: 93010 ==

== ENCOUNTER → 2025-01-30 19:56 | Outpatient (BNV) | payer MEDICARE, OTHER, SELFPAY | PROVIDERS: Admitting Provider Internal Medicine; Emergency Provider Emergency Medicine; PCP Internal Medicine; Visit Provider Internal Medicine | DX: I63.9 Cerebral infarction, unspecified (principal) | CPT/HCPCS: 99233 ==

== ENCOUNTER → 2025-01-30 19:56 | Outpatient (BNV) | payer MEDICARE, OTHER, SELFPAY | PROVIDERS: Admitting Provider Internal Medicine; Emergency Provider Emergency Medicine; PCP Internal Medicine; Visit Provider Clinical Nurse Specialist Psychiatric/Mental Health, Adult | DX: F32.1 Major depressive disorder, single episode, moderate (principal); F41.1 Generalized anxiety disorder | CPT/HCPCS: 99232 ==

== ENCOUNTER → 2025-01-30 19:56 | Outpatient (BNV) | payer MEDICARE, OTHER, SELFPAY | PROVIDERS: Admitting Provider Internal Medicine; Emergency Provider Emergency Medicine; PCP Internal Medicine; Visit Provider Psychiatry & Neurology Neurology | DX: I69.353 Hemiplegia and hemiparesis following cerebral infarction affecting right non-dominant side (principal) | CPT/HCPCS: 99222 ==

== ENCOUNTER → 2025-01-30 19:56 | Outpatient (BNV) | payer MEDICARE, OTHER, SELFPAY | PROVIDERS: Admitting Provider Internal Medicine; Emergency Provider Emergency Medicine; PCP Internal Medicine; Visit Provider Surgery Vascular Surgery | DX: I65.22 Occlusion and stenosis of left carotid artery (principal); I77.71 Dissection of carotid artery | CPT/HCPCS: 99222 ==

== ENCOUNTER 2025-03-03 12:51 | Emergency (ER) | payer MEDICARE, OTHER, SELFPAY ==
--- NOTE | ~2025-03-03 | XR_ITS ---
EXAMINATION: XR KNEE, RIGHT CLINICAL INFORMATION: pain and swelling COMPARISON: December 29, 2019, May 14, 2021 and November 14, 2009. TECHNIQUE: AP oblique and lateral views of the right knee. FINDINGS: Joint space narrowing involving the medial compartment. No chondrocalcinosis. Small marginal osteophyte formation femoral condyles and tibial plateau. No acute cortical disruption or malalignment. Marginal osteophyte formation and the posterior superior patella. Suprapatellar bursa joint effusion, moderate to large volume. Osteopenia versus osteoporosis. No lytic or blastic lesions. XR/XR knee RT 4V IMPRESSION: Tricompartment osteoarthrosis involving mostly the medial compartment. Suprapatellar bursa joint effusion, moderate to large volume. Electronically signed by: Dylan Leach MD 03/03/2025 02:14 PM EDT
[2025-03-03 12:57] VITALS: BP 138/74; PULSE 78; O2SAT 95
[2025-03-03 12:58] VITALS: BMI 25.6
--- NOTE | 2025-03-03 13:15 | ED.WEAKNESS ---
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 notes she cannot care for him she also notes he has significant medical needs but she notes it is way beyond what the family can do. She notes he is very scared being at home as he feels unsafe. denies any recent trauma. He told his I don't know if I should have come home. He notes two days of atraumatic R knee pain without fevers, rash. He notes it appears swollen. He is very emotional and states he is scared. Of note he has scopolamine patch from [facility] behind L ear. MD Complaint: generalized weakness Onset (ago): month(s) Duration: constant Location: generalized Severity: mild Quality: dull Relieving factors: none Exacerbating factors: movement Context: recent illness Associated symptoms: other (atraumatic R knee pain) Related Data Home Medications ?Medication ?Instructions ?Recorded ?Confirmed ascorbic acid (vitamin C) 1,000 mg 1,000 mg PO BID 04/28/20 03/03/25 tablet (Vitamin C) cholecalciferol (vitamin D3) 25 25 mcg PO DAILY 04/28/20 03/03/25 mcg (1,000 unit) tablet (Vitamin D3) levothyroxine 75 mcg tablet 75 mcg PO DAILY@0600 01/31/25 03/03/25 (Synthroid) acetaminophen 325 mg tablet 975 mg PO TID PRN Fever Or Pain 03/03/25 03/03/25 amoxicillin 875 mg-potassium 1 tab PO BID 03/03/25 03/03/25 clavulanate 125 mg tablet carboxymethylcellulose sodium 1 % 2 drp ophthalmic (eye) BID 03/03/25 03/03/25 eye liquid gel drops fluoxetine 20 mg/5 mL (4 mg/mL) 10 mg PO DAILY 03/03/25 03/03/25 oral solution guaifenesin 600 mg tablet, 600 mg PO BID PRN Congestion 03/03/25 03/03/25 extended release 12 hr (Mucinex) hydroxyzine HCl 25 mg tablet 25 mg PO Q6H PRN Anxiety 03/03/25 03/03/25 lansoprazole 30 mg delayed 30 mg PO BID@0630,1630 03/03/25 03/03/25 release,disintegrating tablet (Prevacid SoluTab) magnesium oxide 400 mg PO DAILY 03/03/25 03/03/25 melatonin 5 mg tablet 5 mg PO BEDTIME PRN Sleep 03/03/25 03/03/25 multivitamin 1 tab PO DAILY 03/03/25 03/03/25 scopolamine base 1 mg over 3 days 1 patch topical Q72H 03/03/25 03/03/25 transdermal patch tizanidine 2 mg tablet 2 mg PO Q8H 03/03/25 03/03/25 tramadol 50 mg tablet 50 mg PO Q4H PRN Pain (Scale Score 03/03/25 03/03/25 7-10) trazodone 50 mg tablet 50 mg PO BEDTIME 03/03/25 03/03/25 Previous Rx's ?Medication ?Instructions ?Recorded tamsulosin 0.4 mg capsule 0.8 mg (2 x 0.4 mg) PO BEDTIME 90 10/14/24 days #180 caps finasteride 5 mg tablet 5 mg PO DAILY #90 tabs 12/28/24 losartan 25 mg tablet 25 mg PO DAILY #90 tabs 01/07/25 apixaban 5 mg tablet (Eliquis) 5 mg PO BID #60 tabs 02/05/25 aspirin 81 mg chewable tablet 81 mg PO DAILY #30 tabs 02/05/25 atorvastatin 40 mg tablet 40 mg PO BEDTIME #30 tabs 02/05/25 Allergies Allergy/AdvReac Type Severity Reaction Status Date / Time No Known Allergies Allergy Verified 03/03/25 13:01 Review of Systems Review of Systems: Constitutional : No Fever, No Chills ENT/Mouth : No Ear Pain, No Hoarseness, No sore throat Eyes: No Eye Pain, No Swelling, No Redness, No Foreign Body Cardiovascular : No Chest Pain, No SOB Respiratory : No Cough, No Dyspnea Gastrointestinal : No Nausea, No Vomiting, No Diarrhea, No abdominal Pain Genitourinary : No Dysuria, No Hematuria Musculoskeletal : positive joint pain, No Myalgias, pos Joint Swelling Skin : No Skin lacerations, No rash Neuro : No Weakness, No Numbness, No Loss of Consciousness, No Dizziness, No Headache Psych : pos Anxiety/Panic, No Depression All other systems reviewed and are negative [facility] Past Medical History Attestation statement: The following information was validated with the patient. Source: old records reviewed Medical History Internal carotid artery stenosis Acute CVA (cerebrovascular accident) Closed cervical spine fracture Hospital discharge follow-up Atypical syncope History of lacunar cerebrovascular accident (CVA) Passage of loose stools Cough Constipation Urgency of micturition Urge incontinence Generalized anxiety disorder Patellofemoral arthritis of left knee Hypothyroidism History of double vision BPH (benign prostatic hyperplasia) Hx of ulcerative colitis Polycythemia vera History of DVT (deep vein thrombosis) PND (post-nasal drip) Hyperlipidemia Hypertension Pre-op examination Surgical History Right inguinal hernia (09/05/23) History of colonoscopy (~06/23/09) History of right hip replacement Status post total left knee replacement Status post total left knee replacement Status post left knee replacement H/O total hip arthroplasty History of squamous cell carcinoma excision History of cholecystectomy History of left hip replacement Family History Family History Father No problems noted. Mother No problems noted. Social History Social History Household Members: Spouse Household Members Other:: Housing: House Are you a primary complex care nurse practitioner to a significant other at home: No Do you presently have visiting nurse or other home services: No Unable to assess alcohol history related to: Unknown Alcohol intake: current Alcohol intake frequency: holidays/special occasions only Comment: 1:1 sitter Patient Tobacco Use Status: Never used Tobacco e-Cigarette/Vaping Use: Never Used Second Hand Smoke Exposure: No Use of substances other than those prescribed or required for medical reasons: Unknown Substance Use Type: Marijuana Advance Directives: Yes Advance Directives on File: Yes Advance Directives Date on File: 10/14/22 service: No Current occupational status: retired Cognitive needs: Yes Hearing needs: Yes Vision needs: No Physical Exam Vital Signs: Vital Signs: Last Vital Signs Temp 98.9 F 03/04/25 11:30 Pulse 60 03/04/25 11:30 Resp 19 03/04/25 11:30 BP 139/56 L 03/04/25 11:30 Pulse Ox 98 03/04/25 11:30 O2 Del Method Room Air 03/04/25 11:30 O2 Flow Rate 2 03/04/25 06:02 Oxygen Flow Rate 2 03/03/25 22:43 BMI result Body Mass Index 25.6 Appearance: Alert. Oriented X3. No acute distress. anxious and tearful Eyes: Pupils equal, round and reactive to light. ENT: Pharynx normal. Neck: Normal inspection. Neck supple. CVS: Normal heart rate and rhythm. Pulses normal. Respiratory: No respiratory distress. Breath sounds normal. Abdomen: Soft and nontender. Skin: Skin warm and dry. Normal skin color. Normal skin turgor. Extremities: No lower extremity edema. R knee small effusion distal NV intact but no warmth and no signs of infection Neuro: Oriented X 3. 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 I agree with this plan. At this time physician observation ended Time: 12:22 Medications Administered Generic Name Dose Route Start Last Admin Trade Name Antonia PRN Reason Stop Dose Admin Amoxicillin/Clavulanate Potassium 875 mg 03/03/25 21:00 03/04/25 10:28 Amoxicillin/Potassium Clav 875 Mg Tablet PO 03/06/25 20:59 875 mg BID DANE Administration Apixaban 5 mg 03/03/25 21:00 03/04/25 10:11 Apixaban 5 Mg Tablet PO 5 mg BID DANE Administration Ascorbic Acid 1,000 mg 03/03/25 21:00 03/04/25 10:27 Ascorbic Acid 500 Mg Tablet PO 1,000 mg BID DANE Administration Aspirin 81 mg 03/04/25 09:00 03/04/25 10:28 Aspirin 81 Mg Tab.Chew PO 81 mg DAILY DANE Administration Atorvastatin Calcium 40 mg 03/03/25 21:00 03/03/25 21:08 Atorvastatin Calcium 40 Mg Tablet PO 40 mg BEDTIME DANE Administration Finasteride 5 mg 03/04/25 09:00 03/04/25 10:10 Finasteride 5 Mg Tablet PO 5 mg DAILY DANE Administration Fluoxetine HCl 10 mg 03/04/25 09:00 03/04/25 10:27 Fluoxetine Hcl Oral Solution 20 Mg/5 Ml Solution PO 10 mg DAILY DANE Administration Hydroxyzine HCl 25 mg 03/03/25 17:12 03/04/25 10:31 Hydroxyzine Hcl 25 Mg Tablet PO 25 mg Q6H PRN Administration Anxiety Levothyroxine Sodium 75 mcg 03/04/25 06:00 03/04/25 06:05 Levothyroxine Sodium 75 Mcg Tablet PO 75 mcg DAILY@0600 DANE Administration Losartan Potassium 25 mg 03/04/25 09:00 03/04/25 10:11 Losartan Potassium 25 Mg Tablet PO 25 mg DAILY DANE Administration Protocol Magnesium Oxide 400 mg 03/04/25 09:00 03/04/25 10:28 Magnesium Oxide 400 Mg Tablet PO 400 mg DAILY DANE Administration Multivitamins/Vitamin C 1 tab 03/04/25 09:00 03/04/25 10:28 Multivitamin Tablet PO 1 tab DAILY DANE Administration Omeprazole 20 mg 03/04/25 06:30 03/04/25 06:05 Omeprazole 20 Mg Capsule.Dr PO 20 mg BID@0630,1630 DANE Administration Oxycodone HCl 5 mg 03/03/25 17:18 03/04/25 10:31 Oxycodone Hcl Immed Release 5 Mg Tablet PO 5 mg Q8H PRN Administration Pain, Severe (Pain Scale 7-10) Scopolamine 1.5 mg 03/03/25 19:00 03/03/25 19:50 Scopolamine 1.5 Mg Patch.Td.3 EAR-BEHIND 1.5 mg Q72H DANE Administration Tamsulosin HCl 0.8 mg 03/03/25 21:00 03/03/25 21:08 Tamsulosin Hcl 0.4 Mg Capsule PO 0.8 mg BEDTIME DANE Administration Tizanidine HCl 2 mg 03/03/25 17:15 03/04/25 10:11 Tizanidine Hcl 4 Mg Tablet PO 2 mg Q8H DANE Administration Trazodone HCl 50 mg 03/03/25 21:00 03/03/25 21:08 Trazodone Hcl 50 Mg Tablet PO 50 mg BEDTIME DANE Administration Vitamin D 25 mcg 03/04/25 09:00 03/04/25 10:28 Cholecalciferol (Vitamin D3) 25 Mcg Tablet PO 25 mcg DAILY DANE Administration Discontinued Medications Generic Name Dose Route Start Last Admin Trade Name Antonia PRN Reason Stop Dose Admin Oxycodone HCl 2.5 mg 03/03/25 13:27 03/03/25 14:15 Oxycodone Hcl Immed Release 5 Mg Tablet PO 03/03/25 13:28 2.5 mg ONCE ONE Administration Medical Decision Making Medical Decision Making MDM Narrative: 80 yo male with PMH of CVA, depression, DM, GERD, dysphagia on pureed thick liquids, PE on eliquis, anxiety, HTN, BPH, neck cancer s/p chemo, stroke in January acute CVA + bilateral prox ICA dissection now here with atraumatic R knee pain will obtain xray of knee, basic labs, covid swab. I suspect small effusion but no signs of infection will hold off arthrocentesis. He also [place] need basic labs and COVID swab to return to SNF. He is currently on augmentin with 3 days left for UTI. Differential Diagnosis Differential Diagnoses: The differential diagnosis associated with the presentation includes FTT, knee effusion, arthritis Admission/Observation Consideration of admission/observation: Escalation of care including admission/observation considered physician observation started at 206pm pending CARE team Lab Data [facility] Lab Attestation statement: I reviewed the patient's lab results. 03/03/25 14:23 03/03/25 14:23 Labs: Lab Results 03/03/25 03/03/25 Range/Units 14:23 19:12 WBC 13.1 H (4.8-10.8) X10*3/uL RBC 4.81 (4.60-5.80) X10*6/uL Hgb 14.0 (14.0-18.0) g/dl Hct 41.7 L (42.0-52.0) % MCV 86.7 (80.0-98.0) fL MCH 29.1 (27.0-33.0) pg MCHC 33.6 (31.0-36.0) g/dl RDW 14.5 (11.0-16.0) % Plt Count 214 (160-400) X10*3/uL MPV 9.7 (9.4-12.4) fL Immature Gran % (Auto) 0.5 H (0.0-0.4) % Neut % (Auto) 70.8 (45-73) % Lymph % (Auto) 14.2 L (20-40) % Falls % (Auto) 10.5 (2-11) % Eos % (Auto) 3.7 (0-4) % Baso % (Auto) 0.3 (0-2) % Lymph # (Auto) 1.9 (1.2-4.9) X10*3/uL Falls # (Auto) 1.4 H (0.1-1.2) X10*3/uL Eos # (Auto) 0.5 H (0.0-0.4) X10*3/uL Baso # (Auto) 0.0 (0.0-0.2) X10*3/uL Abs Immat Gran (auto) 0.07 H (0.00-0.03) X10*3/uL Absolute Neuts (auto) 9.3 H (2.0-8.3) x10*3/uL Absolute Nucleated RBC 0.000 (0.0-0.012) X10*3/uL Nucleated RBC % (auto) 0.0 (0.0-0.2) /100WBC Sodium 139 (135-145) mmol/L Potassium 5.0 D (3.3-5.1) mmol/L Chloride 103 (96-108) mmol/L Carbon Dioxide 27 (22-29) mmol/L Anion Gap 14 (12-20) BUN 21 H (9-16) mg/dL Creatinine 0.93 (0.5-1.4) mg/dL Estim Creat Clear Calc 69.2 Estimated GFR > 60 Random Glucose 98 (60-115) mg/dL Calcium 9.1 D (8.4-10.2) mg/dL Magnesium 2.2 (1.6-2.6) mg/dL Total Bilirubin 0.8 (0.0-1.0) mg/dL Direct Bilirubin 0.3 (0.0-0.5) mg/dL AST 34 (5-37) U/L ALT 25 (0-40) U/L Alkaline Phosphatase 83 (39-117) U/L Total Protein 7.0 (6.5-8.0) g/dL Albumin 3.9 (3.5-5.0) g/dL Urine Color Dark Yellow Urine Appearance Cloudy Urine pH >= 9.0 (5.0-9.0) Ur Specific [place] 1.025 (1.005-1.025) Urine Protein 30 (1+) H (Neg-Trace) mg/dL Urine Glucose (UA) Negative (Negative) mg/dL Urine Ketones Trace (Negative) mg/dL Urine Blood Negative (Negative) Urine Nitrite Negative (Negative) Ur Leukocyte Esterase Moderate (2+) H (Negative) Urine RBC 0-2 (0-2) /HPF Urine WBC 11-20 H (0-5) /HPF Ur Squamous Epith Cells 0-2 (0-2) /HPF Other Crystals Present Urine Bacteria Trace (None Seen) Hyaline Casts 0-2 (0-2) /LPF Influenza Type A (PCR) NEGATIVE (Negative) Influenza Type B (PCR) NEGATIVE (Negative) RSV RNA Qual (PCR) NEGATIVE (Negative) SARS-CoV-2 RNA (RT-PCR) NEGATIVE (Negative) Independent Interpretation I performed an independent interpretation of an: Plain X-Ray Radiology Impression Discussion of test interpretation with radiology: I have reviewed the radiologist's reading. Independent Historian Clinical information obtained from an independent historian. History obtained from or confirmed by: Spouse External Record Review External record reviewed: Inpatient record and Outpatient record Social Determinants Patient?s care significantly limited by Social Determinants of Health including: Problems related to primary support group Discharge Plan Discharge Clinical Impression: Effusion of knee joint right, Adult failure to thrive Patient Disposition: Xfer Other Transfer Details: MARY Beltran Kelley Additional Instructions: Take your medications as prescribed. If you were prescribed antibiotics today, it is important that you take your medication to their entirety, do not skip any doses, do not finish them early. Follow-up with your primary care provider this week. Return to the emergency department with new or worsening symptoms. Such as fevers, chills, chest pain, shortness of breath, nausea, vomiting, dizziness, headache, vision changes, lethargy In case of emergency call 911 Prescriptions: No Action finasteride 5 mg tablet 5 mg PO DAILY Qty: 90 1RF losartan 25 mg tablet 25 mg PO DAILY Qty: 90 1RF ascorbic acid (vitamin C) [Vitamin C] 1,000 mg Tablet 1,000 mg PO BID cholecalciferol (vitamin D3) [Vitamin D3] 25 mcg (1,000 unit) Tablet 25 mcg PO DAILY fluoxetine 20 mg/5 mL (4 mg/mL) solution 10 mg PO DAILY tizanidine 2 mg tablet 2 mg PO Q8H trazodone 50 mg tablet 50 mg PO BEDTIME tramadol 50 mg tablet 50 mg PO Q4H PRN (Reason: Pain (Scale Score 7-10)) hydroxyzine HCl 25 mg tablet 25 mg PO Q6H PRN (Reason: Anxiety) scopolamine base 1 mg over 3 days patch 3 day 1 patch topical Q72H amoxicillin-pot clavulanate 875-125 mg tablet 1 tab PO BID multivitamin Tablet 1 tab PO DAILY acetaminophen 325 mg Tablet 975 mg PO TID PRN (Reason: Fever Or Pain) lansoprazole [Prevacid SoluTab] 30 mg Tablet,Disintegrat, Delay Rel 30 mg PO BID@0630,1630 melatonin 5 mg Tablet 5 mg PO BEDTIME PRN (Reason: Sleep) guaifenesin [Mucinex] 600 mg Tablet Extended Release 12hr 600 mg PO BID PRN (Reason: Congestion) magnesium oxide 400 mg magnesium Tablet 400 mg PO DAILY carboxymethylcellulose sodium [Refresh] 1 % Drops, Liquid Gel 2 drp OPHTHALMIC (EYE) BID levothyroxine [Synthroid] 75 mcg tablet 75 mcg PO DAILY@0600 atorvastatin 40 mg Tablet 40 mg PO BEDTIME Qty: 30 0RF aspirin 81 mg Tablet,Chewable 81 mg PO DAILY Qty: 30 0RF Eliquis 5 mg tablet 5 mg PO BID Qty: 60 0RF Rx Instructions: 10 mg twice daily for 7 days then 5 mg twice daily tamsulosin 0.4 mg capsule 0.8 mg PO BEDTIME 90 Days Qty: 180 0RF Print Language: Togolese
[2025-03-03 13:35] VITALS: BP 145/82; PULSE 82; RESP 16; TEMP 36.9; O2SAT 97
[2025-03-03] MEDS: oxyCODONE HCl Immed Release 5 MG TABLET 2.5 MG PO (14:15)
[2025-03-03 14:28] LABS: MANUAL DIFF FLAG NO
[2025-03-03 14:29] LABS: Hematocrit 41.7 % (42.0-52.0); Hemoglobin 14.0 g/dl (14.0-18.0); Imm Gran Abs Auto 0.07 X10*3/uL (0.00-0.03); Imm Gran Pct Auto 0.5 % (0.0-0.4); Lymphocytes Absolute Auto 1.9 X10*3/uL (1.2-4.9); Mean Corpuscular HGB Conc 33.6 g/dl (31.0-36.0); Mean Corpuscular Hemoglobin 29.1 pg (27.0-33.0); Mean Corpuscular Volume 86.7 fL (80.0-98.0); NRBC Abs Auto 0.000 X10*3/uL (0.0-0.012); NRBC Pct Auto 0.0 /100WBC (0.0-0.2); Platelet Count 214 X10*3/uL (160-400); Red Blood Count 4.81 X10*6/uL (4.60-5.80); White Blood Count 13.1 X10*3/uL (4.8-10.8)
[2025-03-03 14:44] LABS: Alanine Aminotransferase 25 U/L (0-40); Albumin Level 3.9 g/dL (3.5-5.0); Alkaline Phosphatase 83 U/L (39-117); Anion Gap 14 (12-20); Aspartate Amino Transferase 34 U/L (5-37); Blood Urea Nitrogen 21 mg/dL (9-16); Calcium 9.1 mg/dL (8.4-10.2); Carbon Dioxide 27 mmol/L (22-29); Chloride 103 mmol/L (96-108); Creatinine Clr Calc Pharmacy 69.2; Estimated Glomerular Filt Rate > 60; Magnesium 2.2 mg/dL (1.6-2.6); Potassium 5.0 mmol/L (3.3-5.1); Sodium 139 mmol/L (135-145); Total Protein 7.0 g/dL (6.5-8.0)
--- NOTE | 2025-03-03 15:26 | PC.NURSE ---
Back documentation PT recently discharged from [facility] rehab Pt had Stroke and went to rehab after. PT got DC yesterday.Per [facility] DC instructions pt on puree diet with [place] thick liquids abd remain upright out of bed to prevent aspiration. PT takes pills crushed in pudding or applesauce.PT needs Ax1 with walker & with ADL'S but currently patient is weak and unsteady PT to evaluate.PT uses hearing aids.
[2025-03-03 15:41] LABS: Resp Syncy Virus RNA Qual PCR NEGATIVE (Negative); SARS COV2 PCR INHOUSE NEGATIVE (Negative)
--- OUTSIDE RECORDS SUMMARY | 2025-03-03 15:47 | XMS_ITS | Patient Health Record ---
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
--- OUTSIDE RECORDS SUMMARY | 2025-03-03 15:47 | XMS_ITS | Patient Health Record ---
Author Organization [facility] [email or web address] Address [address] [place] [address] Care Team Providers Care Bobbin Drier Name Role Phone KEN GALLARDO Unavailable [phone] Reason For Referral No Information Medications Medication [...] W/U Status Risk Notes Problem Ulcerative colitis (33356560) Ulcerative colitis, unspecified (556.9) 05/16/20 14 Active confirmed [id number] Problem Deep vein thrombosis (050598037) DVT (451.19) 05/16/20 14 Problem resolved confirmed [id number]- Problem Pulmonary embolism with infarction (9282222871247) Pulmonary embolism and infarction, other (415.19) 05/16/20 14 Problem resolved confirmed [id number]- Problem General examination of patient (276367673) Annual exam (V70.0) 05/16/20 14 Problem resolved confirmed [id number]- Problem History of multiple allergies (situation) (939794302) Allergies (477.0) 05/16/20 14 Problem resolved confirmed [id number]- Problem Long-term current use of anticoagulant (034938322) Anticoagulation followup (V58.61) 08/12/19 15 Problem resolved confirmed [id number]- Plan Of Treatment No Information Insurance Providers Payer Name Payer Address Payer Phone Subscriber Number Group Number Insured Name Patient Relationship to Insured Coverage Start Date Coverage End Date [place] [address] [address] [place] [phone] [id number] NATALY SAWYER Self - patient is the insured 8 [facility] 1 [address] [place] [address] [id number] NATALY SAWYER Self - patient is the insured 4 Medical (General) History Surgical History Surgery Date(Month/Year) Procedures: RADIATION TX SQ CANCER
--- OUTSIDE RECORDS SUMMARY | 2025-03-03 15:47 | XMS_ITS | Patient Health Record ---
Author Organization [facility] Billing Info Address [address] [place] [address] [place] [address] Care Team Providers Care Steel Burner Name Role Phone BIANKA AMANDA Primary Care Provider CORNELL Galeano [phone] Reason For Referral No Information Medications Medication [...] Date Status Comme nts PNEUMOCOCCAL 13 CONJ ([id number]) Unknown 06/28/2016 Adm inistered FLU (Past vaccine of unknown type) Unknown 06/27/2016 A dministered Problems Problem Type SNOMED Code ICD Code Onset Dates Problem Status W/U Status Risk Notes Problem Localized, primary osteoarthritis of the pelvic region and thigh (809288870) Primary localized osteoarthrosis, pelvic region and thigh (715.15) Active confirmed Migrated- ProblemLi [id number] [facility] - Ortho-10/19 Problem Polycythemia vera (160917991) Polycythemia vera (D45) Active confirmed Problem 82159165 Hyperlipidemia, unspecified (E78.5) Active confirmed Problem 69890713 Essential (primary) hypertension (I10) Active confirmed Problem 894587580 Unspecified osteoarthritis, unspecified site (M19.90) Active confirmed Problem 31016496 Pain in right hip (M25.551) Active confirmed Problem 83484790 Pain in left hip (M25.552) Active confirmed Problem 11308160 Pain in left knee (M25.562) Active confirmed Problem Ataxic gait (08945844) Ataxic gait (R26.0) Active confirmed Problem 37431860 Unspecified abnormalities of gait and mobility (R26.9) Active confirmed Problem History of malignant neoplasm of esophagus (767872518) Personal history of malignant neoplasm of esophagus (Z85.01) Active confirmed Problem 17239015 Hypertension (401.9) Active confirmed Problem 13325256 Hyperlipidemia (272.4) Active confirmed Problem Gait abnormality (19388372) Gait abnormality (781.2) Active confirmed Problem Polycythemia vera (703313745) Polycythemia vera (238.4) Active confirmed Problem 02442284 Left knee pain (M25.562) Active confirmed Problem Antepartum deep phlebothrombosis (86344415) DVT (deep vein thrombosis) in (O22.30) Active confirmed Problem 30598817 Right hip pain (M25.551) Active confirmed Problem 974710136 Insomnia, unspecified type (G47.00) Active confirmed Problem 633355428 Acute embolism and thrombosis of deep vein of lower extremity, left (I82.402) Active confirmed Plan Of Treatment Pending Test Test Name Order Date PROTHROMBIN/INR TIME (75994) 05/30/20 14 BLOOD COUNT; COMPLETE CBC, A UTOMATED (HGB, HCT, RBC, WBC, & PLATELET) & AUTOMATED DIFFERENTIAL WBC (39581) CBC 05/15/2015 PT/INR (COLH-PTINR) 07/10/2015 Insurance Providers Payer Name Payer Address Payer Phone Subscriber Number Group Number Insured Name Patient Relationship to Insured Coverage Start Date Coverage End Date MEDICARE [place] PART B [address] [facility] JESSE TURK [id number] [phone] [id number] Aaron Ludwig Self - patient is the insured 2 2 [facility] [address] [facility] [employer] PLAN [place], [place] [phone] [id number] Aaron Ludwig Self - patient is [...]
--- NOTE | 2025-03-03 16:06 | MHC.CM.ED ---
Addendum entered by Dolly Padilla 03/03/25 18:22: 5 bed offers, awaiting many. [facility] choice. Facilities aware that family is reviewing. [facility] did arrange for [facility] for SN, PT, OT, and speech. Agency is aware of patient being in ED and probable STR. Please review [facility] listing with . Pt has a walker. PCP is Dr. Land. HCP is on file. Diet is pureed with thick liquid. CM following for discharge planning. Addendum entered by Dolly Padilla 03/03/25 16:16: [facility] has denied return admission. Pt is agreeable to STR. Will place referrals locally. Original Note: CM met with patient and family. Pt is A&Ox3. Discharged from [facility] yesterday. [facility] 01/30-02/06 for CVA. is overwhelmed with his care needs. Pt feeling unsafe at home. PT recommending STR
[2025-03-03 16:54] VITALS: BP 113/58; PULSE 78; RESP 16; TEMP 36.8; O2SAT 95
--- NOTE | 2025-03-03 17:31 | PHA.MEDREC ---
Pharmacy Consult ? Medication Reconciliation Pharmacy has completed the medication reconciliation. Patient was just discharge from [facility] yesterday. Utilized list claims and list from [facility] to confirm med list.
[2025-03-03 19:13] VITALS: BP 130/69; PULSE 86; RESP 20; TEMP 37.1; O2SAT 95
--- NOTE | 2025-03-03 19:16 | PC.NURSE ---
pt O2 88% on RA pt placed on 2L NC.
[2025-03-03 19:29] LABS: Appearance Urine Cloudy; Glucose Urine UA Negative (Negative); PH >= 9.0 (5.0-9.0); Specific Gravity - Urine 1.025 (1.005-1.025); UMIC TRIGGER UACC YES
--- NOTE | 2025-03-03 19:34 | MHC.EDTECH ---
Patient put on a hospital bed
--- NOTE | 2025-03-03 19:37 | MHC.EDTECH ---
patient is a watch with eating due to stroke and on puree and nectar thick fluids
[2025-03-03 19:55] LABS: Other Crystals Urine Present; UACC Culture Trigger YES
[2025-03-03 21:08] VITALS: BP 122/57; PULSE 73; O2SAT 93
[2025-03-03 22:43] VITALS: O2SAT 95
[2025-03-04] VITALS: BP 134/67; PULSE 66; RESP 18; TEMP 36.6; O2SAT 94
[2025-03-04] MEDS: oxyCODONE HCl Immed Release 5 MG TABLET PO ×2 (01:17→10:31)
[2025-03-04 01:54] VITALS: O2SAT 88
[2025-03-04 01:55] VITALS: O2SAT 93
[2025-03-04 06:02] VITALS: BP 107/55; PULSE 58; RESP 18; TEMP 36.7; O2SAT 94
--- NOTE | 2025-03-04 09:05 | MHC.CM.ED ---
Patient remains in ER. [facility] offer a bed. [facility], [facility], [facility], [facility] , [facility], [facility], [facility], [facility], [facility], and [facility] are able to offer a bed. [facility], [facility], [facility], [facility], [facility], and [facility] are still reviewing. Met with patient and , Barbara in regards to discharge planning. Both are aware [facility] unable to offer a bed. Bed offers discussed. [facility] list provided. Patient and Barbara will discuss facility options and provide CM with 1st choice. Continue to monitor for d/c needs.
[2025-03-04 10:11] VITALS: BP 107/55
[2025-03-04] MEDS: FLUoxetine HCl Oral Solution 20 MG/5 ML SOLUTION 10 MG PO (10:27)
[2025-03-04 11:30] VITALS: BP 139/56; PULSE 60; RESP 19; TEMP 37.2; O2SAT 98
--- NOTE | 2025-03-04 11:57 | MHC.CM.ED ---
Met with patient and , Barbara in regards to discharge planning. [facility] is now 1st choice. [facility] made aware. Will notify CM of time for d/c. Continue to monitor for d/c needs.
--- NOTE | 2025-03-04 12:19 | MHC.EDTECH ---
pt ate 50% of his lunch, 120cc of thickened liquid
--- NOTE | 2025-03-04 12:45 | PC.NURSE ---
debbi hurtado report given to mikayla ANDERSON
== END 2025-03-04 14:12 | disposition other institution (70) ==
PROVIDERS: Emergency Provider Emergency Medicine; PCP Internal Medicine
DX: M25.461 Effusion, right knee (principal); R62.7 Adult failure to thrive; Z68.25 Body mass index [BMI] 25.0-25.9, adult; I69.391 Dysphagia following cerebral infarction; R13.10 Dysphagia, unspecified; I10 Essential (primary) hypertension; Z03.818 Encounter for observation for suspected exposure to other biological agents ruled out; Z79.899 Other long term (current) drug therapy
CPT/HCPCS: 36415; 73564; 80048; 80076; 81001; 83735; 85025; 87086; 87637; 97162; 99285

== ENCOUNTER → 2025-03-03 13:27 | Outpatient (BNV) | payer MEDICARE, OTHER, SELFPAY | PROVIDERS: Emergency Provider Emergency Medicine; Visit Provider Radiology Diagnostic Radiology | DX: M25.461 Effusion, right knee (principal) | CPT/HCPCS: 73564 ==

== ENCOUNTER 2025-03-10 12:01 | Outpatient (AMB) | payer MEDICARE, OTHER, SELFPAY ==
--- NOTE | 2025-03-10 12:27 | MHC.OFFVIS ---
Intake Visit Reasons: Acute Onset CBA Allergies No Known Allergies Allergy (Verified 03/03/25 13:01) HPI Comments Details: 80 years old man with multifactorial dementia. His MRI of brain at [facility] in 2024 reveaeld mod diffuse atrophy and few small areas of embolic looking left [employer] area ischemic infarcts. His past medical history is significant for DVT/be on Xarelto, old CVA, polycythemia vera, hyperlipidemia, neck cancer status post chemotherapy and radiation. Because of anticoagulation he was not considered a candidate for TNK. His CTA revealed moderate left internal carotid artery extracranial stenosis and also bilateral proximal dissection without stenosis. He was here with his from half-way who. His had multiple questions that were answered. She wanted to know why he was the way he was and if stroke has affected him. REPLACED BY [facility] Medical History Internal carotid artery stenosis Acute CVA (cerebrovascular accident) Closed cervical spine fracture Hospital discharge follow-up Atypical syncope History of lacunar cerebrovascular accident (CVA) Passage of loose stools Cough Constipation Urgency of micturition Urge incontinence Generalized anxiety disorder Patellofemoral arthritis of left knee Hypothyroidism History of double vision BPH (benign prostatic hyperplasia) Hx of ulcerative colitis Polycythemia vera History of DVT (deep vein thrombosis) PND (post-nasal drip) Hyperlipidemia Hypertension Pre-op examination Surgical History Right inguinal hernia (09/05/23) History of colonoscopy (~06/23/09) History of right hip replacement Status post total left knee replacement Status post total left knee replacement Status post left knee replacement H/O total hip arthroplasty History of squamous cell carcinoma excision History of cholecystectomy History of left hip replacement Family History Father No problems noted. Mother No problems noted. Social History Household Members: Spouse Household Members Other:: Housing: House Are you a primary rn complex care to a significant other at home: No Do you presently have visiting nurse or other home services: No Unable to assess alcohol history related to: Unknown Alcohol intake: current Alcohol intake frequency: holidays/special occasions only Comment: 1:1 sitter Patient Tobacco Use Status: Never used Tobacco e-Cigarette/Vaping Use: Never Used Second Hand Smoke Exposure: No Substance Use Type: Marijuana Advance Directives Date on File: 10/14/22 service: No Current occupational status: retired Cognitive needs: Yes Hearing needs: Yes Vision needs: No Review of Systems Const Details: Feeling very depressed. He was also having difficulty swallowing and came in his stretcher. Physical Exam Neuro Other: He is alert and awake with normal spontaneity of speech fluency comprehension and depressed affect. Face is symmetrical. Throat is clear. Tongue is midline. Palate elevates symmetrically. Visual palma are full. He is in his stretcher. No obvious arm weakness. Assessment & Plan Assessment & Plan (1) Cerebral infarction: Comment: His CTA of brain findings were as follows: 1. 70% stenosis in the proximal left ICA. 2. 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 3. Bilateral proximal ICA dissections with no flow-limiting stenosis. 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
== END 2025-03-10 12:47 | disposition home or self-care (01) ==
LOC: HO.HSM 12:01
PROVIDERS: PCP Internal Medicine; Visit Provider Psychiatry & Neurology Neurology
DX: I63.12 Cerebral infarction due to embolism of basilar artery (principal); F03.90 Unspecified dementia, unspecified severity, without behavioral disturbance, psychotic disturbance, mood disturbance, and anxiety
CPT/HCPCS: 99214

== ENCOUNTER → 2025-03-10 12:01 | Outpatient (BNVA) | payer MEDICARE, OTHER, SELFPAY | PROVIDERS: PCP Internal Medicine; Visit Provider Psychiatry & Neurology Neurology | DX: I63.12 Cerebral infarction due to embolism of basilar artery (principal); F03.90 Unspecified dementia, unspecified severity, without behavioral disturbance, psychotic disturbance, mood disturbance, and anxiety | CPT/HCPCS: 99212 ==

== ENCOUNTER 2025-05-13 10:31 | Outpatient (AMB) | payer MEDICARE, OTHER, SELFPAY ==
--- NOTE | 2025-05-13 10:34 | MHC.PC.OV ---
Vital Signs 05/13/25 10:35 05/13/25 11:01 05/13/25 11:02 BP 130/62 Blood Pressure Location Lt brachial Position Semi Waters's Pulse 56 65 Pulse Source Pulse Oximeter Pulse Oximeter Temp 97.1 F Temp Source Temporal Artery Scan Pulse Oximetry (%) 85 L 99 Oxygen Delivery Method Room Air Room Air Intake Visit Reasons: 05/09 discharge [facility] Allergies No Known Allergies Allergy (Verified 05/13/25 10:49) Medication List - Last Reconciled 05/13/25 by Sandra Cabrera PA-C acetaminophen 975 mg PO TID PRN amoxicillin-pot clavulanate 875-125 mg 1 tab PO BID apixaban (Eliquis) 5 mg PO BID ascorbic acid (vitamin C) (Vitamin C) 1,000 mg PO BID aspirin 81 mg PO DAILY atorvastatin 40 mg PO BEDTIME carboxymethylcellulose sodium 1% 2 drps ophthalmic (eye) BID cholecalciferol (vitamin D3) (Vitamin D3) 25 mcg PO DAILY finasteride 5 mg PO DAILY fluoxetine 10 mg PO DAILY guaifenesin ER (Mucinex) 600 mg PO BID PRN hydroxyzine HCl 25 mg PO Q6H PRN lansoprazole (Prevacid SoluTab) 30 mg PO BID@0630,1630 levothyroxine (Synthroid) 75 mcg PO DAILY losartan 25 mg PO DAILY magnesium oxide 400 mg PO DAILY melatonin 5 mg PO BEDTIME PRN multivitamin 1 tab PO DAILY scopolamine base 1 patch topical Q72H sennosides (Evac-U-Gen (sennosides)) 8.6 mg PO BID tamsulosin 0.8 mg (2 x 0.4 mg) PO BEDTIME 90 days tizanidine 2 mg PO Q8H tramadol 50 mg PO Q4H PRN trazodone 50 mg PO BEDTIME Tobacco use date assessed: 05/13/25 Fall risk assessment: 1 Fall in past year Dental Screening Dental Screen Date: 05/13/25 Did you have a dental visit in the last 12 months?: Yes Did you have a dental problem in the last 6 months where you did not have access to dental care?: No Was dental information given to patient?: Patient has dentist HPI 05/09 discharge [facility] HPI Details 80-year-old male with past medical history of anxiety, hypertension, BPH, pulmonary embolism, GERD, history of CVA, dementia last seen 09/[address] Land coming in for hospital discharge follow up. In review of the notes, patient was seen by Neurology 02/2025 fluoxetine was increased to 20 mg a day, anticoagulation was continued and aspiration precautions were advised. He was seen in [facility] 02/2025 after d/c from [facility] after could not care for him at which point he was transferred to SNF. Presenting with mobility impairment. The patient's oxygen saturation was noted to be 85%, which is significantly low. The patient is primarily wheelchair-bound and experiences difficulty navigating narrow doorways and steps at home. The patient requires pureed and thickened meals due to swallowing difficulties. The patient has been found to be extremely depressed, possibly related to his current health status and mobility limitations. There is a concern for vascular dementia, likely due to a history of strokes, which may be contributing to cognitive decline. The patient has been receiving extensive home care services, including visits from nurses, occupational therapy, speech and swallowing therapy, and physical therapy. The patient has access to various mobility aids, including transport chairs, wheelchairs, and a hospital bed, provided by local services. [facility] Medical History Internal carotid artery stenosis Acute CVA (cerebrovascular accident) Closed cervical spine fracture Hospital discharge follow-up Atypical syncope History of lacunar cerebrovascular accident (CVA) Passage of loose stools Cough Constipation Urgency of micturition Urge incontinence Generalized anxiety disorder Patellofemoral arthritis of left knee Hypothyroidism History of double vision BPH (benign prostatic hyperplasia) Hx of ulcerative colitis Polycythemia vera History of DVT (deep vein thrombosis) PND (post-nasal drip) Hyperlipidemia Hypertension Pre-op examination Surgical History Right inguinal hernia (09/05/23) History of colonoscopy (~06/23/09) History of right hip replacement Status post total left knee replacement Status post total left knee replacement Status post left knee replacement H/O total hip arthroplasty History of squamous cell carcinoma excision History of cholecystectomy History of left hip replacement Family History Father No problems noted. Mother No problems noted. Social History Household Members: Spouse Household Members Other:: Housing: House Are you a primary career orientation teacher to a significant other at home: No Do you presently have visiting nurse or other home services: No Alcohol intake: current Alcohol intake frequency: holidays/special occasions only Comment: 1:1 sitter Patient Tobacco Use Status: Never used Tobacco e-Cigarette/Vaping Use: Never Used Second Hand Smoke Exposure: No Substance Use Type: Marijuana Advance Directives Date on File: 10/14/22 service: No Current occupational status: retired Cognitive needs: Yes Hearing needs: Yes Vision needs: No Questionnaire PHQ-9 Over the last 2 weeks, how often have you been bothered by any of the following problems? 1. Little interest or pleasure in doing things: not at all 2. Feeling down, depressed, or hopeless: not at all 3. Trouble falling or staying asleep, or sleeping too much: not at all 4. Feeling tired or having little energy: not at all 5. Poor appetite or overeating: not at all 6. Feeling bad about yourself - or that you are a failure or have let yourself or your family down: not at all 7. Trouble concentrating on things, such as reading the newspaper or watching television: more than half the days 8. Moving or speaking so slowly that other people could have noticed. Or the opposite - being so fidgety or restless that you have been moving around a lot more than usual: several days 9. Thoughts that you would be better off or of hurting yourself in some way: not at all Total score: 3 Depression Screening Interpretation: Negative Depression Screening Done: Yes 15664 - PHQ-9 Billing: Yes Source: Developed by Drs. Sandeep Crenshaw, Yasmin Lancaster, Armando Capone and colleagues, with an educational sharath from [employer]. Thrive Questionnaire Date Thrive assessed: 01/31/25 I am a: Patient What is your living situation today?: I have a steady place to live Within the past 12 months, did the food you bought not last and you didn't have the money to get more?: Never true Within the past 12 months, did you worry whether your food would run out before you got money to buy more?: Never true Do you have trouble paying for medicines?: No Do you have trouble getting transportation to medical appointments?: Yes Do you have trouble paying your heating and electricity bill?: No Do you have trouble taking care of your child, family member or friend?: I choose not to answer this question Do you have trouble with day-to-day activities such as bathing, preparing meals, shopping, managing finances, etc.?: Yes Are you currently unemployed and looking for a job?: No Are you interested in more education?: No Please select the resources that you would like help with: Food, Transportation and Care for elder or disabled Currently or been in a relationship where the following occur: No concerns reported THRIVE Score: 1 AUDIT C Alcohol Use Questionnaire (AUDIT-C) 1. How often do you have a drink containing alcohol?: Never 2. How many drinks containing alcohol do you have on a typical day when you are drinking?: 1 or 2 3. How often do you have six or more drinks on one occasion?: Never Total Score: 0 Score Reviewed/Action Taken: Yes KELLEY-7 AMB Questionnaire KELLEY-7 Date KELLEY - 7 assessed: 09/09/24 Feeling nervous, anxious, or on edge: 1 = Several days Not being able to stop or control worryin = Several days Worrying too much about different things: 1 = Several days Trouble relaxin = More than half the days Being so restless that it is hard to sit still: 0 = Not at all Becoming easily annoyed or irritable: 1 = Several days Feeling afraid as if something awful might happen: 0 = Not at all Total KELLEY-7 score (0-4 normal; 5-9 mild; 10-14 moderate; 15-21 severe): 6 Source: Developed by Drs. Sandeep Crenshaw, Yasmin Lancaster, Armando Capone and colleagues, with an educational sharath from [employer]. Review of Systems Const Denies body aches, Denies chills, Denies fever(s), Denies headache(s) and Denies poor appetite Eyes Reports no additional complaints ENT Reports dysphagia, Denies dizziness, Denies headache(s) and Denies odynophagia Card Denies chest pain, Denies edema, Denies lightheadedness and Denies dyspnea Resp Denies cough and Denies dyspnea GI Denies abdominal pain, Reports dysphagia, Denies nausea, Denies odynophagia and Denies vomiting Reports no additional complaints Musc Reports no additional complaints and Denies abnormal gait Skin/Breast Reports system reviewed and no additional complaints, except as documented Neuro Denies abnormal gait, Denies dizziness and Denies headache(s) Psych Reports no additional complaints Physical exam (Primary Care) Vital Signs: Last Vital Signs Temp 97.1 F 05/13/25 10:35 Pulse 65 05/13/25 11:02 BP 130/62 05/13/25 10:35 Pulse Ox 99 05/13/25 11:01 Oxygen Delivery Method Room Air 05/13/25 11:01 Tobacco/Smoking Status: Tobacco use Status Tobacco use date assessed 05/13/25 05/13/25 10:38 Patient Tobacco Use Status Never used Tobacco 05/13/25 10:38 e-Cigarette/Vaping Use Never Used 05/13/25 10:38 PHQ-9: PHQ-9 Score PHQ-9: Total score 3 05/13/25 12:35 Depression Screening Interpretation: Negative Thrive Assessment: Date of Thrive Assessment Date Thrive assessed 01/31/25 05/13/25 10:38 Currently or been in a relationship where the following occur: No concerns reported Const General: cooperative, healthy appearing, comfortable and no acute distress Orientation/consciousness: patient oriented x3 [facility] Head: Yes normocephalic Ears: hearing grossly normal bilaterally General nose exam: Normal external nose present Eyes General: appearance normal, both eyes and all related structures Conjunctivae: conjunctivae normal Neck Neck: Yes full ROM and Yes no lymphadenopathy Resp Effort & Inspection: normal respiratory effort Auscultation: clear to auscultation bilaterally, no crackles, no rales, no rhonchi and no wheezes Cardio Rate: regular rate Rhythm: regular rhythm Skin General skin exam: no rashes or lesions noted Neuro General: patient oriented x3 and Unable to assess gait Gait exam (Neuro): Unable to assess gait Extrem General: Yes normal to inspection, Yes full ROM and No edema Psych Affect: normal affect Attitude: cooperative Insight: Good insight present (Psych) Judgement: Good judgement present (Psych) Coding Level of Care Code Est Pt Level 3 (93124) Diagnoses Urinary bladder incontinence R32 Depression F32.A Essential hypertension I10 Hypertension type: essential hypertension GERD (gastroesophageal reflux disease) K21.9 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 (2) Depression: Code(s): F32.A - Depression, unspecified Category: Medical Plan: For depression he will continue on fluoxetine. (3) Hypertension: Code(s): I10 - Essential (primary) hypertension Category: Medical Qualifiers: Hypertension type: essential hypertension Qualified Code(s): I10 - Essential (primary) hypertension Plan: Continue on current blood pressure medication. Avoid salt intake and encourage healthy diet and regular exercise. (4) GERD (gastroesophageal reflux disease): Code(s): K21.9 - Gastro-esophageal reflux disease without esophagitis Category: Medical Plan: Avoid trigger foods such as citrus, tomato products, soda, caffeine, spicy foods and other foods that may be irritating to your stomach. Avoid laying flat 3-4 hours after eating and elevate the head of the bed 30 degrees to prevent acid from moving into the esophagus. Discussed aspiration precautions (5) Cerebral infarction: Comment: His CTA of brain findings were as follows: 1. 70% stenosis in the proximal left ICA. 2. 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 3. Bilateral proximal ICA dissections with no flow-limiting stenosis. 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 He will be receiving occupational therapy, physical therapy and speech therapy in the home following discharge from SNF Plan We addressed mobility issues, emphasizing the importance of using mobility aids and home modifications. The patient's dysphagia was reviewed, with recommendations for pureed and thickened meals. We talked about the patient's depression and the potential for vascular dementia, highlighting the need for further evaluation and management. Additionally, we discussed the logistics of medical transport and the necessary paperwork for insurance coverage. This note was constructed using voice recognition software. While every effort has been made to ensure accuracy and clinic physician director, still areas may have been included sometimes these areas may affect the content or meeting of the given symptoms. Total time spent caring for the patient today was 30 minutes. This includes time spent before the visit reviewing the chart, time spent during the visit, and time spent after the visit and documentation. Patient was informed and verbally consented to the use of an ambient scribe for clinic note documentation during this visit. Medications: New scopolamine base 1 patch topical Q72H 24 ea 0RF [underpads] As directed 1 ea 0RF R32 - Unspecified urinary incontinence [overnight adult pullups size L] As directed 1 ea 0RF R32 - Unspecified urinary incontinence [Wipes] As directed 1 ea 0RF R32 - Unspecified urinary incontinence Changed From melatonin 5 mg PO BEDTIME PRN Sleep To melatonin 3 mg PO BEDTIME PRN Refilled lansoprazole (Prevacid SoluTab) 30 mg PO BID@0630,1630 60 tabs 3RF
[2025-05-13 10:35] VITALS: BP 130/62; PULSE 56; TEMP 36.2; O2SAT 85
[2025-05-13 11:01] VITALS: O2SAT 99
[2025-05-13 11:02] VITALS: PULSE 65
--- OUTSIDE RECORDS SUMMARY | 2025-05-13 12:09 | XMS_ITS ---
Author Organization [facility] Care Team Providers Care Sr. Payroll Manager Name Role Phone Sotiropoulos, Saud Unavailable Unavaila Mabel Mendez Unavailable Unavailable Marlo Willis Unavailable Unavailable Tru Wolff Unavailable Unavailable Allergies and adverse reactions No Known Allergies Care Team Name Role Address Phone Organization Dates Tru Wolff PCP [address] [place], [address], [facility] (Office): : [facility] 03/04/2025 - 05/09/2025 Saud Sotiropoulos [id number] [place] [address], [address], [place] (Office): : [facility] 03/04/2025 - 05/09/2025 Mabel Higgins [address] [address], [place], [address], [place] (Office): : [facility] 03/04/2025 - 05/09/2025 Marlo Bzdel [address] [place] [address], [address], [facility] (Office): : [facility] 03/04/2025 - 05/09/2025 Imaging Narrative Note Date Imaging Narrative No te 04/14/2025 FEMUR 1 VIEW, RIGHT Comparison: Compared to study performed on 03/18/2025. Reference: [id number] NoteFINDINGS: Comparison is made to 03/18/2025. The patient is status post right hip arthroplasty showing good anatomic alignment and no evidence of hardware malfunction. Moderate to severe right knee degenerative joint changes. Small suprapatellar joint effusion. The soft tissues are unremarkable.CONCLUSION: 1. No acute fracture or hardware abnormality. 2. Moderate to severe right knee degenerative joint changes. 3. Small suprapatellar joint effusion.ELECTRONICALLY SIGNED BY DANA COSBY M.D. 04/13/2025 9:16:50 PM EDT.Reason for Study: G89.11 ACUTE PAIN DUE TO TRAUMAPrincipal Result Railcar Switcher: DANA COSBY ([id number])Rotary Rig Engine Operator: ARIANA MCKEON (MIGUEL)Batch Trucker Rotary Rig Engine Operator: SARMAD 04/14/2025 HIP UNI W OR W/O PEL VIS 2-3 V, RIGHTSee NoteFINDINGS: The patient is status post bilateral hip arthroplasty showing good anatomic alignment and no evidence of hardware collection. There is no acute fracture. Moderate degenerative changes in the inferior lumbar spine. Moderate stool in the rectum.CONCLUSION: 1. No hardware abnormality. No acute fracture. 2. Moderate rectal stool.ELECTRONICALLY SIGNED BY DANA COSBY M.D. 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 03/04 Ambulatory Encounter CPT Code = [id number] Type 2 diabetes mellitus without [facility] Address: [address] [place] [address]. 03/04 Ambulatory Encounter CPT Code = [id number] [facility] Address: [address] [place] [address]. 03/04 Ambulatory Encounter CPT Code = [id number] Gastroesophageal reflux disease without esophagitis [facility] Address: [address] [place] [address]. 03/04 Ambulatory Encounter CPT Code = [id number] Benign prostatic hyperplasia [facility] Address: [address] [place] [address]. 03/04 Ambulatory Encounter CPT Code = [id number] Anxiety disorder [facility] Address: [address] [place] [address]. 03/04 Ambulatory Encounter CPT Code = [id number] Major depression, single episode [facility] Address: [address] [place] [address]. 03/04 Ambulatory Encounter CPT Code = [id number] Undernutrition [facility] Address: [address] [place] [address]. 03/04 Ambulatory Encounter CPT Code = [id number] Muscle atrophy [facility] Address: [address] [place] [address]. 03/04 Ambulatory Encounter CPT Code = [id number] Hyperlipidemia [facility] Address: [address] [place] [address]. 03/04 Ambulatory Encounter CPT Code = [id number] Essential hypertension [facility] Address: [address] [place] [address]. 03/04 Ambulatory Encounter CPT Code = [id number] Pulmonary embolism [facility] Address: [address] [place] [address]. 03/04 Goals Section Goals Description Status Target Date I will attend/participate in activities of choice (Specify i.e.3-5 times weekly) by next review date. Active 06/16/2025 I will maintain optimal stat us and quality of life within limitations imposed by Hemiplegia/Hemiparesis (specify) through next review date. Active 06/16/2025 I plan to discharge to: To C ommunity with Family, Pending outcome of therapy sessions, clinical medical stability progress reviewed weekly. Active 06/16/2025 I will be able to communicat e effectively and with dignity with my care team, and to have my needs met through the review Active 06/16/2025 I will be at reduced risk fo r adverse drug reactions through the review date. Active 06/16/2025 I will be at reduced risk fo r complications of self care performance deficit and impaired mobility daily through the review date. Active 06/16/2025 I will be free from discomfo rt and adverse effects of pain medication through the review date. Active 06/16/2025 I will be free from discomfo rt or adverse side effects of anticoagulant therapy through the review date. Active 025 I will be free from discomfo rt or adverse side effects related to anti-depressant therapy through the review date. Active 06/16 I will be free from discomfo rt or adverse side effects related to hypnotic therapy through the review date. Active 06/16/2025 I will be free from infection through the next r eview date. Active 06/16/2025 I will be free from s/sx of complications of cardiac problems through the review date. Active 06/16/2025 I will be free from s/sx of dehydration through next review date. Active 06/16/2025 I will be free of fall relat ed injury through the next review date. Active 06/16/2025 I will have improved mood state through the revi ew date. Active 06/16/2025 I will have no complications related to diabetes through the review date. Active 06/16/2025 I will have no complications related to hyperthyroidism through the review date. Active 06/16/2025 I will maintain adequate nut ritional status as evidenced by maintaining weight within +/-5% of CBW, no s/sx of malnutrition, and consuming >51% of all meals daily through review date. Active 06/16/2025 I will maintain or improve m y independence and mobility through review date. Active 06/16/2025 I will not have discomfort r elated to side effects of analgesia through the review date. Active 06/16/2025 I will not have skin breakdo wn due to incontinence through the review date. Active 06/16/2025 I will not have skin breakdo wn due to incontinence through the review date. Active 06/16/2025 I will remain free from disc omfort and complications related to gastro-esophageal reflux through the review date. Active 05/22 I will verbalize adequate re lief of pain or ability to cope with incompletely relieved pain through the review date. Active My risk for ridley will be mitigated through revi ew date. Active 06/16/2025 My risk for respiratory comp lications and infections will be mitigated through the review date. Active 06/16/2025 My risk for respiratory comp lications related to my shortness of breath will be mitigated through the review date. Active 05/22 My skin integrity will be im proved or maintained by next review date. Active 06/16/2025 The resident will have intac t skin, free of redness, blisters, or discoloration through review date. Active 06/16/2025 The resident's advance direc tives are in effect and their wishes will be carried out through the next review. Active Functional Status Code Name Recorded Time Value Entered By Eating 05/09/2025 Supervision or t ouching assistance jocab Lying to sitting on side of bed 05/09/2025 Supervision or touching assistance jocab Oral hygiene 05/09/2025 Supervision or t ouching assistance jocab Personal hygiene 05/09/2025 Supervision or touching assistance jocab Shower/bathe self 05/09/2025 Supervision or touching assistance jocab Sit to lying 05/09/2025 Supervision or t ouching assistance jocab Toilet transfer 05/09/2025 Supervision or t ouching assistance jocab Toileting hygiene 05/09/2025 Supervision or touching assistance jocab Immunizations Immunization Status Vaccine Details Vaccine Code CodeSystem Date Notes (Shingles) Vaccine completed zoster vaccine recombinant 187 CVX created date: 03/08/2025 administer ed date: 03/12/2018 (Pneumococcal) PCV13- Conjugate 13-valent Vaccine completed pneumococcal conjugate vaccine, 13 valent 133 CVX created date: 03/08/2025 administer ed date: 05/07/2017 (Influenza) FLUAD - Adjuvanted - High Dose - 65+ completed Influenza, adjuvanted, inactivated, trivalent, injectable, preservative free lotNumber: [id number] expiry: 11/23/2025 Mfg: FLUAD (Seqirus) Given 0.5 ml Left Deltoid intramuscularly 168 CVX created date: 04/26/2025 consent date: 04/26/2025 administer ed date: 04/26/2025 Educated by on 04/26/2025 (Influenza) FLUAD - Adjuvanted - High Dose - 65+ completed Influenza, adjuvanted, inactivated, trivalent, injectable, preservative free 168 CVX created date: 03/08/2025 administer ed date: 04/01/2024 (COVID-19) [id number] Updated Pfizer Vaccine completed SARS-COV-2 (COVID-19) vaccine, mRNA, spike protein, LNP, preservative free, lillie-sucrose, 30 mcg/0.3 mL dose 309 CVX created date: 03/08/2025 administer ed date: 04/01/2024 Medications Section Medication Name Status Code CodeSystem Dose Route Frequency Admin Type Sig Text Start Date End Date Indication FLUoxetine HCl Oral Solution 20 MG/5ML active 79815 6 RXNORM 2.5 ml Oral one time a day Routin e Give 2.5 ml by mouth one time a day for ANTID EPRES SANTS 2024 - ANTIDEPRESS ANTS Losartan Potassium Oral Tablet 25 MG active 39565 5 RXNORM 1 table t Oral one time a day Routin e Give 1 table t by mouth one time a day for ANTIH YPERT ENSIV ES 2024 - ANTIHYPERTE NSIVES traMADol HCl Oral Tablet 50 MG active 04121 3 RXNORM 1 table t Oral as needed PRN Give 1 table t by mouth every 4 hours as neede d for pain 2024 - pain Cholecalcif sharon Oral Tablet 25 MCG (1000 UT) active 2 RXNORM 1 table t Oral one time a day Routin e Give 1 table t by mouth one time a day for VITAM INS 2024 - VITAMINS Ascorbic Acid Oral Tablet 500 MG active 10102 3 RXNORM 2 table t Oral every 12 hours Routin e Give 2 table t by mouth every 12 hours for VITAM INS 2024 - VITAMINS Finasteride Oral Tablet 5 MG active 52706 6 RXNORM 1 table t Oral one time a day Routin e Give 1 table t by mouth one time a day for GENIT OURIN MARY AGENT S - MISCE LLANE OUS, DERMA TOLOG ICALS , CHEMI 2024 - GENITOURINA RY AGENTS - MISCELLANEO US, DERMATOLOGI CALS, CHEMI Scopolamine Transdermal Patch 72 Hour 1 MG/3DAYS aborted 08685 2 RXNORM 1 packe t Transd ermal every 72 hours Routin e Apply 1 packe t trans derma lly every 72 hours for ANTIE METIC S 05/03 ANTIEMETICS Melatonin Oral Tablet 5 MG aborted 37457 2 RXNORM 1 table t Oral as needed PRN Give 1 table t by mouth every 24 hours as neede d for ULCER DRUGS /ANTI SPASM ODICS /ANTI CHOLI NERGI CS, CHEMI CALS 04/22 ULCER DRUGS/ANTIS PASMODICS/A NTICHOLINER GICS, CHEMICALS Multivitami n Oral Tablet active 1 table t Oral one time a day Routin e Give 1 table t by mouth one time a day for MULTI VITAM INS 2024 - MULTIVITAMI NS Magnesium Oral Tablet 400 MG active 1 table t Oral one time a day Routin e Give 1 table t by mouth one time a day for BUSINESS INFORMATION ANALYST ALS & ELECT ROLYT ES 2024 - MINERALS & ELECTROLYTE S Atorvastati n Calcium Oral Tablet 40 MG active 53089 1 RXNORM 1 table t Oral at bedtime Routin e Give 1 table t by mouth at bedti me for ANTIH YPERL IPIDE MICS 2024 - ANTIHYPERLI PIDEMICS Lansoprazol e Oral Tablet Delayed Release Disintegrat ing 30 MG active 04808 0 RXNORM 1 table t Oral two times a day Routin e Give 1 table t by mouth two times a day for ULCER DRUGS /ANTI SPASM ODICS /ANTI CHOLI NERGI CS, CHEMI CALS 2024 - ULCER DRUGS/ANTIS PASMODICS/A NTICHOLINER GICS, CHEMICALS guaiFENesin ER Oral Tablet Extended Release 12 Hour 600 MG active 73960 2 RXNORM 1 table t Oral as needed PRN Give 1 table t by mouth every 12 hours as neede d for COUGH /COLD /ALIA RGY 2024 - COUGH/COLD/ ALLERGY Carboxymeth ylcellulose Sodium Ophthalmic Gel 1 % active 11384 7 RXNORM 2 drop Ophtha lmic every 12 hours Routin e Insti ll 2 drop in both eyes every 12 hours for OPHTH ALMIC AGENT S, CHEMI CALS 2024 - OPHTHALMIC AGENTS, CHEMICALS Levothyroxi ne Sodium Oral Tablet 75 MCG active 05314 2 RXNORM 1 table t Oral in the morning Routin e Give 1 table t by mouth [facility] for THYRO ID AGENT S, CHEMI CALS 2024 - THYROID AGENTS, CHEMICALS Eliquis Oral Tablet 5 MG active 89260 47 RXNORM 2 table t Oral every 12 hours Routin e Give 2 table t by mouth every 12 hours for ANTIC OAGUL ANTS for 7 Days AND Give 1 table t by mouth every 12 hours for ANTIC OAGUL ANTS 03/12 ANTICOAGULA NTS 15647 47 RXNORM 1 table t Oral every 12 hours Routin e Give 2 table t by mouth every 12 hours for ANTIC OAGUL ANTS for 7 Days AND Give 1 table t by mouth every 12 hours for ANTIC OAGUL ANTS 2024 - ANTICOAGULA NTS Aspirin Oral Tablet active 81 mg Oral one time a day Routin e Give 81 mg by mouth one time a day for ANALG ESICS - Loli rcoti c, HEMAT OLOGI RENALDO AGENT S - MISC. 2024 - ANALGESICS - NonNarcotic , HEMATOLOGIC AL AGENTS - MISC. Tamsulosin HCl Oral Capsule 0.4 MG active 15054 9 RXNORM 2 capsu le Oral at bedtime Routin e Give 2 capsu le by mouth at bedti me for GENIT OURIN MARY AGENT S - MISCE LLANE OUS 2024 - GENITOURINA RY AGENTS - MISCELLANEO US Bisacodyl Rectal Suppository 10 MG active 9 RXNORM 1 suppo sitor y Rectal as needed PRN Inser t 1 suppo sitor y recta lly every 24 hours as neede d for Const ipati on Give 1 Suppo sitor y (10mg ) via rectu m if no resul ts from Milk of Magne colin after 24 hours . 2024 - Constipatio n Fleet Enema Rectal Enema 7-19 GM/118ML active 15658 5 RXNORM 1 appli cator Rectal as needed PRN Inser t 1 appli cator recta lly as neede d for Const ipati on Give 1 appli cator full (118 ml)if no resul ts from Bisac odyl suppo sitor y. 2024 - Constipatio n Milk of Magnesia Oral Suspension 400 MG/5ML active 02390 7 RXNORM 30 ml Oral as needed PRN Give 30 ml by mouth every 24 hours as neede d for Const ipati on Give 30ml by mouth if no bowel movem ent in 3 days (9 Shift s). 2024 - Constipatio n Docusate Sodium Oral Tablet 100 MG active 79667 79 RXNORM 1 table t Oral one time a day Routin e Give 1 table t by mouth one time a day for const ipati on 2024 - constipatio n Sennosides Tablet 8.6 MG active 58510 5 RXNORM 1 table t Oral two times a day Routin e Give 1 table t by mouth two times a day for const ipati on 2024 - constipatio n Acetaminoph en Oral Tablet 325 MG active 09232 2 RXNORM 3 table t Oral as needed PRN Give 3 table t by mouth every 8 hours as neede d for pain do not give more than 3000m g withi n a 24 hour perio d 2024 - pain Sodium Chloride Solution 0.9 % active 07960 46 RXNORM 10 ml Intrav enous as needed PRN Use 10 ml intra venou sly as neede d for flush 2024 - flush traZODone HCl Oral Tablet [place] [address] 7 RXNORM 12.5 mg Oral as needed PRN Give 12.5 mg by mouth every 8 hours as neede d for Anxie ty for 14 Days 04/13 Anxiety Voltaren External Gel 1 % aborted 14963 5 RXNORM n/a n/a Topica l two times a day Routin e Apply to Base of Thumb s-MCP joint s topic ally two times a day for Pain 04/15 Pain Diclofenac Sodium External Gel 1 % active 80522 3 RXNORM n/a n/a Topica l one time a day Routin e Apply to Right knee topic ally one time a day for Apply 2g to riogh t knee qd for pain 2024 - Apply 2g to rioght knee qd for pain Melatonin Tablet 3 MG active 3 RXNORM 3 table t Oral at bedtime Routin e Give 3 table t by mouth at bedti me for Insom christine 2024 - Insomnia Acetaminoph en Oral Tablet 325 MG active 54323 2 RXNORM 2 table t Oral two times a day Routin e Give 2 table t by mouth two times a day for Pain 2024 - Pain Fluad Intramuscul ar Suspension Prefilled Syringe 0.[place] [address] 50 RXNORM 0.5 ml Intram uscula r one time only One Time Only Injec t 0.5 ml intra muscu larly one time only for Immun izati on relat ed to [facility] (PRIM MARY) HYPER TENSI ON (I10) for 2 Days 04/27 Immunizatio n Fluad Intramuscul ar Suspension Prefilled Syringe 0[place] [address] 50 RXNORM 0.5 ml Intram uscula r one time only One Time Only Injec t 0.5 ml intra muscu larly one time only for Immun izati on relat ed to TYPE 2 DIABE GOPAL MELLI TUS WITHO UT COMPL ICATI ONS (E11. 9) for 2 Days 04/28 Immunizatio n Cefpodoxime Proxetil Tablet 200 MG aborted 00557 8 RXNORM 1 table t Oral every 12 hours Routin e Give 1 table t by mouth every 12 hours for UTI for 7 Days 05/04 UTI Azo Tabs Oral Tablet active 2 table t Oral one time a day Routin e Give 2 table t by mouth one time a day for genit ourin mary 2024 - genitourina ry Ciprofloxac in HCl Tablet 250 MG active 19740721 RXNORM 1 table t Oral every 12 hours Routin e Give 1 table t by mouth every 12 hours for UTI for 5 Days 05/10 UTI Mental Status Section Date Assessment Total Score Description 03/22/2025 BIMS 14 cognitively int act PHQ-9 13 moderate depres jono 03/10/2025 BIMS 14 cognitively int act CAM 0 No delirium ind icated PHQ-9 13 moderate depres jono Insurance Providers Plan of Treatment Section Interventions Intervention Code Code System Display Name Proposed D ate Problems Problem # Description Date of onset Resolved Date Code CodeSystem Concern Status 1 HYPERLIPIDEMIA, UNSPECIFIED 03/05/[address] active 2 HYPOTHYROIDISM, UNSPECIFIED 03/05/[address] active 3 TYPE 2 DIABETES MELLITUS WITHOUT COMPLICATIONS 03/05/[address] active 4 BENIGN PROSTATIC HYPERPLASIA WITHOUT LOWER URINARY TRACT SYMPTOMS 03/04/[address] active 5 DYSPHAGIA FOLLOWING CEREBRAL INFARCTION 03/04/[address] active 6 ESSENTIAL (PRIMARY) HYPERTENSION 03/04/[address] active 7 GASTRO-ESOPHAGEAL REFLUX DISEASE WITHOUT ESOPHAGITIS 03/04/[address] active 8 HEMIPLEGIA AND HEMIPARESIS FOLLOWING CEREBRAL INFARCTION AFFECTING RIGHT DOMINANT SIDE 03/04/[address] active 9 MAJOR DEPRESSIVE DISORDER, SINGLE EPISODE, UNSPECIFIED 03/04/[address] active 10 MUSCLE WASTING AND ATROPHY, NOT ELSEWHERE CLASSIFIED, MULTIPLE SITES 03/04/[address] active 11 OTHER SPECIFIED ANXIETY DISORDERS 03/04/[address] active 12 PERSONAL HISTORY OF PULMONARY EMBOLISM 03/04/[address] active 13 UNSPECIFIED PROTEIN-CALORIE MALNUTRITION 03/04/[address] active Reason for Referral No Reasons for Referral Entered Diagnostic Results Radiology Test Results Code Code System Date Test Procedure Status Notes 18646-2 [facility] 04/14/2025 FEMUR 1 VIEW / HIP UNI W OR W/O PELVIS 2-3 V Completed Result for: NATALY LUDWGI ( 1945, M) 99580-0 [facility] 04/13/2025 FEMUR 1 VIEW Final FEMUR 1 VIEW, RIGHT Comparison: Compared to study performed on 03/18/2025. Reference: [id number] NoteFINDINGS: Comparison is made to 03/18/2025. The patient is status post right hip arthroplasty showing good anatomic alignment and no evidence of hardware malfunction. Moderate to severe right knee degenerative joint changes. Small suprapatellar joint effusion. The soft tissues are unremarkable.CONCLUS ION: 1. No acute fracture or hardware abnormality. 2. Moderate to severe right knee degenerative joint changes. 3. Small suprapatellar joint effusion.ELECTRONICA LLY SIGNED BY DANA COSBY M.D. 04/13/2025 9:16:50 PM EDT.Reason for Study: G89.11 ACUTE PAIN DUE TO TRAUMAPrincipal Result Railcar Switcher: DANA COSBY ([id number])Technici an: ARIANA MCKEON ([email or web address])Transcripti on Rotary Rig Engine Operator: SARMAD [id number] [facility] 04/13/2025 HIP UNI W OR W/O PELVIS 2-3 V Final HIP UNI W OR W/O PELVIS 2-3 V, RIGHTSee NoteFINDINGS: The patient is status post bilateral hip arthroplasty showing good anatomic alignment and no evidence of hardware collection. There is no acute fracture. Moderate degenerative changes in the inferior lumbar spine. Moderate stool in the rectum.CONCLUSION: 1. No hardware abnormality. No acute fracture. 2. Moderate rectal stool.ELECTRONICALLY SIGNED BY DANA COSBY M.D. 04/13/2025 9:16:50 PM EDT.Reason for Study: G89.11 ACUTE PAIN DUE TO TRAUMAPrincipal Result Railcar Switcher: DANA COSBY ([id number])Technici an: ARIANA MCKEON ([facility])Transcripti on Rotary Rig Engine Operator: SARMAD Social History Social History Observation Description Start Date End Date Code Code System Current Smoking Status Tobacco smoking consumption unknown [id number] SNOMED CT Sex Assigned At Male 1945 [facility]32-[facility] Gender Identity Sexual Orientation Vital Signs Code Code System Vitals Name Values and Units Timing Information 32494-0 LOINC Pain Level Value=0.0 05/09/2025 9279-1 LOINC Respiratory Rate Value=16.0 Units=/m in 05/08/2025 8462-4 LOINC Blood Pressure-Diastolic Value=69 Un its=mmHg 05/08/2025 8480-6 LOINC Blood Pressure-Systolic Kgbeq=228 Un its=mmHg 05/08/2025 8310-5 LOINC Body Temperature Value=98.0 Units= F 05/08/2025 8867-4 LOINC Heart rate Value=67.0 Units=/min 42895-4 INC O2 % BldC Oximetry Value=99.0 Units= % 05/08/2025 86053-1 LOINC Weight Ycrfn=825.6 Units=Lbs 03/2025 8302-2 LOINC Height Value=73.0 Units=Inches 03/04/2025
--- OUTSIDE RECORDS SUMMARY | 2025-05-13 12:09 | XMS_ITS | Patient Health Record ---
Author Organization [employer] Address [address] Brianda LUCINDA KENNEDY [address] Care Team Providers Care Accounts Manager Name Role Phone KEN GALLARDO Unavailable [phone] Reason For Referral No Information Medications Medication [...] W/U Status Risk Notes Problem Ulcerative colitis (54557671) Ulcerative colitis, unspecified (556.9) 05/16/20 14 Active confirmed [id number]- Problem Deep vein thrombosis (931916756) DVT (451.19) 05/16/20 14 Problem resolved confirmed [id number]- Problem Pulmonary embolism with infarction (2146787252658) Pulmonary embolism and infarction, other (415.19) 05/16/20 14 Problem resolved confirmed [id number]- Problem General examination of patient (746560193) Annual exam (V70.0) 05/16/20 14 Problem resolved confirmed [id number]- Problem History of multiple allergies (situation) (776650345) Allergies (477.0) 05/16/20 14 Problem resolved confirmed [id number]- Problem Long-term current use of anticoagulant (651639374) Anticoagulation followup (V58.61) 08/12/19 15 Problem resolved confirmed [id number]- Plan Of Treatment No Information Insurance Providers Payer Name Payer Address Payer Phone Subscriber Number Group Number Insured Name Patient Relationship to Insured Coverage Start Date [place]age End Date [place] [address] [address] [place] [phone] [id number] NATALY SAWYER Self - patient is the insured 8 [facility] 1 [address] [place] [address] [id number] NATALY SAWYER Self - patient is the insured 4 Medical (General) History Surgical History Surgery Date(Month/Year) Procedures: RADIATION TX SQ CANCER
--- OUTSIDE RECORDS SUMMARY | 2025-05-13 12:09 | XMS_ITS | Patient Health Record ---
Author Organization [facility] [employer] Billing Info Address [address] [place] [address] [place] [address] Care Team Providers Care Student Union Consultant Name Role Phone BIANKA AMANDA Primary Care Provider CORNELL Galeano [phone] Reason For Referral No Information Medications Medication [...] Date Status Comme nts PNEUMOCOCCAL 13 CONJ ([id number]) Unknown 06/28/2016 Adm inistered FLU (Past vaccine of unknown type) Unknown 06/27/2016 A dministered Problems Problem Type SNOMED Code ICD Code Onset Dates Problem Status W/U Status Risk Notes Problem Localized, primary osteoarthritis of the pelvic region and thigh (120236712) Primary localized osteoarthrosis, pelvic region and thigh (715.15) Active confirmed Migrated- ProblemLi [id number] [facility] - Ortho-10/19 Problem Polycythemia vera (624763229) Polycythemia vera (D45) Active confirmed Problem 36028438 Hyperlipidemia, unspecified (E78.5) Active confirmed Problem 22811621 Essential (primary) hypertension (I10) Active confirmed Problem 440081073 Unspecified osteoarthritis, unspecified site (M19.90) Active confirmed Problem 44917076 Pain in right hip (M25.551) Active confirmed Problem 63057752 Pain in left hip (M25.552) Active confirmed Problem 51936577 Pain in left knee (M25.562) Active confirmed Problem Ataxic gait (39912393) Ataxic gait (R26.0) Active confirmed Problem 24109133 Unspecified abnormalities of gait and mobility (R26.9) Active confirmed Problem History of malignant neoplasm of esophagus (728039279) Personal history of malignant neoplasm of esophagus (Z85.01) Active confirmed Problem 12554180 Hypertension (401.9) Active confirmed Problem 54194763 Hyperlipidemia (272.4) Active confirmed Problem Gait abnormality (71691167) Gait abnormality (781.2) Active confirmed Problem Polycythemia vera (506251152) Polycythemia vera (238.4) Active confirmed Problem 01476588 Left knee pain (M25.562) Active confirmed Problem Antepartum deep phlebothrombosis (61808892) DVT (deep vein thrombosis) in (O22.30) Active confirmed Problem 62966913 Right hip pain (M25.551) Active confirmed Problem 366829865 Insomnia, unspecified type (G47.00) Active confirmed Problem 063805462 Acute embolism and thrombosis of deep vein of lower extremity, left (I82.402) Active confirmed Plan Of Treatment Pending Test Test Name Order Date PROTHROMBIN/INR TIME (77706) 05/30/20 14 BLOOD COUNT; COMPLETE CBC, A UTOMATED (HGB, HCT, RBC, WBC, & PLATELET) & AUTOMATED DIFFERENTIAL WBC (81195) CBC 05/15/2015 PT/INR (COLH-PTINR) 07/10/2015 Insurance Providers Payer Name Payer Address Payer Phone Subscriber Number Group Number Insured Name Patient Relationship to Insured Coverage Start Date Coverage End Date MEDICARE [place] PART B [address] [facility] JESSE TURK [id number] [phone] [id number] Aaron Ludwig Self - patient is the insured 2 2 [facility] [address] [facility] [employer]MNITY [place]AN [place], [place] [phone] [id number] Aaron Ludwig Self - patient is [...]
--- OUTSIDE RECORDS SUMMARY | 2025-05-13 12:09 | XMS_ITS | Patient Health Record ---
Author Organization [facility] [employer] Address [address] [place] [address] Care Team Providers Care Reel Tender Name Role Phone Brynn WELSH, Lacey Primary Care Provider Unavail able Jeet Pavon Jr Unavailable Genevieve Hargrove Unavailable Unavailable Reason For Referral No Information Plan Of Treatment No Information Insurance Providers Payer Name Payer Address Payer Phone Subscriber Number Group Number Insured Name Patient Relationship to Insured Coverage Start Date Coverage End Date MEDICARE OF [place] [address] [place] [address] [id number] NATALY SAWYER Self - patient is the insured [facility] [address] [place] [phone] [id number] NATALY SAWYER Self - patient is the insured
--- OUTSIDE RECORDS SUMMARY | 2025-05-13 12:09 | XMS_ITS | Patient Health Record ---
Author Organization [facility] Address [address] [place] [address] Care Team Providers Care Steam Shovelman Name Role Phone Brynn WELSH, [facility] Primary Care Provider Unavail able Edmund Mathis Unavailable [phone] Reason For Referral No Information Medications Medication SIG (Take, Route, Frequency, Duration) Notes Start Date End Date Status amLODIPine Besylate 5 MG Oral; Duration: 90 Active Simvastatin 40 MG Oral; Duration: 90 Active Levothyroxine Sodium 75 MCG Oral; Duration: 90 Active traZODone HCl 50 MG Oral; Duration: 30 Not-Taking oxyCODONE HCl 5 MG Oral; Duration: 11 Not-Taking LORazepam 1 MG Oral; Duration: 90 Not-Taking AFO-Hinged as directed Wear Daily; Duration: as needed Active Warfarin Sodium 5 MG Oral; Duration: 90 Active Social History Tobacco Use: Social History Observation Description Date Details (start date - stop date) Never Smoker NA - NA Tobacco Use/Smoking Question Answer Notes Are you a: nonsmoker Additional Findings: Tobacco Non-User Current no n-smoker Alcohol Screen Question Answer Notes Did you have a drink containing alcohol in the p ast year? Yes Points 0 Interpretation Negative Tobacco use other than smoking: Question Answer Notes Are you an other tobacco user? No Problems Problem Type SNOMED Code ICD Code Onset Dates Problem Status W/U Status Risk Notes Problem Localized, primary osteoarthritis of the ankle and/or foot (810863660) Primary osteoarthrit is, right ankle and foot (M19.071) Active confirmed Problem Localized, primary osteoarthritis of the ankle and/or foot (776365100) Primary osteoarthrit is, left ankle and foot (M19.072) Active confirmed Plan Of Treatment Pending Test Test Name Order Date X ray : Foot, left 3V 03/11/2018 X ray : Foot, right 3V 03/11/2018 Insurance Providers Payer Name Payer Address Payer Phone Subscriber Number Group Number Insured Name Patient Relationship to Insured Coverage Start Date Coverage End Date Medicare National [employer] [address] [place] [address] [id number] Aaron Ludwig Self - patient is the insured [employer]) [address] [place] [address] [phone] [id number] Aaron Ludwig Self - patient is the insured Medical (General) History Medical History History ICD Code Arthritis Back,Hip,and Knee pain Cancer Crohns disease Colitis Gall bladder problems High blood pressure Thyroid disorder DVT, thrombophlebitis Joint implants/screws Pulmonary embolism Surgical History Surgery Date(Month/Year) neck surgery - cancer 2007 gall bladder 2016 hip replacement 2017
== END 2025-05-13 11:47 | disposition home or self-care (01) ==
LOC: HO.HMCH 10:32
PROVIDERS: PCP Internal Medicine
DX: R32 Unspecified urinary incontinence (principal); F32.A Depression, unspecified; I63.12 Cerebral infarction due to embolism of basilar artery; I10 Essential (primary) hypertension; K21.9 Gastro-esophageal reflux disease without esophagitis

== ENCOUNTER → 2025-05-13 10:31 | Outpatient (BNVA) | payer MEDICARE, OTHER, SELFPAY | PROVIDERS: PCP Internal Medicine | DX: R32 Unspecified urinary incontinence (principal); F32.A Depression, unspecified; I10 Essential (primary) hypertension; K21.9 Gastro-esophageal reflux disease without esophagitis; I63.12 Cerebral infarction due to embolism of basilar artery | CPT/HCPCS: 96127; 99212 ==

== ENCOUNTER 2025-06-13 12:53 | Outpatient (AMB) | payer MEDICARE, OTHER, SELFPAY ==
--- NOTE | 2025-06-13 12:56 | A.OFFVIS_ITS ---
Intake Visit Reasons: 3m Allergies No Known Allergies Allergy (Verified 05/13/25 10:49) HPI Comments Details: 80 years old man with focal basilar artery stenosis, moderate left internal carotid artery stenosis, cerebral infarction, and multifactorial dementia. He is presenting for a neurology follow-up visit after a stroke. The patient's last visit involved arriving by ambulance. The cause of the stroke was attributed to stenosis of the blood vessels in the head. The patient's condition is a work in progress, requiring [id number]-[id number] care and therapies including swallowing/speech, occupational, and physical therapy multiple times a week. The patient is in a wheelchair and has difficulty with ambulation but can get up to a walker and go to the bathroom independently. The patient has bothersome urinary issues characterized by urgency and nocturnal enuresis, requiring frequent bedding changes. There is a history of an enlarged prostate and the patient has previously seen a urologist, Dr. Garsia, for this. The patient is also taking fluoxetine, and is now learning to swallow tablets. [facility] Medical History Internal carotid artery stenosis Acute CVA (cerebrovascular accident) Closed cervical spine fracture Hospital discharge follow-up Atypical syncope History of lacunar cerebrovascular accident (CVA) Passage of loose stools Cough Constipation Urgency of micturition Urge incontinence Generalized anxiety disorder Patellofemoral arthritis of left knee Hypothyroidism History of double vision BPH (benign prostatic hyperplasia) Hx of ulcerative colitis Polycythemia vera History of DVT (deep vein thrombosis) PND (post-nasal drip) Hyperlipidemia Hypertension Pre-op examination Surgical History Right inguinal hernia (09/05/23) History of colonoscopy (~06/23/09) History of right hip replacement Status post total left knee replacement Status post total left knee replacement Status post left knee replacement H/O total hip arthroplasty History of squamous cell carcinoma excision History of cholecystectomy History of left hip replacement Family History Father No problems noted. Mother No problems noted. Social History Household Members: Spouse Household Members Other:: Housing: House Are you a primary skin care instructor to a significant other at home: No Do you presently have visiting nurse or other home services: No Unable to assess alcohol history related to: Unknown Alcohol intake: current Alcohol intake frequency: holidays/special occasions only Comment: 1:1 sitter Patient Tobacco Use Status: Never used Tobacco e-Cigarette/Vaping Use: Never Used Second Hand Smoke Exposure: No Substance Use Type: Marijuana Advance Directives Date on File: 10/14/22 service: No Current occupational status: retired Cognitive needs: Yes Hearing needs: Yes Vision needs: No Review of Systems Narrative - Neurological: Reports difficulty walking, requiring a walker. - Genitourinary: Reports urinary urgency and incontinence, including nocturnal enuresis. - Psychological: Denies depression but notes distress from being unable to leave the house. - Constitutional: Reports intermittent sleep. - HEENT: Reports difficulty swallowing, requiring therapy. Physical Exam Neuro Other: Mental Status: Alert and oriented to person, place, and time. Normal attention. Normal spontaneous speech, fluency, and comprehension. Cranial Nerves: CN II: Visual palma full to confrontation, visual acuity intact. CN III, IV, : Pupils equal, round, reactive to light and accommodation. Extraocular movements are normal. CN V: Facial sensation is normal. CN VII: Facial movements symmetrical. CN VIII: Hearing intact to bedside conversation is normal. CN IX, X: Palate elevates symmetrically. CN XI: Shoulder shrug and head turn symmetrical. CN XII: Tongue midline without atrophy or fasciculations. He is in a wheelchair. Extrapyramidal: Full facial expressions and blinking. No rigidity. Movements are appropriate with no tremor or abnormality. Speech: Normal; no dysarthria or tremor. Assessment & Plan Assessment & Plan (1) Basilar artery occlusion: Code(s): I65.1 - Occlusion and stenosis of basilar artery Category: Medical (2) Cerebral infarction: Comment: CTA of brain and neck at [facility] in January 2025: 1. 70% stenosis in the proximal left ICA. 2. 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 3. Bilateral proximal ICA dissections with no flow-limiting stenosis. MRI of brain WO at [facility] in January: Left posterior limb of internal capsular acute ischemic infarct and a small lesion also in [employer] territory Code(s): I63.9 - Cerebral infarction, unspecified Category: Medical Qualifiers: Cerebral infarction mechanism: embolism Precerebral and cerebral artery: basilar artery Qualified Code(s): I63.12 - Cerebral infarction due to embolism of basilar artery (3) Multifactorial dementia: Code(s): F03.90 - Unspecified dementia, unspecified severity, without behavioral disturbance, psychotic disturbance, mood disturbance, and anxiety Category: Medical Plan Impression: a: Multifactorial dementia, degenerative plus vascular, moderate b: Basilar artery stenosis/occlusion c: B/L carotid artery disease d: Depression Rec: a: Fluoxetine to 20mg a day b: Continue anticoagulation c: Memantine 5mg bid d: Consult urology for prostate issues e: DC scopolamine patch I explained to the patient and caregiver that the cause of the stroke was related to tight blood vessels in the head. I reassured them that medications like the prescribed blood thinner are intended to help prevent a future stroke. Regarding the significant urinary problems, I advised that this issue is best managed by the patient's urologist, as it is likely related to the prostate and is outside my specialty. I agreed to change the fluoxetine 20 mg prescription from liquid to a tablet to simplify administration for the caregiver and sent it to their preferred pharmacy. I also informed them that I am prescribing memantine for memory support. I signed the order for a new barium swallow study as requested by the patient's swallowing therapist. I recommended a follow-up appointment in six months. Medications: New fluoxetine 20 mg PO DAILY 90 tabs 1RF memantine (Namenda) 5 mg PO BID 180 tabs 0RF Coding Level of Care Code Est Pt Level 3 (74986) Diagnoses Basilar artery occlusion I65.1 Cerebral infarction due to embolism of basilar artery I63.12 Cerebral infarction mechanism: embolism Precerebral and cerebral artery: basilar artery Multifactorial dementia F03.90
== END 2025-06-13 13:15 | disposition home or self-care (01) ==
LOC: HO.HSM 12:54
PROVIDERS: PCP Internal Medicine; Visit Provider Psychiatry & Neurology Neurology
DX: I65.1 Occlusion and stenosis of basilar artery (principal); I63.12 Cerebral infarction due to embolism of basilar artery; F03.90 Unspecified dementia, unspecified severity, without behavioral disturbance, psychotic disturbance, mood disturbance, and anxiety
CPT/HCPCS: 99213

== ENCOUNTER → 2025-06-13 12:53 | Outpatient (BNVA) | payer MEDICARE, OTHER, SELFPAY | PROVIDERS: PCP Internal Medicine; Visit Provider Psychiatry & Neurology Neurology | DX: I63.12 Cerebral infarction due to embolism of basilar artery (principal); F03.90 Unspecified dementia, unspecified severity, without behavioral disturbance, psychotic disturbance, mood disturbance, and anxiety; N39.44 Nocturnal enuresis; I10 Essential (primary) hypertension; N32.81 Overactive bladder | CPT/HCPCS: 99212 ==